=== PATIENT | male | born 1960 | race Asian ===

== ENCOUNTER 2020-08-08 19:54 | Emergency (ER) | payer OTHER, MEDICAID ==
[~2020-08-08] VITALS: Ht 162.6 cm; Wt 64.4 kg
[2020-08-08 20:03] VITALS: BP_SYST 99
[2020-08-08] MEDS ORDERED: TAMS-11 PO (20:19)
[2020-08-08] MEDS ORDERED: LIP40 PO (20:19)
[2020-08-08] MEDS ORDERED: DOCU-144 PO (20:19)
[2020-08-08] MEDS ORDERED: OXYB5TAB16 PO (20:19)
[2020-08-08] MEDS ORDERED: CLOZ50TA PO (20:19)
[2020-08-08] MEDS ORDERED: DIVA-74 PO (20:19)
[2020-08-08] MEDS ORDERED: GLIP5TAB26 PO (20:19)
[2020-08-08 21:27] LABS: RED BLOOD CELL COUNT(AUTO) 3.98 MIL/uL (4.2-6.2)
[2020-08-08 21:29] LABS: CALCIUM 9.2 mg/dL (8.4-11.0); CREATININE 2.6 mg/dL (0.55-1.30); POTASSIUM 4.2 mmol/L (3.5-5.1)
[2020-08-08 21:31] LABS: BASOPHILS # (AUTO) 0.1 K/uL (0.0-0.2); BASOPHILS % (AUTO) 0.8 % (0.0-2.0); EOSINOPHILS # (AUTO) 0.2 K/uL (0.0-0.4); HEMOGLOBIN 12.6 g/dL (14.0-18.0); LYMPHOCYTES % (AUTO) 26.9 % (20.5-51.5); MEAN CORPUSCULAR HEMOGLOBIN 32 pg (27-31); MEAN CORPUSCULAR HGB CONC 32 % (32-36); MEAN CORPUSCULAR VOLUME 98 fL (79.0-98.0); MONOCYTES # (AUTO) 0.4 K/uL (0.0-1.0); MONOCYTES % (AUTO) 5.7 % (1.7-9.3); NEUTROPHILS # (AUTO) 4.8 K/uL (1.8-7.7); NEUTROPHILS % (AUTO) 64.6 % (40.0-70.0); PLATELET COUNT (AUTO) 204 K/uL (130-430); RED CELL DISTRIBUTION WIDTH 16.8 % (9.0-15.0); WHITE BLOOD COUNT (AUTO) 7.5 K/uL (4.8-10.8)
[2020-08-08 21:34] LABS: ALBUMIN 2.9 g/dL (3.4-4.8); TOTAL BILIRUBIN 0.3 mg/dL (0.0-1.0)
[2020-08-08 21:59] LABS: INR 0.9 (0.80-1.20); PROTHROMBIN TIME 9.6 SECS (9.5-12.5)
[2020-08-08 22:12] LABS: C-REACTIVE PROTEIN QUANT 0.2 mg/dL (0-0.5)
[2020-08-08 22:34] VITALS: BP_SYST 110
== END 2020-08-08 22:34 ==
LOC: SED 19:54
DX: R10.9 Unspecified abdominal pain (principal); N28.9 Disorder of kidney and ureter, unspecified; J44.9 Chronic obstructive pulmonary disease, unspecified; E11.9 Type 2 diabetes mellitus without complications; Z79.899 Other long term (current) drug therapy
CPT/HCPCS: 36415; 71045; 76376; 80053; 82150-TC; 83605; 83615-TC; 83690-TC; 84484; 85025; 85610-TC; 85730-TC; 86140; 93005; 99285

== ENCOUNTER 2021-01-29 18:04 | Inpatient (IN) | payer OTHER, MEDICAID, SELFPAY ==
[~2021-01-29] VITALS: Ht 162.6 cm; Wt 68.0 kg
[~2021-01-29 18:04] MED LIST: CLOZ50TA PO; DIVA-74 PO; DOCU-144 PO; GLIP5TAB26 PO; LIP40 PO; OXYB5TAB16 PO; TAMS-11 PO
[2021-01-29 18:05] VITALS: BP_SYST 143
[2021-01-29 19:29] LABS: BASOPHILS % (AUTO) 0.3 % (0.0-2.0); HEMATOCRIT 35.4 % (36-54); HEMOGLOBIN 12.3 g/dL (14.0-18.0); LYMPHOCYTES # (AUTO) 1.2 K/uL (1.0-5.5); MEAN CORPUSCULAR HEMOGLOBIN 33 pg (27-31); MEAN CORPUSCULAR HGB CONC 35 % (32-36); MEAN CORPUSCULAR VOLUME 95 fL (79.0-98.0); MONOCYTES # (AUTO) 1.2 K/uL (0.0-1.0); MONOCYTES % (AUTO) 11.6 % (1.7-9.3); NEUTROPHILS # (AUTO) 7.9 K/uL (1.8-7.7); NEUTROPHILS % (AUTO) 76.1 % (40.0-70.0); PLATELET COUNT (AUTO) 486 K/uL (130-430); RED BLOOD CELL COUNT(AUTO) 3.73 MIL/uL (4.2-6.2); RED CELL DISTRIBUTION WIDTH 14.9 % (9.0-15.0); WHITE BLOOD COUNT (AUTO) 10.3 K/uL (4.8-10.8)
[2021-01-29 19:43] LABS: CALCIUM 11.3 mg/dL (8.4-11.0); CREATININE 2.34 mg/dL (0.55-1.30); POTASSIUM 4.1 mmol/L (3.5-5.1)
[2021-01-29 20:02] LABS: ALBUMIN 2.5 g/dL (3.4-4.8); TOTAL BILIRUBIN 0.2 mg/dL (0.0-1.0)
[2021-01-29 20:23] LABS: BILIRUBIN,URINE NEGATIVE (NEGATIVE); CLARITY/URINE CLEAR (CLEAR); COLOR,URINE YELLOW (YELLOW); GLUCOSE,URINE NEGATIVE (NEGATIVE); KETONES,URINE NEGATIVE (NEGATIVE); LEUKOCYTE ESTERASE ,URINE NEGATIVE (NEGATIVE); NITRITE, URINE NEGATIVE (NEGATIVE); PROTEIN URINE TRACE (NEGATIVE); UROBILINOGEN,URINE 0.2 (0.2-1.0)
[2021-01-29 20:24] LABS: C-REACTIVE PROTEIN QUANT 39.9 mg/dL (0-0.5); INR 0.9 (0.80-1.20); PROTHROMBIN TIME 9.7 SECS (9.5-12.5)
[2021-01-29 20:31] LABS: BLOOD, URINE TRACE (NEGATIVE)
[2021-01-29 20:40] LABS: FIBRINOGEN > 1000 mg/dL (200-400)
[2021-01-29 20:40] LABS: BACTERIA,URINE FEW /HPF (None Seen); RBC,URINE 0-3 /HPF (0-3); WBC,URINE NONE SEEN /HPF (0-3)
[2021-01-29] MEDS ORDERED: FOLI-43 PO (21:02)
[2021-01-29] MEDS ORDERED: ENOXAPARIN SODIUM 60 MG/0.6 ML SYRINGE SUBCUT ONE (21:30)
[2021-01-30] MEDS: D5NS 1,000 ML IV SCH ×3 (04:44→17:30)
[2021-01-30] MEDS ORDERED: ENOXAPARIN SODIUM 60 MG/0.6 ML SYRINGE ONE (04:51)
[2021-01-30 08:25] LABS: BASOPHILS % (AUTO) 0.4 % (0.0-2.0); HEMATOCRIT 34.6 % (36-54); HEMOGLOBIN 11.7 g/dL (14.0-18.0); LYMPHOCYTES # (AUTO) 1.2 K/uL (1.0-5.5); MEAN CORPUSCULAR HEMOGLOBIN 33 pg (27-31); MEAN CORPUSCULAR HGB CONC 34 % (32-36); MEAN CORPUSCULAR VOLUME 97 fL (79.0-98.0); MONOCYTES % (AUTO) 9.8 % (1.7-9.3); NEUTROPHILS # (AUTO) 7.6 K/uL (1.8-7.7); NEUTROPHILS % (AUTO) 77.8 % (40.0-70.0); PLATELET COUNT (AUTO) 426 K/uL (130-430); RED BLOOD CELL COUNT(AUTO) 3.56 MIL/uL (4.2-6.2); RED CELL DISTRIBUTION WIDTH 14.6 % (9.0-15.0); WHITE BLOOD COUNT (AUTO) 9.8 K/uL (4.8-10.8)
[2021-01-30 08:26] LABS: ALBUMIN 2.3 g/dL (3.4-4.8); CALCIUM 10.8 mg/dL (8.4-11.0); CREATININE 2.37 mg/dL (0.55-1.30); POTASSIUM 4.3 mmol/L (3.5-5.1); TOTAL BILIRUBIN 0.3 mg/dL (0.0-1.0)
[2021-01-30 12:00] VITALS: BP_SYST 143
[2021-01-30 16:09] VITALS: BP_SYST 141
[2021-01-30] MEDS ORDERED: COMMUNICATION ORDER XX ONE (17:45)
[2021-01-30] MEDS: glipiZIDE XL 5 MG TAB ( GLUCOTROL XL) PO SCH (18:00)
[2021-01-30 20:00] VITALS: BP_SYST 147
[2021-01-30] MEDS ORDERED: DEXTROSE 50% JECT 50 ML DISP.SYRIN IVP PRN (20:00)
[2021-01-30] MEDS: ATORVASTATIN 20 MG TABLET PO SCH (21:35)
[2021-01-30] MEDS: DIVALPROEX SODIUM 500 MG TABLET( DEPAKOTE) PO SCH (21:36)
[2021-01-30] MEDS: DOCUSATE SODIUM 100 MG CAPSULE PO SCH (21:37)
[2021-01-30] MEDS ORDERED: ALBUTEROL MDI INHALATION 8 GM INH INH PRN (22:45)
[2021-01-30] MEDS: FAMOTIDINE 20 MG TABLET PO SCH (22:45)
[2021-01-30] MEDS: INSULIN REGULAR, HUMAN 100 UNITS/ML, 10 ML VIAL (humuLIN R) SUBCUT PRN (23:32)
[2021-01-31] VITALS: BP_SYST 135
[2021-01-31] MEDS: D5NS 1,000 ML IV SCH (01:14)
[2021-01-31 08:00] VITALS: BP_SYST 153
[2021-01-31] MEDS: glipiZIDE XL 5 MG TAB ( GLUCOTROL XL) PO SCH ×2 (08:00→17:39)
[2021-01-31] MEDS: DOCUSATE SODIUM 100 MG CAPSULE PO SCH ×2 (10:54→21:23)
[2021-01-31] MEDS: FAMOTIDINE 20 MG TABLET PO SCH (10:54)
[2021-01-31] MEDS: OXYBUTYNIN CHLORIDE 5 MG TABLET PO SCH (10:54)
[2021-01-31] MEDS: TAMSULOSIN HCL 0.4 MG CAP PO SCH (10:54)
[2021-01-31] MEDS: DIVALPROEX SODIUM 500 MG TABLET( DEPAKOTE) PO SCH ×2 (10:54→21:22)
[2021-01-31] MEDS: FOLIC ACID 1 MG TABLET PO SCH (10:54)
[2021-01-31] MEDS: ENOXAPARIN SODIUM 30 MG/0.3 ML SYRINGE SUBCUT SCH (10:55)
[2021-01-31 11:34] VITALS: BP_SYST 140
[2021-01-31] MEDS: INSULIN REGULAR, HUMAN 100 UNITS/ML, 10 ML VIAL (humuLIN R) SUBCUT PRN ×2 (12:32→17:42)
[2021-01-31] MEDS ORDERED: INSULIN REGULAR, HUMAN 100 UNITS/ML, 10 ML VIAL SUBCUT ONE ×2 (12:45→15:15)
[2021-01-31] MEDS: NACL 0.9% 1,000 ML IV SCH (15:18)
[2021-01-31 15:35] VITALS: BP_SYST 130
[2021-01-31 20:00] VITALS: BP_SYST 140
[2021-01-31] MEDS: ATORVASTATIN 20 MG TABLET PO SCH (21:22)
[2021-01-31] MEDS ORDERED: ASCORBIC ACID 500 MG TABLET PO SCH (22:45)
[2021-01-31] MEDS: ASCORBIC ACID 500 MG TABLET PO SCH (23:47)
[2021-02-01 00:10] VITALS: BP_SYST 136
[2021-02-01] MEDS: NACL 0.9% 1,000 ML IV SCH ×3 (00:22→21:04)
[2021-02-01] MEDS: INSULIN REGULAR, HUMAN 100 UNITS/ML, 10 ML VIAL (humuLIN R) SUBCUT PRN ×6 (03:28→23:18)
[2021-02-01] MEDS: LORazepam 2 MG/ML VIAL IM PRN (06:36)
[2021-02-01 08:00] VITALS: BP_SYST 145
[2021-02-01] MEDS: TAMSULOSIN HCL 0.4 MG CAP PO SCH (09:00)
[2021-02-01] MEDS: glipiZIDE XL 5 MG TAB ( GLUCOTROL XL) PO SCH ×2 (09:00→18:27)
[2021-02-01] MEDS: CHOLECALCIFEROL (VITAMIN D3) 5,000 UNIT TABLET PO SCH (09:00)
[2021-02-01] MEDS: ASCORBIC ACID 500 MG TABLET PO SCH ×2 (09:00→21:03)
[2021-02-01] MEDS: DOCUSATE SODIUM 100 MG CAPSULE PO SCH ×2 (09:00→21:03)
[2021-02-01] MEDS: FAMOTIDINE 20 MG TABLET PO SCH (09:00)
[2021-02-01] MEDS: OXYBUTYNIN CHLORIDE 5 MG TABLET PO SCH (09:01)
[2021-02-01] MEDS: FOLIC ACID 1 MG TABLET PO SCH (09:01)
[2021-02-01] MEDS: DIVALPROEX SODIUM 500 MG TABLET( DEPAKOTE) PO SCH (09:02)
[2021-02-01] MEDS: ENOXAPARIN SODIUM 30 MG/0.3 ML SYRINGE SUBCUT SCH (09:03)
[2021-02-01 11:21] VITALS: BP_SYST 129
[2021-02-01 16:00] VITALS: BP_SYST 132
[2021-02-01 20:00] VITALS: BP_SYST 131
[2021-02-01] MEDS: ATORVASTATIN 20 MG TABLET PO SCH (21:03)
[2021-02-02] VITALS: BP_SYST 153
[2021-02-02 08:00] VITALS: BP_SYST 139
[2021-02-02] MEDS: glipiZIDE XL 5 MG TAB ( GLUCOTROL XL) PO SCH ×2 (08:00→18:00)
[2021-02-02] MEDS: TAMSULOSIN HCL 0.4 MG CAP PO SCH (08:37)
[2021-02-02] MEDS: DOCUSATE SODIUM 100 MG CAPSULE PO SCH ×2 (08:37→20:36)
[2021-02-02] MEDS: ASCORBIC ACID 500 MG TABLET PO SCH ×2 (08:37→20:36)
[2021-02-02] MEDS: OXYBUTYNIN CHLORIDE 5 MG TABLET PO SCH (08:37)
[2021-02-02] MEDS: FAMOTIDINE 20 MG TABLET PO SCH (08:37)
[2021-02-02] MEDS: FOLIC ACID 1 MG TABLET PO SCH (08:37)
[2021-02-02] MEDS: ENOXAPARIN SODIUM 30 MG/0.3 ML SYRINGE SUBCUT SCH (08:37)
[2021-02-02] MEDS: NACL 0.9% 1,000 ML IV SCH ×2 (08:39→18:30)
[2021-02-02] MEDS: CHOLECALCIFEROL (VITAMIN D3) 5,000 UNIT TABLET PO SCH (08:42)
[2021-02-02 11:40] VITALS: BP_SYST 149
[2021-02-02] MEDS: INSULIN REGULAR, HUMAN 100 UNITS/ML, 10 ML VIAL (humuLIN R) SUBCUT PRN ×3 (12:10→23:00)
[2021-02-02] MEDS: HALOPERIDOL 1 MG TABLET (HALDOL) PO PRN (13:03)
[2021-02-02] MEDS: HALOPERIDOL LACTATE 5 MG/ML VIAL IM PRN (14:12)
[2021-02-02] MEDS: LORazepam 2 MG/ML VIAL IM PRN (14:28)
[2021-02-02 15:40] VITALS: BP_SYST 155
[2021-02-02] MEDS: cefTRIAXone 1 GM in D5W 50 ML IV SCH (19:57)
[2021-02-02] MEDS: AZITHROMYCIN 250 MG in NS 250 ML IV SCH (20:35)
[2021-02-02] MEDS: ATORVASTATIN 20 MG TABLET PO SCH (20:36)
[2021-02-02 20:54] VITALS: BP_SYST 143
[2021-02-03 00:35] VITALS: BP_SYST 135
[2021-02-03 01:17] VITALS: BP_SYST 136
[2021-02-03] MEDS: LORazepam 2 MG/ML VIAL IM PRN (01:22)
[2021-02-03] MEDS: NACL 0.9% 1,000 ML IV SCH ×3 (03:32→22:34)
[2021-02-03 08:00] VITALS: BP_SYST 140
[2021-02-03] MEDS: FOLIC ACID 1 MG TABLET PO SCH (08:38)
[2021-02-03] MEDS: OXYBUTYNIN CHLORIDE 5 MG TABLET PO SCH (08:38)
[2021-02-03] MEDS: DOCUSATE SODIUM 100 MG CAPSULE PO SCH ×2 (08:38→22:22)
[2021-02-03] MEDS: TAMSULOSIN HCL 0.4 MG CAP PO SCH (08:38)
[2021-02-03] MEDS: FAMOTIDINE 20 MG TABLET PO SCH (08:38)
[2021-02-03] MEDS: glipiZIDE XL 5 MG TAB ( GLUCOTROL XL) PO SCH ×2 (08:38→18:03)
[2021-02-03] MEDS: CHOLECALCIFEROL (VITAMIN D3) 5,000 UNIT TABLET PO SCH (08:39)
[2021-02-03] MEDS: ASCORBIC ACID 500 MG TABLET PO SCH ×2 (08:39→22:22)
[2021-02-03] MEDS: ENOXAPARIN SODIUM 30 MG/0.3 ML SYRINGE SUBCUT SCH (08:39)
[2021-02-03] MEDS: INSULIN REGULAR, HUMAN 100 UNITS/ML, 10 ML VIAL (humuLIN R) SUBCUT PRN ×4 (10:56→22:33)
[2021-02-03 12:53] VITALS: BP_SYST 138
[2021-02-03 16:18] VITALS: BP_SYST 125
[2021-02-03] MEDS: cefTRIAXone 1 GM in D5W 50 ML IV SCH (22:19)
[2021-02-03] MEDS: AZITHROMYCIN 250 MG in NS 250 ML IV SCH (22:20)
[2021-02-03] MEDS: ATORVASTATIN 20 MG TABLET PO SCH (22:22)
[2021-02-04 00:38] VITALS: BP_SYST 130
[2021-02-04] MEDS: INSULIN REGULAR, HUMAN 100 UNITS/ML, 10 ML VIAL (humuLIN R) SUBCUT PRN ×5 (02:59→22:35)
[2021-02-04] MEDS: NACL 0.9% 1,000 ML IV SCH ×3 (05:00→17:08)
[2021-02-04 06:52] LABS: BASOPHILS % (AUTO) 0.2 % (0.0-2.0); EOSINOPHILS # (AUTO) 0.3 K/uL (0.0-0.4); EOSINOPHILS % (AUTO) 2.4 % (0.0-4.0); HEMATOCRIT 31.1 % (36-54); HEMOGLOBIN 10.1 g/dL (14.0-18.0); LYMPHOCYTES # (AUTO) 1.4 K/uL (1.0-5.5); LYMPHOCYTES % (AUTO) 12.2 % (20.5-51.5); MEAN CORPUSCULAR HEMOGLOBIN 33 pg (27-31); MEAN CORPUSCULAR HGB CONC 33 % (32-36); MEAN CORPUSCULAR VOLUME 100 fL (79.0-98.0); MONOCYTES # (AUTO) 0.5 K/uL (0.0-1.0); MONOCYTES % (AUTO) 4.4 % (1.7-9.3); NEUTROPHILS # (AUTO) 9.4 K/uL (1.8-7.7); NEUTROPHILS % (AUTO) 80.8 % (40.0-70.0); PLATELET COUNT (AUTO) 393 K/uL (130-430); RED CELL DISTRIBUTION WIDTH 15.7 % (9.0-15.0); WHITE BLOOD COUNT (AUTO) 11.7 K/uL (4.8-10.8)
[2021-02-04 07:27] LABS: CREATININE 2.26 mg/dL (0.55-1.30); POTASSIUM 4.6 mmol/L (3.5-5.1)
[2021-02-04 08:00] VITALS: BP_SYST 125
[2021-02-04] MEDS: CHOLECALCIFEROL (VITAMIN D3) 5,000 UNIT TABLET PO SCH (09:15)
[2021-02-04] MEDS: FOLIC ACID 1 MG TABLET PO SCH (09:16)
[2021-02-04] MEDS: ASCORBIC ACID 500 MG TABLET PO SCH ×2 (09:16→21:31)
[2021-02-04] MEDS: TAMSULOSIN HCL 0.4 MG CAP PO SCH (09:16)
[2021-02-04] MEDS: glipiZIDE XL 5 MG TAB ( GLUCOTROL XL) PO SCH ×2 (09:16→18:42)
[2021-02-04] MEDS: OXYBUTYNIN CHLORIDE 5 MG TABLET PO SCH (09:16)
[2021-02-04] MEDS: FAMOTIDINE 20 MG TABLET PO SCH (09:16)
[2021-02-04] MEDS: DOCUSATE SODIUM 100 MG CAPSULE PO SCH ×2 (09:17→21:31)
[2021-02-04] MEDS: ENOXAPARIN SODIUM 30 MG/0.3 ML SYRINGE SUBCUT SCH (09:22)
[2021-02-04 12:00] VITALS: BP_SYST 124
[2021-02-04] MEDS ORDERED: NS 500 ML IV ONE (14:45)
[2021-02-04 16:00] VITALS: BP_SYST 127
[2021-02-04 19:24] LABS: BILIRUBIN,URINE NEGATIVE (NEGATIVE); BLOOD, URINE 2+ (NEGATIVE); CLARITY/URINE CLEAR (CLEAR); COLOR,URINE YELLOW (YELLOW); GLUCOSE,URINE NEGATIVE (NEGATIVE); KETONES,URINE NEGATIVE (NEGATIVE); LEUKOCYTE ESTERASE ,URINE NEGATIVE (NEGATIVE); NITRITE, URINE NEGATIVE (NEGATIVE); PROTEIN URINE NEGATIVE (NEGATIVE); UROBILINOGEN,URINE 0.2 (0.2-1.0)
[2021-02-04 19:33] LABS: BACTERIA,URINE RARE /HPF (None Seen); WBC,URINE 0-3 /HPF (0-3)
[2021-02-04] MEDS: cefTRIAXone 1 GM in D5W 50 ML IV SCH (21:25)
[2021-02-04] MEDS: ATORVASTATIN 20 MG TABLET PO SCH (21:31)
[2021-02-04] MEDS: AZITHROMYCIN 250 MG in NS 250 ML IV SCH (21:31)
[2021-02-04] MEDS: LORazepam 2 MG/ML VIAL IM PRN (22:26)
[2021-02-04] MEDS ORDERED: OXYMETAZOLINE HCL 0.05% NASAL SPRAY NS PRN (23:00)
[2021-02-04] MEDS: 0.45% NACL 1,000 ML IV SCH (23:57)
[2021-02-05] VITALS: BP_SYST 129
[2021-02-05] MEDS: INSULIN REGULAR, HUMAN 100 UNITS/ML, 10 ML VIAL (humuLIN R) SUBCUT PRN ×4 (02:36→18:48)
[2021-02-05] MEDS: 0.45% NACL 1,000 ML IV SCH (04:13)
[2021-02-05] MEDS: LORazepam 2 MG/ML VIAL IVP PRN (04:28)
[2021-02-05 06:54] LABS: BASOPHILS % (AUTO) 0.3 % (0.0-2.0); EOSINOPHILS # (AUTO) 0.3 K/uL (0.0-0.4); EOSINOPHILS % (AUTO) 2.4 % (0.0-4.0); HEMATOCRIT 35.5 % (36-54); HEMOGLOBIN 11.1 g/dL (14.0-18.0); LYMPHOCYTES # (AUTO) 1.5 K/uL (1.0-5.5); LYMPHOCYTES % (AUTO) 13.4 % (20.5-51.5); MEAN CORPUSCULAR HEMOGLOBIN 32 pg (27-31); MEAN CORPUSCULAR HGB CONC 31 % (32-36); MEAN CORPUSCULAR VOLUME 103 fL (79.0-98.0); MONOCYTES # (AUTO) 0.6 K/uL (0.0-1.0); MONOCYTES % (AUTO) 5.4 % (1.7-9.3); NEUTROPHILS % (AUTO) 78.5 % (40.0-70.0); PLATELET COUNT (AUTO) 360 K/uL (130-430); RED BLOOD CELL COUNT(AUTO) 3.44 MIL/uL (4.2-6.2); WHITE BLOOD COUNT (AUTO) 11.4 K/uL (4.8-10.8)
[2021-02-05 07:37] LABS: ALBUMIN 2.1 g/dL (3.4-4.8); CREATININE 2.22 mg/dL (0.55-1.30); PHOSPHORUS 3.5 mg/dL (2.7-4.5); POTASSIUM 4.2 mmol/L (3.5-5.1); THYROID STIMULATING HORMONE 0.44 uIu/mL (0.36-3.74); TOTAL BILIRUBIN 0.1 mg/dL (0.0-1.0)
[2021-02-05 07:44] VITALS: BP_SYST 124
[2021-02-05] MEDS: D5W 1,000 ML IV SCH ×2 (09:22→17:39)
[2021-02-05] MEDS: ENOXAPARIN SODIUM 30 MG/0.3 ML SYRINGE SUBCUT SCH (09:27)
[2021-02-05] MEDS: CHOLECALCIFEROL (VITAMIN D3) 5,000 UNIT TABLET PO SCH (09:28)
[2021-02-05] MEDS: FAMOTIDINE 20 MG TABLET PO SCH (09:28)
[2021-02-05] MEDS: glipiZIDE XL 5 MG TAB ( GLUCOTROL XL) PO SCH ×2 (09:28→17:55)
[2021-02-05] MEDS: DOCUSATE SODIUM 100 MG CAPSULE PO SCH ×2 (09:28→21:23)
[2021-02-05] MEDS: FOLIC ACID 1 MG TABLET PO SCH (09:28)
[2021-02-05] MEDS: HALOPERIDOL 1 MG TABLET (HALDOL) PO PRN ×3 (09:28→21:32)
[2021-02-05] MEDS: TAMSULOSIN HCL 0.4 MG CAP PO SCH (09:28)
[2021-02-05] MEDS: ASCORBIC ACID 500 MG TABLET PO SCH ×2 (09:28→21:23)
[2021-02-05] MEDS: OXYBUTYNIN CHLORIDE 5 MG TABLET PO SCH (09:28)
[2021-02-05] MEDS: FLUTICASONE PROPIONATE 50 mCg/SPRAY 16 GM NS SCH ×2 (10:26→21:24)
[2021-02-05 12:00] VITALS: BP_SYST 126
[2021-02-05] MEDS ORDERED: AMOX-426 PO (14:56)
[2021-02-05] MEDS ORDERED: OXYM15MI9 NS (14:56)
[2021-02-05] MEDS ORDERED: FLUT16SP16 NS (14:58)
[2021-02-05] MEDS ORDERED: MUCINEX (14:59)
[2021-02-05] MEDS ORDERED: GUAI-723 PO (15:00)
[2021-02-05 16:09] VITALS: BP_SYST 126
[2021-02-05 19:30] VITALS: BP_SYST 132
[2021-02-05] MEDS: cefTRIAXone 1 GM in D5W 50 ML IV SCH (21:21)
[2021-02-05] MEDS: ATORVASTATIN 20 MG TABLET PO SCH (21:23)
[2021-02-06 01:10] VITALS: BP_SYST 118
[2021-02-06] MEDS: LORazepam 2 MG/ML VIAL IVP PRN ×4 (02:18→22:23)
[2021-02-06] MEDS: INSULIN REGULAR, HUMAN 100 UNITS/ML, 10 ML VIAL (humuLIN R) SUBCUT PRN ×5 (02:26→22:07)
[2021-02-06] MEDS: D5W 1,000 ML IV SCH ×2 (04:19→14:00)
[2021-02-06 07:26] LABS: BASOPHILS % (AUTO) 0.4 % (0.0-2.0); EOSINOPHILS # (AUTO) 0.2 K/uL (0.0-0.4); EOSINOPHILS % (AUTO) 2.3 % (0.0-4.0); HEMATOCRIT 33.5 % (36-54); HEMOGLOBIN 10.9 g/dL (14.0-18.0); LYMPHOCYTES # (AUTO) 1.7 K/uL (1.0-5.5); LYMPHOCYTES % (AUTO) 17.5 % (20.5-51.5); MEAN CORPUSCULAR HEMOGLOBIN 33 pg (27-31); MEAN CORPUSCULAR HGB CONC 33 % (32-36); MEAN CORPUSCULAR VOLUME 101 fL (79.0-98.0); MONOCYTES # (AUTO) 0.4 K/uL (0.0-1.0); MONOCYTES % (AUTO) 4.5 % (1.7-9.3); NEUTROPHILS # (AUTO) 7.4 K/uL (1.8-7.7); NEUTROPHILS % (AUTO) 75.3 % (40.0-70.0); PLATELET COUNT (AUTO) 333 K/uL (130-430); RED BLOOD CELL COUNT(AUTO) 3.33 MIL/uL (4.2-6.2); RED CELL DISTRIBUTION WIDTH 15.7 % (9.0-15.0); WHITE BLOOD COUNT (AUTO) 9.8 K/uL (4.8-10.8)
[2021-02-06 08:00] VITALS: BP_SYST 124
[2021-02-06 08:12] LABS: CALCIUM 9.8 mg/dL (8.4-11.0); CREATININE 2.31 mg/dL (0.55-1.30); POTASSIUM 4.1 mmol/L (3.5-5.1)
[2021-02-06] MEDS: OXYBUTYNIN CHLORIDE 5 MG TABLET PO SCH (08:39)
[2021-02-06] MEDS: CHOLECALCIFEROL (VITAMIN D3) 5,000 UNIT TABLET PO SCH (08:39)
[2021-02-06] MEDS: TAMSULOSIN HCL 0.4 MG CAP PO SCH (08:39)
[2021-02-06] MEDS: glipiZIDE XL 5 MG TAB ( GLUCOTROL XL) PO SCH ×2 (08:39→16:23)
[2021-02-06] MEDS: DOCUSATE SODIUM 100 MG CAPSULE PO SCH ×2 (08:39→21:47)
[2021-02-06] MEDS: FOLIC ACID 1 MG TABLET PO SCH (08:40)
[2021-02-06] MEDS: FAMOTIDINE 20 MG TABLET PO SCH (08:40)
[2021-02-06] MEDS: ASCORBIC ACID 500 MG TABLET PO SCH ×2 (08:40→21:47)
[2021-02-06] MEDS: ENOXAPARIN SODIUM 30 MG/0.3 ML SYRINGE SUBCUT SCH (08:42)
[2021-02-06] MEDS: FLUTICASONE PROPIONATE 50 mCg/SPRAY 16 GM NS SCH ×2 (09:00→21:49)
[2021-02-06] MEDS: HALOPERIDOL 1 MG TABLET (HALDOL) PO PRN ×2 (12:40→12:43)
[2021-02-06 12:46] VITALS: BP_SYST 101
[2021-02-06 16:40] VITALS: BP_SYST 104
[2021-02-06 20:15] VITALS: BP_SYST 123
[2021-02-06] MEDS: ATORVASTATIN 20 MG TABLET PO SCH (21:47)
[2021-02-06] MEDS: cefTRIAXone 1 GM in D5W 50 ML IV SCH (21:50)
[2021-02-07 00:19] VITALS: BP_SYST 127
[2021-02-07] MEDS: INSULIN REGULAR, HUMAN 100 UNITS/ML, 10 ML VIAL (humuLIN R) SUBCUT PRN ×6 (03:15→23:16)
[2021-02-07] MEDS: D5W 1,000 ML IV SCH ×3 (03:16→23:13)
[2021-02-07] MEDS: LORazepam 2 MG/ML VIAL IVP PRN ×2 (05:45→15:46)
[2021-02-07 06:50] LABS: BASOPHILS % (AUTO) 0.5 % (0.0-2.0); EOSINOPHILS # (AUTO) 0.2 K/uL (0.0-0.4); EOSINOPHILS % (AUTO) 2.8 % (0.0-4.0); HEMATOCRIT 33.5 % (36-54); HEMOGLOBIN 10.8 g/dL (14.0-18.0); LYMPHOCYTES # (AUTO) 1.6 K/uL (1.0-5.5); MEAN CORPUSCULAR HEMOGLOBIN 32 pg (27-31); MEAN CORPUSCULAR HGB CONC 32 % (32-36); MEAN CORPUSCULAR VOLUME 98 fL (79.0-98.0); MONOCYTES # (AUTO) 0.4 K/uL (0.0-1.0); MONOCYTES % (AUTO) 4.9 % (1.7-9.3); NEUTROPHILS # (AUTO) 5.8 K/uL (1.8-7.7); NEUTROPHILS % (AUTO) 71.8 % (40.0-70.0); PLATELET COUNT (AUTO) 325 K/uL (130-430); RED BLOOD CELL COUNT(AUTO) 3.41 MIL/uL (4.2-6.2); RED CELL DISTRIBUTION WIDTH 15.5 % (9.0-15.0); WHITE BLOOD COUNT (AUTO) 8.1 K/uL (4.8-10.8)
[2021-02-07 07:21] LABS: CALCIUM 9.6 mg/dL (8.4-11.0); CREATININE 2.35 mg/dL (0.55-1.30); POTASSIUM 4.2 mmol/L (3.5-5.1)
[2021-02-07] MEDS: DOCUSATE SODIUM 100 MG CAPSULE PO SCH ×2 (08:39→23:14)
[2021-02-07] MEDS: TAMSULOSIN HCL 0.4 MG CAP PO SCH (08:39)
[2021-02-07] MEDS: CHOLECALCIFEROL (VITAMIN D3) 5,000 UNIT TABLET PO SCH (08:40)
[2021-02-07] MEDS: FOLIC ACID 1 MG TABLET PO SCH (08:40)
[2021-02-07] MEDS: OXYBUTYNIN CHLORIDE 5 MG TABLET PO SCH (08:40)
[2021-02-07] MEDS: ASCORBIC ACID 500 MG TABLET PO SCH ×2 (08:40→23:14)
[2021-02-07] MEDS: FAMOTIDINE 20 MG TABLET PO SCH (08:40)
[2021-02-07] MEDS: ENOXAPARIN SODIUM 30 MG/0.3 ML SYRINGE SUBCUT SCH (08:41)
[2021-02-07] MEDS: glipiZIDE XL 5 MG TAB ( GLUCOTROL XL) PO SCH ×2 (08:43→18:41)
[2021-02-07] MEDS: FLUTICASONE PROPIONATE 50 mCg/SPRAY 16 GM NS SCH ×2 (08:43→23:13)
[2021-02-07] MEDS: HALOPERIDOL 1 MG TABLET (HALDOL) PO PRN (08:44)
[2021-02-07] MEDS: HALOPERIDOL LACTATE 5 MG/ML VIAL IM PRN (10:59)
[2021-02-07 12:00] VITALS: BP_SYST 125
[2021-02-07 16:19] VITALS: BP_SYST 126
[2021-02-07 21:00] VITALS: BP_SYST 135
[2021-02-07] MEDS: cefTRIAXone 1 GM in D5W 50 ML IV SCH (23:12)
[2021-02-07] MEDS: ATORVASTATIN 20 MG TABLET PO SCH (23:14)
[2021-02-08 01:39] VITALS: BP_SYST 107
[2021-02-08] MEDS: INSULIN REGULAR, HUMAN 100 UNITS/ML, 10 ML VIAL (humuLIN R) SUBCUT PRN ×3 (06:30→16:14)
[2021-02-08 08:00] VITALS: BP_SYST 104
[2021-02-08 08:28] LABS: BASOPHILS % (AUTO) 0.6 % (0.0-2.0); EOSINOPHILS # (AUTO) 0.2 K/uL (0.0-0.4); EOSINOPHILS % (AUTO) 2.2 % (0.0-4.0); HEMATOCRIT 35.3 % (36-54); HEMOGLOBIN 11.3 g/dL (14.0-18.0); LYMPHOCYTES # (AUTO) 1.8 K/uL (1.0-5.5); LYMPHOCYTES % (AUTO) 23.5 % (20.5-51.5); MEAN CORPUSCULAR HEMOGLOBIN 32 pg (27-31); MEAN CORPUSCULAR HGB CONC 32 % (32-36); MEAN CORPUSCULAR VOLUME 100 fL (79.0-98.0); MONOCYTES # (AUTO) 0.3 K/uL (0.0-1.0); MONOCYTES % (AUTO) 4.5 % (1.7-9.3); NEUTROPHILS # (AUTO) 5.2 K/uL (1.8-7.7); NEUTROPHILS % (AUTO) 69.2 % (40.0-70.0); PLATELET COUNT (AUTO) 339 K/uL (130-430); RED BLOOD CELL COUNT(AUTO) 3.53 MIL/uL (4.2-6.2); RED CELL DISTRIBUTION WIDTH 15.2 % (9.0-15.0); WHITE BLOOD COUNT (AUTO) 7.5 K/uL (4.8-10.8)
[2021-02-08 09:02] LABS: ALBUMIN 2.1 g/dL (3.4-4.8); CALCIUM 9.7 mg/dL (8.4-11.0); CREATININE 2.45 mg/dL (0.55-1.30); POTASSIUM 4.4 mmol/L (3.5-5.1); TOTAL BILIRUBIN 0.4 mg/dL (0.0-1.0)
[2021-02-08] MEDS: OXYBUTYNIN CHLORIDE 5 MG TABLET PO SCH (09:06)
[2021-02-08] MEDS: TAMSULOSIN HCL 0.4 MG CAP PO SCH (09:06)
[2021-02-08] MEDS: CHOLECALCIFEROL (VITAMIN D3) 5,000 UNIT TABLET PO SCH (09:06)
[2021-02-08] MEDS: ASCORBIC ACID 500 MG TABLET PO SCH ×2 (09:06→20:37)
[2021-02-08] MEDS: DOCUSATE SODIUM 100 MG CAPSULE PO SCH ×2 (09:07→20:37)
[2021-02-08] MEDS: FAMOTIDINE 20 MG TABLET PO SCH (09:07)
[2021-02-08] MEDS: FOLIC ACID 1 MG TABLET PO SCH (09:07)
[2021-02-08] MEDS: ENOXAPARIN SODIUM 30 MG/0.3 ML SYRINGE SUBCUT SCH (09:17)
[2021-02-08] MEDS: FLUTICASONE PROPIONATE 50 mCg/SPRAY 16 GM NS SCH ×2 (09:21→20:38)
[2021-02-08] MEDS: glipiZIDE XL 5 MG TAB ( GLUCOTROL XL) PO SCH ×2 (10:20→18:54)
[2021-02-08] MEDS: LORazepam 2 MG/ML VIAL IVP PRN (10:21)
[2021-02-08] MEDS: D5W 1,000 ML IV SCH ×2 (11:34→20:36)
[2021-02-08 12:00] VITALS: BP_SYST 105
[2021-02-08 16:00] VITALS: BP_SYST 93
[2021-02-08] MEDS: cefTRIAXone 1 GM in D5W 50 ML IV SCH (20:36)
[2021-02-08] MEDS: ATORVASTATIN 20 MG TABLET PO SCH (20:37)
[2021-02-08 22:00] VITALS: BP_SYST 119
[2021-02-09] MEDS: INSULIN REGULAR, HUMAN 100 UNITS/ML, 10 ML VIAL (humuLIN R) SUBCUT PRN ×5 (00:09→18:54)
[2021-02-09] MEDS: D5W 1,000 ML IV SCH ×3 (00:10→22:08)
[2021-02-09 00:21] VITALS: BP_SYST 100
[2021-02-09] MEDS: LORazepam 2 MG/ML VIAL IVP PRN (02:45)
[2021-02-09 06:33] LABS: BASOPHILS # (AUTO) 0.1 K/uL (0.0-0.2); BASOPHILS % (AUTO) 0.7 % (0.0-2.0); EOSINOPHILS # (AUTO) 0.2 K/uL (0.0-0.4); EOSINOPHILS % (AUTO) 2.3 % (0.0-4.0); HEMATOCRIT 32.8 % (36-54); HEMOGLOBIN 10.7 g/dL (14.0-18.0); LYMPHOCYTES # (AUTO) 2.4 K/uL (1.0-5.5); MEAN CORPUSCULAR HEMOGLOBIN 32 pg (27-31); MEAN CORPUSCULAR HGB CONC 33 % (32-36); MEAN CORPUSCULAR VOLUME 97 fL (79.0-98.0); MONOCYTES # (AUTO) 0.5 K/uL (0.0-1.0); MONOCYTES % (AUTO) 5.2 % (1.7-9.3); NEUTROPHILS # (AUTO) 6.2 K/uL (1.8-7.7); NEUTROPHILS % (AUTO) 65.8 % (40.0-70.0); PLATELET COUNT (AUTO) 322 K/uL (130-430); RED BLOOD CELL COUNT(AUTO) 3.37 MIL/uL (4.2-6.2); RED CELL DISTRIBUTION WIDTH 15.2 % (9.0-15.0); WHITE BLOOD COUNT (AUTO) 9.4 K/uL (4.8-10.8)
[2021-02-09 07:02] LABS: ALBUMIN 2.2 g/dL (3.4-4.8); CALCIUM 9.5 mg/dL (8.4-11.0); CREATININE 3.01 mg/dL (0.55-1.30); POTASSIUM 4.6 mmol/L (3.5-5.1); TOTAL BILIRUBIN 0.2 mg/dL (0.0-1.0)
[2021-02-09] MEDS: ENOXAPARIN SODIUM 30 MG/0.3 ML SYRINGE SUBCUT SCH (08:31)
[2021-02-09] MEDS: FOLIC ACID 1 MG TABLET PO SCH (08:32)
[2021-02-09] MEDS: OXYBUTYNIN CHLORIDE 5 MG TABLET PO SCH (08:32)
[2021-02-09] MEDS: ASCORBIC ACID 500 MG TABLET PO SCH ×2 (08:32→22:06)
[2021-02-09] MEDS: FAMOTIDINE 20 MG TABLET PO SCH (08:32)
[2021-02-09] MEDS: TAMSULOSIN HCL 0.4 MG CAP PO SCH (08:32)
[2021-02-09] MEDS: glipiZIDE XL 5 MG TAB ( GLUCOTROL XL) PO SCH ×2 (08:32→18:50)
[2021-02-09] MEDS: DOCUSATE SODIUM 100 MG CAPSULE PO SCH ×2 (08:32→22:07)
[2021-02-09] MEDS: FLUTICASONE PROPIONATE 50 mCg/SPRAY 16 GM NS SCH ×2 (08:33→22:07)
[2021-02-09] MEDS: CHOLECALCIFEROL (VITAMIN D3) 5,000 UNIT TABLET PO SCH (08:34)
[2021-02-09 12:00] VITALS: BP_SYST 109
[2021-02-09 16:11] VITALS: BP_SYST 111
[2021-02-09 20:00] VITALS: BP_SYST 96
[2021-02-09] MEDS ORDERED: ASPIRIN 81 MG TAB.CHEW PO ONE (20:00)
[2021-02-09] MEDS: ATORVASTATIN 20 MG TABLET PO SCH (22:07)
[2021-02-10] VITALS: BP_SYST 113
[2021-02-10] MEDS ORDERED: INSULIN GLARGINE 100 UNITS/ML 10 ML VIAL SUBCUT ONE (00:30)
[2021-02-10] MEDS: 0.45% NACL 1,000 ML IV SCH ×2 (01:23→15:32)
[2021-02-10] MEDS: INSULIN NPH/REGULAR 70-30, 100 UNITS/ML, 10 ML VIAL SUBCUT SCH ×3 (01:27→17:19)
[2021-02-10] MEDS: INSULIN REGULAR, HUMAN 100 UNITS/ML, 10 ML VIAL (humuLIN R) SUBCUT PRN ×4 (03:07→15:27)
[2021-02-10 07:11] LABS: BASOPHILS # (AUTO) 0.1 K/uL (0.0-0.2); BASOPHILS % (AUTO) 0.8 % (0.0-2.0); EOSINOPHILS # (AUTO) 0.2 K/uL (0.0-0.4); EOSINOPHILS % (AUTO) 1.6 % (0.0-4.0); HEMATOCRIT 36.5 % (36-54); HEMOGLOBIN 11.8 g/dL (14.0-18.0); LYMPHOCYTES # (AUTO) 2.1 K/uL (1.0-5.5); LYMPHOCYTES % (AUTO) 21.3 % (20.5-51.5); MEAN CORPUSCULAR HEMOGLOBIN 31 pg (27-31); MEAN CORPUSCULAR HGB CONC 32 % (32-36); MEAN CORPUSCULAR VOLUME 97 fL (79.0-98.0); MONOCYTES # (AUTO) 0.5 K/uL (0.0-1.0); MONOCYTES % (AUTO) 5.2 % (1.7-9.3); NEUTROPHILS # (AUTO) 6.9 K/uL (1.8-7.7); NEUTROPHILS % (AUTO) 71.1 % (40.0-70.0); PLATELET COUNT (AUTO) 286 K/uL (130-430); RED BLOOD CELL COUNT(AUTO) 3.78 MIL/uL (4.2-6.2); RED CELL DISTRIBUTION WIDTH 15.2 % (9.0-15.0); WHITE BLOOD COUNT (AUTO) 9.7 K/uL (4.8-10.8)
[2021-02-10 07:24] LABS: ALBUMIN 2.3 g/dL (3.4-4.8); CREATININE 2.73 mg/dL (0.55-1.30); POTASSIUM 4.9 mmol/L (3.5-5.1); TOTAL BILIRUBIN 0.2 mg/dL (0.0-1.0)
[2021-02-10 08:00] VITALS: BP_SYST 110
[2021-02-10] MEDS: CHOLECALCIFEROL (VITAMIN D3) 5,000 UNIT TABLET PO SCH (08:28)
[2021-02-10] MEDS: DOCUSATE SODIUM 100 MG CAPSULE PO SCH ×2 (08:28→22:21)
[2021-02-10] MEDS: ASCORBIC ACID 500 MG TABLET PO SCH ×2 (08:29→22:21)
[2021-02-10] MEDS: FOLIC ACID 1 MG TABLET PO SCH (08:29)
[2021-02-10] MEDS: OXYBUTYNIN CHLORIDE 5 MG TABLET PO SCH (08:29)
[2021-02-10] MEDS: TAMSULOSIN HCL 0.4 MG CAP PO SCH (08:30)
[2021-02-10] MEDS: glipiZIDE XL 5 MG TAB ( GLUCOTROL XL) PO SCH ×2 (08:30→17:27)
[2021-02-10] MEDS: FAMOTIDINE 20 MG TABLET PO SCH (08:30)
[2021-02-10] MEDS: FLUTICASONE PROPIONATE 50 mCg/SPRAY 16 GM NS SCH (08:31)
[2021-02-10] MEDS: ENOXAPARIN SODIUM 30 MG/0.3 ML SYRINGE SUBCUT SCH (08:34)
[2021-02-10 10:40] LABS: CREATININE, URINE 15.5 mg/dL; MICROALBUMIN URINE RANDOM 44.2 ug/ml (NOT ESTABLISHED)
[2021-02-10 12:00] VITALS: BP_SYST 103
[2021-02-10 16:28] VITALS: BP_SYST 105
[2021-02-10] MEDS: ATORVASTATIN 20 MG TABLET PO SCH (22:21)
[2021-02-11 00:43] VITALS: BP_SYST 127
[2021-02-11] MEDS: 0.45% NACL 1,000 ML IV SCH ×3 (01:47→21:15)
[2021-02-11] MEDS: HALOPERIDOL LACTATE 5 MG/ML VIAL IM PRN (02:30)
[2021-02-11 07:29] LABS: CALCIUM 9.9 mg/dL (8.4-11.0); CREATININE 2.51 mg/dL (0.55-1.30); POTASSIUM 5.4 mmol/L (3.5-5.1)
[2021-02-11] MEDS: INSULIN NPH/REGULAR 70-30, 100 UNITS/ML, 10 ML VIAL SUBCUT SCH ×2 (07:59→17:22)
[2021-02-11] MEDS: INSULIN REGULAR, HUMAN 100 UNITS/ML, 10 ML VIAL (humuLIN R) SUBCUT PRN ×3 (08:03→16:31)
[2021-02-11] MEDS: ASCORBIC ACID 500 MG TABLET PO SCH ×2 (09:21→21:11)
[2021-02-11] MEDS: DOCUSATE SODIUM 100 MG CAPSULE PO SCH ×2 (09:21→21:11)
[2021-02-11] MEDS: glipiZIDE XL 5 MG TAB ( GLUCOTROL XL) PO SCH ×2 (09:21→17:22)
[2021-02-11] MEDS: ENOXAPARIN SODIUM 30 MG/0.3 ML SYRINGE SUBCUT SCH (09:21)
[2021-02-11] MEDS: CHOLECALCIFEROL (VITAMIN D3) 5,000 UNIT TABLET PO SCH (09:22)
[2021-02-11] MEDS: TAMSULOSIN HCL 0.4 MG CAP PO SCH (09:22)
[2021-02-11] MEDS: FOLIC ACID 1 MG TABLET PO SCH (09:22)
[2021-02-11] MEDS: FAMOTIDINE 20 MG TABLET PO SCH (09:22)
[2021-02-11] MEDS: FLUTICASONE PROPIONATE 50 mCg/SPRAY 16 GM NS SCH ×2 (09:27→21:10)
[2021-02-11] MEDS: OXYBUTYNIN CHLORIDE 5 MG TABLET PO SCH (09:28)
[2021-02-11 12:39] VITALS: BP_SYST 119
[2021-02-11] MEDS: HALOPERIDOL 1 MG TABLET (HALDOL) PO PRN (14:03)
[2021-02-11 16:50] VITALS: BP_SYST 122
[2021-02-11] MEDS ORDERED: SODIUM BICARBONATE 650 MG TABLET PO ONE (19:00)
[2021-02-11] MEDS ORDERED: SODIUM ZIRCONIUM CYCLOSILICATE 10 GM POWD.PACK PO ONE (19:15)
[2021-02-11] MEDS: ATORVASTATIN 20 MG TABLET PO SCH (21:11)
[2021-02-12 00:44] VITALS: BP_SYST 104
[2021-02-12] MEDS: HALOPERIDOL LACTATE 5 MG/ML VIAL IM PRN (01:31)
[2021-02-12] MEDS ORDERED: INSULIN NPH/REGULAR 70-30, 100 UNITS/ML, 10 ML VIAL SUBCUT SCH (07:00)
[2021-02-12 07:17] LABS: CALCIUM 9.1 mg/dL (8.4-11.0); CREATININE 2.17 mg/dL (0.55-1.30); POTASSIUM 4.2 mmol/L (3.5-5.1)
[2021-02-12 08:00] VITALS: BP_SYST 136
[2021-02-12] MEDS ORDERED: SODIUM BICARBONATE 650 MG TABLET PO SCH (09:00)
[2021-02-12] MEDS: INSULIN REGULAR, HUMAN 100 UNITS/ML, 10 ML VIAL (humuLIN R) SUBCUT PRN ×2 (09:12→10:49)
[2021-02-12] MEDS: FOLIC ACID 1 MG TABLET PO SCH (09:13)
[2021-02-12] MEDS: glipiZIDE XL 5 MG TAB ( GLUCOTROL XL) PO SCH (09:13)
[2021-02-12] MEDS: DOCUSATE SODIUM 100 MG CAPSULE PO SCH (09:13)
[2021-02-12] MEDS: OXYBUTYNIN CHLORIDE 5 MG TABLET PO SCH (09:13)
[2021-02-12] MEDS: TAMSULOSIN HCL 0.4 MG CAP PO SCH (09:14)
[2021-02-12] MEDS: CHOLECALCIFEROL (VITAMIN D3) 5,000 UNIT TABLET PO SCH (09:14)
[2021-02-12] MEDS: ASCORBIC ACID 500 MG TABLET PO SCH (09:14)
[2021-02-12] MEDS: FAMOTIDINE 20 MG TABLET PO SCH (09:14)
[2021-02-12] MEDS: 0.45% NACL 1,000 ML IV SCH (09:15)
[2021-02-12] MEDS: ENOXAPARIN SODIUM 30 MG/0.3 ML SYRINGE SUBCUT SCH (09:18)
[2021-02-12] MEDS: FLUTICASONE PROPIONATE 50 mCg/SPRAY 16 GM NS SCH (10:44)
[2021-02-12 11:24] VITALS: BP_SYST 154
[2021-02-12 15:32] VITALS: BP_SYST 149
[2021-02-12 16:17] VITALS: BP_SYST 149
== END 2021-02-12 08:05 | DRG 70 ==
LOC: SED 18:04 → STU 21:20 → SMU 02-03 23:51
PROVIDERS: ADMIT Internal Medicine; ATTEND Internal Medicine
DX: G93.41 Metabolic encephalopathy (principal); E43 Unspecified severe protein-calorie malnutrition; R65.11 Systemic inflammatory response syndrome (SIRS) of non-infectious origin with acute organ dysfunction; J18.9 Pneumonia, unspecified organism; R40.2224 Coma scale, best verbal response, incomprehensible words, 24 hours or more after hospital admission; E87.0 Hyperosmolality and hypernatremia; J44.0 Chronic obstructive pulmonary disease with (acute) lower respiratory infection; N17.9 Acute kidney failure, unspecified; R09.02 Hypoxemia; F03.90 Unspecified dementia, unspecified severity, without behavioral disturbance, psychotic disturbance, mood disturbance, and anxiety; J32.4 Chronic pansinusitis; E78.5 Hyperlipidemia, unspecified; D63.8 Anemia in other chronic diseases classified elsewhere; E83.52 Hypercalcemia; F32.9 Major depressive disorder, single episode, unspecified; G40.909 Epilepsy, unspecified, not intractable, without status epilepticus; L40.9 Psoriasis, unspecified; Z20.822 Contact with and (suspected) exposure to COVID-19; I12.9 Hypertensive chronic kidney disease with stage 1 through stage 4 chronic kidney disease, or unspecified chronic kidney disease; N18.9 Chronic kidney disease, unspecified; E78.00 Pure hypercholesterolemia, unspecified; E86.0 Dehydration; M65.9 Synovitis and tenosynovitis, unspecified; R32 Unspecified urinary incontinence; Z68.25 Body mass index [BMI] 25.0-25.9, adult; Z79.01 Long term (current) use of anticoagulants
CPT/HCPCS: 36415; 36600; 70450-TC; 71045; 71250-TC; 76376; 76770; 80048; 80053; 81000; 82043; 82306; 82550; 82570; 82728; 82803-TC; 82962; 83036; 83605; 83615; 83735; 83880; 83935; 84100; 84302; 84443; 84484; 85025; 85379; 85384; 85610-TC; 85730-TC; 86140; 86886; 86900; 86901; 87040-TC; 87081; 87086; 93005; 96372; 99291; G0378; J0456; J0696; J1630; J1650; J1815; J2060; J7050; J7060; U0003

== ENCOUNTER 2021-07-26 02:40 | Inpatient (IN) | payer OTHER, MEDICAID, SELFPAY ==
[~2021-07-26] VITALS: Ht 157.5 cm; Wt 54.9 kg
[2021-07-26] VITALS (15 sets, daily range): BP systolic 87–112
[~2021-07-26 02:40] MED LIST changes: +AMOX-426 PO; +FLUT16SP16 NS; +FOLI-43 PO; +GUAI-723 PO; +OXYM15MI9 NS
[2021-07-26 03:38] LABS: HEMATOCRIT 33.1 % (36-54); HEMOGLOBIN 10.9 g/dL (14.0-18.0); MEAN CORPUSCULAR HEMOGLOBIN 32 pg (27-31); MEAN CORPUSCULAR HGB CONC 33 % (32-36); MEAN CORPUSCULAR VOLUME 98 fL (79.0-98.0); PLATELET COUNT (AUTO) 129 K/uL (130-430); RED BLOOD CELL COUNT(AUTO) 3.39 MIL/uL (4.2-6.2); RED CELL DISTRIBUTION WIDTH 16.3 % (9.0-15.0); WHITE BLOOD COUNT (AUTO) 7.7 K/uL (4.8-10.8)
[2021-07-26] MEDS ORDERED: LORazepam 2 MG/ML VIAL IM ONE (03:45)
[2021-07-26] MEDS ORDERED: LORazepam 2 MG/ML VIAL ONE (03:46)
[2021-07-26 03:47] LABS: CALCIUM 8.7 mg/dL (8.4-11.0); CREATININE 2.58 mg/dL (0.55-1.30); POTASSIUM 4.1 mmol/L (3.5-5.1)
[2021-07-26 03:53] LABS: TOTAL BILIRUBIN 0.3 mg/dL (0.0-1.0)
[2021-07-26] MEDS ORDERED: DEXTROSE 50% JECT 50 ML DISP.SYRIN IVP ONE ×2 (04:00→08:45)
[2021-07-26] MEDS ORDERED: OCTREOTIDE ACETATE 50 MCG/ML AMP IVP ONE (04:00)
[2021-07-26 04:02] LABS: BAND % (MANUAL) 3 % (0-6); BASOPHILS % (MANUAL) 0 % (0-2); EOSINOPHILS % (MANUAL) 1 % (0-7); LYMPHOCYTES % (MANUAL) 21 % (20-46); MONOCYTES % (MANUAL) 5 % (0-11)
[2021-07-26] MEDS ORDERED: OCTREOTIDE ACETATE 200 MCG/1 ML 5ML VIAL ONE (04:24)
[2021-07-26] MEDS ORDERED: DEXTROSE 50% JECT 50 ML DISP.SYRIN ONE (08:11)
[2021-07-26] MEDS: D10W 1,000 ML IV SCH ×2 (08:50→22:16)
[2021-07-26 17:25] LABS: CALCIUM 8.8 mg/dL (8.4-11.0); CREATININE 2.64 mg/dL (0.55-1.30); POTASSIUM 3.9 mmol/L (3.5-5.1)
[2021-07-26] MEDS: D5NS 1,000 ML IV SCH (19:38)
[2021-07-26] MEDS ORDERED: cefTRIAXone 1 GM VIAL ONE (22:03)
[2021-07-26] MEDS: cefTRIAXone 1 GM in D5W 50 ML IV SCH (22:15)
[2021-07-27] VITALS (24 sets, daily range): BP systolic 79–151
[2021-07-27 06:30] LABS: BASOPHILS % (AUTO) 0.2 % (0.0-2.0); EOSINOPHILS % (AUTO) 0.6 % (0.0-4.0); HEMOGLOBIN 10.8 g/dL (14.0-18.0); LYMPHOCYTES # (AUTO) 0.7 K/uL (1.0-5.5); LYMPHOCYTES % (AUTO) 11.8 % (20.5-51.5); MEAN CORPUSCULAR HEMOGLOBIN 32 pg (27-31); MEAN CORPUSCULAR HGB CONC 33 % (32-36); MEAN CORPUSCULAR VOLUME 98 fL (79.0-98.0); MONOCYTES # (AUTO) 0.5 K/uL (0.0-1.0); MONOCYTES % (AUTO) 8.5 % (1.7-9.3); NEUTROPHILS # (AUTO) 4.7 K/uL (1.8-7.7); NEUTROPHILS % (AUTO) 78.9 % (40.0-70.0); PLATELET COUNT (AUTO) 113 K/uL (130-430); RED BLOOD CELL COUNT(AUTO) 3.35 MIL/uL (4.2-6.2); RED CELL DISTRIBUTION WIDTH 16.3 % (9.0-15.0)
[2021-07-27 06:51] LABS: ALBUMIN 1.8 g/dL (3.4-4.8); CALCIUM 7.9 mg/dL (8.4-11.0); CREATININE 2.82 mg/dL (0.55-1.30); POTASSIUM 4.1 mmol/L (3.5-5.1); TOTAL BILIRUBIN 0.3 mg/dL (0.0-1.0)
[2021-07-27] MEDS ORDERED: DIVALPROEX SODIUM 500 MG TABLET( DEPAKOTE) PO ONE (08:30)
[2021-07-27] MEDS: D5NS 1,000 ML IV SCH ×2 (10:08→20:52)
[2021-07-27] MEDS ORDERED: BISACODYL 10 MG/SUPPOSITORY RC ONE (10:15)
[2021-07-27] MEDS ORDERED: SODIUM PHOSPHATE,MONO-DIBASIC 133 ML ENEMA RC ONE (11:30)
[2021-07-27 15:44] LABS: BILIRUBIN,URINE NEGATIVE (NEGATIVE); BLOOD, URINE NEGATIVE (NEGATIVE); CLARITY/URINE CLEAR (CLEAR); COLOR,URINE YELLOW (YELLOW); GLUCOSE,URINE NEGATIVE (NEGATIVE); KETONES,URINE NEGATIVE (NEGATIVE); LEUKOCYTE ESTERASE ,URINE NEGATIVE (NEGATIVE); NITRITE, URINE NEGATIVE (NEGATIVE); PROTEIN URINE NEGATIVE (NEGATIVE); UROBILINOGEN,URINE 0.2 (0.2-1.0)
[2021-07-27] MEDS: DIVALPROEX SODIUM 500 MG TABLET( DEPAKOTE) PO SCH (20:51)
[2021-07-27] MEDS: cefTRIAXone 1 GM in D5W 50 ML IV SCH (20:52)
[2021-07-28] VITALS (24 sets, daily range): BP systolic 93–144
[2021-07-28 07:09] LABS: BASOPHILS % (AUTO) 0.4 % (0.0-2.0); EOSINOPHILS # (AUTO) 0.1 K/uL (0.0-0.4); EOSINOPHILS % (AUTO) 0.7 % (0.0-4.0); HEMATOCRIT 30.1 % (36-54); LYMPHOCYTES # (AUTO) 1.5 K/uL (1.0-5.5); LYMPHOCYTES % (AUTO) 18.6 % (20.5-51.5); MEAN CORPUSCULAR HEMOGLOBIN 33 pg (27-31); MEAN CORPUSCULAR HGB CONC 33 % (32-36); MEAN CORPUSCULAR VOLUME 99 fL (79.0-98.0); MONOCYTES # (AUTO) 0.7 K/uL (0.0-1.0); MONOCYTES % (AUTO) 9.1 % (1.7-9.3); NEUTROPHILS # (AUTO) 5.7 K/uL (1.8-7.7); NEUTROPHILS % (AUTO) 71.2 % (40.0-70.0); PLATELET COUNT (AUTO) 113 K/uL (130-430); RED BLOOD CELL COUNT(AUTO) 3.04 MIL/uL (4.2-6.2); RED CELL DISTRIBUTION WIDTH 16.2 % (9.0-15.0)
[2021-07-28 08:01] LABS: CREATININE 2.76 mg/dL (0.55-1.30); POTASSIUM 3.8 mmol/L (3.5-5.1)
[2021-07-28] MEDS: DIVALPROEX SODIUM 500 MG TABLET( DEPAKOTE) PO SCH ×2 (08:45→21:00)
[2021-07-28] MEDS: MILK OF MAGNESIA 30 ML UDC PO PRN (15:47)
[2021-07-28] MEDS: cefTRIAXone 1 GM in D5W 50 ML IV SCH (21:30)
[2021-07-29] VITALS (21 sets, daily range): BP systolic 99–149
[2021-07-29] MEDS: DIVALPROEX SODIUM 500 MG TABLET( DEPAKOTE) PO SCH (08:05)
[2021-07-29] MEDS ORDERED: NICOTINE 7 MG/24 HR PATCH.TD24 TD ONE (13:00)
[2021-07-29] MEDS ORDERED: 0.45% NS 500 ML IV ONE (16:45)
[2021-07-30 00:45] VITALS: BP_SYST 128
[2021-07-30] MEDS: DIVALPROEX SODIUM 500 MG TABLET( DEPAKOTE) PO SCH ×3 (04:14→20:55)
[2021-07-30] MEDS: cefTRIAXone 1 GM in D5W 50 ML IV SCH ×2 (04:51→22:57)
[2021-07-30 05:41] VITALS: BP_SYST 102
[2021-07-30 06:40] LABS: ALBUMIN 1.8 g/dL (3.4-4.8); CALCIUM 8.2 mg/dL (8.4-11.0); CREATININE 2.65 mg/dL (0.55-1.30); PHOSPHORUS 3.1 mg/dL (2.7-4.5); POTASSIUM 4.6 mmol/L (3.5-5.1); TOTAL BILIRUBIN 0.4 mg/dL (0.0-1.0)
[2021-07-30 07:24] LABS: BASOPHILS # (AUTO) 0.1 K/uL (0.0-0.2); BASOPHILS % (AUTO) 0.6 % (0.0-2.0); EOSINOPHILS # (AUTO) 0.1 K/uL (0.0-0.4); EOSINOPHILS % (AUTO) 0.7 % (0.0-4.0); HEMATOCRIT 31.5 % (36-54); HEMOGLOBIN 10.2 g/dL (14.0-18.0); LYMPHOCYTES # (AUTO) 1.4 K/uL (1.0-5.5); LYMPHOCYTES % (AUTO) 13.4 % (20.5-51.5); MEAN CORPUSCULAR HEMOGLOBIN 33 pg (27-31); MEAN CORPUSCULAR HGB CONC 32 % (32-36); MEAN CORPUSCULAR VOLUME 101 fL (79.0-98.0); MONOCYTES # (AUTO) 0.9 K/uL (0.0-1.0); MONOCYTES % (AUTO) 8.9 % (1.7-9.3); NEUTROPHILS % (AUTO) 76.4 % (40.0-70.0); PLATELET COUNT (AUTO) 156 K/uL (130-430); RED BLOOD CELL COUNT(AUTO) 3.13 MIL/uL (4.2-6.2); RED CELL DISTRIBUTION WIDTH 17.3 % (9.0-15.0); WHITE BLOOD COUNT (AUTO) 10.4 K/uL (4.8-10.8)
[2021-07-30 07:49] VITALS: BP_SYST 122
[2021-07-30] MEDS: NICOTINE 7 MG/24 HR PATCH.TD24 TD SCH (08:28)
[2021-07-30] MEDS ORDERED: 0.45% NS 500 ML IV ONE (10:45)
[2021-07-30] MEDS ORDERED: D5/0.45 NS 1,000 ML IV SCH (10:45)
[2021-07-30 11:25] VITALS: BP_SYST 11; BP_SYST 114
[2021-07-30 16:28] VITALS: BP_SYST 118
[2021-07-30 20:00] VITALS: BP_SYST 111
[2021-07-30] MEDS: 0.45% NACL 1,000 ML IV SCH (20:19)
[2021-07-31 00:30] VITALS: BP_SYST 117
[2021-07-31 01:13] LABS: URINE SODIUM, RANDOM 37 mmol/L (40-220)
[2021-07-31 06:02] LABS: BASOPHILS % (AUTO) 0.5 % (0.0-2.0); EOSINOPHILS # (AUTO) 0.1 K/uL (0.0-0.4); EOSINOPHILS % (AUTO) 1.8 % (0.0-4.0); HEMATOCRIT 29.5 % (36-54); HEMOGLOBIN 9.6 g/dL (14.0-18.0); LYMPHOCYTES % (AUTO) 23.9 % (20.5-51.5); MEAN CORPUSCULAR HEMOGLOBIN 33 pg (27-31); MEAN CORPUSCULAR HGB CONC 33 % (32-36); MEAN CORPUSCULAR VOLUME 101 fL (79.0-98.0); MONOCYTES # (AUTO) 0.8 K/uL (0.0-1.0); NEUTROPHILS # (AUTO) 5.5 K/uL (1.8-7.7); NEUTROPHILS % (AUTO) 64.8 % (40.0-70.0); PLATELET COUNT (AUTO) 174 K/uL (130-430); RED BLOOD CELL COUNT(AUTO) 2.92 MIL/uL (4.2-6.2); RED CELL DISTRIBUTION WIDTH 16.9 % (9.0-15.0); WHITE BLOOD COUNT (AUTO) 8.4 K/uL (4.8-10.8)
[2021-07-31 07:16] LABS: CREATININE 2.52 mg/dL (0.55-1.30); POTASSIUM 4.6 mmol/L (3.5-5.1)
[2021-07-31 08:00] VITALS: BP_SYST 102
[2021-07-31] MEDS: DIVALPROEX SODIUM 500 MG TABLET( DEPAKOTE) PO SCH ×2 (09:30→21:13)
[2021-07-31] MEDS: NICOTINE 7 MG/24 HR PATCH.TD24 TD SCH (09:38)
[2021-07-31] MEDS ORDERED: SODIUM BICARBONATE 8.4% JECT 50 MEQ/50 ML SYRINGE IVP ONE (10:00)
[2021-07-31 12:00] VITALS: BP_SYST 110
[2021-07-31 16:00] VITALS: BP_SYST 113
[2021-07-31] MEDS: 0.45% NACL 1,000 ML IV SCH ×2 (16:55→19:16)
[2021-07-31 20:00] VITALS: BP_SYST 113
[2021-08-01 00:24] VITALS: BP_SYST 125
[2021-08-01] MEDS: 0.45% NACL 1,000 ML IV SCH ×3 (06:01→23:24)
[2021-08-01 07:59] LABS: POTASSIUM 4.1 mmol/L (3.5-5.1)
[2021-08-01 08:00] LABS: CALCIUM 7.4 mg/dL (8.4-11.0); CREATININE 2.05 mg/dL (0.55-1.30)
[2021-08-01 08:14] VITALS: BP_SYST 124
[2021-08-01] MEDS: DIVALPROEX SODIUM 500 MG TABLET( DEPAKOTE) PO SCH ×2 (08:56→20:22)
[2021-08-01] MEDS: NICOTINE 7 MG/24 HR PATCH.TD24 TD SCH (08:56)
[2021-08-01 09:38] LABS: BASOPHILS % (AUTO) 0.5 % (0.0-2.0); EOSINOPHILS # (AUTO) 0.1 K/uL (0.0-0.4); EOSINOPHILS % (AUTO) 1.8 % (0.0-4.0); HEMATOCRIT 29.3 % (36-54); HEMOGLOBIN 9.6 g/dL (14.0-18.0); LYMPHOCYTES # (AUTO) 1.8 K/uL (1.0-5.5); LYMPHOCYTES % (AUTO) 26.1 % (20.5-51.5); MEAN CORPUSCULAR HEMOGLOBIN 33 pg (27-31); MEAN CORPUSCULAR HGB CONC 33 % (32-36); MEAN CORPUSCULAR VOLUME 101 fL (79.0-98.0); MONOCYTES # (AUTO) 0.6 K/uL (0.0-1.0); NEUTROPHILS # (AUTO) 4.5 K/uL (1.8-7.7); NEUTROPHILS % (AUTO) 63.6 % (40.0-70.0); PLATELET COUNT (AUTO) 167 K/uL (130-430); RED CELL DISTRIBUTION WIDTH 17.1 % (9.0-15.0); WHITE BLOOD COUNT (AUTO) 7.1 K/uL (4.8-10.8)
[2021-08-01 12:22] VITALS: BP_SYST 98
[2021-08-01 16:08] VITALS: BP_SYST 100
[2021-08-01 19:45] VITALS: BP_SYST 96
[2021-08-02 02:07] VITALS: BP_SYST 105
[2021-08-02 07:25] LABS: CALCIUM 7.4 mg/dL (8.4-11.0); CREATININE 2.09 mg/dL (0.55-1.30); POTASSIUM 4.2 mmol/L (3.5-5.1)
[2021-08-02 08:00] VITALS: BP_SYST 92
[2021-08-02] MEDS: DIVALPROEX SODIUM 500 MG TABLET( DEPAKOTE) PO SCH ×2 (08:45→21:13)
[2021-08-02] MEDS: NICOTINE 7 MG/24 HR PATCH.TD24 TD SCH (08:46)
[2021-08-02] MEDS: 0.45% NACL 1,000 ML IV SCH ×2 (08:46→21:24)
[2021-08-02 12:00] VITALS: BP_SYST 99
[2021-08-02 16:00] VITALS: BP_SYST 94
[2021-08-02 20:00] VITALS: BP_SYST 101
[2021-08-03 00:27] VITALS: BP_SYST 99
[2021-08-03 00:29] VITALS: BP_SYST 101
[2021-08-03] MEDS: 0.45% NACL 1,000 ML IV SCH ×2 (06:43→17:16)
[2021-08-03 07:57] VITALS: BP_SYST 100
[2021-08-03] MEDS: DIVALPROEX SODIUM 500 MG TABLET( DEPAKOTE) PO SCH ×2 (08:05→21:40)
[2021-08-03] MEDS: NICOTINE 7 MG/24 HR PATCH.TD24 TD SCH (08:05)
[2021-08-03 11:16] VITALS: BP_SYST 100
[2021-08-03 16:06] VITALS: BP_SYST 95
[2021-08-03 20:00] VITALS: BP_SYST 90
[2021-08-04 00:29] VITALS: BP_SYST 89
[2021-08-04 07:00] LABS: BASOPHILS % (AUTO) 0.4 % (0.0-2.0); EOSINOPHILS # (AUTO) 0.1 K/uL (0.0-0.4); EOSINOPHILS % (AUTO) 0.5 % (0.0-4.0); HEMATOCRIT 32.3 % (36-54); HEMOGLOBIN 10.6 g/dL (14.0-18.0); LYMPHOCYTES # (AUTO) 2.2 K/uL (1.0-5.5); LYMPHOCYTES % (AUTO) 18.4 % (20.5-51.5); MEAN CORPUSCULAR HEMOGLOBIN 33 pg (27-31); MEAN CORPUSCULAR HGB CONC 33 % (32-36); MEAN CORPUSCULAR VOLUME 101 fL (79.0-98.0); MONOCYTES # (AUTO) 0.6 K/uL (0.0-1.0); NEUTROPHILS # (AUTO) 9.1 K/uL (1.8-7.7); NEUTROPHILS % (AUTO) 75.7 % (40.0-70.0); PLATELET COUNT (AUTO) 198 K/uL (130-430); RED CELL DISTRIBUTION WIDTH 16.9 % (9.0-15.0)
[2021-08-04 07:01] LABS: CALCIUM 8.9 mg/dL (8.4-11.0); CREATININE 2.07 mg/dL (0.55-1.30); POTASSIUM 4.8 mmol/L (3.5-5.1)
[2021-08-04 07:41] VITALS: BP_SYST 93
[2021-08-04] MEDS: NICOTINE 7 MG/24 HR PATCH.TD24 TD SCH (08:15)
[2021-08-04] MEDS: DIVALPROEX SODIUM 500 MG TABLET( DEPAKOTE) PO SCH ×2 (08:16→22:07)
[2021-08-04 11:41] VITALS: BP_SYST 90
[2021-08-04] MEDS: 0.45% NACL 1,000 ML IV SCH ×3 (13:16→23:09)
[2021-08-04 15:29] VITALS: BP_SYST 90
[2021-08-05 00:17] VITALS: BP_SYST 100
[2021-08-05 07:17] LABS: HEMATOCRIT 29.3 % (36-54); HEMOGLOBIN 9.5 g/dL (14.0-18.0); MEAN CORPUSCULAR HEMOGLOBIN 33 pg (27-31); MEAN CORPUSCULAR HGB CONC 32 % (32-36); MEAN CORPUSCULAR VOLUME 102 fL (79.0-98.0); PLATELET COUNT (AUTO) 203 K/uL (130-430); RED BLOOD CELL COUNT(AUTO) 2.89 MIL/uL (4.2-6.2); RED CELL DISTRIBUTION WIDTH 17.4 % (9.0-15.0); WHITE BLOOD COUNT (AUTO) 8.4 K/uL (4.8-10.8)
[2021-08-05 07:20] LABS: CALCIUM 9.8 mg/dL (8.4-11.0); CREATININE 2.11 mg/dL (0.55-1.30)
[2021-08-05 08:00] VITALS: BP_SYST 102
[2021-08-05 09:12] LABS: BAND % (MANUAL) 1 % (0-6); BASOPHILS % (MANUAL) 0 % (0-2); EOSINOPHILS % (MANUAL) 1 % (0-7); LYMPHOCYTES % (MANUAL) 29 % (20-46); METAMYELOCYTES % 3 % (0-0); MONOCYTES % (MANUAL) 2 % (0-11)
[2021-08-05] MEDS: NICOTINE 7 MG/24 HR PATCH.TD24 TD SCH (09:48)
[2021-08-05] MEDS: DIVALPROEX SODIUM 500 MG TABLET( DEPAKOTE) PO SCH ×2 (09:49→20:31)
[2021-08-05] MEDS: 0.45% NACL 1,000 ML IV SCH (09:49)
[2021-08-05 12:00] VITALS: BP_SYST 96
[2021-08-05 15:31] VITALS: BP_SYST 109
[2021-08-05] MEDS: D5W 1,000 ML IV SCH (18:16)
[2021-08-05 20:24] VITALS: BP_SYST 91
[2021-08-06 00:38] VITALS: BP_SYST 109
[2021-08-06 07:36] LABS: BASOPHILS % (AUTO) 0.4 % (0.0-2.0); EOSINOPHILS # (AUTO) 0.1 K/uL (0.0-0.4); EOSINOPHILS % (AUTO) 0.9 % (0.0-4.0); HEMOGLOBIN 10.2 g/dL (14.0-18.0); LYMPHOCYTES # (AUTO) 2.1 K/uL (1.0-5.5); MEAN CORPUSCULAR HEMOGLOBIN 33 pg (27-31); MEAN CORPUSCULAR HGB CONC 32 % (32-36); MEAN CORPUSCULAR VOLUME 102 fL (79.0-98.0); MONOCYTES # (AUTO) 0.6 K/uL (0.0-1.0); MONOCYTES % (AUTO) 6.7 % (1.7-9.3); NEUTROPHILS # (AUTO) 5.6 K/uL (1.8-7.7); PLATELET COUNT (AUTO) 219 K/uL (130-430); RED BLOOD CELL COUNT(AUTO) 3.13 MIL/uL (4.2-6.2); RED CELL DISTRIBUTION WIDTH 17.4 % (9.0-15.0); WHITE BLOOD COUNT (AUTO) 8.3 K/uL (4.8-10.8)
[2021-08-06 07:53] LABS: CALCIUM 9.2 mg/dL (8.4-11.0); CREATININE 2.03 mg/dL (0.55-1.30); POTASSIUM 4.9 mmol/L (3.5-5.1)
[2021-08-06 08:00] VITALS: BP_SYST 100
[2021-08-06] MEDS: DIVALPROEX SODIUM 500 MG TABLET( DEPAKOTE) PO SCH ×2 (08:17→22:07)
[2021-08-06] MEDS: D5W 1,000 ML IV SCH ×2 (08:18→22:17)
[2021-08-06] MEDS: NICOTINE 7 MG/24 HR PATCH.TD24 TD SCH (08:18)
[2021-08-06 17:46] VITALS: BP_SYST 98
[2021-08-07] MEDS: INSULIN REGULAR, HUMAN 100 UNITS/ML, 10 ML VIAL (humuLIN R) SUBCUT PRN ×2 (00:36→10:07)
[2021-08-07 01:14] VITALS: BP_SYST 97
[2021-08-07 07:08] LABS: BASOPHILS % (AUTO) 0.5 % (0.0-2.0); EOSINOPHILS # (AUTO) 0.1 K/uL (0.0-0.4); EOSINOPHILS % (AUTO) 0.8 % (0.0-4.0); HEMATOCRIT 28.9 % (36-54); HEMOGLOBIN 9.7 g/dL (14.0-18.0); LYMPHOCYTES # (AUTO) 2.5 K/uL (1.0-5.5); LYMPHOCYTES % (AUTO) 28.5 % (20.5-51.5); MEAN CORPUSCULAR HEMOGLOBIN 34 pg (27-31); MEAN CORPUSCULAR HGB CONC 33 % (32-36); MEAN CORPUSCULAR VOLUME 101 fL (79.0-98.0); MONOCYTES # (AUTO) 0.7 K/uL (0.0-1.0); MONOCYTES % (AUTO) 7.7 % (1.7-9.3); NEUTROPHILS # (AUTO) 5.6 K/uL (1.8-7.7); NEUTROPHILS % (AUTO) 62.5 % (40.0-70.0); PLATELET COUNT (AUTO) 210 K/uL (130-430); RED BLOOD CELL COUNT(AUTO) 2.86 MIL/uL (4.2-6.2); RED CELL DISTRIBUTION WIDTH 16.2 % (9.0-15.0); WHITE BLOOD COUNT (AUTO) 8.9 K/uL (4.8-10.8)
[2021-08-07 07:39] LABS: ALBUMIN 1.7 g/dL (3.4-4.8); CALCIUM 9.4 mg/dL (8.4-11.0); CREATININE 2.04 mg/dL (0.55-1.30); POTASSIUM 4.2 mmol/L (3.5-5.1); TOTAL BILIRUBIN 0.3 mg/dL (0.0-1.0)
[2021-08-07 08:00] VITALS: BP_SYST 118
[2021-08-07] MEDS: D5W 1,000 ML IV SCH (09:58)
[2021-08-07] MEDS: NICOTINE 7 MG/24 HR PATCH.TD24 TD SCH (09:59)
[2021-08-07] MEDS: DIVALPROEX SODIUM 500 MG TABLET( DEPAKOTE) PO SCH (09:59)
[2021-08-07 12:49] VITALS: BP_SYST 105
[2021-08-07] MEDS: MILK OF MAGNESIA 30 ML UDC PO PRN (13:14)
[2021-08-07 15:11] VITALS: BP_SYST 102
[2021-08-07 16:44] VITALS: BP_SYST 103
== END 2021-08-07 18:45 | DRG 637 ==
LOC: SED 02:40 → SIC 08:26 → STU 07-29 22:57 → SMU 08-04 16:55
PROVIDERS: ADMIT Internal Medicine; ATTEND Internal Medicine
DX: E11.649 Type 2 diabetes mellitus with hypoglycemia without coma (principal); G93.41 Metabolic encephalopathy; E43 Unspecified severe protein-calorie malnutrition; E87.0 Hyperosmolality and hypernatremia; F20.0 Paranoid schizophrenia; E27.40 Unspecified adrenocortical insufficiency; F99 Mental disorder, not otherwise specified; E78.5 Hyperlipidemia, unspecified; F03.90 Unspecified dementia, unspecified severity, without behavioral disturbance, psychotic disturbance, mood disturbance, and anxiety; J44.9 Chronic obstructive pulmonary disease, unspecified; Z20.822 Contact with and (suspected) exposure to COVID-19; S00.81XA Abrasion of other part of head, initial encounter; W06.XXXA Fall from bed, initial encounter; E11.22 Type 2 diabetes mellitus with diabetic chronic kidney disease; N18.9 Chronic kidney disease, unspecified; Z68.22 Body mass index [BMI] 22.0-22.9, adult; Y93.89 Activity, other specified; Y92.89 Other specified places as the place of occurrence of the external cause; Y99.8 Other external cause status
CPT/HCPCS: 36415; 70450-TC; 76376; 76770; 80048; 80053; 80164; 81003; 82043; 82140; 82533; 82570; 82962; 83605; 83735; 83935; 84100; 84302; 85007; 85025; 85027; 87040; 87081; 87086; 96372; 96374; 96375; 96376; 99285; G0378; J0696; J1815; J2060; J2354; J7060

== ENCOUNTER 2022-03-19 20:11 | Inpatient (IN) | payer OTHER, MEDICAID ==
[~2022-03-19] VITALS: Ht 167.6 cm; Wt 52.2 kg
[~2022-03-19 20:11] MED LIST changes: -AMOX-426 PO
[2022-03-19 20:23] VITALS: BP_SYST 116
[2022-03-19] MEDS ORDERED: cefTRIAXone 1 GM in LIDOCAINE 1%, 20 ML MDV 2.1 ML IM ONE (21:00)
[2022-03-19] MEDS ORDERED: NACL 0.9% 1,000 ML IV ONE ×2 (21:15→22:30)
[2022-03-19 21:40] LABS: HEMATOCRIT 24.2 % (36-54); HEMOGLOBIN 8.1 g/dL (14.0-18.0); MEAN CORPUSCULAR HEMOGLOBIN 33 pg (27-31); MEAN CORPUSCULAR HGB CONC 34 % (32-36); MEAN CORPUSCULAR VOLUME 98 fL (79.0-98.0); PLATELET COUNT (AUTO) 446 K/uL (130-430); RED BLOOD CELL COUNT(AUTO) 2.46 MIL/uL (4.2-6.2); RED CELL DISTRIBUTION WIDTH 15.5 % (9.0-15.0); WHITE BLOOD COUNT (AUTO) 7.9 K/uL (4.8-10.8)
[2022-03-19 21:48] LABS: ANION GAP 5 (5-15); CHLORIDE 116 mmol/L (98-107); CREATININE 5.65 mg/dL (0.55-1.30); GLUCOSE 247 mg/dL (70-99)
[2022-03-19 21:54] LABS: BAND % (MANUAL) 4 % (0-6); LYMPHOCYTES % (MANUAL) 23 % (20-46)
[2022-03-19 21:55] LABS: BASOPHILS % (MANUAL) 0 % (0-2); EOSINOPHILS % (MANUAL) 1 % (0-7); MONOCYTES % (MANUAL) 10 % (0-11); MYELOCYTES % 1 % (0-0)
[2022-03-19 21:59] LABS: ALANINE AMINOTRANSFERASE 13 U/L (12-78); ALBUMIN 2.3 g/dL (3.4-4.8); ASPARTATE AMINOTRANSFERASE 16 U/L (10-37); CALCIUM 10.9 mg/dL (8.4-11.0); TOTAL BILIRUBIN 0.2 mg/dL (0.0-1.0)
[2022-03-19 22:01] LABS: GFR AFRICAN AMERICAN 13 mL/min (>90)
[2022-03-19 22:03] LABS: UREA NITROGEN, BLOOD 119 mg/dL (8-21)
[2022-03-19] MEDS ORDERED: cefTRIAXone 1 GM VIAL ONE (23:45)
[2022-03-19 23:55] LABS: BILIRUBIN,URINE NEGATIVE (NEGATIVE); CLARITY/URINE CLEAR (CLEAR); COLOR,URINE YELLOW (YELLOW); GLUCOSE,URINE 1+ (NEGATIVE); KETONES,URINE NEGATIVE (NEGATIVE); LEUKOCYTE ESTERASE ,URINE NEGATIVE (NEGATIVE); NITRITE, URINE NEGATIVE (NEGATIVE); PH,URINE 7.5 (5.0-8.0); PROTEIN URINE 2+ (NEGATIVE); UROBILINOGEN,URINE 0.2 (0.2-1.0)
[2022-03-20 00:09] LABS: BLOOD, URINE TRACE (NEGATIVE)
[2022-03-20 00:26] LABS: BACTERIA,URINE FEW /HPF (None Seen)
[2022-03-20 00:27] LABS: MUCUS,URINE None Seen /LPF (None Seen); YEAST,URINE Few /HPF (None Seen)
[2022-03-20] MEDS: NACL 0.9% 1,000 ML IV SCH ×2 (00:44→08:00)
[2022-03-20 03:46] VITALS: BP_SYST 100; BP_SYST 102
[2022-03-20 07:10] LABS: BASOPHILS % (AUTO) 0.4 % (0.0-2.0); EOSINOPHILS # (AUTO) 0.2 K/uL (0.0-0.4); EOSINOPHILS % (AUTO) 3.2 % (0.0-4.0); HEMATOCRIT 22.5 % (36-54); HEMOGLOBIN 7.4 g/dL (14.0-18.0); LYMPHOCYTES # (AUTO) 1.8 K/uL (1.0-5.5); LYMPHOCYTES % (AUTO) 25.1 % (20.5-51.5); MEAN CORPUSCULAR HEMOGLOBIN 33 pg (27-31); MEAN CORPUSCULAR HGB CONC 33 % (32-36); MEAN CORPUSCULAR VOLUME 98 fL (79.0-98.0); MONOCYTES # (AUTO) 0.8 K/uL (0.0-1.0); NEUTROPHILS # (AUTO) 4.3 K/uL (1.8-7.7); PLATELET COUNT (AUTO) 406 K/uL (130-430); RED BLOOD CELL COUNT(AUTO) 2.29 MIL/uL (4.2-6.2); RED CELL DISTRIBUTION WIDTH 15.7 % (9.0-15.0); WHITE BLOOD COUNT (AUTO) 7.2 K/uL (4.8-10.8)
[2022-03-20 07:27] LABS: NEUTROPHILS % (AUTO) 60.3 % (40.0-70.0)
[2022-03-20 07:43] LABS: CALCIUM 9.6 mg/dL (8.4-11.0); CREATININE 5.11 mg/dL (0.55-1.30); TOTAL BILIRUBIN 0.4 mg/dL (0.0-1.0)
[2022-03-20] MEDS ORDERED: cefTRIAXone 1 GM in D5W 50 ML IV SCH (09:00)
[2022-03-20] MEDS: cefTRIAXone 1 GM IVPB PREMIX 50 ML IV SCH (09:10)
[2022-03-20 09:38] VITALS: BP_SYST 87
[2022-03-20] MEDS ORDERED: GLIP5TAB13 PO (10:03)
[2022-03-20 10:06] VITALS: BP_SYST 101
[2022-03-20 13:58] VITALS: BP_SYST 105
[2022-03-20] MEDS: 0.45% NACL 1,000 ML IV SCH ×2 (14:30→22:30)
[2022-03-20] MEDS: EPOETIN ALFA-EPBX 10,000 UNITS/ML VIAL SUBCUT SCH (17:04)
[2022-03-20 22:43] VITALS: BP_SYST 110
[2022-03-21 00:33] VITALS: BP_SYST 110
[2022-03-21] MEDS: 0.45% NACL 1,000 ML IV SCH (06:01)
[2022-03-21 07:44] LABS: CALCIUM 9.2 mg/dL (8.4-11.0); CREATININE 4.93 mg/dL (0.55-1.30); PHOSPHORUS 5.8 mg/dL (2.7-4.5)
[2022-03-21 08:22] VITALS: BP_SYST 91
[2022-03-21 08:23] VITALS: BP_SYST 128
[2022-03-21 10:13] LABS: BASOPHILS # (AUTO) 0.1 K/uL (0.0-0.2); EOSINOPHILS # (AUTO) 0.2 K/uL (0.0-0.4); EOSINOPHILS % (AUTO) 3.2 % (0.0-4.0); HEMATOCRIT 23.6 % (36-54); HEMOGLOBIN 7.6 g/dL (14.0-18.0); LYMPHOCYTES # (AUTO) 1.7 K/uL (1.0-5.5); LYMPHOCYTES % (AUTO) 22.6 % (20.5-51.5); MEAN CORPUSCULAR HEMOGLOBIN 32 pg (27-31); MEAN CORPUSCULAR HGB CONC 32 % (32-36); MEAN CORPUSCULAR VOLUME 100 fL (79.0-98.0); MONOCYTES # (AUTO) 0.7 K/uL (0.0-1.0); MONOCYTES % (AUTO) 9.2 % (1.7-9.3); NEUTROPHILS # (AUTO) 4.7 K/uL (1.8-7.7); PLATELET COUNT (AUTO) 466 K/uL (130-430); RED BLOOD CELL COUNT(AUTO) 2.36 MIL/uL (4.2-6.2); RED CELL DISTRIBUTION WIDTH 15.5 % (9.0-15.0); WHITE BLOOD COUNT (AUTO) 7.3 K/uL (4.8-10.8)
[2022-03-21] MEDS: cefTRIAXone 1 GM IVPB PREMIX 50 ML IV SCH (10:46)
[2022-03-21] MEDS: D5W 1,000 ML IV SCH (11:02)
[2022-03-21] MEDS ORDERED: DIVALPROEX SODIUM 500 MG TABLET( DEPAKOTE) PO ONE (11:15)
[2022-03-21] MEDS ORDERED: FOLIC ACID 1 MG TABLET PO ONE (11:15)
[2022-03-21] MEDS ORDERED: OXYBUTYNIN CHLORIDE 5 MG TABLET PO ONE (11:15)
[2022-03-21] MEDS ORDERED: TAMSULOSIN HCL 0.4 MG CAP PO ONE (11:15)
[2022-03-21 11:31] VITALS: BP_SYST 90
[2022-03-21] MEDS ORDERED: CLOZAPINE 100 MG PO ONE (11:45)
[2022-03-21 15:41] VITALS: BP_SYST 96
[2022-03-21 20:00] VITALS: BP_SYST 99
[2022-03-21] MEDS: CLOZAPINE 100 MG PO SCH (21:00)
[2022-03-21] MEDS: DIVALPROEX SODIUM 500 MG TABLET( DEPAKOTE) PO SCH (21:45)
[2022-03-21] MEDS: ATORVASTATIN 20 MG TABLET PO SCH (21:45)
[2022-03-22 00:05] VITALS: BP_SYST 103
[2022-03-22] MEDS ORDERED: SODIUM ZIRCONIUM CYCLOSILICATE 10 GM POWD.PACK PO ONE (01:04)
[2022-03-22] MEDS: SODIUM ZIRCONIUM CYCLOSILICATE 10 GM POWD.PACK PO SCH ×2 (01:12→09:47)
[2022-03-22] MEDS: D5W 1,000 ML IV SCH ×3 (01:16→18:45)
[2022-03-22 07:14] LABS: MEAN CORPUSCULAR HEMOGLOBIN 32 pg (27-31); MEAN CORPUSCULAR HGB CONC 32 % (32-36); MEAN CORPUSCULAR VOLUME 98 fL (79.0-98.0); PLATELET COUNT (AUTO) 460 K/uL (130-430); RED BLOOD CELL COUNT(AUTO) 2.14 MIL/uL (4.2-6.2); WHITE BLOOD COUNT (AUTO) 7.9 K/uL (4.8-10.8)
[2022-03-22 07:30] LABS: CALCIUM 8.5 mg/dL (8.4-11.0); CREATININE 4.89 mg/dL (0.55-1.30)
[2022-03-22 07:55] LABS: HEMOGLOBIN 6.8 g/dL (14.0-18.0)
[2022-03-22 08:00] VITALS: BP_SYST 102
[2022-03-22] MEDS: CLOZAPINE 100 MG PO SCH ×2 (09:00→21:00)
[2022-03-22 09:20] LABS: ATYPICAL LYMPHOCYTES % 4 % (0-0); BAND % (MANUAL) 5 % (0-6); BASOPHILS % (MANUAL) 0 % (0-2); EOSINOPHILS % (MANUAL) 2 % (0-7); LYMPHOCYTES % (MANUAL) 13 % (20-46); METAMYELOCYTES % 1 % (0-0); MONOCYTES % (MANUAL) 5 % (0-11); MYELOCYTES % 1 % (0-0)
[2022-03-22] MEDS: cefTRIAXone 1 GM IVPB PREMIX 50 ML IV SCH (09:45)
[2022-03-22] MEDS: FOLIC ACID 1 MG TABLET PO SCH (09:46)
[2022-03-22] MEDS: DIVALPROEX SODIUM 500 MG TABLET( DEPAKOTE) PO SCH ×2 (09:46→21:57)
[2022-03-22] MEDS: OXYBUTYNIN CHLORIDE 5 MG TABLET PO SCH (09:46)
[2022-03-22] MEDS: TAMSULOSIN HCL 0.4 MG CAP PO SCH (09:48)
[2022-03-22] MEDS: SEVELAMER CARBONATE 800 MG TABLET PO SCH ×3 (09:55→18:37)
[2022-03-22 12:00] VITALS: BP_SYST 93
[2022-03-22] MEDS ORDERED: PANTOPRAZOLE SODIUM 40 MG TAB PO ONE (14:30)
[2022-03-22 16:00] VITALS: BP_SYST 95
[2022-03-22] MEDS: BALSAM PERU/CASTOR OIL 56.7 GM OINT...G. TP SCH (18:39)
[2022-03-22 20:00] VITALS: BP_SYST 92
[2022-03-22 21:30] VITALS: BP_SYST 100
[2022-03-22] MEDS: ATORVASTATIN 20 MG TABLET PO SCH (21:57)
[2022-03-23] VITALS (8 sets, daily range): BP systolic 105–123
[2022-03-23] MEDS: D5W 1,000 ML IV SCH ×3 (02:17→19:37)
[2022-03-23] MEDS: FOLIC ACID 1 MG TABLET PO SCH (08:58)
[2022-03-23] MEDS: cefTRIAXone 1 GM IVPB PREMIX 50 ML IV SCH (08:58)
[2022-03-23] MEDS: SEVELAMER CARBONATE 800 MG TABLET PO SCH ×3 (08:58→17:49)
[2022-03-23] MEDS: OXYBUTYNIN CHLORIDE 5 MG TABLET PO SCH (08:58)
[2022-03-23] MEDS: DIVALPROEX SODIUM 500 MG TABLET( DEPAKOTE) PO SCH ×2 (08:59→20:21)
[2022-03-23] MEDS: TAMSULOSIN HCL 0.4 MG CAP PO SCH (08:59)
[2022-03-23] MEDS: PANTOPRAZOLE SODIUM 40 MG TAB PO SCH (09:00)
[2022-03-23] MEDS: CLOZAPINE 100 MG PO SCH ×2 (09:00→20:21)
[2022-03-23] MEDS: BALSAM PERU/CASTOR OIL 56.7 GM OINT...G. TP SCH (10:45)
[2022-03-23 11:08] LABS: CREATININE, URINE 19.7 mg/dL; MICROALBUMIN URINE RANDOM 48.6 ug/ml (NOT ESTABLISHED)
[2022-03-23] MEDS: SODIUM ZIRCONIUM CYCLOSILICATE 10 GM POWD.PACK PO SCH (11:46)
[2022-03-23] MEDS: INSULIN REGULAR, HUMAN 100 UNITS/ML, 3 ML VIAL (humuLIN R) SUBCUT PRN (11:54)
[2022-03-23 13:01] LABS: CALCIUM 8.8 mg/dL (8.4-11.0); CREATININE 4.61 mg/dL (0.55-1.30)
[2022-03-23 13:03] LABS: BASOPHILS % (AUTO) 0.4 % (0.0-2.0); EOSINOPHILS # (AUTO) 0.2 K/uL (0.0-0.4); EOSINOPHILS % (AUTO) 3.2 % (0.0-4.0); HEMATOCRIT 31.6 % (36-54); HEMOGLOBIN 10.7 g/dL (14.0-18.0); LYMPHOCYTES # (AUTO) 1.2 K/uL (1.0-5.5); LYMPHOCYTES % (AUTO) 17.4 % (20.5-51.5); MEAN CORPUSCULAR HEMOGLOBIN 31 pg (27-31); MEAN CORPUSCULAR HGB CONC 34 % (32-36); MEAN CORPUSCULAR VOLUME 90 fL (79.0-98.0); MONOCYTES # (AUTO) 0.6 K/uL (0.0-1.0); MONOCYTES % (AUTO) 8.4 % (1.7-9.3); NEUTROPHILS % (AUTO) 70.6 % (40.0-70.0); PLATELET COUNT (AUTO) 415 K/uL (130-430); RED BLOOD CELL COUNT(AUTO) 3.51 MIL/uL (4.2-6.2); RED CELL DISTRIBUTION WIDTH 17.5 % (9.0-15.0); WHITE BLOOD COUNT (AUTO) 7.1 K/uL (4.8-10.8)
[2022-03-23 13:06] LABS: ALBUMIN 2.1 g/dL (3.4-4.8); TOTAL BILIRUBIN 0.2 mg/dL (0.0-1.0)
[2022-03-23] MEDS: EPOETIN ALFA-EPBX 10,000 UNITS/ML VIAL SUBCUT SCH (17:56)
[2022-03-23] MEDS: ATORVASTATIN 20 MG TABLET PO SCH (20:21)
[2022-03-24 01:09] VITALS: BP_SYST 104
[2022-03-24] MEDS: INSULIN REGULAR, HUMAN 100 UNITS/ML, 3 ML VIAL (humuLIN R) SUBCUT PRN ×3 (01:26→11:52)
[2022-03-24] MEDS: D5W 1,000 ML IV SCH ×2 (03:47→16:43)
[2022-03-24 07:48] VITALS: BP_SYST 96
[2022-03-24 08:10] LABS: ALBUMIN 1.9 g/dL (3.4-4.8); CREATININE 4.15 mg/dL (0.55-1.30); PHOSPHORUS 5.2 mg/dL (2.7-4.5)
[2022-03-24] MEDS: FOLIC ACID 1 MG TABLET PO SCH (08:22)
[2022-03-24] MEDS: SEVELAMER CARBONATE 800 MG TABLET PO SCH ×2 (08:22→17:11)
[2022-03-24] MEDS: PANTOPRAZOLE SODIUM 40 MG TAB PO SCH (08:23)
[2022-03-24] MEDS: OXYBUTYNIN CHLORIDE 5 MG TABLET PO SCH (08:23)
[2022-03-24] MEDS: DIVALPROEX SODIUM 500 MG TABLET( DEPAKOTE) PO SCH ×2 (08:23→21:45)
[2022-03-24] MEDS: TAMSULOSIN HCL 0.4 MG CAP PO SCH (08:23)
[2022-03-24] MEDS: cefTRIAXone 1 GM IVPB PREMIX 50 ML IV SCH (08:24)
[2022-03-24] MEDS: CLOZAPINE 100 MG PO SCH ×2 (08:25→21:00)
[2022-03-24] MEDS: BALSAM PERU/CASTOR OIL 56.7 GM OINT...G. TP SCH (09:00)
[2022-03-24 09:25] LABS: CALCIUM 9.1 mg/dL (8.4-11.0); TOTAL BILIRUBIN 0.1 mg/dL (0.0-1.0)
[2022-03-24] MEDS ORDERED: POTASSIUM CHLORIDE 20 MEQ/PKT PACKET PO ONE (10:00)
[2022-03-24 12:02] VITALS: BP_SYST 113
[2022-03-24 16:04] VITALS: BP_SYST 103
[2022-03-24] MEDS: ATORVASTATIN 20 MG TABLET PO SCH (21:45)
[2022-03-25] MEDS: INSULIN REGULAR, HUMAN 100 UNITS/ML, 3 ML VIAL (humuLIN R) SUBCUT PRN ×3 (00:08→11:53)
[2022-03-25] MEDS: D5W 1,000 ML IV SCH ×4 (00:18→18:45)
[2022-03-25 01:03] VITALS: BP_SYST 105
[2022-03-25 02:03] LABS: BASOPHILS % (AUTO) 0.4 % (0.0-2.0); EOSINOPHILS # (AUTO) 0.2 K/uL (0.0-0.4); EOSINOPHILS % (AUTO) 2.3 % (0.0-4.0); HEMATOCRIT 29.8 % (36-54); LYMPHOCYTES # (AUTO) 1.3 K/uL (1.0-5.5); LYMPHOCYTES % (AUTO) 15.4 % (20.5-51.5); MEAN CORPUSCULAR HEMOGLOBIN 31 pg (27-31); MEAN CORPUSCULAR HGB CONC 34 % (32-36); MEAN CORPUSCULAR VOLUME 91 fL (79.0-98.0); MONOCYTES # (AUTO) 0.7 K/uL (0.0-1.0); MONOCYTES % (AUTO) 8.5 % (1.7-9.3); NEUTROPHILS % (AUTO) 73.4 % (40.0-70.0); PLATELET COUNT (AUTO) 382 K/uL (130-430); RED BLOOD CELL COUNT(AUTO) 3.27 MIL/uL (4.2-6.2); RED CELL DISTRIBUTION WIDTH 16.6 % (9.0-15.0); WHITE BLOOD COUNT (AUTO) 8.2 K/uL (4.8-10.8)
[2022-03-25 02:39] LABS: CALCIUM 9.7 mg/dL (8.4-11.0); CREATININE 3.76 mg/dL (0.55-1.30)
[2022-03-25 02:43] LABS: PHOSPHORUS 4.3 mg/dL (2.7-4.5)
[2022-03-25] MEDS ORDERED: POTASSIUM CHLORIDE 20 MEQ/PKT PACKET GT ONE (03:00)
[2022-03-25] MEDS ORDERED: POTASSIUM CHLORIDE 20 MEQ/PKT PACKET PO ONE ×2 (03:00→08:30)
[2022-03-25 07:56] VITALS: BP_SYST 124
[2022-03-25] MEDS ORDERED: POTASSIUM CHLORIDE 20 MEQ/PKT PACKET PO SCH (09:00)
[2022-03-25] MEDS: CLOZAPINE 100 MG PO SCH ×2 (09:00→21:00)
[2022-03-25] MEDS: OXYBUTYNIN CHLORIDE 5 MG TABLET PO SCH (09:21)
[2022-03-25] MEDS: FOLIC ACID 1 MG TABLET PO SCH (09:21)
[2022-03-25] MEDS: SEVELAMER CARBONATE 800 MG TABLET PO SCH ×3 (09:21→17:57)
[2022-03-25] MEDS: cefTRIAXone 1 GM IVPB PREMIX 50 ML IV SCH (09:21)
[2022-03-25] MEDS: PANTOPRAZOLE SODIUM 40 MG TAB PO SCH (09:21)
[2022-03-25] MEDS: TAMSULOSIN HCL 0.4 MG CAP PO SCH (09:21)
[2022-03-25] MEDS: DIVALPROEX SODIUM 500 MG TABLET( DEPAKOTE) PO SCH ×2 (09:22→22:25)
[2022-03-25] MEDS: POTASSIUM CHLORIDE 20 MEQ/PKT PACKET GT SCH (09:24)
[2022-03-25] MEDS: BALSAM PERU/CASTOR OIL 56.7 GM OINT...G. TP SCH (09:24)
[2022-03-25] MEDS ORDERED: NS IV ONE (09:30)
[2022-03-25] MEDS ORDERED: POTASSIUM CHLORIDE IV ONE (09:30)
[2022-03-25] MEDS ORDERED: LIDOCAINE JECT IV ONE (09:30)
[2022-03-25 11:23] VITALS: BP_SYST 110
[2022-03-25 14:57] VITALS: BP_SYST 110
[2022-03-25 15:22] VITALS: BP_SYST 108
[2022-03-25] MEDS: EPOETIN ALFA-EPBX 10,000 UNITS/ML VIAL SUBCUT SCH (18:48)
[2022-03-25 21:43] VITALS: BP_SYST 97
[2022-03-25] MEDS: ATORVASTATIN 20 MG TABLET PO SCH (22:25)
[2022-03-26 00:52] VITALS: BP_SYST 110
[2022-03-26] MEDS: INSULIN REGULAR, HUMAN 100 UNITS/ML, 3 ML VIAL (humuLIN R) SUBCUT PRN ×4 (01:28→23:22)
[2022-03-26] MEDS: D5W 1,000 ML IV SCH ×3 (04:52→16:20)
[2022-03-26 07:04] LABS: PHOSPHORUS 3.4 mg/dL (2.7-4.5)
[2022-03-26] MEDS ORDERED: glipiZIDE XL 5 MG TAB ( GLUCOTROL XL) PO ONE (07:06)
[2022-03-26 08:00] VITALS: BP_SYST 113
[2022-03-26] MEDS: SEVELAMER CARBONATE 800 MG TABLET PO SCH ×3 (08:00→17:47)
[2022-03-26 08:06] LABS: CALCIUM 10.5 mg/dL (8.4-11.0); CREATININE 3.67 mg/dL (0.55-1.30)
[2022-03-26 08:14] LABS: ALBUMIN 1.9 g/dL (3.4-4.8); TOTAL BILIRUBIN 0.1 mg/dL (0.0-1.0)
[2022-03-26] MEDS: cefTRIAXone 1 GM IVPB PREMIX 50 ML IV SCH (10:50)
[2022-03-26] MEDS: BALSAM PERU/CASTOR OIL 56.7 GM OINT...G. TP SCH (10:50)
[2022-03-26] MEDS: PANTOPRAZOLE SODIUM 40 MG TAB PO SCH (11:03)
[2022-03-26] MEDS: FOLIC ACID 1 MG TABLET PO SCH (11:03)
[2022-03-26] MEDS: OXYBUTYNIN CHLORIDE 5 MG TABLET PO SCH (11:03)
[2022-03-26] MEDS: POTASSIUM CHLORIDE 20 MEQ/PKT PACKET GT SCH (11:03)
[2022-03-26] MEDS: TAMSULOSIN HCL 0.4 MG CAP PO SCH (11:04)
[2022-03-26] MEDS: CLOZAPINE 100 MG PO SCH ×2 (11:04→21:00)
[2022-03-26 11:10] VITALS: BP_SYST 111
[2022-03-26] MEDS: DIVALPROEX SODIUM 500 MG TABLET( DEPAKOTE) PO SCH ×2 (11:22→21:45)
[2022-03-26 16:10] VITALS: BP_SYST 95
[2022-03-26] MEDS: DOXYCYCLINE HYCLATE 100 MG CAPSULE PO SCH (21:45)
[2022-03-26] MEDS: ATORVASTATIN 20 MG TABLET PO SCH (21:46)
[2022-03-27] VITALS (9 sets, daily range): BP systolic 94–103
[2022-03-27] MEDS: D5W 1,000 ML IV SCH ×2 (02:45→10:33)
[2022-03-27 05:39] LABS: BASOPHILS # (AUTO) 0.1 K/uL (0.0-0.2); BASOPHILS % (AUTO) 1.2 % (0.0-2.0); EOSINOPHILS # (AUTO) 0.1 K/uL (0.0-0.4); EOSINOPHILS % (AUTO) 1.3 % (0.0-4.0); HEMATOCRIT 33.4 % (36-54); HEMOGLOBIN 11.1 g/dL (14.0-18.0); LYMPHOCYTES # (AUTO) 1.2 K/uL (1.0-5.5); LYMPHOCYTES % (AUTO) 11.2 % (20.5-51.5); MEAN CORPUSCULAR HEMOGLOBIN 31 pg (27-31); MEAN CORPUSCULAR HGB CONC 33 % (32-36); MEAN CORPUSCULAR VOLUME 92 fL (79.0-98.0); MONOCYTES # (AUTO) 1.7 K/uL (0.0-1.0); NEUTROPHILS # (AUTO) 7.9 K/uL (1.8-7.7); NEUTROPHILS % (AUTO) 71.3 % (40.0-70.0); PLATELET COUNT (AUTO) 365 K/uL (130-430); RED BLOOD CELL COUNT(AUTO) 3.63 MIL/uL (4.2-6.2); RED CELL DISTRIBUTION WIDTH 16.9 % (9.0-15.0); WHITE BLOOD COUNT (AUTO) 11.1 K/uL (4.8-10.8)
[2022-03-27 07:15] LABS: ALBUMIN 1.8 g/dL (3.4-4.8); CALCIUM 10.6 mg/dL (8.4-11.0); CREATININE 3.85 mg/dL (0.55-1.30); PHOSPHORUS 3.6 mg/dL (2.7-4.5); TOTAL BILIRUBIN 0.1 mg/dL (0.0-1.0)
[2022-03-27] MEDS: INSULIN REGULAR, HUMAN 100 UNITS/ML, 3 ML VIAL (humuLIN R) SUBCUT PRN (07:50)
[2022-03-27] MEDS: CLOZAPINE 100 MG PO SCH ×2 (09:00→21:00)
[2022-03-27] MEDS ORDERED: NS 500 ML IV ONE (10:00)
[2022-03-27] MEDS ORDERED: SODIUM POLYSTYRENE SULFONATE 15 GM/60 ML UDBTL PO ONE (10:00)
[2022-03-27] MEDS: SEVELAMER CARBONATE 800 MG TABLET PO SCH ×3 (10:09→17:58)
[2022-03-27] MEDS: TAMSULOSIN HCL 0.4 MG CAP PO SCH (10:23)
[2022-03-27] MEDS: FOLIC ACID 1 MG TABLET PO SCH (10:23)
[2022-03-27] MEDS: OXYBUTYNIN CHLORIDE 5 MG TABLET PO SCH (10:23)
[2022-03-27] MEDS: PANTOPRAZOLE SODIUM 40 MG TAB PO SCH (10:23)
[2022-03-27] MEDS: DOXYCYCLINE HYCLATE 100 MG CAPSULE PO SCH ×2 (10:23→21:44)
[2022-03-27] MEDS: DIVALPROEX SODIUM 500 MG TABLET( DEPAKOTE) PO SCH ×2 (10:23→21:44)
[2022-03-27] MEDS: BALSAM PERU/CASTOR OIL 56.7 GM OINT...G. TP SCH (10:24)
[2022-03-27] MEDS ORDERED: DOXY100T2 PO (11:17)
[2022-03-27] MEDS ORDERED: ALBUMIN HUMAN 25% 200 ML IV ONE (16:45)
[2022-03-27] MEDS: NACL 0.9% 1,000 ML IV SCH (17:56)
[2022-03-27] MEDS: EPOETIN ALFA-EPBX 10,000 UNITS/ML VIAL SUBCUT SCH (17:59)
[2022-03-27] MEDS: ATORVASTATIN 20 MG TABLET PO SCH (21:44)
[2022-03-27] MEDS ORDERED: ACETAMINOPHEN 650 MG/20.3 ML UDC GT PRN (21:45)
[2022-03-27] MEDS ORDERED: ACETAMINOPHEN 650 MG/20.3 ML UDC ONE (21:47)
[2022-03-28 05:03] VITALS: BP_SYST 98
[2022-03-28] MEDS: NACL 0.9% 1,000 ML IV SCH ×2 (05:43→16:57)
[2022-03-28 07:48] LABS: ALBUMIN 2.3 g/dL (3.4-4.8); CALCIUM 10.4 mg/dL (8.4-11.0); CREATININE 3.94 mg/dL (0.55-1.30); PHOSPHORUS 4.9 mg/dL (2.7-4.5); TOTAL BILIRUBIN 0.2 mg/dL (0.0-1.0)
[2022-03-28 08:52] LABS: HEMATOCRIT 33.2 % (36-54); HEMOGLOBIN 10.9 g/dL (14.0-18.0); MEAN CORPUSCULAR HEMOGLOBIN 31 pg (27-31); MEAN CORPUSCULAR HGB CONC 33 % (32-36); MEAN CORPUSCULAR VOLUME 93 fL (79.0-98.0); PLATELET COUNT (AUTO) 295 K/uL (130-430); RED BLOOD CELL COUNT(AUTO) 3.56 MIL/uL (4.2-6.2); RED CELL DISTRIBUTION WIDTH 16.4 % (9.0-15.0)
[2022-03-28] MEDS: CLOZAPINE 100 MG PO SCH ×2 (09:00→21:00)
[2022-03-28] MEDS: SEVELAMER CARBONATE 800 MG TABLET PO SCH ×3 (09:25→17:19)
[2022-03-28] MEDS: OXYBUTYNIN CHLORIDE 5 MG TABLET PO SCH (09:25)
[2022-03-28] MEDS: PANTOPRAZOLE SODIUM 40 MG TAB PO SCH (09:25)
[2022-03-28] MEDS: TAMSULOSIN HCL 0.4 MG CAP PO SCH (09:25)
[2022-03-28] MEDS: DOXYCYCLINE HYCLATE 100 MG CAPSULE PO SCH ×2 (09:25→21:32)
[2022-03-28] MEDS: DIVALPROEX SODIUM 500 MG TABLET( DEPAKOTE) PO SCH ×2 (09:25→21:33)
[2022-03-28] MEDS: FOLIC ACID 1 MG TABLET PO SCH (09:25)
[2022-03-28 09:35] VITALS: BP_SYST 115
[2022-03-28 09:44] LABS: WHITE BLOOD COUNT (AUTO) 11.8 K/uL (4.8-10.8)
[2022-03-28] MEDS: INSULIN REGULAR, HUMAN 100 UNITS/ML, 3 ML VIAL (humuLIN R) SUBCUT PRN ×2 (11:42→17:52)
[2022-03-28 11:44] VITALS: BP_SYST 102
[2022-03-28] MEDS: BALSAM PERU/CASTOR OIL 56.7 GM OINT...G. TP SCH (11:49)
[2022-03-28 13:34] LABS: ATYPICAL LYMPHOCYTES % 0 % (0-0); BAND % (MANUAL) 7 % (0-6); BASOPHILS % (MANUAL) 0 % (0-2); EOSINOPHILS % (MANUAL) 2 % (0-7); LYMPHOCYTES % (MANUAL) 10 % (20-46); MONOCYTES % (MANUAL) 18 % (0-11); MYELOCYTES % 3 % (0-0); WBC MORPHOLOGY TOXIC VACUOLATION
[2022-03-28 16:39] VITALS: BP_SYST 106
[2022-03-28] MEDS: ATORVASTATIN 20 MG TABLET PO SCH (21:32)
[2022-03-29 00:15] VITALS: BP_SYST 91
[2022-03-29] MEDS ORDERED: DEXTROSE 50% JECT 50 ML DISP.SYRIN ONE (00:58)
[2022-03-29] MEDS ORDERED: DEXTROSE 50%-WATER 50 ML DISP.SYRIN IVP PRN (06:45)
[2022-03-29] MEDS ORDERED: GLUCOSE (DEXTROSE) ORAL GEL -Adults PO PRN (06:45)
[2022-03-29] MEDS ORDERED: D5W 1,000 ML IV PRN (06:45)
[2022-03-29 07:27] LABS: BASOPHILS # (AUTO) 0.1 K/uL (0.0-0.2); BASOPHILS % (AUTO) 0.6 % (0.0-2.0); EOSINOPHILS % (AUTO) 0.3 % (0.0-4.0); HEMOGLOBIN 9.4 g/dL (14.0-18.0); LYMPHOCYTES # (AUTO) 0.9 K/uL (1.0-5.5); LYMPHOCYTES % (AUTO) 7.6 % (20.5-51.5); MEAN CORPUSCULAR HEMOGLOBIN 31 pg (27-31); MEAN CORPUSCULAR HGB CONC 33 % (32-36); MEAN CORPUSCULAR VOLUME 94 fL (79.0-98.0); MONOCYTES # (AUTO) 1.9 K/uL (0.0-1.0); MONOCYTES % (AUTO) 16.6 % (1.7-9.3); NEUTROPHILS # (AUTO) 8.6 K/uL (1.8-7.7); NEUTROPHILS % (AUTO) 74.9 % (40.0-70.0); PLATELET COUNT (AUTO) 315 K/uL (130-430); RED BLOOD CELL COUNT(AUTO) 3.09 MIL/uL (4.2-6.2); RED CELL DISTRIBUTION WIDTH 17.3 % (9.0-15.0); WHITE BLOOD COUNT (AUTO) 11.4 K/uL (4.8-10.8)
[2022-03-29 08:00] VITALS: BP_SYST 100
[2022-03-29] MEDS ORDERED: ALBUMIN HUMAN 25% 50 ML IV ONE (08:15)
[2022-03-29 08:24] LABS: ALBUMIN 2.4 g/dL (3.4-4.8); CALCIUM 10.2 mg/dL (8.4-11.0); CREATININE 4.17 mg/dL (0.55-1.30); PHOSPHORUS 4.1 mg/dL (2.7-4.5); TOTAL BILIRUBIN 0.2 mg/dL (0.0-1.0)
[2022-03-29] MEDS: DOXYCYCLINE HYCLATE 100 MG CAPSULE PO SCH (10:40)
[2022-03-29] MEDS: SEVELAMER CARBONATE 800 MG TABLET PO SCH (10:40)
[2022-03-29] MEDS: OXYBUTYNIN CHLORIDE 5 MG TABLET PO SCH (10:40)
[2022-03-29] MEDS: PANTOPRAZOLE SODIUM 40 MG TAB PO SCH (10:40)
[2022-03-29] MEDS: DIVALPROEX SODIUM 500 MG TABLET( DEPAKOTE) PO SCH (10:41)
[2022-03-29] MEDS: TAMSULOSIN HCL 0.4 MG CAP PO SCH (10:42)
[2022-03-29] MEDS: FOLIC ACID 1 MG TABLET PO SCH (10:42)
[2022-03-29 11:24] VITALS: BP_SYST 105
[2022-03-29] MEDS: INSULIN REGULAR, HUMAN 100 UNITS/ML, 3 ML VIAL (humuLIN R) SUBCUT PRN (14:04)
[2022-03-29] MEDS: NACL 0.9% 1,000 ML IV SCH ×2 (14:33→14:36)
[2022-03-29 15:24] VITALS: BP_SYST 103
[2022-03-30 08:00] VITALS: BP_SYST 105
== END 2022-03-29 15:51 | DRG 871 ==
LOC: SED 20:11 → STU 23:50 → UNDODISIN 03-25 18:00 → SMU 03-28 10:48
PROVIDERS: ADMIT Internal Medicine; ATTEND Internal Medicine
PROC: 30233N1 Transfusion of Nonautologous Red Blood Cells into Peripheral Vein, Percutaneous Approach (ICD-10-PCS; principal; 2022-03-22)
DX: A41.9 Sepsis, unspecified organism (principal); E43 Unspecified severe protein-calorie malnutrition; I21.A1 Myocardial infarction type 2; N17.0 Acute kidney failure with tubular necrosis; E87.0 Hyperosmolality and hypernatremia; F03.93 Unspecified dementia, unspecified severity, with mood disturbance; N18.4 Chronic kidney disease, stage 4 (severe); N39.0 Urinary tract infection, site not specified; L03.115 Cellulitis of right lower limb; Z68.1 Body mass index [BMI] 19.9 or less, adult; I12.9 Hypertensive chronic kidney disease with stage 1 through stage 4 chronic kidney disease, or unspecified chronic kidney disease; E87.5 Hyperkalemia; R65.20 Severe sepsis without septic shock; E86.0 Dehydration; N18.9 Chronic kidney disease, unspecified; Z20.822 Contact with and (suspected) exposure to COVID-19; D53.9 Nutritional anemia, unspecified; D63.1 Anemia in chronic kidney disease; E78.5 Hyperlipidemia, unspecified; F20.9 Schizophrenia, unspecified; G40.909 Epilepsy, unspecified, not intractable, without status epilepticus; N40.0 Benign prostatic hyperplasia without lower urinary tract symptoms; E11.65 Type 2 diabetes mellitus with hyperglycemia; E87.6 Hypokalemia; L89.109 Pressure ulcer of unspecified part of back, unspecified stage; L89.899 Pressure ulcer of other site, unspecified stage; F31.9 Bipolar disorder, unspecified; E11.22 Type 2 diabetes mellitus with diabetic chronic kidney disease; Z87.891 Personal history of nicotine dependence; Z74.01 Bed confinement status; Z93.1 Gastrostomy status; Z79.4 Long term (current) use of insulin
CPT/HCPCS: 36415; 71045; 76770; 80048; 80053; 80061; 80164; 81000; 82043; 82272; 82570; 82962; 83605; 83735; 83880; 83935; 84100; 84302; 84484; 85007; 85025; 85027; 86886; 86900; 86901; 86920; 87040; 87081; 93005; 93306; 96360; 96361; 96372; 99285; G0378; J0696; J0885; J1815; J3480; J7030; J7050; J7060; P9021; P9046; Q5106

== ENCOUNTER 2022-03-27 16:26 | Inpatient (IN) | payer OTHER, MEDICAID ==
[~2022-03-27] VITALS: Ht 167.6 cm; Wt 55.3 kg
[~2022-03-27 16:26] MED LIST changes: -DOCU-144 PO; +DOXY100T2 PO; -FLUT16SP16 NS; +GLIP5TAB13 PO; -GLIP5TAB26 PO; -GUAI-723 PO; -OXYM15MI9 NS
[2022-03-29 20:00] VITALS: BP_SYST 97
[2022-03-29] MEDS ORDERED: NACL 0.9% 1,000 ML IV SCH (20:00)
--- NOTE | 2022-03-29 20:00 | NUR ---
OPENING NOTES Patient re-admitted today around 1600 on day shift. Administration unable to add pt information; no medications, orders, labs, interventions, etc. Saw pt with music critic TAI. He instructed to continue IV fluids 0.9% NS at 100 mL/hr, continue feeding Nephro 1.8 at 40 mL/hr with 250mL FWF Q6, AccuChecks Q6, and ordered 100 mg Doxycycline BID crushed, administered through GT for 10 days. Vital Signs: BP 97/62, HR 123, RR 24, Temp 99.5, O2 99% RA Accu Check: 185 - no coverage IV: Right thumb infiltrated, hand swollen, site discontinued. Pt has edema on both feet, right foot is covered with round purple spots
[2022-03-29 23:59] VITALS: BP_SYST 102
--- NOTE | 2022-03-30 00:04 | NUR ---
CONSULTATION CALLED FOR DR. LUJAN FOR CONSULT OF NATHAN ORDER BY DR. REDDY SPOKE WITH MINNIE
--- NOTE | 2022-03-30 02:00 | NUR ---
MIDSHIFT NOTES PT resting with eyes closed, shows no sign of distress and temperature maintains elevated 99.0 Still no IV access, fluids not running. New bottle of tube feeding, NEPHRO 1.8 STARTED @ 0100 Provided skin care, assess wounds. Collected urine to send to labo7
[2022-03-30 04:00] VITALS: BP_SYST 100
[2022-03-30] MEDS: DOXYCYCLINE HYCLATE 100 MG CAPSULE PO SCH ×3 (04:20→23:51)
[2022-03-30 06:46] LABS: BASOPHILS # (AUTO) 0.2 K/uL (0.0-0.2); EOSINOPHILS % (AUTO) 0.1 % (0.0-4.0); HEMATOCRIT 32.4 % (36-54); HEMOGLOBIN 10.3 g/dL (14.0-18.0); LYMPHOCYTES # (AUTO) 0.8 K/uL (1.0-5.5); LYMPHOCYTES % (AUTO) 4.9 % (20.5-51.5); MEAN CORPUSCULAR HEMOGLOBIN 30 pg (27-31); MEAN CORPUSCULAR HGB CONC 32 % (32-36); MEAN CORPUSCULAR VOLUME 94 fL (79.0-98.0); MONOCYTES # (AUTO) 3.6 K/uL (0.0-1.0); MONOCYTES % (AUTO) 22.6 % (1.7-9.3); NEUTROPHILS # (AUTO) 11.5 K/uL (1.8-7.7); NEUTROPHILS % (AUTO) 71.4 % (40.0-70.0); PLATELET COUNT (AUTO) 276 K/uL (130-430); RED BLOOD CELL COUNT(AUTO) 3.46 MIL/uL (4.2-6.2); WHITE BLOOD COUNT (AUTO) 16.1 K/uL (4.8-10.8)
--- NOTE | 2022-03-30 07:00 | NUR ---
CLOSING NOTES Patient is more alert; tracking and making eye contact. Vital signs 0400: BP 100/66, HR 123, RR 20, Temp 99.5, O2 98% AccuCheck: 206 no coverage IV Fluids still not running d/t no IV access. Several attempts have been made, with the assistance of another nurse, to obtain IV access unsuccessfully. Will endorse to day nurse request placement of midline. Patient has been changed, repositioned, provided oral care, and is resting comfortably. Pt appears more stable and comfortable e/b ease of breathing, not retreating when touched, and tracking me when in the room. Will update and endorse care to day nurse.
[2022-03-30 07:12] LABS: ALBUMIN 2.4 g/dL (3.4-4.8); CALCIUM 10.1 mg/dL (8.4-11.0); CREATININE 4.47 mg/dL (0.55-1.30); PHOSPHORUS 4.4 mg/dL (2.7-4.5); TOTAL BILIRUBIN 0.2 mg/dL (0.0-1.0)
[2022-03-30] MEDS ORDERED: D5W 1,000 ML IV PRN (08:45)
[2022-03-30] MEDS ORDERED: GLUCOSE (DEXTROSE) ORAL GEL -Adults PO PRN (08:45)
[2022-03-30] MEDS: DIVALPROEX SODIUM 500 MG TABLET( DEPAKOTE) PO SCH ×2 (09:00→23:51)
[2022-03-30] MEDS ORDERED: SODIUM ZIRCONIUM CYCLOSILICATE 10 GM POWD.PACK PO SCH (09:00)
[2022-03-30] MEDS: CLOZAPINE 100MG TAB PO SCH ×2 (09:00→21:00)
[2022-03-30] MEDS ORDERED: SEVELAMER CARBONATE 800 MG TABLET GT ONE (09:45)
[2022-03-30 11:28] VITALS: BP_SYST 100
[2022-03-30] MEDS: SEVELAMER CARBONATE 800 MG TABLET GT SCH (12:00)
[2022-03-30 15:24] VITALS: BP_SYST 112
--- NOTE | 2022-03-30 18:09 | NUR ---
CONSULT CALLED IN TO MD SALDANA. FAXED OVER FACESHEET REQUESTED.
[2022-03-30 20:00] VITALS: BP_SYST 97
[2022-03-30] MEDS: D5W 1,000 ML IV SCH (20:30)
[2022-03-31 00:24] VITALS: BP_SYST 92
[2022-03-31 07:03] LABS: CALCIUM 10.4 mg/dL (8.4-11.0); CREATININE 4.99 mg/dL (0.55-1.30)
[2022-03-31 07:40] LABS: BASOPHILS # (AUTO) 0.2 K/uL (0.0-0.2); HEMATOCRIT 30.8 % (36-54); HEMOGLOBIN 9.9 g/dL (14.0-18.0); LYMPHOCYTES % (AUTO) 6.1 % (20.5-51.5); MEAN CORPUSCULAR HEMOGLOBIN 30 pg (27-31); MEAN CORPUSCULAR HGB CONC 32 % (32-36); MEAN CORPUSCULAR VOLUME 95 fL (79.0-98.0); MONOCYTES # (AUTO) 4.3 K/uL (0.0-1.0); MONOCYTES % (AUTO) 25.3 % (1.7-9.3); NEUTROPHILS # (AUTO) 11.4 K/uL (1.8-7.7); NEUTROPHILS % (AUTO) 67.6 % (40.0-70.0); PLATELET COUNT (AUTO) 273 K/uL (130-430); RED BLOOD CELL COUNT(AUTO) 3.26 MIL/uL (4.2-6.2); RED CELL DISTRIBUTION WIDTH 18.5 % (9.0-15.0); WHITE BLOOD COUNT (AUTO) 16.8 K/uL (4.8-10.8)
[2022-03-31] MEDS: SEVELAMER CARBONATE 800 MG TABLET GT SCH ×3 (08:00→19:05)
--- NOTE | 2022-03-31 08:40 | NUR ---
SUPERVISOR ALUMINUM BOAT ASSEMBLY [facility]el contacted [facility] to obtain update on packet that was faxed on Tuesday03/30/2022. According to Abbi, staff was not in at this time. [facility] provided contact information and requested call back Addendum: 03/31/22 at 1130 by Amanda PATTERSON CHIRAG Patel contacted [facility] to obtain update. At this time Abbi with [facility] shared the documents have been uploaded and packet is being reviewed and staff will make contact with family. ACSW will continue to be available as needed
[2022-03-31] MEDS: BALSAM PERU/CASTOR OIL 56.7 GM OINT...G. TP SCH (09:00)
[2022-03-31] MEDS: DOXYCYCLINE HYCLATE 100 MG CAPSULE PO SCH ×2 (10:02→20:39)
[2022-03-31] MEDS: DIVALPROEX SODIUM 500 MG TABLET( DEPAKOTE) PO SCH ×2 (10:03→20:39)
[2022-03-31] MEDS: FOLIC ACID 1 MG TABLET GT SCH (10:05)
[2022-03-31] MEDS: ATORVASTATIN 20 MG TABLET GT SCH (10:05)
[2022-03-31] MEDS: TAMSULOSIN HCL 0.4 MG CAP GT SCH (10:07)
[2022-03-31] MEDS: POTASSIUM CHLORIDE 20 MEQ/PKT PACKET GT SCH (10:07)
[2022-03-31] MEDS: OXYBUTYNIN CHLORIDE 5 MG TABLET GT SCH (10:07)
[2022-03-31] MEDS: PANTOPRAZOLE SODIUM 40 MG TAB PO SCH (10:08)
[2022-03-31 12:00] VITALS: BP_SYST 94
[2022-03-31] MEDS: D5W 1,000 ML IV SCH ×2 (12:30→20:42)
--- NOTE | 2022-03-31 14:58 | NUR ---
CERTIFIED ENERGY MANAGER ACSW Amanda responded to voicemail left by Paty @[facility] stating she has been unable to locate family to discuss services. Unable to leave message due to voicemail being full ACSW Amanda contacted assigned RN Ya to inquire into additional contact information for family members. He stated he has been unable to contact the persons depicted on facesheet and was in need of consents for treatment. ACSW Amanda contacted [facility] to inquire into additional contact information. According to Lottie, they have responsible alliance party as Rachel which is depicted on facesheet. ACSW made attempts to contact above number received busy signal several times. Left (on facesheet). ACSW will continue to be available as needed
[2022-03-31 16:00] VITALS: BP_SYST 90
[2022-03-31 16:22] LABS: BILIRUBIN,URINE NEGATIVE (NEGATIVE); BLOOD, URINE 2+ (NEGATIVE); CLARITY/URINE CLOUDY (CLEAR); COLOR,URINE YELLOW (YELLOW); GLUCOSE,URINE NEGATIVE (NEGATIVE); KETONES,URINE NEGATIVE (NEGATIVE); LEUKOCYTE ESTERASE ,URINE 3+ (NEGATIVE); NITRITE, URINE NEGATIVE (NEGATIVE); PROTEIN URINE 2+ (NEGATIVE); UROBILINOGEN,URINE 0.2 (0.2-1.0)
[2022-03-31 16:45] LABS: BACTERIA,URINE MODERATE /HPF (None Seen); YEAST,URINE Many /HPF (None Seen)
--- NOTE | 2022-03-31 19:00 | NUR ---
Received pt in bed.AOX1.On RA.Not in respiratory distress noted.L upper arm midline, patent and intact, no signs of infection and infiltration noted.G tube in place with ongoing Nepro at 40 ml/hr, no residual volume noted.F/C in place, draining well to gravity.Bed in lowest position.
[2022-03-31 20:00] VITALS: BP_SYST 92
[2022-03-31] MEDS ORDERED: FLUCONAZOLE 100 MG TABLET (DIFLUCAN) PO ONE (20:45)
[2022-03-31] MEDS: CLOZAPINE 100MG TAB PO SCH (21:00)
--- NOTE | 2022-03-31 21:00 | NUR ---
Scheduled medications given as ordered.
[2022-03-31] MEDS: INSULIN REGULAR, HUMAN 100 UNITS/ML, 3 ML VIAL (humuLIN R) SUBCUT PRN (23:50)
[2022-04-01] VITALS: BP_SYST 91
--- NOTE | 2022-04-01 | NUR ---
Changed and repositioned pt.
--- NOTE | 2022-04-01 03:00 | NUR ---
Kept pt clean and dry.Pt has even and unlabored breathing noted.
[2022-04-01] MEDS: D5W 1,000 ML IV SCH ×3 (04:37→20:30)
[2022-04-01] MEDS: INSULIN REGULAR, HUMAN 100 UNITS/ML, 3 ML VIAL (humuLIN R) SUBCUT PRN ×3 (05:18→18:48)
[2022-04-01 08:21] LABS: CALCIUM 8.8 mg/dL (8.4-11.0); CREATININE 5.07 mg/dL (0.55-1.30)
[2022-04-01] MEDS: CLOZAPINE 100MG TAB PO SCH ×2 (09:00→21:00)
[2022-04-01] MEDS: TAMSULOSIN HCL 0.4 MG CAP GT SCH (09:43)
[2022-04-01] MEDS: POTASSIUM CHLORIDE 20 MEQ/PKT PACKET GT SCH (09:43)
[2022-04-01] MEDS: FOLIC ACID 1 MG TABLET GT SCH (09:44)
[2022-04-01] MEDS: ATORVASTATIN 20 MG TABLET GT SCH (09:44)
[2022-04-01] MEDS: FLUCONAZOLE 100 MG TABLET (DIFLUCAN) PO SCH (09:44)
[2022-04-01] MEDS: DOXYCYCLINE HYCLATE 100 MG CAPSULE PO SCH ×2 (09:45→21:00)
[2022-04-01] MEDS: OXYBUTYNIN CHLORIDE 5 MG TABLET GT SCH (09:45)
[2022-04-01] MEDS: PANTOPRAZOLE SODIUM 40 MG TAB PO SCH (09:45)
[2022-04-01] MEDS: SEVELAMER CARBONATE 800 MG TABLET GT SCH ×3 (09:46→18:46)
[2022-04-01] MEDS: DIVALPROEX SODIUM 500 MG TABLET( DEPAKOTE) PO SCH ×2 (09:47→21:00)
[2022-04-01] MEDS: BALSAM PERU/CASTOR OIL 56.7 GM OINT...G. TP SCH (09:48)
[2022-04-01 12:40] VITALS: BP_SYST 93
--- NOTE | 2022-04-01 15:20 | NUR ---
WOUND EVALUATION: Wound Consult received from Dr. Narvaez. Thank you, Dr. Narvaez, for the consult. Patient received in a Laexandra Bed with an IsoFlex [place] mattress, awake, nonverbal, nonresponsive to verbal commands. Patient is unable to turn in bed independently, and does not assist with turning. Clayton Score is a 12. Past Medical History: Hypertension, Hyperlipidemia, Epilepsy, Diabetes Mellitus, BPH, Chronic Kidney Disease, Dementia, Schizophrenia, Anemia of Chronic Kidney Disease. Recent Labs: WBC 16.8, RBC 3.26, hemoglobin 9.9, hematocrit 30.8, sodium 155, chloride 120, BUN 121, creatinine 5.07, GFR 12, glucose 222, POC glucose 224, albumin 2.4. Microbiology: Wound Culture results in progress. Blood culture results x2 in progress. Urine culture results in progress. Intrinsic factors that delay wound healing: Diabetes Mellitus, Chronic Kidney Disease, Anemia of Chronic Kidney Disease. Extrinsic factors that delay wound healing: Immobility. Wound Assessment: 1. Sacral-Coccygeal area: Unstageable pressure ulcer, present on admission. Wound bed has 45% brown tissue, 30% yellow tissue, 15% pink tissue, 10% red tissue. No odor, no drainage. Periwound intact. Multiple areas of scabs and dark discolored areas under the skin present right lateral and superior to site. Wound measures 4.0 cm x 3.5 cm. Recommend: Cleanse wound with normal saline. Apply moisture barrier cream to periwound. Apply Venelex ointment to wound bed. Cover site with foam dressing. Perform wound care daily, and as needed for dressing soiling or dislodgment. 2. Left Lower Buttock/Ischium: Stage II pressure ulcer. Site has closed blister with clear fluid. No odor, no drainage. Multiple black scabs and dark discolored areas on surrounding tissue. Site measures 2.5 cm x 2.0 cm. Recommend: Rinse site with mild soap and water if soiled. Cover site with foam dressing. Perform site care daily, and as needed for dressing soiling or dislodgment. 3. Right outer buttock: Scar tissue, present on admission. No odor, no drainage. Recommend: Cleanse wound area with mild soap and water. Pat dry. Apply moisture barrier cream to involved area. Perform site care 4 times daily and as needed for soiling. 4. Right Distal Lateral Lower Extremity, Superior to Malleolus: Unstageable pressure ulcer, present on admission. Wound bed has 85% yellow slough, 10% black tissue, 5% red tissue. No odor, no drainage. Periwound intact. Extremity and foot have multiple, multiple areas of dark discoloration and black scabs. Site measures 1.9 cm x 1.7 cm. Recommend: [place] wound site with Betadine. Allow Betadine to air dry. Cover site with foam dressing. Perform site care daily, and as needed for dressing soiling or dislodgment. 5. Right Distal Lateral Lower Extremity, Superior to Site 4: Unstageable pressure ulcer, present on admission. Wound bed has 100% black eschar. No odor, no drainage. Periwound intact. Wound measures 4.0 cm x 1.3 cm. Extremity and foot have multiple, multiple areas of dark discoloration and black scabs. Recommend: [place] site with Betadine. Allow Betadine to air dry, site with foam dressing in diagonal fashion. Perform site care daily, and as needed for dressing soiling or dislodgment.. 6. Right Medial Heel: Unstageable pressure ulcer, present on admission. Wound bed has 95% black eschar, 5% brown eschar. No odor, no drainage. Periwound intact. Wound measures 2.4 cm x 2.6 cm. Foot has multiple, multiple areas of dark discoloration and black scabs. 7. Left Lateral Heel: Scar tissue from prior ustageable pressure ulcer, present on admission. No odor, no drainage. Recommend: [place] site 6 with Betadine. Allow Betadine to air dry. Cover both sites with foam dressings. Perform site care daily, and as needed for dressing soiling or dislodgment. Elevate, offload and float bilateral heels with 1 pillow lengthwise under each extremity at all times. Do not allow heels to touch bed or other surfaces at any time. 8. Right Dorsal Foot: Multiple areas of dry scaly skin and chronic black scabs, present on admission. Recommend: Cleanse involved areas with mild soap and water. Gently pat dry. Apply Eucerin cream to involved areas. Perform site care twice daily. Also recommend: Reposition patient side to side every 2 hours with one pillow underneath lower back and 1 pillow underneath posterior thighs (ensure that pillows do not touch wounds, and that wounds are floating). Initiate turning by placing 1 pillow underneath left pelvis for 2 hours, then rotate pillow to underneath right pelvis for 2 hours, repeat every 2 hours. Off-load pressure areas with pillows for pressure re-distribution. Offload, elevate and float bilateral heels with 1 pillow lengthwise under each extremity at all times. Perform skin care and monitor skin integrity Q shift. Use moisture barrier cream on buttocks and other moisture susceptible areas QID and as needed for soiling. Place patient on a P500 low air-loss mattress.
--- NOTE | 2022-04-01 16:00 | NUR ---
Dietitian Recommendations * Nepro at 40 ml/hr (goal rate), Kwasi BID, Free Water Flush: 250 ml Q4h (per physician d/t CKD) via GT Provides: 1888 kcal/day, 83 gm protein/day, and 2198 ml free water/day Meets: 98% of lower end of estimated caloric needs and 102% of upper end of estimated protein needs LP, MS, RD Please refer to Nutrition Assessment for details. Addendum: 04/01/22 at [address] Amended: Links added.
[2022-04-01 16:02] LABS: HEMATOCRIT 25.6 % (36-54); HEMOGLOBIN 8.3 g/dL (14.0-18.0); MEAN CORPUSCULAR HEMOGLOBIN 31 pg (27-31); MEAN CORPUSCULAR HGB CONC 32 % (32-36); MEAN CORPUSCULAR VOLUME 94 fL (79.0-98.0); PLATELET COUNT (AUTO) 225 K/uL (130-430); RED BLOOD CELL COUNT(AUTO) 2.72 MIL/uL (4.2-6.2); RED CELL DISTRIBUTION WIDTH 18.2 % (9.0-15.0); WHITE BLOOD COUNT (AUTO) 10.2 K/uL (4.8-10.8)
[2022-04-01 16:19] LABS: BAND % (MANUAL) 10 % (0-6); BASOPHILS % (MANUAL) 0 % (0-2); EOSINOPHILS % (MANUAL) 0 % (0-7); LYMPHOCYTES % (MANUAL) 7 % (20-46); MONOCYTES % (MANUAL) 24 % (0-11); MYELOCYTES % 3 % (0-0)
[2022-04-01 16:23] VITALS: BP_SYST 92
[2022-04-01] MEDS: EPOETIN ALFA-EPBX 10,000 UNITS/ML VIAL SUBCUT SCH ×2 (18:48→18:50)
--- NOTE | 2022-04-01 19:23 | NUR ---
0800: NO S/S OF ANY ACUTE DISTRESS NOTED. OPEN EYES DOES NOT ATTEMPT TO COMMUNICATE 1200: CONTINUE TO TOLERATED FEEDING WELL RESIDUAL < 10 CC 1600: WOUND CARE CONSULT FOR MULTIPLE WOUND. WOUND CARE ORDER PER MELI SINGH. ALSO ORDERED AIR LOSS BED 1900: REMAIN STABLE W/O ANY CHANGE IN LOC. MD AWARE OF ABNORMAL LAB NO NEW ORDER AT THIS TIME. ENDORSED PATIENT TO PM SHIFT NURSE
[2022-04-01] MEDS: EMOLLIENT COMBINATION NO.73 78 GM CREAM..G. TP SCH (21:00)
[2022-04-02] MEDS: INSULIN REGULAR, HUMAN 100 UNITS/ML, 3 ML VIAL (humuLIN R) SUBCUT PRN ×4 (00:05→23:46)
[2022-04-02 00:47] VITALS: BP_SYST 129
[2022-04-02] MEDS: D5W 1,000 ML IV SCH ×3 (05:32→20:51)
[2022-04-02 07:55] LABS: CALCIUM 8.6 mg/dL (8.4-11.0); CREATININE 4.77 mg/dL (0.55-1.30)
[2022-04-02 08:24] LABS: BASOPHILS # (AUTO) 0.1 K/uL (0.0-0.2); BASOPHILS % (AUTO) 0.6 % (0.0-2.0); EOSINOPHILS % (AUTO) 0.3 % (0.0-4.0); HEMATOCRIT 26.7 % (36-54); HEMOGLOBIN 8.6 g/dL (14.0-18.0); LYMPHOCYTES # (AUTO) 0.9 K/uL (1.0-5.5); LYMPHOCYTES % (AUTO) 7.5 % (20.5-51.5); MEAN CORPUSCULAR HEMOGLOBIN 30 pg (27-31); MEAN CORPUSCULAR HGB CONC 32 % (32-36); MEAN CORPUSCULAR VOLUME 93 fL (79.0-98.0); MONOCYTES # (AUTO) 2.8 K/uL (0.0-1.0); MONOCYTES % (AUTO) 24.1 % (1.7-9.3); NEUTROPHILS # (AUTO) 7.7 K/uL (1.8-7.7); PLATELET COUNT (AUTO) 233 K/uL (130-430); RED BLOOD CELL COUNT(AUTO) 2.86 MIL/uL (4.2-6.2); RED CELL DISTRIBUTION WIDTH 17.5 % (9.0-15.0); WHITE BLOOD COUNT (AUTO) 11.4 K/uL (4.8-10.8)
[2022-04-02] MEDS: EMOLLIENT COMBINATION NO.73 78 GM CREAM..G. TP SCH ×2 (08:52→20:52)
[2022-04-02] MEDS: BALSAM PERU/CASTOR OIL 56.7 GM OINT...G. TP SCH (08:52)
[2022-04-02] MEDS: CLOZAPINE 100MG TAB PO SCH ×2 (09:00→20:52)
[2022-04-02] MEDS ORDERED: BALSAM PERU/CASTOR OIL 56.7 GM OINT...G. TP SCH (09:00)
--- NOTE | 2022-04-02 09:02 | NUR ---
Discharge Planning: DCP faxed pt referral to [facility] [phone], DCP to follow up Addendum: 04/02/22 at 1439 by Kitty Miller DP DCP spoke to Lupe at [facility] [phone] she would like pt earlier in day.
[2022-04-02] MEDS: FLUCONAZOLE 100 MG TABLET (DIFLUCAN) PO SCH (09:51)
[2022-04-02] MEDS: SEVELAMER CARBONATE 800 MG TABLET GT SCH ×3 (09:51→18:51)
[2022-04-02] MEDS: TAMSULOSIN HCL 0.4 MG CAP GT SCH (09:51)
[2022-04-02] MEDS: DOXYCYCLINE HYCLATE 100 MG CAPSULE PO SCH ×2 (09:51→20:51)
[2022-04-02] MEDS: PANTOPRAZOLE SODIUM 40 MG TAB PO SCH (09:51)
[2022-04-02] MEDS: DIVALPROEX SODIUM 500 MG TABLET( DEPAKOTE) PO SCH ×2 (09:51→20:51)
[2022-04-02] MEDS: POTASSIUM CHLORIDE 20 MEQ/PKT PACKET GT SCH (09:51)
[2022-04-02] MEDS: FOLIC ACID 1 MG TABLET GT SCH (09:52)
[2022-04-02] MEDS: OXYBUTYNIN CHLORIDE 5 MG TABLET GT SCH (09:52)
[2022-04-02] MEDS: ATORVASTATIN 20 MG TABLET GT SCH (09:52)
--- NOTE | 2022-04-02 10:00 | NUR ---
GIS SCIENTIST ACSW Amanda contacted [facility] to obtain update. According to [facility], efforts to contact family continue to be unsuccessful. ACSW will continue to be available as needed
[2022-04-02 11:05] LABS: NEUTROPHILS % (AUTO) 67.5 % (40.0-70.0)
[2022-04-02] MEDS: SODIUM BICARBONATE 650 MG TABLET PO SCH ×2 (15:00→20:51)
[2022-04-02] MEDS: CLOTRIMAZOLE 1% TOPICAL CREAM 15 GM TP SCH ×2 (15:30→20:52)
--- NOTE | 2022-04-02 15:54 | NUR ---
CONSULTATION PAGED REASON FOR CONSULTATION:SWELLING AND DISCHARGE FROM [facility] WAS CONSULT CALLED?Y PERSON WHO WAS NOTIFIED:ANNIE CONSULTING PHYSICIAN:LYLA DÍAZ HOUSE FURNISHINGS SUPERVISOR SPECIALTY:UROLOGY HOUSE FURNISHINGS SUPERVISOR PHONE NUMBER:[phone] REQUESTING PHYSICIAN:ALTHEA ROSENTHAL
[2022-04-02 15:55] VITALS: BP_SYST 88
--- NOTE | 2022-04-02 19:15 | NUR ---
OPENING NOTE REPORT RECEIVED FROM DAYSHIFT NURSE. PATIENT RECEIVED LYING IN BED, RESTING, HOB RAISED. NO S/S OF ACUTE DISTRESS. BREATHING EVEN AND UNLABORED. IVF AND TUBE FEEDING INFUSING. IV SITE IS PATENT, NO SIGNS OF INFILTRATION OR INFECTION. CARRERA ATTACHED, SECURED, AND DRAINING BY GRAVITY. BED ALARM ON. BED IS LOCKED AND AT LOWEST POSITION.
[2022-04-02 20:00] VITALS: BP_SYST 129
[2022-04-02] MEDS: MIDODRINE HCL 5 MG TABLET (PROAMATINE) PO SCH (20:51)
--- NOTE | 2022-04-02 23:00 | NUR ---
TUBE FEEDING MALFUNCTION/MANUAL PUSH FEEDING ATTEMPTED TO TROUBLE SHOOT TUBE FEEDING MACHINE, IT KEEPS BEEPING AND "FREE RONN" MESSAGE POPS UP. RN FOUND ANOTHER MACHINE, IT DOES THE SAME THING. CHANGED TUBE FEEDING AGAIN, STILL DOES THE SAME THING. SO MUCH TIME TRYING TO TROUBLE SHOOT EQUIPMENT. MADE CHARGE NURSE AWARE. ALSO MADE CHARGE NURSE AWARE OF PLAN TO PUSH 240ML OF NEPRO FEEDING SPREAD OUT THROUGHOUT SHIFT TO COVER THE 40ML/HR ORDER. CHARGE NURSE AGREED.
[2022-04-02 23:05] LABS: BILIRUBIN,URINE NEGATIVE (NEGATIVE); BLOOD, URINE 3+ (NEGATIVE); CLARITY/URINE CLEAR (CLEAR); COLOR,URINE YELLOW (YELLOW); GLUCOSE,URINE 3+ (NEGATIVE); KETONES,URINE NEGATIVE (NEGATIVE); LEUKOCYTE ESTERASE ,URINE 2+ (NEGATIVE); NITRITE, URINE NEGATIVE (NEGATIVE); PH,URINE 5.5 (5.0-8.0); PROTEIN URINE 1+ (NEGATIVE); UROBILINOGEN,URINE 0.2 (0.2-1.0)
[2022-04-03 00:31] LABS: RBC,URINE 20-50 /HPF (0-3); WBC,URINE 80-100 /HPF (0-3)
[2022-04-03 00:32] LABS: BACTERIA,URINE FEW /HPF (None Seen); MUCUS,URINE 1+ /LPF (None Seen); YEAST,URINE Rare /HPF (None Seen)
[2022-04-03 01:10] VITALS: BP_SYST 75
[2022-04-03 02:00] VITALS: BP_SYST 94
--- NOTE | 2022-04-03 03:00 | NUR ---
ROUND PATIENT IN BED, RESTING. HOB RAISED. NO SIGNS OF DISCOMFORT. ALL NEEDS MET. WILL CONTINUE TO MONITOR.
[2022-04-03] MEDS: D5W 1,000 ML IV SCH (04:02)
[2022-04-03] MEDS: INSULIN REGULAR, HUMAN 100 UNITS/ML, 3 ML VIAL (humuLIN R) SUBCUT PRN ×3 (05:39→18:12)
[2022-04-03 06:19] VITALS: BP_SYST 126
--- NOTE | 2022-04-03 06:51 | NUR ---
CLOSING NOTE PATIENT IN BED, EYES CLOSED, RESTING. NO S/S OF ACUTE DISTRESS. BREATHING EVEN AND UNLABORED. IVF INFUSING WELL. TOTAL OF 480ML NEPRO PUSHED THROUGH GTUBE THROUGHOUT SHIFT. CARRERA ATTACHED, SECURED, AND DRAINING BY GRAVITY. ALL NEEDS MET THROUGHOUT SHIFT. FALL, SAFETY PRECAUTIONS MAINTAINED THROUGHOUT SHIFT. WILL CONTINUE TO MONITOR UNTIL PATIENT CARE IS ENDORSED TO ONCOMING DAYSHIFT NURSE.
--- NOTE | 2022-04-03 07:02 | NUR ---
receive the patient form the veterinary hospital shift lead mariam Altamirano in a stable condition with admitting diagnosis of dehydration aox1 contracted , hyponatremia . no sign and symptoms of respiratory distress . no complain of pain at this time. will continue to monitor .
[2022-04-03 08:09] LABS: BASOPHILS % (AUTO) 0.4 % (0.0-2.0); EOSINOPHILS # (AUTO) 0.1 K/uL (0.0-0.4); EOSINOPHILS % (AUTO) 0.7 % (0.0-4.0); HEMATOCRIT 25.2 % (36-54); HEMOGLOBIN 8.2 g/dL (14.0-18.0); LYMPHOCYTES # (AUTO) 0.7 K/uL (1.0-5.5); MEAN CORPUSCULAR HEMOGLOBIN 30 pg (27-31); MEAN CORPUSCULAR HGB CONC 33 % (32-36); MEAN CORPUSCULAR VOLUME 94 fL (79.0-98.0); MONOCYTES # (AUTO) 2.8 K/uL (0.0-1.0); PLATELET COUNT (AUTO) 206 K/uL (130-430); RED CELL DISTRIBUTION WIDTH 17.5 % (9.0-15.0); WHITE BLOOD COUNT (AUTO) 11.6 K/uL (4.8-10.8)
[2022-04-03] MEDS: CLOZAPINE 100MG TAB PO SCH ×2 (09:00→21:00)
[2022-04-03 09:04] LABS: CALCIUM 8.5 mg/dL (8.4-11.0)
[2022-04-03 09:05] LABS: ALBUMIN 1.4 g/dL (3.4-4.8); CREATININE 4.54 mg/dL (0.55-1.30); PHOSPHORUS 4.8 mg/dL (2.7-4.5); TOTAL BILIRUBIN 0.1 mg/dL (0.0-1.0)
[2022-04-03 09:15] LABS: NEUTROPHILS % (AUTO) 68.9 % (40.0-70.0)
[2022-04-03] MEDS: OXYBUTYNIN CHLORIDE 5 MG TABLET GT SCH (10:12)
[2022-04-03] MEDS: FOLIC ACID 1 MG TABLET GT SCH (10:12)
[2022-04-03] MEDS: POTASSIUM CHLORIDE 20 MEQ/PKT PACKET GT SCH (10:12)
[2022-04-03] MEDS: TAMSULOSIN HCL 0.4 MG CAP GT SCH (10:12)
[2022-04-03] MEDS: ATORVASTATIN 20 MG TABLET GT SCH (10:12)
[2022-04-03] MEDS: BALSAM PERU/CASTOR OIL 56.7 GM OINT...G. TP SCH (10:13)
[2022-04-03] MEDS: SODIUM BICARBONATE 650 MG TABLET PO SCH (10:13)
[2022-04-03] MEDS: DOXYCYCLINE HYCLATE 100 MG CAPSULE PO SCH ×2 (10:13→23:48)
[2022-04-03] MEDS: MIDODRINE HCL 5 MG TABLET (PROAMATINE) PO SCH ×2 (10:13→23:48)
[2022-04-03] MEDS: FLUCONAZOLE 100 MG TABLET (DIFLUCAN) PO SCH (10:13)
[2022-04-03] MEDS: DIVALPROEX SODIUM 500 MG TABLET( DEPAKOTE) PO SCH ×2 (10:13→23:48)
[2022-04-03] MEDS: PANTOPRAZOLE SODIUM 40 MG TAB PO SCH (10:13)
[2022-04-03] MEDS: CLOTRIMAZOLE 1% TOPICAL CREAM 15 GM TP SCH ×2 (10:14→23:50)
[2022-04-03] MEDS: EMOLLIENT COMBINATION NO.73 78 GM CREAM..G. TP SCH ×2 (10:14→23:50)
[2022-04-03] MEDS: SEVELAMER CARBONATE 800 MG TABLET GT SCH ×3 (10:17→18:09)
[2022-04-03 12:42] VITALS: BP_SYST 118
[2022-04-03] MEDS ORDERED: POTASSIUM CHLORIDE 20 MEQ/PKT PACKET GT ONE (14:00)
[2022-04-03] MEDS: D5/0.45 NS 1,000 ML IV SCH ×2 (14:14→23:54)
[2022-04-03] MEDS: SODIUM BICARBONATE 650 MG TABLET GT SCH ×2 (14:25→23:49)
[2022-04-03 16:00] VITALS: BP_SYST 121
--- NOTE | 2022-04-03 16:52 | NUR ---
laboratory called for positive E coli MDRO ESBL of the wound . called infectious disease md hector krishna . order meropenem . noted and carried out , the room mate was transferred to another room for isolation
[2022-04-03] MEDS: EPOETIN ALFA-EPBX 10,000 UNITS/ML VIAL SUBCUT SCH (18:11)
[2022-04-03] MEDS: MEROPENEM 500 MG in NS 50 ML IV SCH (18:26)
--- NOTE | 2022-04-03 18:50 | NUR ---
will endorse to head up operator rn for continuity of care
[2022-04-04 00:01] VITALS: BP_SYST 91
--- NOTE | 2022-04-04 01:09 | NUR ---
GT RUNNING AT 40ML/HR W NO RESIDUAL.
[2022-04-04] MEDS: INSULIN REGULAR, HUMAN 100 UNITS/ML, 3 ML VIAL (humuLIN R) SUBCUT PRN ×4 (01:35→17:08)
[2022-04-04] MEDS: MEROPENEM 500 MG in NS 50 ML IV SCH ×2 (06:25→17:06)
[2022-04-04] MEDS: D5/0.45 NS 1,000 ML IV SCH ×3 (06:26→22:01)
--- NOTE | 2022-04-04 07:04 | NUR ---
receive the patient from the overnight caregiver rn in a stable condition with admittimng diagnosis of dehydration aox1 . no complain of pain at this time . no sign and symptoms of respiratory distress . will continue to monitor
[2022-04-04 08:23] LABS: ALBUMIN 1.3 g/dL (3.4-4.8); BASOPHILS # (AUTO) 0.1 K/uL (0.0-0.2); BASOPHILS % (AUTO) 0.4 % (0.0-2.0); CALCIUM 8.6 mg/dL (8.4-11.0); CREATININE 4.47 mg/dL (0.55-1.30); EOSINOPHILS # (AUTO) 0.1 K/uL (0.0-0.4); EOSINOPHILS % (AUTO) 0.7 % (0.0-4.0); HEMATOCRIT 26.1 % (36-54); HEMOGLOBIN 8.2 g/dL (14.0-18.0); LYMPHOCYTES # (AUTO) 0.7 K/uL (1.0-5.5); LYMPHOCYTES % (AUTO) 4.5 % (20.5-51.5); MEAN CORPUSCULAR HEMOGLOBIN 30 pg (27-31); MEAN CORPUSCULAR HGB CONC 32 % (32-36); MEAN CORPUSCULAR VOLUME 95 fL (79.0-98.0); MONOCYTES # (AUTO) 3.4 K/uL (0.0-1.0); MONOCYTES % (AUTO) 20.7 % (1.7-9.3); NEUTROPHILS # (AUTO) 12.1 K/uL (1.8-7.7); NEUTROPHILS % (AUTO) 73.7 % (40.0-70.0); PHOSPHORUS 4.6 mg/dL (2.7-4.5); PLATELET COUNT (AUTO) 213 K/uL (130-430); RED BLOOD CELL COUNT(AUTO) 2.74 MIL/uL (4.2-6.2); RED CELL DISTRIBUTION WIDTH 18.4 % (9.0-15.0); TOTAL BILIRUBIN 0.1 mg/dL (0.0-1.0); WHITE BLOOD COUNT (AUTO) 16.4 K/uL (4.8-10.8)
[2022-04-04] MEDS: CLOZAPINE 100MG TAB PO SCH ×2 (09:00→21:00)
[2022-04-04] MEDS: SODIUM BICARBONATE 650 MG TABLET GT SCH ×3 (10:45→21:59)
[2022-04-04] MEDS: DOXYCYCLINE HYCLATE 100 MG CAPSULE PO SCH ×2 (10:46→22:02)
[2022-04-04] MEDS: POTASSIUM CHLORIDE 20 MEQ/PKT PACKET GT SCH (10:46)
[2022-04-04] MEDS: OXYBUTYNIN CHLORIDE 5 MG TABLET GT SCH (10:46)
[2022-04-04] MEDS: TAMSULOSIN HCL 0.4 MG CAP GT SCH (10:46)
[2022-04-04] MEDS: FOLIC ACID 1 MG TABLET GT SCH (10:46)
[2022-04-04] MEDS: FLUCONAZOLE 100 MG TABLET (DIFLUCAN) PO SCH (10:47)
[2022-04-04] MEDS: BALSAM PERU/CASTOR OIL 56.7 GM OINT...G. TP SCH (10:47)
[2022-04-04] MEDS: MIDODRINE HCL 5 MG TABLET (PROAMATINE) PO SCH ×2 (10:47→22:00)
[2022-04-04] MEDS: PANTOPRAZOLE SODIUM 40 MG TAB PO SCH (10:47)
[2022-04-04] MEDS: EMOLLIENT COMBINATION NO.73 78 GM CREAM..G. TP SCH ×2 (10:48→21:56)
[2022-04-04] MEDS: CLOTRIMAZOLE 1% TOPICAL CREAM 15 GM TP SCH ×2 (10:48→22:01)
[2022-04-04] MEDS: SEVELAMER CARBONATE 800 MG TABLET GT SCH ×3 (10:50→17:06)
[2022-04-04] MEDS: ATORVASTATIN 20 MG TABLET GT SCH (10:55)
[2022-04-04] MEDS: DIVALPROEX SODIUM 500 MG TABLET( DEPAKOTE) PO SCH ×2 (10:56→22:00)
[2022-04-04 12:40] VITALS: BP_SYST 104
[2022-04-04 13:24] LABS: CREATININE, URINE 18.3 mg/dL; MICROALBUMIN URINE RANDOM 42.2 ug/ml (NOT ESTABLISHED)
[2022-04-04 16:00] VITALS: BP_SYST 96
--- NOTE | 2022-04-04 18:02 | NUR ---
will endorse to date night sitter rn for continuity of care . still with hospice care , continue with antibiotics , with nephrology consult
[2022-04-04 20:00] VITALS: BP_SYST 93
[2022-04-05 01:08] VITALS: BP_SYST 90
[2022-04-05] MEDS: INSULIN REGULAR, HUMAN 100 UNITS/ML, 3 ML VIAL (humuLIN R) SUBCUT PRN ×4 (01:35→23:50)
--- NOTE | 2022-04-05 01:43 | NUR ---
HIGH ALERT NOTE: Called back at [phone] identified within the medical roster to verify physician authenticity. NOTIFIED THAT PTS BS IS 415 , PRIMARY RN PROVIDED 12 UNITS OF REGULAR INSULIN PER ORDER , ORDERED TO GIVE 4 MORE UNITS OF REGULAR INSULIN NOW . I CALL HIM BACK AND VERIFIED THE ORDER .
[2022-04-05] MEDS ORDERED: INSULIN REGULAR, HUMAN 100 UNITS/ML, 3 ML VIAL (humuLIN R) SUBCUT ONE (01:45)
[2022-04-05] MEDS: 0.45% NACL 1,000 ML IV SCH ×3 (03:03→17:28)
[2022-04-05] MEDS: MEROPENEM 500 MG in NS 50 ML IV SCH ×2 (05:53→17:25)
[2022-04-05 06:22] LABS: BASOPHILS % (AUTO) 0.3 % (0.0-2.0); EOSINOPHILS % (AUTO) 0.1 % (0.0-4.0); HEMATOCRIT 29.1 % (36-54); HEMOGLOBIN 9.2 g/dL (14.0-18.0); LYMPHOCYTES # (AUTO) 0.7 K/uL (1.0-5.5); LYMPHOCYTES % (AUTO) 4.1 % (20.5-51.5); MEAN CORPUSCULAR HEMOGLOBIN 30 pg (27-31); MEAN CORPUSCULAR HGB CONC 32 % (32-36); MEAN CORPUSCULAR VOLUME 94 fL (79.0-98.0); MONOCYTES # (AUTO) 3.6 K/uL (0.0-1.0); MONOCYTES % (AUTO) 20.6 % (1.7-9.3); NEUTROPHILS # (AUTO) 13.2 K/uL (1.8-7.7); PLATELET COUNT (AUTO) 210 K/uL (130-430); RED BLOOD CELL COUNT(AUTO) 3.08 MIL/uL (4.2-6.2); RED CELL DISTRIBUTION WIDTH 18.7 % (9.0-15.0); WHITE BLOOD COUNT (AUTO) 17.6 K/uL (4.8-10.8)
[2022-04-05 06:52] LABS: ALBUMIN 1.3 g/dL (3.4-4.8); CALCIUM 8.8 mg/dL (8.4-11.0); CREATININE 4.51 mg/dL (0.55-1.30); PHOSPHORUS 4.8 mg/dL (2.7-4.5); TOTAL BILIRUBIN 0.1 mg/dL (0.0-1.0)
[2022-04-05 06:54] LABS: NEUTROPHILS % (AUTO) 74.9 % (40.0-70.0)
--- NOTE | 2022-04-05 07:04 | NUR ---
receive the patient form the slot shift supervisor rn in a stable condition with admitting diagnosis dehydration . aox1 still on contact isolation .no complain of pain at this time . no sign and symptoms of respiratory distress , will continue to monitor
[2022-04-05 08:00] VITALS: BP_SYST 142
[2022-04-05] MEDS: SEVELAMER CARBONATE 800 MG TABLET GT SCH ×3 (08:40→17:25)
[2022-04-05] MEDS: OXYBUTYNIN CHLORIDE 5 MG TABLET GT SCH (08:40)
[2022-04-05] MEDS: POTASSIUM CHLORIDE 20 MEQ/PKT PACKET GT SCH (08:40)
[2022-04-05] MEDS: MIDODRINE HCL 5 MG TABLET (PROAMATINE) PO SCH ×2 (08:40→21:26)
[2022-04-05] MEDS: ATORVASTATIN 20 MG TABLET GT SCH (08:40)
[2022-04-05] MEDS: SODIUM BICARBONATE 650 MG TABLET GT SCH ×3 (08:41→21:25)
[2022-04-05] MEDS: BALSAM PERU/CASTOR OIL 56.7 GM OINT...G. TP SCH (08:41)
[2022-04-05] MEDS: PANTOPRAZOLE SODIUM 40 MG TAB PO SCH (08:41)
[2022-04-05] MEDS: DOXYCYCLINE HYCLATE 100 MG CAPSULE PO SCH (08:41)
[2022-04-05] MEDS: TAMSULOSIN HCL 0.4 MG CAP GT SCH (08:41)
[2022-04-05] MEDS: FLUCONAZOLE 100 MG TABLET (DIFLUCAN) PO SCH (08:41)
[2022-04-05] MEDS: CLOTRIMAZOLE 1% TOPICAL CREAM 15 GM TP SCH ×2 (08:41→21:26)
[2022-04-05] MEDS: CLOZAPINE 100MG TAB PO SCH ×2 (08:43→21:00)
[2022-04-05] MEDS: FOLIC ACID 1 MG TABLET GT SCH (08:46)
[2022-04-05] MEDS: DIVALPROEX SODIUM 500 MG TABLET( DEPAKOTE) PO SCH ×2 (09:24→21:26)
[2022-04-05 11:34] VITALS: BP_SYST 111
[2022-04-05 15:26] VITALS: BP_SYST 120
--- NOTE | 2022-04-05 16:40 | NUR ---
positive on urine culture for MDRO ESBL. will call md hector krishna
--- NOTE | 2022-04-05 16:45 | NUR ---
md young was inform about urine culture results positive ESBL MDRO . no further order
[2022-04-05] MEDS: EMOLLIENT COMBINATION NO.73 78 GM CREAM..G. TP SCH ×2 (17:26→21:26)
--- NOTE | 2022-04-05 17:49 | NUR ---
nephrology made his rounds .
--- NOTE | 2022-04-05 17:50 | NUR ---
according tutoring manager md brasher . if the patinet continue to be full code . the patient need to be on hemodialysis
--- NOTE | 2022-04-05 18:50 | NUR ---
will endorse to developmental training counselor rn for continuity of care
--- NOTE | 2022-04-05 19:15 | NUR ---
Patient received from AM shift. Patient is not alert and unable to make needs known, no s/s of distress is noted at this time. Chest rise is even and unlabored on RA. Normal heart sounds auscultated. GT is noted to be in place and infusing at 40cc/hr and patient is scheduled for 250ml flushes q4h. Residual was checked and noted to be <10ml. Feeding will continued as ordered. Patient is currently stable at this time and safety measures are in place as per protocol. Will resume care and continue to monitor throughout the shift.
[2022-04-05 20:00] VITALS: BP_SYST 91
[2022-04-06] VITALS: BP_SYST 105
[2022-04-06] MEDS: 0.45% NACL 1,000 ML IV SCH ×3 (03:56→21:16)
[2022-04-06] MEDS: MEROPENEM 500 MG in NS 50 ML IV SCH ×2 (05:27→17:44)
[2022-04-06] MEDS: INSULIN REGULAR, HUMAN 100 UNITS/ML, 3 ML VIAL (humuLIN R) SUBCUT PRN (05:49)
--- NOTE | 2022-04-06 06:59 | NUR ---
CLOSING NOTES: Patient is in bed resting no s/s of distress noted at this time. Patient GT feeding was changed during last run and is currently infusing at 40ml/hr as ordered. Residual was checked and noted to be <10. All current shift needs have been met at this time and patient is stable at this time. Safety measures remain in place as per protocol. Will differ current care to AM shift nurse for continuity of care.
[2022-04-06 07:17] LABS: HEMATOCRIT 25.6 % (36-54); HEMOGLOBIN 8.3 g/dL (14.0-18.0); MEAN CORPUSCULAR HEMOGLOBIN 30 pg (27-31); MEAN CORPUSCULAR HGB CONC 32 % (32-36); MEAN CORPUSCULAR VOLUME 94 fL (79.0-98.0); PLATELET COUNT (AUTO) 183 K/uL (130-430); RED BLOOD CELL COUNT(AUTO) 2.73 MIL/uL (4.2-6.2); RED CELL DISTRIBUTION WIDTH 18.7 % (9.0-15.0); WHITE BLOOD COUNT (AUTO) 13.5 K/uL (4.8-10.8)
[2022-04-06 07:44] LABS: CALCIUM 8.4 mg/dL (8.4-11.0); CREATININE 4.44 mg/dL (0.55-1.30)
[2022-04-06] MEDS: CLOZAPINE 100MG TAB PO SCH (09:00)
[2022-04-06] MEDS: FOLIC ACID 1 MG TABLET GT SCH (09:53)
[2022-04-06] MEDS: DIVALPROEX SODIUM 500 MG TABLET( DEPAKOTE) PO SCH ×2 (09:53→21:16)
[2022-04-06] MEDS: PANTOPRAZOLE SODIUM 40 MG TAB PO SCH (09:53)
[2022-04-06] MEDS: SODIUM BICARBONATE 650 MG TABLET GT SCH ×3 (09:53→21:15)
[2022-04-06] MEDS: TAMSULOSIN HCL 0.4 MG CAP GT SCH (09:54)
[2022-04-06] MEDS: POTASSIUM CHLORIDE 20 MEQ/PKT PACKET GT SCH (09:54)
[2022-04-06] MEDS: MIDODRINE HCL 5 MG TABLET (PROAMATINE) PO SCH ×2 (09:54→21:16)
[2022-04-06] MEDS: ATORVASTATIN 20 MG TABLET GT SCH (09:54)
[2022-04-06] MEDS: FLUCONAZOLE 100 MG TABLET (DIFLUCAN) PO SCH (09:54)
[2022-04-06] MEDS: OXYBUTYNIN CHLORIDE 5 MG TABLET GT SCH (09:54)
[2022-04-06] MEDS: BALSAM PERU/CASTOR OIL 56.7 GM OINT...G. TP SCH (09:56)
[2022-04-06] MEDS: EMOLLIENT COMBINATION NO.73 78 GM CREAM..G. TP SCH ×2 (09:56→21:17)
[2022-04-06] MEDS: CLOTRIMAZOLE 1% TOPICAL CREAM 15 GM TP SCH ×2 (09:56→21:17)
[2022-04-06] MEDS: SEVELAMER CARBONATE 800 MG TABLET GT SCH (10:03)
[2022-04-06 11:22] VITALS: BP_SYST 118
[2022-04-06 14:20] LABS: BAND % (MANUAL) 24 % (0-6); BASOPHILS % (MANUAL) 0 % (0-2); EOSINOPHILS % (MANUAL) 0 % (0-7); LYMPHOCYTES % (MANUAL) 6 % (20-46); METAMYELOCYTES % 12 % (0-0); MONOCYTES % (MANUAL) 12 % (0-11); MYELOCYTES % 3 % (0-0)
[2022-04-06 15:26] VITALS: BP_SYST 120
[2022-04-06] MEDS: EPOETIN ALFA-EPBX 10,000 UNITS/ML VIAL SUBCUT SCH (17:44)
[2022-04-06 21:00] VITALS: BP_SYST 136
--- NOTE | 2022-04-06 22:12 | NUR ---
CONSULTATION PAGED/CALLED Reason for Consultation: edilia catheter placement Person Who was Notified: Dre Consulting Physician: Dr. Martinez Electronics Technology Instructor Specialty: surgeon Ordering Physician: Dr. Soria
[2022-04-07] VITALS: BP_SYST 118
--- NOTE | 2022-04-07 | NUR ---
BSG GLUCOSE @ 205 mg dl no DIABETIC Reactions Tube feeding tolerating .
[2022-04-07] MEDS: INSULIN REGULAR, HUMAN 100 UNITS/ML, 3 ML VIAL (humuLIN R) SUBCUT PRN ×2 (01:20→06:35)
--- NOTE | 2022-04-07 01:49 | NUR ---
Hourly Rounding patient is awake assist for position change kept clean also dry as needed chest movement symmetrical unlabored .
[2022-04-07] MEDS: MEROPENEM 500 MG in NS 50 ML IV SCH ×2 (06:32→18:12)
[2022-04-07] MEDS: 0.45% NACL 1,000 ML IV SCH ×3 (06:33→22:55)
[2022-04-07 06:42] LABS: BASOPHILS # (AUTO) 0.1 K/uL (0.0-0.2); BASOPHILS % (AUTO) 0.5 % (0.0-2.0); EOSINOPHILS % (AUTO) 0.1 % (0.0-4.0); HEMATOCRIT 25.8 % (36-54); HEMOGLOBIN 8.2 g/dL (14.0-18.0); LYMPHOCYTES # (AUTO) 0.3 K/uL (1.0-5.5); LYMPHOCYTES % (AUTO) 2.6 % (20.5-51.5); MEAN CORPUSCULAR HEMOGLOBIN 30 pg (27-31); MEAN CORPUSCULAR HGB CONC 32 % (32-36); MEAN CORPUSCULAR VOLUME 94 fL (79.0-98.0); MONOCYTES # (AUTO) 1.1 K/uL (0.0-1.0); MONOCYTES % (AUTO) 9.1 % (1.7-9.3); NEUTROPHILS # (AUTO) 10.3 K/uL (1.8-7.7); NEUTROPHILS % (AUTO) 87.7 % (40.0-70.0); PLATELET COUNT (AUTO) 167 K/uL (130-430); RED BLOOD CELL COUNT(AUTO) 2.75 MIL/uL (4.2-6.2); RED CELL DISTRIBUTION WIDTH 18.5 % (9.0-15.0); WHITE BLOOD COUNT (AUTO) 11.7 K/uL (4.8-10.8)
[2022-04-07 06:55] LABS: CALCIUM 8.6 mg/dL (8.4-11.0); CREATININE 4.15 mg/dL (0.55-1.30)
--- NOTE | 2022-04-07 08:00 | NUR ---
Initial notes Awake, No distress, IVF infusing well. tolerating feeding. will monitor.
[2022-04-07 08:06] VITALS: BP_SYST 127
[2022-04-07] MEDS: CLOZAPINE 100MG TAB PO SCH ×2 (09:00→21:00)
[2022-04-07] MEDS: POTASSIUM CHLORIDE 20 MEQ/PKT PACKET GT SCH (09:19)
[2022-04-07] MEDS: SODIUM BICARBONATE 650 MG TABLET GT SCH ×3 (09:19→22:55)
[2022-04-07] MEDS: MIDODRINE HCL 5 MG TABLET (PROAMATINE) PO SCH ×2 (09:20→22:56)
[2022-04-07] MEDS: FOLIC ACID 1 MG TABLET GT SCH (09:20)
[2022-04-07] MEDS: ATORVASTATIN 20 MG TABLET GT SCH (09:20)
[2022-04-07] MEDS: OXYBUTYNIN CHLORIDE 5 MG TABLET GT SCH (09:20)
[2022-04-07] MEDS: FLUCONAZOLE 100 MG TABLET (DIFLUCAN) PO SCH (09:20)
[2022-04-07] MEDS: PANTOPRAZOLE SODIUM 40 MG TAB PO SCH (09:21)
[2022-04-07] MEDS: TAMSULOSIN HCL 0.4 MG CAP GT SCH (09:21)
[2022-04-07] MEDS: SEVELAMER CARBONATE 800 MG TABLET GT SCH ×3 (09:21→17:52)
[2022-04-07] MEDS: EMOLLIENT COMBINATION NO.73 78 GM CREAM..G. TP SCH ×2 (09:22→22:56)
[2022-04-07] MEDS: DIVALPROEX SODIUM 500 MG TABLET( DEPAKOTE) PO SCH ×2 (09:22→22:55)
[2022-04-07] MEDS: CLOTRIMAZOLE 1% TOPICAL CREAM 15 GM TP SCH ×2 (09:23→22:56)
[2022-04-07] MEDS: BALSAM PERU/CASTOR OIL 56.7 GM OINT...G. TP SCH (09:24)
--- NOTE | 2022-04-07 11:00 | NUR ---
ROUNDS Dr. Martinez here and informed that consent was not sign and unable to reach family at this time.
[2022-04-07 11:29] VITALS: BP_SYST 91
--- NOTE | 2022-04-07 14:59 | NUR ---
Notes Resting, no distress
[2022-04-07 15:24] VITALS: BP_SYST 100
--- NOTE | 2022-04-07 16:03 | NUR ---
RETAIL SALES SPECIALIST ACSW Amanda responded to a Social Work consult for discharge to [facility]. ACSW contacted [facility] to inquire into their ability to contact family. According to Paty, they never received call back nor were any calls every picked up from family. ACSW will continue to be available as needed
--- NOTE | 2022-04-07 16:05 | NUR ---
CM: Hospice order: informed dr. Narvaez, YESENIA and [facility] staff are unable to locate or contact family to sign hospice consent. The md then ordered to arrange ethics committee. Becky Akers and YESENIA Pike made aware.
--- NOTE | 2022-04-07 17:30 | NUR ---
Consent- Called Dr. Narvaez and informed him about Edilia cath placement and no family will sign consent and if still ok to put edilia since there is an order for hospice. Per Dr. Narvaez its ok to put Edilia Catheter and he will sign the consent.
--- NOTE | 2022-04-07 18:44 | NUR ---
consent- consent for Ole cath placement and dialysis signed by DR. Soria, since patient has no family. Ole cath consent faxed to DR. Narvaez for signing.
--- NOTE | 2022-04-07 18:58 | NUR ---
Paged- Paged Dr. Martinez Re: Ole cath placement
[2022-04-07 19:00] VITALS: BP_SYST 102
[2022-04-07 20:00] VITALS: BP_SYST 102
--- NOTE | 2022-04-07 20:00 | NUR ---
pt.assessed.pt.presents isolation status;contact;esbl;urine/wounds.pt.presents g-tube;g-tube formula;nepro;rate;40ml/hr. pt.presents titus cath,iv access location:lt.forearm.intact;patent.language barrier extant.pt.to submit to edilia cath placement order the placement.PT.tO SUBMIT to HEMO-DiALYSIS POst Edilia cath placement. to place Edilia CAtH.PER Flacc PAIN MGX PT.ABSent fACIaL GriMaCES/BODY PosTuRING.PT.REposiTIONED.CALl light/TELEphone placed w/in access of the pt.
--- NOTE | 2022-04-07 21:00 | NUR ---
2100p medications administered via the g-tube.g-tube flushed w/out resistance.per flacc pain mgx pt.absent facial grimaces/ body posturing.call light/telephone placed w/in access of the pt.
--- NOTE | 2022-04-07 21:30 | NUR ---
DR PARHAM TALKED WITH DR LUJAN: DR PARHAM CAME TO ME AND STATED DR LUJAN AND DR REDDY SIGNED ON THE WRONG AREA FOR RADHIKA CATH PLACEMENT , I CALLED DR BLOUNT AND NOTIFIED ABOUT IT AND ASKED HIM , IS HE MAKING ROUNDS AGAIN TONIGHT ? AND DR PARHAM IS WAITING , DR ALBERT STATED HE IS NOT MAKING ROUNDS AGAIN,HE WILL SIGN IT TOMORROW ; I REQUESTED IS IT OK TO FAX THE CONSENT TO HIS HOUSE , MD STATED HE DONT HAVE A FAX NO. DR PARHAM NOTIFIED , DR PARHAM TALKED WITH DR LUJAN ON THE PHONE . AFTER TALKING ,DR PARHAM STATED HE "WILL DO THE PROCEDURE TOMORROW AND DIALYSIS WILL BE TOMORROW AFTER THE RADHIKA CATH PLACEMENT DR LUJAN AGREED WITH IT ". PRIMARY RN MADE AWARE OF THE NEW ORDER .
--- NOTE | 2022-04-07 22:00 | NUR ---
presented. had intended to place edilia cath h/d access. noted the dr's sameera/robert had signed consent form in the incorrect line. to place edilia cath:04/08/22.
--- NOTE | 2022-04-08 | NUR ---
pt.assessed.v/s assessed values wnl.note b/p status.g-tube,titus cath intact;patent.per flacc pain mgx pt.absent facial grimaces/body posturing.blood glucose assessed value:74mg/dl.i have administered juice via g-tube.pt.assessed for cleanliness.pt.repositio\call light/telephone placed w/in access of the pt.
[2022-04-08 01:02] VITALS: BP_SYST 136
[2022-04-08] MEDS: 0.45% NACL 1,000 ML IV SCH ×3 (02:45→18:55)
[2022-04-08] MEDS: MEROPENEM 500 MG in NS 50 ML IV SCH ×2 (05:14→18:32)
[2022-04-08] MEDS: INSULIN REGULAR, HUMAN 100 UNITS/ML, 3 ML VIAL (humuLIN R) SUBCUT PRN (05:39)
--- NOTE | 2022-04-08 06:00 | NUR ---
pt.assessed.blood glucose assessed value;159mg/dl.insulin;regular;2-u administered.g-tube,iv access intact.pt.assessed for cleanliness.pt.cleaned.wound care attended to/dsg changed.g-tube dsg changed.per flacc pain mgx pt.absent facial g\ grimaces/body posturing.call light/telephone placed w/in access of the pt.
--- NOTE | 2022-04-08 07:15 | NUR ---
Initial note Received patient awake, a/o x1,nosignsof pain or distress.IVF infusing to left upper arm midline, G-tube site patenttolerating feeding. Ansari catheter intact draining clear yellow urine, will continue to monitor
[2022-04-08 08:00] VITALS: BP_SYST 140
[2022-04-08 08:01] LABS: BASOPHILS # (AUTO) 0.1 K/uL (0.0-0.2); BASOPHILS % (AUTO) 0.8 % (0.0-2.0); EOSINOPHILS # (AUTO) 0.2 K/uL (0.0-0.4); EOSINOPHILS % (AUTO) 1.2 % (0.0-4.0); HEMATOCRIT 24.9 % (36-54); LYMPHOCYTES # (AUTO) 0.6 K/uL (1.0-5.5); LYMPHOCYTES % (AUTO) 4.2 % (20.5-51.5); MEAN CORPUSCULAR HEMOGLOBIN 31 pg (27-31); MEAN CORPUSCULAR HGB CONC 32 % (32-36); MEAN CORPUSCULAR VOLUME 95 fL (79.0-98.0); MONOCYTES # (AUTO) 1.3 K/uL (0.0-1.0); MONOCYTES % (AUTO) 9.1 % (1.7-9.3); NEUTROPHILS # (AUTO) 11.9 K/uL (1.8-7.7); PLATELET COUNT (AUTO) 171 K/uL (130-430); RED BLOOD CELL COUNT(AUTO) 2.63 MIL/uL (4.2-6.2); RED CELL DISTRIBUTION WIDTH 19.6 % (9.0-15.0); WHITE BLOOD COUNT (AUTO) 14.1 K/uL (4.8-10.8)
[2022-04-08 08:12] LABS: NEUTROPHILS % (AUTO) 84.7 % (40.0-70.0)
[2022-04-08 08:36] LABS: CALCIUM 8.3 mg/dL (8.4-11.0); CREATININE 4.01 mg/dL (0.55-1.30)
[2022-04-08] MEDS: CLOZAPINE 100MG TAB PO SCH ×2 (09:00→21:00)
[2022-04-08] MEDS: FOLIC ACID 1 MG TABLET GT SCH (09:21)
[2022-04-08] MEDS: POTASSIUM CHLORIDE 20 MEQ/PKT PACKET GT SCH (09:21)
[2022-04-08] MEDS: SODIUM BICARBONATE 650 MG TABLET GT SCH ×3 (09:21→21:00)
[2022-04-08] MEDS: ATORVASTATIN 20 MG TABLET GT SCH (09:21)
[2022-04-08] MEDS: DIVALPROEX SODIUM 500 MG TABLET( DEPAKOTE) PO SCH ×2 (09:21→21:00)
[2022-04-08] MEDS: PANTOPRAZOLE SODIUM 40 MG TAB PO SCH (09:21)
[2022-04-08] MEDS: TAMSULOSIN HCL 0.4 MG CAP GT SCH (09:21)
[2022-04-08] MEDS: MIDODRINE HCL 5 MG TABLET (PROAMATINE) PO SCH ×2 (09:22→21:00)
[2022-04-08] MEDS: BALSAM PERU/CASTOR OIL 56.7 GM OINT...G. TP SCH (09:22)
[2022-04-08] MEDS: OXYBUTYNIN CHLORIDE 5 MG TABLET GT SCH (09:22)
[2022-04-08] MEDS: EMOLLIENT COMBINATION NO.73 78 GM CREAM..G. TP SCH ×2 (09:24→21:00)
[2022-04-08] MEDS: CLOTRIMAZOLE 1% TOPICAL CREAM 15 GM TP SCH ×2 (09:24→21:00)
[2022-04-08] MEDS: SEVELAMER CARBONATE 800 MG TABLET GT SCH ×3 (09:26→17:20)
--- NOTE | 2022-04-08 11:00 | NUR ---
ROUNDS DR. LUJAN HERE AND SIGNED THE PLACEMENT FOR DIALYSIS ACCESS CONSENT.
[2022-04-08 11:22] VITALS: BP_SYST 99
[2022-04-08 15:28] VITALS: BP_SYST 95
[2022-04-08] MEDS: EPOETIN ALFA-EPBX 10,000 UNITS/ML VIAL SUBCUT SCH (17:27)
--- NOTE | 2022-04-08 17:40 | NUR ---
RESTRAINTS- RADHIKA CATH WAS PLACED, PT TRIED TO PICK ON IT, UNABLE TO FOLLOW COMMANDS. CALLED AND SPOKE TO DR. REDDY FOR SOFT WRIST RESTRAINTS. ORDERS RECEIVED. PATIENT FAMILY UNABLE TO REACH.
--- NOTE | 2022-04-08 19:04 | NUR ---
closing notes Dialysis at bedside to do dialysis.
[2022-04-08] MEDS ORDERED: ALBUMIN HUMAN 25% 200 ML IV ONE (19:30)
[2022-04-08] MEDS ORDERED: COMMUNICATION ORDER XX ONE (19:30)
[2022-04-08 20:00] VITALS: BP_SYST 102
[2022-04-08] MEDS ORDERED: HEPARIN SODIUM,PORCINE 5,000 UNITS/ML VIAL IVP ONE ×2 (21:45→22:00)
[2022-04-08] MEDS: DEXTROSE 50% JECT 50 ML DISP.SYRIN IVP PRN (22:42)
--- NOTE | 2022-04-08 23:45 | NUR ---
9PM MEDS NOT GIVEN Evening medications were not administered. Patient was receive ONE-TIME, FIRST TIME DIALYSIS and patient was not stable afterwards. Patient had low BP and low blood glucose of 53. Too late to administer medication once pt was stable. MD has been notified and updated of patients condition.
--- NOTE | 2022-04-09 02:59 | NUR ---
Low Blood Glucose Patient's blood glucose after dialysis at 2220 was 53. 50 mL of Dextrose 50% was administered by IV. Glucose recheck was 89. MD (MAUREEN) was notified at 0300. ADDITIONALLY: Informed MD regarding patient's agitation with restraints and concern of escalating heart rate. MD ordered 1 mg Ativan IVP BID PRN for anxiety.
[2022-04-09] MEDS ORDERED: LORazepam 2 MG/ML VIAL IVP PRN (03:15)
[2022-04-09] MEDS: 0.45% NACL 1,000 ML IV SCH ×2 (03:33→10:45)
[2022-04-09] MEDS: DEXTROSE 50% JECT 50 ML DISP.SYRIN IVP PRN (05:28)
--- NOTE | 2022-04-09 06:15 | NUR ---
*LOW BLOOD GLUCOSE II ACCU CHECK at 0540 using venous blood RESULT: 46 and 50 mL DEXTROSE 50% was administered by IVP. Final recheck an hour later RESULTED IN BG 116. Will endorse to on-coming day nurse.
[2022-04-09 07:12] LABS: CALCIUM 7.8 mg/dL (8.4-11.0); CREATININE 2.19 mg/dL (0.55-1.30)
[2022-04-09 07:15] LABS: BASOPHILS # (AUTO) 0.1 K/uL (0.0-0.2); BASOPHILS % (AUTO) 0.8 % (0.0-2.0); EOSINOPHILS % (AUTO) 0.3 % (0.0-4.0); HEMATOCRIT 22.7 % (36-54); HEMOGLOBIN 7.6 g/dL (14.0-18.0); LYMPHOCYTES # (AUTO) 0.7 K/uL (1.0-5.5); LYMPHOCYTES % (AUTO) 4.6 % (20.5-51.5); MEAN CORPUSCULAR HEMOGLOBIN 30 pg (27-31); MEAN CORPUSCULAR HGB CONC 34 % (32-36); MONOCYTES # (AUTO) 1.4 K/uL (0.0-1.0); MONOCYTES % (AUTO) 9.3 % (1.7-9.3); NEUTROPHILS # (AUTO) 12.9 K/uL (1.8-7.7); PLATELET COUNT (AUTO) 139 K/uL (130-430); RED BLOOD CELL COUNT(AUTO) 2.52 MIL/uL (4.2-6.2); RED CELL DISTRIBUTION WIDTH 17.9 % (9.0-15.0); WHITE BLOOD COUNT (AUTO) 15.2 K/uL (4.8-10.8)
[2022-04-09 07:43] LABS: MEAN CORPUSCULAR VOLUME 90 fL (79.0-98.0)
[2022-04-09] MEDS: EMOLLIENT COMBINATION NO.73 78 GM CREAM..G. TP SCH ×2 (09:00→21:19)
[2022-04-09] MEDS: CLOZAPINE 100MG TAB PO SCH ×3 (09:00→21:21)
[2022-04-09] MEDS: CLOTRIMAZOLE 1% TOPICAL CREAM 15 GM TP SCH ×2 (09:00→21:20)
[2022-04-09] MEDS: MEROPENEM 500 MG in NS 50 ML IV SCH ×2 (09:06→16:11)
[2022-04-09] MEDS: POTASSIUM CHLORIDE 20 MEQ/PKT PACKET GT SCH (09:07)
[2022-04-09] MEDS: SODIUM BICARBONATE 650 MG TABLET GT SCH (09:08)
[2022-04-09] MEDS: DIVALPROEX SODIUM 500 MG TABLET( DEPAKOTE) PO SCH ×2 (09:08→21:17)
[2022-04-09] MEDS: ATORVASTATIN 20 MG TABLET GT SCH (09:08)
[2022-04-09] MEDS: FOLIC ACID 1 MG TABLET GT SCH (09:08)
[2022-04-09] MEDS: BALSAM PERU/CASTOR OIL 56.7 GM OINT...G. TP SCH (09:09)
[2022-04-09] MEDS: TAMSULOSIN HCL 0.4 MG CAP GT SCH (09:09)
[2022-04-09] MEDS: MIDODRINE HCL 5 MG TABLET (PROAMATINE) PO SCH ×2 (09:09→21:16)
[2022-04-09] MEDS: PANTOPRAZOLE SODIUM 40 MG TAB PO SCH (09:09)
[2022-04-09] MEDS: OXYBUTYNIN CHLORIDE 5 MG TABLET GT SCH (09:09)
[2022-04-09] MEDS: SEVELAMER CARBONATE 800 MG TABLET GT SCH ×3 (09:11→16:03)
--- NOTE | 2022-04-09 09:52 | NUR ---
MRCP questionnaire done with Rachel Romero Mai (sister) for patient. Verified with MELI Thomas and MELI Esqueda Addendum: 04/09/22 at 1339 by [place] MELI Walton RN Please amend. No procedure scheduled. Patient and patient's family member made aware.
--- NOTE | 2022-04-09 11:03 | NUR ---
Patient's blood sugar 58 and rechecked it was 58. D5 IVP protocol initiated. Notified Dr. Narvaez regarding patient's blood sugar. New orders noted and carried out.
[2022-04-09 11:21] VITALS: BP_SYST 116
[2022-04-09] MEDS: D5/0.45 NS 1,000 ML IV SCH ×2 (11:45→22:47)
[2022-04-09 12:23] LABS: BILIRUBIN,DIRECT 0.2 mg/dL (0.0-0.3); TOTAL BILIRUBIN 0.4 mg/dL (0.0-1.0)
[2022-04-09 15:29] VITALS: BP_SYST 110
--- NOTE | 2022-04-09 16:08 | NUR ---
*CONSULTATION PAGED REASON FOR CONSULTATION:[facility] SHAFT SWELLING WAS CONSULT CALLED?Y PERSON WHO WAS NOTIFIED:EXCHANGE CONSULTING PHYSICIAN:LYLA DÍAZ TAPPET ADJUSTER SPECIALTY:UROLOGY TAPPET ADJUSTER PHONE NUMBER:[phone] REQUESTING PHYSICIAN:ALTHEA ROSENTHAL
--- NOTE | 2022-04-09 16:10 | NUR ---
Dr. Narvaez to hold insulin for now. BS: 169
--- NOTE | 2022-04-09 18:19 | NUR ---
PT WA S SEEN FOR DYSPHAGIA. PT WAS ABLE TO SAFELY SWALLOW PUREE DIET WITH THIN LIQUID WITHOUT S/S OF ASPIRATION. RECOMMENDATION PUREE DIET WITH THIN LIQUID FOR ORAL GRAT ONLY
--- NOTE | 2022-04-09 19:41 | NUR ---
RECEIVED PT LYING IN BED, NO DISTRESS NOTED, NO S/S OF PAIN. INCOMPREHENSIBLE SPEECH. WITH GT NO RESIDUAL. IJ TO RT NECK DRSG. TRIPLE LUMEN IV TO LT ARM CDI. DRSGS TO LT LEG RT HIP AND V/L HEELS ARE CDI. F/C DRAINING YELLOW URINE. SHAFT SWOLLEN. BLE WITH EDEMA ELEVATED ONTO PILLOWS. REPOSITIONED TO LT SIDE. LESIONS TO BLE. Addendum: 04/10/22 at 723 by Almas Walton RN RN 0400: DRSGS DONE. ELEVATED SWOLLEN SCROTUM ONTO SMALL TOWEL. CHG BATH GIVEN. MIDLINE DRSG DONE. Addendum: 04/10/22 at 07 by Almas Walton RN RN 0630: PT WAS MOUNING GAVE TYLENOL 650MG VIA GT.
[2022-04-09 20:18] VITALS: BP_SYST 94
[2022-04-09 21:23] VITALS: BP_SYST 114
[2022-04-10] VITALS (12 sets, daily range): BP systolic 65–110
[2022-04-10] MEDS: INSULIN REGULAR, HUMAN 100 UNITS/ML, 3 ML VIAL (humuLIN R) SUBCUT PRN (00:32)
[2022-04-10] MEDS: ACETAMINOPHEN 650 MG/20.3 ML UDC GT PRN (06:05)
[2022-04-10 07:52] LABS: CALCIUM 7.6 mg/dL (8.4-11.0); CREATININE 2.88 mg/dL (0.55-1.30)
[2022-04-10 08:28] LABS: BASOPHILS # (AUTO) 0.1 K/uL (0.0-0.2); BASOPHILS % (AUTO) 0.9 % (0.0-2.0); EOSINOPHILS % (AUTO) 0.3 % (0.0-4.0); HEMATOCRIT 22.4 % (36-54); HEMOGLOBIN 7.2 g/dL (14.0-18.0); LYMPHOCYTES # (AUTO) 1.1 K/uL (1.0-5.5); MEAN CORPUSCULAR HEMOGLOBIN 30 pg (27-31); MEAN CORPUSCULAR HGB CONC 32 % (32-36); MEAN CORPUSCULAR VOLUME 92 fL (79.0-98.0); MONOCYTES # (AUTO) 1.8 K/uL (0.0-1.0); MONOCYTES % (AUTO) 11.7 % (1.7-9.3); NEUTROPHILS # (AUTO) 12.6 K/uL (1.8-7.7); NEUTROPHILS % (AUTO) 80.1 % (40.0-70.0); PLATELET COUNT (AUTO) 125 K/uL (130-430); RED BLOOD CELL COUNT(AUTO) 2.44 MIL/uL (4.2-6.2); RED CELL DISTRIBUTION WIDTH 18.8 % (9.0-15.0)
[2022-04-10] MEDS: CLOZAPINE 100MG TAB PO SCH ×2 (09:00→21:00)
[2022-04-10] MEDS: OXYBUTYNIN CHLORIDE 5 MG TABLET GT SCH (09:08)
[2022-04-10] MEDS: ATORVASTATIN 20 MG TABLET GT SCH (09:09)
[2022-04-10] MEDS: TAMSULOSIN HCL 0.4 MG CAP GT SCH (09:09)
[2022-04-10] MEDS: MIDODRINE HCL 5 MG TABLET (PROAMATINE) PO SCH ×2 (09:09→20:30)
[2022-04-10] MEDS: SEVELAMER CARBONATE 800 MG TABLET GT SCH ×3 (09:09→17:32)
[2022-04-10] MEDS: PANTOPRAZOLE SODIUM 40 MG TAB PO SCH (09:09)
[2022-04-10] MEDS: POTASSIUM CHLORIDE 20 MEQ/PKT PACKET GT SCH (09:09)
[2022-04-10] MEDS: FOLIC ACID 1 MG TABLET GT SCH (09:09)
[2022-04-10] MEDS: EMOLLIENT COMBINATION NO.73 78 GM CREAM..G. TP SCH ×2 (09:10→23:01)
[2022-04-10] MEDS: CLOTRIMAZOLE 1% TOPICAL CREAM 15 GM TP SCH ×2 (09:11→23:02)
[2022-04-10] MEDS: BALSAM PERU/CASTOR OIL 56.7 GM OINT...G. TP SCH (09:11)
[2022-04-10] MEDS: DIVALPROEX SODIUM 500 MG TABLET( DEPAKOTE) PO SCH ×2 (09:20→22:57)
--- NOTE | 2022-04-10 09:45 | NUR ---
RD F/U Admitting Diagnosis Dehydration, hyponatremia Reviewed Pertinent Medical/Surgical Hx Medical Record RN Medical History Comment: Per EMR: Pt brought from SNF d/t hypotensive event. Pt found to have urinary retention and penile swelling. 04/08 pt was needing dialysis but needed access port. 04/09 dialysis was completed. PMH: DMT2, CKD, dyslipidemia, BPH, and anemia per physician notes Pt also found w/ malnutrition per physician notes Subjective Information RD rounded to pt's bedside this morning and pt was resting. RD noted TF was off but upon clarification from RN, they had just given meds and will resume TF in a few minutes to Nepro @ 40 mL/hr. RD also noted that Kwasi has been ordered since 04/01 but not been documented per chart and per RN. RD relayed order for Kwasi BID and RN said it would begin tonight. Per EMR review, pt has an active hospice eval order; abd is soft and non-distended; Edema: BLE 2+ pitting, L arm 2+ non-pitting, R hand 1+; LBM: per EMR: 04/10 x 3. Pt is not yet meeting optimal nutritional needs. Current Diet Order/Nutrition Support Nepro @ 40mL/hr, FWF 250mL q 4, Kwasi BID Patient/Significant Other Unable To Verbalize Education Provided Not Indicated Pertinent Medications glipizide, renvela, protonix, lipitor, SSI, D5 & sodium chloride @ 70mL/hr, folic acid Pertinent Labs Na WNL, BG 222/106 H, POC BG 224/194 H, BUN 121/62 H, CRE 5.07/2.88 H, WBC 16.8/15.2 H Height (Feet) 5 feet Height (Inches) 6.00 inches Weight (Pounds) 115 pounds Weight (Calculated Kilograms) 52.965435 kilograms Patient Weight 52.163 kg Body Mass Index 18.56 kg/m2 %IBW 81 [place]/Adjusted Body Weight 142#/64.5 kg Recent Weight Change No - Unable to verify Weight Status Underweight Food Allergies Unable to verify Usual Diet At Home Unable to verify Skin Integrity Comment: Clayton scale: 13 w/ lateral medial posterior sacrum open wounds, sacral-coccygeal erythema per EMR review Estimated Energy Expenditure (kcals/day) 9454-2897 (30-35 kcal/kg IBW d/t wound healing) Estimated Protein Required (g/day) 65-81 (1-1.25 gm/kg IBW d/t CKD, wound healing) Estimated Fluid Required (l/day) Per physician d/t CKD Problem/Etiology/Signs/Symptoms Increased nutritional needs R/T metabolic demands AEB estimated nutritional requirements for wound healing. Expected Outcomes/Goals - Monitor tolerance to EN support w/ goal of pt meeting >80% of estimated nutritional needs, labs trending WNL, normal GI function, and skin integrity/wt maintenance Dietitian Recommendations * Continue Nepro at 40 ml/hr (goal rate), Free Water Flush: 250 ml Q4h (per physician d/t CKD) via GT. Provides: 1888 kcal/day, 83 gm protein/day, and 2198 ml free water/day Meets: 98% of lower end of estimated caloric needs and 102% of upper end of estimated protein needs *Initiate Kwasi BID Follow Up High Risk: F/U in 2-3days
[2022-04-10 09:58] LABS: WHITE BLOOD COUNT (AUTO) 15.7 K/uL (4.8-10.8)
--- NOTE | 2022-04-10 12:03 | NUR ---
Dietitian Recommendations * Continue Nepro at 40 ml/hr (goal rate), Free Water Flush: 250 ml Q4h (per physician d/t CKD) via GT. Provides: 1888 kcal/day, 83 gm protein/day, and 2198 ml free water/day Meets: 98% of lower end of estimated caloric needs and 102% of upper end of estimated protein needs *Initiate Kwasi BID GS, RD
--- NOTE | 2022-04-10 13:07 | NUR ---
Dr. Martinez saw patient regarding penile swelling. No new orders at the moment. Swelling from chf (edema).
[2022-04-10] MEDS: D5/0.45 NS 1,000 ML IV SCH (16:57)
--- NOTE | 2022-04-10 17:00 | NUR ---
Patient observed to be yelling. Ativan given as ordered.
[2022-04-10] MEDS: EPOETIN ALFA-EPBX 10,000 UNITS/ML VIAL SUBCUT SCH (17:32)
--- NOTE | 2022-04-10 19:00 | NUR ---
Patient transferred to ICU from [facility] floor per Yessenia, INFORMATION TECHNOLOGY SPECIALIST assessment and patient's BP consistently low. Report given to Kofi HARP ACTION ASSEMBLER for continuity of care.
--- NOTE | 2022-04-10 19:08 | NUR ---
Reported to Dr. Narvaez regarding patient low blood pressure 71/39. Bolus of NS 500 mL and albumin ordered.
[2022-04-10] MEDS ORDERED: ALBUMIN HUMAN 25% 50 ML IV ONE ×2 (19:11→19:15)
--- NOTE | 2022-04-10 20:00 | NUR ---
Received patient as transferred from [facility] due to hypotension. Connected to monitor and vitals checked. BP 115/48. Will continue to monitor patient for need to start vasopressor.
--- NOTE | 2022-04-10 20:45 | NUR ---
DR MAUREEN Narvaez notified regarding Pt's BP of 75/44. Orders received. Levophed drip to maintain SBP greater than 90.
[2022-04-10] MEDS ORDERED: NOREPINEPHRINE 4 MG/4 ML VIAL IV ONE (20:46)
--- NOTE | 2022-04-10 21:00 | NUR ---
Levophed started due to SBP 72. Will continue to monitor.
[2022-04-10] MEDS ORDERED: VANCOMYCIN HCL 1 GM/NS PREMIX 250 ML IV ONE (23:30)
[2022-04-11] VITALS (22 sets, daily range): BP systolic 67–158
[2022-04-11] MEDS ORDERED: NOREPINEPHRINE 4 MG/4 ML VIAL IV ONE ×9 (00:29→22:55)
[2022-04-11] MEDS ORDERED: VANCOMYCIN HCL 1000 MG/VIAL IV ONE (00:51)
[2022-04-11] MEDS: NOREPINEPHRINE BITARTRATE 4 MG in D5W 246 ML IV PRN ×2 (04:05→10:17)
[2022-04-11] MEDS: D5/0.45 NS 1,000 ML IV SCH ×3 (06:15→23:03)
[2022-04-11 07:30] LABS: CALCIUM 8.3 mg/dL (8.4-11.0); CREATININE 2.89 mg/dL (0.55-1.30)
--- NOTE | 2022-04-11 07:40 | NUR ---
Reported patient's potassium level 2.[address] Narvaez. New orders noted and carried out.
[2022-04-11] MEDS ORDERED: KCL 40 mEq in 100 mL (PREMIX) 100 ML IV ONE (08:00)
[2022-04-11 08:14] LABS: BASOPHILS # (AUTO) 0.2 K/uL (0.0-0.2); EOSINOPHILS # (AUTO) 0.1 K/uL (0.0-0.4); EOSINOPHILS % (AUTO) 0.5 % (0.0-4.0); HEMATOCRIT 24.3 % (36-54); HEMOGLOBIN 7.8 g/dL (14.0-18.0); LYMPHOCYTES # (AUTO) 1.3 K/uL (1.0-5.5); LYMPHOCYTES % (AUTO) 6.5 % (20.5-51.5); MEAN CORPUSCULAR HEMOGLOBIN 30 pg (27-31); MEAN CORPUSCULAR HGB CONC 32 % (32-36); MEAN CORPUSCULAR VOLUME 93 fL (79.0-98.0); MONOCYTES % (AUTO) 10.6 % (1.7-9.3); NEUTROPHILS # (AUTO) 15.7 K/uL (1.8-7.7); NEUTROPHILS % (AUTO) 81.4 % (40.0-70.0); PLATELET COUNT (AUTO) 132 K/uL (130-430); RED BLOOD CELL COUNT(AUTO) 2.61 MIL/uL (4.2-6.2); RED CELL DISTRIBUTION WIDTH 19.5 % (9.0-15.0)
--- NOTE | 2022-04-11 08:42 | NUR ---
Updated patient's sister Darrell Romero Mai regarding patient transferred to ICU from [facility]. Patient's sister to come see patient today or tomorrow.
[2022-04-11 08:52] LABS: WHITE BLOOD COUNT (AUTO) 19.3 K/uL (4.8-10.8)
[2022-04-11] MEDS: CLOZAPINE 100MG TAB PO SCH ×2 (09:00→21:00)
[2022-04-11] MEDS: BALSAM PERU/CASTOR OIL 56.7 GM OINT...G. TP SCH (09:00)
[2022-04-11] MEDS: CLOTRIMAZOLE 1% TOPICAL CREAM 15 GM TP SCH ×2 (09:00→21:00)
[2022-04-11] MEDS: EMOLLIENT COMBINATION NO.73 78 GM CREAM..G. TP SCH ×2 (09:00→21:00)
[2022-04-11 09:57] LABS: BILIRUBIN,URINE NEGATIVE (NEGATIVE); CLARITY/URINE SLIGHTLY HAZY (CLEAR); COLOR,URINE YELLOW (YELLOW); GLUCOSE,URINE 2+ (NEGATIVE); KETONES,URINE NEGATIVE (NEGATIVE); PROTEIN URINE TRACE (NEGATIVE)
[2022-04-11 09:58] LABS: BLOOD, URINE 2+ (NEGATIVE); LEUKOCYTE ESTERASE ,URINE 1+ (NEGATIVE); NITRITE, URINE NEGATIVE (NEGATIVE); UROBILINOGEN,URINE 0.2 (0.2-1.0)
[2022-04-11 09:59] LABS: BACTERIA,URINE FEW /HPF (None Seen); RBC,URINE 0-3 /HPF (0-3)
[2022-04-11] MEDS: OXYBUTYNIN CHLORIDE 5 MG TABLET GT SCH (10:08)
[2022-04-11] MEDS: PANTOPRAZOLE SODIUM 40 MG TAB PO SCH (10:08)
[2022-04-11] MEDS: ATORVASTATIN 20 MG TABLET GT SCH (10:08)
[2022-04-11] MEDS: POTASSIUM CHLORIDE 20 MEQ/PKT PACKET GT SCH (10:08)
[2022-04-11] MEDS: TAMSULOSIN HCL 0.4 MG CAP GT SCH (10:09)
[2022-04-11] MEDS: FOLIC ACID 1 MG TABLET GT SCH (10:09)
[2022-04-11] MEDS: SEVELAMER CARBONATE 800 MG TABLET GT SCH ×3 (10:09→16:12)
[2022-04-11] MEDS: DIVALPROEX SODIUM 500 MG TABLET( DEPAKOTE) PO SCH ×2 (10:09→21:00)
[2022-04-11] MEDS: MIDODRINE HCL 5 MG TABLET (PROAMATINE) PO SCH ×3 (10:15→21:04)
[2022-04-11] MEDS: INSULIN REGULAR, HUMAN 100 UNITS/ML, 3 ML VIAL (humuLIN R) SUBCUT PRN ×3 (13:15→23:58)
--- NOTE | 2022-04-11 14:05 | NUR ---
Reported to Dr. Narvaez procalcitonin, calcium, and potassium lab values. Was told to let Dr. Soria know. New orders noted and carried out.
[2022-04-11] MEDS ORDERED: MEROPENEM 500 MG in NS 50 ML IV ONE (14:30)
--- NOTE | 2022-04-11 14:35 | NUR ---
TO CT SCAN TRANSPORTED PT VIA PORTABLE BORE MILL OPERATOR FOR PLASTIC.
--- NOTE | 2022-04-11 15:05 | NUR ---
TO ICU BROUGHT PT BACK TO ROOM 8.
--- NOTE | 2022-04-11 15:10 | NUR ---
Patient went to CT scan and came back. Vital signs stable.
[2022-04-11] MEDS ORDERED: NOREPINEPHRINE BITARTRATE 8 MG in NS 242 ML IV PRN (16:00)
[2022-04-11] MEDS: MEROPENEM 500 MG in NS 50 ML IV SCH ×2 (16:00→18:41)
[2022-04-11] MEDS ORDERED: NOREPINEPHRINE BITARTRATE 8 MG in D5W 242 ML IV PRN (16:00)
--- NOTE | 2022-04-11 18:40 | NUR ---
Patient undergoing dialysis. HR went up to 135 bpm and then [address] Narvaez made aware. Patient moving around and groaning.
[2022-04-11] MEDS ORDERED: ALBUMIN HUMAN 25% 100 ML IV ONE (19:00)
--- NOTE | 2022-04-11 19:27 | NUR ---
Report given to night filler RN for continuity of care. Patient stable.
--- NOTE | 2022-04-11 19:30 | NUR ---
RECEIVED PATIENT CONFUSED, MOANS AND GROANS , NOT FOLLOWING COMMANDS. BILATERAL WRIST RESTRAINTS ARE ON. PATIENT IS ON 4L PER NC, SATURATING WELL. NO SOB NOTED. IVF OFD51/2 NS IS INFUSING AT 70 ML/HR VIARUE PICC. LEVOPHED IS INFUSING AT 1 MCG/KG/MIN. PATIENT IS HEMODIALYSIS AT THIS TIME, ACCREE RIGHT IJ PERMACATH, TOLERATING WELL. CARRERA INTACT AND PATENT.
[2022-04-11] MEDS ORDERED: MEROPENEM 500 MG in NS 50 ML IV SCH ×2 (21:00→22:00)
[2022-04-12] VITALS (24 sets, daily range): BP systolic 79–140
[2022-04-12] MEDS ORDERED: NOREPINEPHRINE 4 MG/4 ML VIAL IV ONE ×3 (00:50→09:10)
[2022-04-12] MEDS: INSULIN REGULAR, HUMAN 100 UNITS/ML, 3 ML VIAL (humuLIN R) SUBCUT PRN ×2 (06:18→12:07)
[2022-04-12 06:42] LABS: BASOPHILS # (AUTO) 0.1 K/uL (0.0-0.2); BASOPHILS % (AUTO) 0.8 % (0.0-2.0); EOSINOPHILS % (AUTO) 0.2 % (0.0-4.0); HEMOGLOBIN 7.2 g/dL (14.0-18.0); LYMPHOCYTES # (AUTO) 1.3 K/uL (1.0-5.5); LYMPHOCYTES % (AUTO) 8.7 % (20.5-51.5); MEAN CORPUSCULAR HEMOGLOBIN 30 pg (27-31); MEAN CORPUSCULAR HGB CONC 33 % (32-36); MEAN CORPUSCULAR VOLUME 92 fL (79.0-98.0); MONOCYTES # (AUTO) 2.1 K/uL (0.0-1.0); MONOCYTES % (AUTO) 13.8 % (1.7-9.3); NEUTROPHILS # (AUTO) 11.8 K/uL (1.8-7.7); NEUTROPHILS % (AUTO) 76.5 % (40.0-70.0); PLATELET COUNT (AUTO) 138 K/uL (130-430); RED BLOOD CELL COUNT(AUTO) 2.36 MIL/uL (4.2-6.2); RED CELL DISTRIBUTION WIDTH 18.4 % (9.0-15.0); WHITE BLOOD COUNT (AUTO) 15.4 K/uL (4.8-10.8)
[2022-04-12 07:03] LABS: HEMATOCRIT 21.7 % (36-54)
--- NOTE | 2022-04-12 07:30 | NUR ---
Opening Received report on pt. Pt awake, confused, nonverbal, unable to follow commands. Pt in no signs of pain or distress on 5L nasal cannula. Pt on levophed drip and IVF. Gtube with feeding. Ansari in place with yellow urine draining to gravity. Noted on low air loss bed. Bilateral soft wrist restraints in place for safety.
[2022-04-12 07:58] LABS: CALCIUM 8.4 mg/dL (8.4-11.0); CREATININE 2.24 mg/dL (0.55-1.30); PHOSPHORUS 4.6 mg/dL (2.7-4.5)
[2022-04-12] MEDS: BALSAM PERU/CASTOR OIL 56.7 GM OINT...G. TP SCH (09:00)
[2022-04-12] MEDS: CLOTRIMAZOLE 1% TOPICAL CREAM 15 GM TP SCH ×2 (09:00→20:52)
[2022-04-12] MEDS: EMOLLIENT COMBINATION NO.73 78 GM CREAM..G. TP SCH ×2 (09:00→20:52)
[2022-04-12] MEDS: CLOZAPINE 100MG TAB PO SCH ×2 (09:00→21:00)
[2022-04-12 09:02] LABS: VANCOMYCIN,RANDOM 11.4 ug/mL
[2022-04-12] MEDS: TAMSULOSIN HCL 0.4 MG CAP GT SCH (09:46)
[2022-04-12] MEDS: POTASSIUM CHLORIDE 20 MEQ/PKT PACKET GT SCH (09:46)
[2022-04-12] MEDS: PANTOPRAZOLE SODIUM 40 MG TAB PO SCH (09:46)
[2022-04-12] MEDS: OXYBUTYNIN CHLORIDE 5 MG TABLET GT SCH (09:46)
[2022-04-12] MEDS: FOLIC ACID 1 MG TABLET GT SCH (09:47)
[2022-04-12] MEDS: DIVALPROEX SODIUM 500 MG TABLET( DEPAKOTE) PO SCH ×2 (09:47→20:51)
[2022-04-12] MEDS: MIDODRINE HCL 5 MG TABLET (PROAMATINE) PO SCH ×3 (09:47→20:51)
[2022-04-12] MEDS: ATORVASTATIN 20 MG TABLET GT SCH (09:47)
[2022-04-12] MEDS: SEVELAMER CARBONATE 800 MG TABLET GT SCH ×3 (09:52→17:19)
--- NOTE | 2022-04-12 10:45 | NUR ---
Dr. Soria informed regarding pt swelling bilateral hands and scrotum, IVF, and hematocrit level. New orders made for IVF rate change, but no new orders regarding hematocrit level.
--- NOTE | 2022-04-12 12:09 | NUR ---
Procalcitonin 4.22. Patient is on Meropenem and vancomycin. Dr rGover infectious disease following. We will update MD of result.
[2022-04-12] MEDS: NOREPINEPHRINE BITARTRATE 16 MG in NS 234 ML IV PRN ×2 (13:45→19:05)
[2022-04-12] MEDS: VANCOMYCIN HCL 1,000 MG in NS 250 ML IV SCH (14:39)
[2022-04-12] MEDS: MEROPENEM 500 MG in NS 50 ML IV SCH (17:19)
--- NOTE | 2022-04-12 19:17 | NUR ---
Closing No acute changes throughout shift. Remains on levophed drip. Endorsed plan of care to RN.
--- NOTE | 2022-04-12 19:30 | NUR ---
RECEIVED LYING IN BED, PATIENT STILL HAS BILATERAL WRIST RESTRAINTS ON. PATIENT IS ON 2LPM/NC. SAT 99%. EMPLOYMENT DIRECTOR IS SHOWING NSR. PATIENT HAS EDEMA ON ALL EXTREMITIES AND SWELLING OF SCROTUM. LEVOPHED IS INFUSING AT 0.6 MCG/KG/MIN ON THE [facility] PICC. ABDOMEN IS SLIGHTLY DISTENDED, ON G-TUBE FEEDING OF NEPHRO AT 40 ML/HR. 0 RESIDUAL. ON ASPIRATION PRECAUTION. AFEBRILE.
[2022-04-13] VITALS (24 sets, daily range): BP systolic 90–145
[2022-04-13] MEDS: INSULIN REGULAR, HUMAN 100 UNITS/ML, 3 ML VIAL (humuLIN R) SUBCUT PRN ×3 (00:08→17:49)
[2022-04-13] MEDS: NOREPINEPHRINE BITARTRATE 16 MG in NS 234 ML IV PRN ×2 (02:56→16:04)
[2022-04-13] MEDS: MEROPENEM 500 MG in NS 50 ML IV SCH ×2 (03:51→16:01)
[2022-04-13 06:50] LABS: CALCIUM 7.8 mg/dL (8.4-11.0); CREATININE 2.65 mg/dL (0.55-1.30)
[2022-04-13 07:51] LABS: BASOPHILS # (AUTO) 0.2 K/uL (0.0-0.2); BASOPHILS % (AUTO) 1.4 % (0.0-2.0); EOSINOPHILS % (AUTO) 0.2 % (0.0-4.0); LYMPHOCYTES # (AUTO) 1.5 K/uL (1.0-5.5); LYMPHOCYTES % (AUTO) 9.1 % (20.5-51.5); MEAN CORPUSCULAR HEMOGLOBIN 30 pg (27-31); MEAN CORPUSCULAR HGB CONC 32 % (32-36); MEAN CORPUSCULAR VOLUME 93 fL (79.0-98.0); MONOCYTES # (AUTO) 2.3 K/uL (0.0-1.0); MONOCYTES % (AUTO) 14.2 % (1.7-9.3); NEUTROPHILS # (AUTO) 12.2 K/uL (1.8-7.7); NEUTROPHILS % (AUTO) 75.1 % (40.0-70.0); PLATELET COUNT (AUTO) 133 K/uL (130-430); RED BLOOD CELL COUNT(AUTO) 2.21 MIL/uL (4.2-6.2); RED CELL DISTRIBUTION WIDTH 18.8 % (9.0-15.0); WHITE BLOOD COUNT (AUTO) 16.3 K/uL (4.8-10.8)
[2022-04-13 08:01] LABS: HEMATOCRIT 20.5 % (36-54); HEMOGLOBIN 6.5 g/dL (14.0-18.0)
--- NOTE | 2022-04-13 08:17 | NUR ---
LOW HEMOGLOBIN. MESSAGE LEFT TO DR REDDY'S PHONE NUMBER FOR NOTIFICATION OF PROCALCITONIN LEVEL, HEMOGLOBIN 6.5, HEMATOCRIT 20.5.
[2022-04-13] MEDS: CLOZAPINE 100MG TAB PO SCH ×2 (09:00→21:01)
[2022-04-13] MEDS: OXYBUTYNIN CHLORIDE 5 MG TABLET GT SCH (09:37)
[2022-04-13] MEDS: POTASSIUM CHLORIDE 20 MEQ/PKT PACKET GT SCH (09:37)
[2022-04-13] MEDS: ATORVASTATIN 20 MG TABLET GT SCH (09:37)
[2022-04-13] MEDS: SEVELAMER CARBONATE 800 MG TABLET GT SCH ×3 (09:37→17:32)
[2022-04-13] MEDS: FOLIC ACID 1 MG TABLET GT SCH (09:37)
[2022-04-13] MEDS: TAMSULOSIN HCL 0.4 MG CAP GT SCH (09:37)
[2022-04-13] MEDS: PANTOPRAZOLE SODIUM 40 MG TAB PO SCH (09:37)
[2022-04-13] MEDS: DIVALPROEX SODIUM 500 MG TABLET( DEPAKOTE) PO SCH ×2 (09:37→20:47)
[2022-04-13] MEDS: MIDODRINE HCL 5 MG TABLET (PROAMATINE) PO SCH ×3 (09:38→20:48)
[2022-04-13] MEDS: CLOTRIMAZOLE 1% TOPICAL CREAM 15 GM TP SCH ×2 (09:39→20:51)
[2022-04-13] MEDS: BALSAM PERU/CASTOR OIL 56.7 GM OINT...G. TP SCH (09:39)
[2022-04-13] MEDS: EMOLLIENT COMBINATION NO.73 78 GM CREAM..G. TP SCH ×2 (09:40→20:48)
--- NOTE | 2022-04-13 10:30 | NUR ---
CONSENT CALLED UP PT'S SISTER, UNABLE TO REACH HER. DIALED SHYLA'S NUMBER, SHE STATED THAT SHE IS THE CONSERVATOR FOR THE PATIENT. CONSENT FOR BLOOD TRANSFUSION OBTAINED, AND VERIFIED BY ANOTHER RN.
[2022-04-13] MEDS ORDERED: ALTEPLASE 2 MG VIAL MC ONE ×2 (12:30→13:00)
--- NOTE | 2022-04-13 12:30 | NUR ---
BLOOD BANK 1 UNIT PRBC NOW AVAILABLE FOR TRANSFUSION, DIALYSIS NURSE DECLINED TO RECEIVE, PT'S ACCESS PSBL CLOTTED, DR LUJAN AWARE. PT WILL NEED ALTEPLASE. UNIT OF BLOOD RETURNED TO BLOOD BANK.
--- NOTE | 2022-04-13 16:15 | NUR ---
Nutrition F/U: Admitting Diagnosis: Dehydration, hyponatremia Reviewed Pertinent Medical/Surgical Hx: Medical Record, BAKERY DECORATOR Medical History Comment: PMH: DMT2, CKD, dyslipidemia, BPH, and anemia per physician notes Pt also found w/ malnutrition per physician notes Subjective Information: RD rounded to ICU and witnessed patient starting HD with Nepro infusing at goal rate, 40mL/hr. Per EMR, patient noted with 0mL GRV, tolerating EN. RD s/w BAKERY DECORATOR who endorses patient received Kwasi BID. Per RN, patient having issues with HD catheter. Per RD chart review, pt LBM x 2 04/13. Patient was transferred to ICU on 04/11 due to hypotension. pt receiving D5 1/2 NS @ 40mL. Current Diet Order/Nutrition Support: Nepro @ 40mL/hr (goal) + Kwasi BID; FWF 250mL Q4h (or per MD) via GT x 12 days Patient/Significant Other Unable To Verbalize Education Provided Not Indicated Pertinent Medications: 04/13 - glipizide, renvela, protonix, lipitor, SSI, KCl 20mEq, IV vanco, levo, D5 1/2NS, retacrit, Folic Acid Pertinent Labs: Drawn 04/13 - (improved) Na 146 H, BG 193 H, POC BG 226 H; 180 H; 165 H, BUN 44 H, CRE 2.65 H, Hgb 6.5 L Height (Feet) 5 feet Height (Inches) 6.00 inches Weight (Pounds) 115 pounds Weight (Calculated Kilograms) 52.855152 kilograms Patient Weight 52.163 kg Body Mass Index 18.56 kg/m2 %IBW 81 [place]/Adjusted Body Weight 142#/64.5 kg Recent Weight Change No - Unable to verify Weight Status Underweight Food Allergies Unable to verify Usual Diet At Home Unable to verify Skin Integrity Comment: 1 06/13 - Clayton scale 11: w/ lateral medial posterior sacrum open wounds; RLE pressure ulcers, R heel ulcer. Per wound RN consult 04/01, present upon admission Edema: L/R hands +4 pitting edema 04/13 Estimated Energy Expenditure (kcals/day) 5415-7272 (30-35 kcal/kg IBW d/t wound healing) Estimated Protein Required (g/day) 65-81 (1-1.25 gm/kg IBW d/t CKD, wound healing) Estimated Fluid Required (l/day) Per physician d/t CKD Problem/Etiology/Signs/Symptoms * Increased nutritional needs R/T metabolic demands AEB estimated nutritional requirements for wound healing (on-going) * Altered nutrition-related lab values r/t renal dysfunction a/e/b elevated lorie: BUN, Cre (New) Expected Outcomes/Goals - Monitor tolerance to EN support w/ goal of pt meeting >80% of estimated nutritional needs, labs trending WNL, normal GI function, and skin integrity/wt maintenance Dietitian Recommendations * Continue Nepro at 40 ml/hr (goal rate), Kwasi BID, Free Water Flush: 250 ml Q4h (per physician d/t CKD) via GT Provides: 1888 kcal/day, 83 gm protein/day, and 2198 ml free water/day Meets: 98% of lower end of estimated caloric needs and 102% of upper end of estimated protein needs * Continue Renvela * Consider d/c D5 d/t elevated serum glucose and TF running at goal Moderate Risk: F/U in 3-5 days
--- NOTE | 2022-04-13 16:20 | NUR ---
Dietitian Recommendations * Continue Nepro at 40 ml/hr (goal rate), Kwasi BID, Free Water Flush: 250 ml Q4h (per physician d/t CKD) via GT Provides: 1888 kcal/day, 83 gm protein/day, and 2198 ml free water/day Meets: 98% of lower end of estimated caloric needs and 102% of upper end of estimated protein needs * Continue Renvela * Consider d/c D5 d/t elevated serum glucose and EN running at goal rate Please refer to nutrition F/U for details, thanks! CC, MPH, RDN
--- NOTE | 2022-04-13 16:45 | NUR ---
CONSENT LEFT MESSAGE TO LILIA MANSFIELD, FOR MIDLINE CONSENT.
--- NOTE | 2022-04-13 17:30 | NUR ---
LENS MOLDING EQUIPMENT OPERATOR RETURNED TO THE PT, TREATMENT CONTINUES.
[2022-04-13] MEDS: EPOETIN ALFA-EPBX 10,000 UNITS/ML VIAL SUBCUT SCH (17:32)
[2022-04-13] MEDS ORDERED: HEPARIN SODIUM,PORCINE 5,000 UNITS/ML VIAL ONE (19:00)
--- NOTE | 2022-04-13 19:00 | NUR ---
I Received pt in bed ,awake, disoriented .continuous infusion Levophed@0.3 mcg/kg/min in progress,D5NS@ 40cc/hr via Left upper midline.nepro feed @40cc/h via Gastro tube, has a Ansari catheter in place.dialysis in progress
[2022-04-13] MEDS: D5/0.45 NS 1,000 ML IV SCH ×2 (19:59→20:52)
--- NOTE | 2022-04-13 20:00 | NUR ---
Dialyzed for 2 hrs with UF 2.6 L.Pts vitals updated and positioned to left side
[2022-04-14] VITALS (23 sets, daily range): BP systolic 97–135
--- NOTE | 2022-04-14 | NUR ---
re positioned to supine side .IVF in progress
[2022-04-14] MEDS: INSULIN REGULAR, HUMAN 100 UNITS/ML, 3 ML VIAL (humuLIN R) SUBCUT PRN ×2 (00:05→11:24)
[2022-04-14] MEDS ORDERED: NOREPINEPHRINE 4 MG/4 ML VIAL IV ONE (03:43)
[2022-04-14] MEDS: NOREPINEPHRINE BITARTRATE 16 MG in NS 234 ML IV PRN (04:00)
[2022-04-14] MEDS: MEROPENEM 500 MG in NS 50 ML IV SCH ×2 (04:20→15:56)
[2022-04-14] MEDS: D5/0.45 NS 1,000 ML IV SCH ×2 (05:59→21:44)
--- NOTE | 2022-04-14 06:00 | NUR ---
PT ASLEEP , VITALS BPS 170/71 HR 93 RR 22 SPO2-100%.NO CHANGE ON VENT SETTINGS .FALL PRECAUTION MAINTAINED. Addendum: 04/14/22 at 0720 by [employer] MELI Walton RN WRONG NOTE
[2022-04-14 06:33] LABS: BASOPHILS # (AUTO) 0.3 K/uL (0.0-0.2); BASOPHILS % (AUTO) 1.4 % (0.0-2.0); EOSINOPHILS % (AUTO) 0.1 % (0.0-4.0); HEMATOCRIT 29.4 % (36-54); HEMOGLOBIN 9.8 g/dL (14.0-18.0); LYMPHOCYTES # (AUTO) 1.5 K/uL (1.0-5.5); LYMPHOCYTES % (AUTO) 7.5 % (20.5-51.5); MEAN CORPUSCULAR HEMOGLOBIN 30 pg (27-31); MEAN CORPUSCULAR HGB CONC 33 % (32-36); MEAN CORPUSCULAR VOLUME 90 fL (79.0-98.0); MONOCYTES # (AUTO) 2.5 K/uL (0.0-1.0); MONOCYTES % (AUTO) 12.6 % (1.7-9.3); NEUTROPHILS # (AUTO) 15.6 K/uL (1.8-7.7); NEUTROPHILS % (AUTO) 78.4 % (40.0-70.0); PLATELET COUNT (AUTO) 151 K/uL (130-430); RED BLOOD CELL COUNT(AUTO) 3.26 MIL/uL (4.2-6.2); RED CELL DISTRIBUTION WIDTH 16.8 % (9.0-15.0); WHITE BLOOD COUNT (AUTO) 19.9 K/uL (4.8-10.8)
--- NOTE | 2022-04-14 07:26 | NUR ---
REPORT GIVEN TO DAY SHIFT NURSE
--- NOTE | 2022-04-14 07:30 | NUR ---
Received report from MELI Donis. Pt in bed ,awake, disoriented .continuous infusion Levophed@0.3 mcg/kg/min, D5NS@ 40cc/hr via Left upper midline, which needs to be changed, rule out infection .nepro feed @40cc/h via PEG tube, has a Ansari catheter in place.
[2022-04-14 08:06] LABS: CALCIUM 8.4 mg/dL (8.4-11.0); CREATININE 2.21 mg/dL (0.55-1.30)
[2022-04-14] MEDS: CLOTRIMAZOLE 1% TOPICAL CREAM 15 GM TP SCH (08:29)
[2022-04-14] MEDS: BALSAM PERU/CASTOR OIL 56.7 GM OINT...G. TP SCH (08:29)
[2022-04-14] MEDS: EMOLLIENT COMBINATION NO.73 78 GM CREAM..G. TP SCH (08:29)
[2022-04-14] MEDS: CLOZAPINE 100MG TAB PO SCH ×2 (08:49→21:00)
[2022-04-14] MEDS: TAMSULOSIN HCL 0.4 MG CAP GT SCH (08:49)
[2022-04-14] MEDS: ATORVASTATIN 20 MG TABLET GT SCH (08:49)
[2022-04-14] MEDS: OXYBUTYNIN CHLORIDE 5 MG TABLET GT SCH (08:49)
[2022-04-14] MEDS: SEVELAMER CARBONATE 800 MG TABLET GT SCH ×3 (08:49→17:53)
[2022-04-14] MEDS: MIDODRINE HCL 5 MG TABLET (PROAMATINE) PO SCH ×3 (08:49→21:42)
[2022-04-14] MEDS: FOLIC ACID 1 MG TABLET GT SCH (08:49)
[2022-04-14] MEDS: PANTOPRAZOLE SODIUM 40 MG TAB PO SCH (08:49)
[2022-04-14] MEDS: POTASSIUM CHLORIDE 20 MEQ/PKT PACKET GT SCH (08:49)
[2022-04-14] MEDS: DIVALPROEX SODIUM 500 MG TABLET( DEPAKOTE) PO SCH ×2 (08:49→21:42)
--- NOTE | 2022-04-14 13:00 | NUR ---
Received phone call from Sister Rachel Romero for update and consent for additional mid line. Verbalized understanding. Phone numbers to be reached are cell-[phone], daez-[phone]
--- NOTE | 2022-04-14 13:19 | NUR ---
Green Belt WEB ART DIRECTOR attended bed huddle where it was discussed that pts. family is not replying to messages re. pt. plan of care. WEB ART DIRECTOR called emergency contact, Rachel Romero Mai, who immediately picked up the phone, stating she was at work. WEB ART DIRECTOR asked if she could hold as she transfered her to the human resource analystRn. Valles. WEB ART DIRECTOR transered the call and later followed up, received confirmation from RN that she spoke pts. family member.
[2022-04-14] MEDS: VANCOMYCIN HCL 1,000 MG in NS 250 ML IV SCH (13:56)
[2022-04-15] VITALS (24 sets, daily range): BP systolic 86–123
[2022-04-15] MEDS: ACETAMINOPHEN 650 MG/20.3 ML UDC GT PRN ×2 (00:51→18:07)
[2022-04-15] MEDS: INSULIN REGULAR, HUMAN 100 UNITS/ML, 3 ML VIAL (humuLIN R) SUBCUT PRN ×4 (01:08→18:26)
--- NOTE | 2022-04-15 05:15 | NUR ---
MIDLINE Midline in left upper arm discontinued and the tip was sent to lab for culture. No bleeding noted @ site. Dressing applied.
[2022-04-15] MEDS: MEROPENEM 500 MG in NS 50 ML IV SCH ×2 (05:24→18:04)
[2022-04-15 06:48] LABS: HEMATOCRIT 27.5 % (36-54); HEMOGLOBIN 8.9 g/dL (14.0-18.0); MEAN CORPUSCULAR HEMOGLOBIN 30 pg (27-31); MEAN CORPUSCULAR HGB CONC 32 % (32-36); MEAN CORPUSCULAR VOLUME 93 fL (79.0-98.0); PLATELET COUNT (AUTO) 163 K/uL (130-430); RED BLOOD CELL COUNT(AUTO) 2.97 MIL/uL (4.2-6.2); RED CELL DISTRIBUTION WIDTH 17.5 % (9.0-15.0); WHITE BLOOD COUNT (AUTO) 19.5 K/uL (4.8-10.8)
[2022-04-15 07:05] LABS: CALCIUM 8.3 mg/dL (8.4-11.0); CREATININE 2.66 mg/dL (0.55-1.30)
--- NOTE | 2022-04-15 08:00 | NUR ---
RN NOTES PATIENT AWAKE, NOT IN ACUTE DISTRESS. O2 @ 2L/MIN VIA NC. SPO2 GOOD STILL ON LEVOPHED DRIP @ .2 MCG/KG/MIN FOR BP SUPPORT. SINUS RHYTHM ON THE MONITOR.
[2022-04-15] MEDS: EMOLLIENT COMBINATION NO.73 78 GM CREAM..G. TP SCH ×3 (08:16→20:49)
[2022-04-15] MEDS: CLOTRIMAZOLE 1% TOPICAL CREAM 15 GM TP SCH ×3 (08:17→20:48)
[2022-04-15] MEDS: CLOZAPINE 100MG TAB PO SCH ×2 (09:00→21:00)
[2022-04-15] MEDS: POTASSIUM CHLORIDE 20 MEQ/PKT PACKET GT SCH (09:04)
[2022-04-15] MEDS: SEVELAMER CARBONATE 800 MG TABLET GT SCH ×3 (09:04→18:07)
[2022-04-15] MEDS: OXYBUTYNIN CHLORIDE 5 MG TABLET GT SCH (09:04)
[2022-04-15] MEDS: ATORVASTATIN 20 MG TABLET GT SCH (09:05)
[2022-04-15] MEDS: PANTOPRAZOLE SODIUM 40 MG TAB PO SCH (09:05)
[2022-04-15] MEDS: FOLIC ACID 1 MG TABLET GT SCH (09:05)
[2022-04-15] MEDS: TAMSULOSIN HCL 0.4 MG CAP GT SCH (09:05)
[2022-04-15] MEDS: MIDODRINE HCL 5 MG TABLET (PROAMATINE) PO SCH ×3 (09:17→20:47)
[2022-04-15] MEDS: BALSAM PERU/CASTOR OIL 56.7 GM OINT...G. TP SCH (09:19)
[2022-04-15] MEDS: DIVALPROEX SODIUM 500 MG TABLET( DEPAKOTE) PO SCH ×2 (09:44→20:47)
[2022-04-15] MEDS: D5/0.45 NS 1,000 ML IV SCH ×2 (10:35→22:01)
[2022-04-15 12:08] LABS: BAND % (MANUAL) 19 % (0-6); BASOPHILS % (MANUAL) 0 % (0-2); EOSINOPHILS % (MANUAL) 2 % (0-7); LYMPHOCYTES % (MANUAL) 7 % (20-46); METAMYELOCYTES % 2 % (0-0); MONOCYTES % (MANUAL) 12 % (0-11); MYELOCYTES % 3 % (0-0)
--- NOTE | 2022-04-15 13:00 | NUR ---
RN NOTES HEMODIALYSIS IN PROGRESS.
--- NOTE | 2022-04-15 14:30 | NUR ---
HIGH ALERT NOTE: Called Dr. Soria back at identified within the medical roster to verify physician authenticity. For Heparin IVP/Dialysis port by elementary spanish teacher.
[2022-04-15] MEDS ORDERED: HEPARIN SODIUM,PORCINE 5,000 UNITS/ML VIAL ONE (14:43)
[2022-04-15] MEDS ORDERED: ALBUMIN HUMAN 25% 100 ML IV ONE (14:45)
[2022-04-15] MEDS ORDERED: HEPARIN SODIUM,PORCINE 5,000 UNITS/ML VIAL MC ONE (14:45)
--- NOTE | 2022-04-15 18:00 | NUR ---
RN NOTES WOUND CARE DONE. PATIENT REPOSITIONED FOR COMFORT.
[2022-04-15] MEDS: EPOETIN ALFA-EPBX 10,000 UNITS/ML VIAL SUBCUT SCH (18:52)
--- NOTE | 2022-04-15 19:30 | NUR ---
RECEIVED AWAKE, NOT FOLLOWING COMMANDS. ON 2LPM/NC, SAT WDL. ALLIGATOR HUNTER IS SHOWING NSR, ON LEVOPHED DRIP AT 0.5 MCG/KG/MIN VIA RIGHT UPPER ARM MIDLINE. D51/2NS IS INFUSING AT 40 ML/HR. G-TUBE FEEDING OF NEPHRO AT 40 ML/HR. NO RESIDUAL. CARRERA INTACT AND PATENT, DRAINING WELL. AFEBRILE.
[2022-04-16] VITALS (23 sets, daily range): BP systolic 82–129
[2022-04-16] MEDS: MEROPENEM 500 MG in NS 50 ML IV SCH ×2 (03:34→16:07)
[2022-04-16 06:42] LABS: BASOPHILS # (AUTO) 0.1 K/uL (0.0-0.2); BASOPHILS % (AUTO) 0.6 % (0.0-2.0); EOSINOPHILS % (AUTO) 0.1 % (0.0-4.0); HEMATOCRIT 25.5 % (36-54); HEMOGLOBIN 8.4 g/dL (14.0-18.0); LYMPHOCYTES # (AUTO) 1.2 K/uL (1.0-5.5); LYMPHOCYTES % (AUTO) 6.8 % (20.5-51.5); MEAN CORPUSCULAR HEMOGLOBIN 30 pg (27-31); MEAN CORPUSCULAR HGB CONC 33 % (32-36); MEAN CORPUSCULAR VOLUME 91 fL (79.0-98.0); MONOCYTES # (AUTO) 1.8 K/uL (0.0-1.0); MONOCYTES % (AUTO) 10.7 % (1.7-9.3); NEUTROPHILS % (AUTO) 81.8 % (40.0-70.0); PLATELET COUNT (AUTO) 173 K/uL (130-430); RED BLOOD CELL COUNT(AUTO) 2.79 MIL/uL (4.2-6.2); RED CELL DISTRIBUTION WIDTH 17.3 % (9.0-15.0); WHITE BLOOD COUNT (AUTO) 17.1 K/uL (4.8-10.8)
[2022-04-16 07:41] LABS: CALCIUM 8.3 mg/dL (8.4-11.0); CREATININE 1.97 mg/dL (0.55-1.30)
--- NOTE | 2022-04-16 08:00 | NUR ---
RN NOTES AWAKE, NON VERBAL, NOT IN ACUTE DISTRESS, O2 AT 2L/MIN VIA NC. SPO2 GOOD. NEPRO FEEDING VIA GT GOING ON AT 40 ML/HR.
[2022-04-16] MEDS: SEVELAMER CARBONATE 800 MG TABLET GT SCH ×3 (08:28→18:38)
[2022-04-16] MEDS: POTASSIUM CHLORIDE 20 MEQ/PKT PACKET GT SCH (08:55)
[2022-04-16] MEDS: DIVALPROEX SODIUM 500 MG TABLET( DEPAKOTE) PO SCH ×2 (08:56→20:59)
[2022-04-16] MEDS: FOLIC ACID 1 MG TABLET GT SCH (08:56)
[2022-04-16] MEDS: ATORVASTATIN 20 MG TABLET GT SCH (08:57)
[2022-04-16] MEDS: TAMSULOSIN HCL 0.4 MG CAP GT SCH (08:57)
[2022-04-16] MEDS: OXYBUTYNIN CHLORIDE 5 MG TABLET GT SCH (08:57)
[2022-04-16] MEDS: MIDODRINE HCL 5 MG TABLET (PROAMATINE) PO SCH ×3 (08:57→20:59)
[2022-04-16] MEDS: PANTOPRAZOLE SODIUM 40 MG TAB PO SCH (08:58)
[2022-04-16] MEDS: BALSAM PERU/CASTOR OIL 56.7 GM OINT...G. TP SCH (08:59)
[2022-04-16] MEDS: EMOLLIENT COMBINATION NO.73 78 GM CREAM..G. TP SCH ×2 (08:59→21:00)
[2022-04-16] MEDS: CLOTRIMAZOLE 1% TOPICAL CREAM 15 GM TP SCH ×2 (08:59→21:00)
[2022-04-16] MEDS: CLOZAPINE 100MG TAB PO SCH ×2 (09:00→20:59)
--- NOTE | 2022-04-16 10:00 | NUR ---
PALEOLOGY TEACHER ACSW Amanda contacted patient's sister in law Rachel to followup on previous hospice eval. Rachel shared she is patient's conservator. She stated she is to patient's older brother. She also shared patient has 2 older brothers who are in [place] and are expected to be back in April. ACSW inquired into wishes for continued care and hospice and Rachel stated "he's is that way already? We thought he was gonna get better and we could have him there till April when his brother's come back". ACSW encouraged her to speak to brothers about patient's care and stressed the importance of maintaining communication with ICU staff. ACSW also provided fax number and requested for Conservatorship papers to be faxed. ACSW reiterated importance of maintaining communication as patient's conditions has been changing and consents may be needed. ACSW will continue to be available as needed
[2022-04-16] MEDS: INSULIN REGULAR, HUMAN 100 UNITS/ML, 3 ML VIAL (humuLIN R) SUBCUT PRN ×2 (11:53→18:42)
--- NOTE | 2022-04-16 13:30 | NUR ---
RN NOTES DOPPLER ULTRASOUND RESULT RELAYED TO DR. LUJAN, WITH ORDERS.
[2022-04-16] MEDS ORDERED: ENOXAPARIN SODIUM 30 MG/0.3 ML SYRINGE SUBCUT ONE (13:45)
[2022-04-16] MEDS: VANCOMYCIN HCL 1,000 MG in NS 250 ML IV SCH (14:17)
--- NOTE | 2022-04-16 16:00 | NUR ---
RN NOTES PM CARE DONE. WOUND DRESSINGS DONE. PATIENT KEPT COMFORTABLE.
[2022-04-16] MEDS: D5/0.45 NS 1,000 ML IV SCH (16:06)
--- NOTE | 2022-04-16 18:00 | NUR ---
RN NOTES DR. REDDY HERE TO SEE PATIENT. SINUS RHYTHM ON THE MONITOR. APPEARS COMFORTABLE.
--- NOTE | 2022-04-16 19:30 | NUR ---
RECEIVED PATIENT AWAKE, NOT FOLLOWING COMMANDS, MUMBLING WORDS.PATIENT ON 2 LITERS OF O2, SAT WDL. RECORDS ASSOCIATE IS SHOWING ST, RATE 102. LEVOPHED AT 0.12 MCG/KG/MIN, INFUSING ON THE RIGHT UPPER ARM PICC. IVF OF D51/2NS IS INFUSING AT 40 ML/HR. PATIENT STILL HAS GENERALIZED EDEMA. ABDOMEN IS SOFT AND NON-DISTENDED. G-TUBE FEDDING OF NEPHRO RUNNING AT 40 ML/HR, HOB ELEVATED. ON ASPIRATION PRECAUTION. CARRERA INTACT AND PATENT. DRAINING WELL TO LEOLA COLOR URINE. RIGHT IJ WITH RADHIKA CATH, HD ACCESS. TEMP 99.2.
[2022-04-17] VITALS (24 sets, daily range): BP systolic 85–127
[2022-04-17] MEDS: MEROPENEM 500 MG in NS 50 ML IV SCH ×2 (03:35→16:05)
[2022-04-17] MEDS: D5/0.45 NS 1,000 ML IV SCH ×2 (05:50→20:16)
[2022-04-17] MEDS: INSULIN REGULAR, HUMAN 100 UNITS/ML, 3 ML VIAL (humuLIN R) SUBCUT PRN ×4 (06:20→23:05)
[2022-04-17] MEDS: NOREPINEPHRINE BITARTRATE 16 MG in NS 234 ML IV PRN ×2 (06:47→15:27)
[2022-04-17 06:57] LABS: BASOPHILS # (AUTO) 0.1 K/uL (0.0-0.2); BASOPHILS % (AUTO) 0.7 % (0.0-2.0); EOSINOPHILS % (AUTO) 0.1 % (0.0-4.0); HEMATOCRIT 27.5 % (36-54); HEMOGLOBIN 8.8 g/dL (14.0-18.0); LYMPHOCYTES # (AUTO) 1.5 K/uL (1.0-5.5); LYMPHOCYTES % (AUTO) 7.7 % (20.5-51.5); MEAN CORPUSCULAR HEMOGLOBIN 30 pg (27-31); MEAN CORPUSCULAR HGB CONC 32 % (32-36); MEAN CORPUSCULAR VOLUME 92 fL (79.0-98.0); MONOCYTES # (AUTO) 1.6 K/uL (0.0-1.0); MONOCYTES % (AUTO) 8.7 % (1.7-9.3); NEUTROPHILS # (AUTO) 15.7 K/uL (1.8-7.7); NEUTROPHILS % (AUTO) 82.8 % (40.0-70.0); PLATELET COUNT (AUTO) 272 K/uL (130-430); RED BLOOD CELL COUNT(AUTO) 2.99 MIL/uL (4.2-6.2); RED CELL DISTRIBUTION WIDTH 17.3 % (9.0-15.0)
[2022-04-17 07:28] LABS: CALCIUM 8.5 mg/dL (8.4-11.0); CREATININE 2.47 mg/dL (0.55-1.30)
[2022-04-17] MEDS: SEVELAMER CARBONATE 800 MG TABLET GT SCH ×3 (07:51→18:11)
[2022-04-17] MEDS: CLOZAPINE 100MG TAB PO SCH ×2 (09:00→20:14)
[2022-04-17] MEDS: DIVALPROEX SODIUM 500 MG TABLET( DEPAKOTE) PO SCH ×2 (09:04→20:13)
[2022-04-17] MEDS: POTASSIUM CHLORIDE 20 MEQ/PKT PACKET GT SCH (09:04)
[2022-04-17] MEDS: FOLIC ACID 1 MG TABLET GT SCH (09:05)
[2022-04-17] MEDS: PANTOPRAZOLE SODIUM 40 MG TAB PO SCH (09:05)
[2022-04-17] MEDS: MIDODRINE HCL 5 MG TABLET (PROAMATINE) PO SCH ×3 (09:06→20:12)
[2022-04-17] MEDS: EMOLLIENT COMBINATION NO.73 78 GM CREAM..G. TP SCH ×2 (09:06→20:12)
[2022-04-17] MEDS: BALSAM PERU/CASTOR OIL 56.7 GM OINT...G. TP SCH (09:06)
[2022-04-17] MEDS: CLOTRIMAZOLE 1% TOPICAL CREAM 15 GM TP SCH ×2 (09:07→20:12)
[2022-04-17] MEDS: ENOXAPARIN SODIUM 30 MG/0.3 ML SYRINGE SUBCUT SCH (09:07)
[2022-04-17] MEDS: OXYBUTYNIN CHLORIDE 5 MG TABLET GT SCH (09:17)
[2022-04-17] MEDS: ATORVASTATIN 20 MG TABLET GT SCH (09:18)
[2022-04-17] MEDS: TAMSULOSIN HCL 0.4 MG CAP GT SCH (09:18)
--- NOTE | 2022-04-17 11:24 | NUR ---
Conservatorship SODA FOUNTAIN CLERK received Letter of Conservatorship (LPS)/ Mental Health, for Pt. stamped and signed document through [place] [address] identifies Rachel Romero ([id number]) as the conservator of the person. Conservatorship expires 06/2022. Please consult with identified conservator regarding patients care and consent as needed during his hospital stay. Legal document was provided to Pt.s assigned RN for filling in Pt. chart.
[2022-04-17] MEDS ORDERED: HEPARIN SODIUM,PORCINE 5,000 UNITS/ML VIAL ONE ×2 (12:27→12:29)
--- NOTE | 2022-04-17 12:33 | NUR ---
HIGH ALERT NOTE: Called Dr. Soria back at , identified within the medical roster to verify physician authenticity. RE: Heparin 5000 units flush per dialysis port (x2) Total 07837 units of Heparin.
[2022-04-17] MEDS ORDERED: HEPARIN SODIUM,PORCINE 5,000 UNITS/ML VIAL MC ONE (12:45)
--- NOTE | 2022-04-17 14:00 | NUR ---
RN NOTES HEMODIALYSIS IN PROGRESS.
--- NOTE | 2022-04-17 16:00 | NUR ---
RN NOTES PM CARE DONE, WOUND CARE DONE
[2022-04-17] MEDS: EPOETIN ALFA-EPBX 10,000 UNITS/ML VIAL SUBCUT SCH (18:10)
--- NOTE | 2022-04-17 18:30 | NUR ---
RN NOTES FAMILY AT BEDSIDE, UPDATED ON PT PRESENT CONDITION.
--- NOTE | 2022-04-17 19:30 | NUR ---
PM ASSESSMENT REPORT RECEIVED FROM SMITHA GARRISON. PT RECEIVED IN BED WITH EYES OPEN, RESPONDING TO TACTILE STIMULATION. VSS, NO S/S OF ACUTE DISTRESS NOTED. PT ON 2L NC. ST ON MONITOR. RIJ QC NOTED FOR HD ACCESS. ROSELIA ML IN PLACE INFUSING IVF AND LEVOPHED DRIP PER ORDERS. GT IN PLACE RUNNING TF PER ORDERS. FC IN PLACE DRAINING URINE TO GRAVITY. HOB ELEVATED, BED IN LOWEST POSITION, SAFETY PRECAUTIONS IN PLACE. WILL CONTINUE TO MONITOR PT.
[2022-04-17] MEDS: ACETAMINOPHEN 650 MG/20.3 ML UDC GT PRN (23:13)
--- NOTE | 2022-04-17 23:13 | NUR ---
TYLENOL PT IS WARM TO TOUCH, AXILLARY TEMPERATURE 101.8 AT THIS TIME. TYLENOL GIVEN PER ORDERS AND COOLING MEASURES APPLIED. WILL CONTINUE TO MONITOR PT.
--- NOTE | 2022-04-17 23:45 | NUR ---
BM PT INCONTINENT OF STOOL AT THIS TIME. MEDIUM AMOUNT SOFT BROWN STOOL NOTED. ANIKET CARE AND CHG BATH PROVIDED. LINENS CHANGED. PT TOLERATED WELL.
[2022-04-18] VITALS (24 sets, daily range): BP systolic 99–154
[2022-04-18] MEDS ORDERED: NOREPINEPHRINE 4 MG/4 ML VIAL IV ONE (01:16)
[2022-04-18] MEDS: NOREPINEPHRINE BITARTRATE 16 MG in NS 234 ML IV PRN ×2 (02:15→13:52)
[2022-04-18] MEDS: INSULIN REGULAR, HUMAN 100 UNITS/ML, 3 ML VIAL (humuLIN R) SUBCUT PRN ×3 (06:07→18:11)
[2022-04-18 07:14] LABS: ALBUMIN 1.3 g/dL (3.4-4.8); CALCIUM 8.1 mg/dL (8.4-11.0); CREATININE 1.99 mg/dL (0.55-1.30); TOTAL BILIRUBIN 0.5 mg/dL (0.0-1.0); VANCOMYCIN,RANDOM 16.4 ug/mL
[2022-04-18 07:18] LABS: BASOPHILS # (AUTO) 0.1 K/uL (0.0-0.2); BASOPHILS % (AUTO) 0.7 % (0.0-2.0); EOSINOPHILS % (AUTO) 0.1 % (0.0-4.0); HEMATOCRIT 27.7 % (36-54); LYMPHOCYTES # (AUTO) 1.7 K/uL (1.0-5.5); LYMPHOCYTES % (AUTO) 8.2 % (20.5-51.5); MEAN CORPUSCULAR HEMOGLOBIN 30 pg (27-31); MEAN CORPUSCULAR HGB CONC 33 % (32-36); MEAN CORPUSCULAR VOLUME 93 fL (79.0-98.0); MONOCYTES # (AUTO) 2.3 K/uL (0.0-1.0); MONOCYTES % (AUTO) 11.2 % (1.7-9.3); NEUTROPHILS # (AUTO) 16.4 K/uL (1.8-7.7); NEUTROPHILS % (AUTO) 79.8 % (40.0-70.0); PLATELET COUNT (AUTO) 319 K/uL (130-430); RED BLOOD CELL COUNT(AUTO) 2.98 MIL/uL (4.2-6.2); RED CELL DISTRIBUTION WIDTH 16.8 % (9.0-15.0); WHITE BLOOD COUNT (AUTO) 20.5 K/uL (4.8-10.8)
[2022-04-18] MEDS: SEVELAMER CARBONATE 800 MG TABLET GT SCH ×3 (07:45→17:17)
[2022-04-18] MEDS: CLOZAPINE 100MG TAB PO SCH ×2 (09:00→21:00)
[2022-04-18] MEDS: POTASSIUM CHLORIDE 20 MEQ/PKT PACKET GT SCH (09:11)
[2022-04-18] MEDS: TAMSULOSIN HCL 0.4 MG CAP GT SCH (09:11)
[2022-04-18] MEDS: PANTOPRAZOLE SODIUM 40 MG TAB PO SCH (09:11)
[2022-04-18] MEDS: FOLIC ACID 1 MG TABLET GT SCH (09:11)
[2022-04-18] MEDS: ATORVASTATIN 20 MG TABLET GT SCH (09:11)
[2022-04-18] MEDS: OXYBUTYNIN CHLORIDE 5 MG TABLET GT SCH (09:12)
[2022-04-18] MEDS: DIVALPROEX SODIUM 500 MG TABLET( DEPAKOTE) PO SCH ×2 (09:12→22:00)
[2022-04-18] MEDS: MIDODRINE HCL 5 MG TABLET (PROAMATINE) PO SCH ×3 (09:13→22:01)
[2022-04-18] MEDS: EMOLLIENT COMBINATION NO.73 78 GM CREAM..G. TP SCH ×2 (09:14→22:01)
[2022-04-18] MEDS: BALSAM PERU/CASTOR OIL 56.7 GM OINT...G. TP SCH (09:14)
[2022-04-18] MEDS: ENOXAPARIN SODIUM 30 MG/0.3 ML SYRINGE SUBCUT SCH (09:14)
[2022-04-18] MEDS: CLOTRIMAZOLE 1% TOPICAL CREAM 15 GM TP SCH ×2 (09:15→22:01)
[2022-04-18] MEDS: D5/0.45 NS 1,000 ML IV SCH (12:06)
[2022-04-18] MEDS: VANCOMYCIN HCL 1,000 MG in NS 250 ML IV SCH (14:41)
[2022-04-18] MEDS: MEROPENEM 500 MG in NS 50 ML IV SCH (15:40)
[2022-04-19] VITALS (24 sets, daily range): BP systolic 95–128
[2022-04-19] MEDS: D5/0.45 NS 1,000 ML IV SCH ×2 (00:23→15:35)
[2022-04-19] MEDS: MEROPENEM 500 MG in NS 50 ML IV SCH ×2 (06:14→15:37)
[2022-04-19 07:00] LABS: BASOPHILS # (AUTO) 0.1 K/uL (0.0-0.2); BASOPHILS % (AUTO) 0.6 % (0.0-2.0); EOSINOPHILS % (AUTO) 0.1 % (0.0-4.0); HEMATOCRIT 24.2 % (36-54); HEMOGLOBIN 7.9 g/dL (14.0-18.0); LYMPHOCYTES # (AUTO) 1.5 K/uL (1.0-5.5); LYMPHOCYTES % (AUTO) 7.9 % (20.5-51.5); MEAN CORPUSCULAR HEMOGLOBIN 30 pg (27-31); MEAN CORPUSCULAR HGB CONC 32 % (32-36); MEAN CORPUSCULAR VOLUME 93 fL (79.0-98.0); MONOCYTES # (AUTO) 1.5 K/uL (0.0-1.0); MONOCYTES % (AUTO) 7.8 % (1.7-9.3); NEUTROPHILS # (AUTO) 16.3 K/uL (1.8-7.7); NEUTROPHILS % (AUTO) 83.6 % (40.0-70.0); PLATELET COUNT (AUTO) 460 K/uL (130-430); RED BLOOD CELL COUNT(AUTO) 2.61 MIL/uL (4.2-6.2); RED CELL DISTRIBUTION WIDTH 17.2 % (9.0-15.0); WHITE BLOOD COUNT (AUTO) 19.5 K/uL (4.8-10.8)
--- NOTE | 2022-04-19 08:00 | NUR ---
PATIENT IS A 62 YEAR OLD MALE THAT WAS ADMITTED TO [facility] ON 03/30/22, HE WAS RECENTLY DC FROM [facility], WHO WAS RECENTLY DC FROM [facility] 03/27 AND THEN IN [place] BECAME HYPOTENSIVE AND WAS BROUGHT BACK TO [facility]. PATIENT IS IN ICU FOR LEVOPHED REQUIREMENT. HIS PMHX: DM X2, CKD, DYSLIPIDEMIA, BPH, ANEMIA, CHRONIC G-TUBE. PATIENT IS NON VERBAL DOES MAKE SOUNDS, WITHDRAWS TO PAIN. ALERT X1, DOES NOT FOLLOW COMMANDS. HE IS SINUS TACHY ON THE MONITOR. HE IS TACHYPNEIC RR 33-40. GENERALIZED EDEMA +3, ON NC 2L SATURATING 98%. PEG- RUNNING NEPHRO AT 40, GOAL, FWF 250 Q4H. CARRERA INTACT AND DRAINING PER NOC RN 1500CC OUT. SKIN: MULTIPLE WOUNDS, SACRUM US- DRESSINGS IN PLACE, INTACT AND SECURED. HD LINE: RIGHT INTERNAL JUGULAR-LAST HD WAS 04/17 [facility]. NO SCHEDULE FOR HD TODAY. ROSELIA MIDLINE RUNNING LEVOPHED AT 0.4, D5 1/2 AT 40CC/HR. WILL UPDATE FAMILY PRN THROUGHOUT SHIFT.
[2022-04-19 08:10] LABS: CREATININE 2.38 mg/dL (0.55-1.30)
[2022-04-19] MEDS: CLOTRIMAZOLE 1% TOPICAL CREAM 15 GM TP SCH ×2 (09:00→22:05)
[2022-04-19] MEDS: CLOZAPINE 100MG TAB PO SCH ×2 (09:00→21:00)
[2022-04-19] MEDS: MIDODRINE HCL 5 MG TABLET (PROAMATINE) PO SCH ×3 (09:05→22:05)
[2022-04-19] MEDS: ENOXAPARIN SODIUM 30 MG/0.3 ML SYRINGE SUBCUT SCH (09:05)
[2022-04-19] MEDS: POTASSIUM CHLORIDE 20 MEQ/PKT PACKET GT SCH (09:06)
[2022-04-19] MEDS: ATORVASTATIN 20 MG TABLET GT SCH (09:06)
[2022-04-19] MEDS: FOLIC ACID 1 MG TABLET GT SCH (09:06)
[2022-04-19] MEDS: DIVALPROEX SODIUM 500 MG TABLET( DEPAKOTE) PO SCH ×2 (09:06→22:04)
[2022-04-19] MEDS: TAMSULOSIN HCL 0.4 MG CAP GT SCH (09:07)
[2022-04-19] MEDS: OXYBUTYNIN CHLORIDE 5 MG TABLET GT SCH (09:07)
[2022-04-19] MEDS: PANTOPRAZOLE SODIUM 40 MG TAB PO SCH (09:07)
[2022-04-19] MEDS: SEVELAMER CARBONATE 800 MG TABLET GT SCH ×3 (09:07→17:50)
[2022-04-19] MEDS: BALSAM PERU/CASTOR OIL 56.7 GM OINT...G. TP SCH (09:08)
[2022-04-19] MEDS: EMOLLIENT COMBINATION NO.73 78 GM CREAM..G. TP SCH ×2 (09:09→22:05)
[2022-04-19] MEDS: NOREPINEPHRINE BITARTRATE 16 MG in NS 234 ML IV PRN (11:28)
[2022-04-19] MEDS: INSULIN REGULAR, HUMAN 100 UNITS/ML, 3 ML VIAL (humuLIN R) SUBCUT PRN ×2 (12:28→17:59)
--- NOTE | 2022-04-19 16:16 | NUR ---
Nutrition F/U Admitting Diagnosis: Dehydration, hyponatremia Reviewed Pertinent Medical/Surgical Hx: Medical Record, SANDWICH PEDDLER Medical History Comment: PMH: DMT2, CKD, dyslipidemia, BPH, and anemia per physician notes Pt also found w/ malnutrition per physician notes Per EMR review 04/19: pt also found w/ leukocytosis and septic shock Subjective Information: RD rounded to ICU and spoke w/ pt's primary RN. She reported that pt has been tolerating TF well, no GRV, and also received Kwasi earlier and no BM yet today. RD visited pt at bedside. TF seen infusing Nepro at 40 ml/hr w/ 425 ml infused (765 kcal). Bedscale wt taken: 72 kg (158#) -- suspect skewed wt d/t [id number] mattress machine attached to bedside. Per EMR review, Kwasi documented as given 04/15-; pt remains on 2 L O2 via NC; TF Nepro infusing at 40 ml/hr w/ 0 ml GRV 04/19; LBM x1 04/18; abd is soft w/ active bowel sounds. Current TF prescription remains adequate/appropriate. Current Diet Order/Nutrition Support: Nepro at 40 ml/hr (goal), Kwasi BID, Free Water Flush: 250 ml Q4h (per physician d/t CKD) via GT x18 days Patient/Significant Other Unable To Verbalize Education Provided Not Indicated Pertinent Medications: lovenox, levophed, renvela, lipitor, folic acid, KCl packet, SSI Pertinent Labs: Na 143 WNL, BG 144 H, POC BG 132 H, BUN 56 H, CRE 2.38 H, Hg 7.9 L, WBC 19.5 J Height (Feet) 5 feet Height (Inches) 6.00 inches Weight (Pounds) 115 pounds -- stable since 04/01 Patient Weight 52.163 kg Body Mass Index 18.56 kg/m2 %IBW 81 [place]/Adjusted Body Weight 142#/64.5 kg Recent Weight Change No - Unable to verify Weight Status Underweight Food Allergies Unable to verify Usual Diet At Home Unable to verify Skin Integrity Comment: 1 Clayton scale 12: w/ lateral medial posterior sacrum open wounds; RLE pressure ulcers, R heel ulcer; reviewed Risk Assessor note from 04/01 Estimated Energy Expenditure (kcals/day) 8684-5957 (30-35 kcal/kg IBW d/t wound healing, septic shock) Estimated Protein Required (g/day) 65-81 (1-1.25 gm/kg IBW d/t CKD, wound healing, septic shock) Estimated Fluid Required (l/day) Per physician d/t CKD Problem/Etiology/Signs/Symptoms * Increased nutritional needs R/T metabolic demands AEB estimated nutritional requirements for wound healing. *Ongoing * Altered nutrition-related lab values r/t renal dysfunction a/e/b elevated lorie: BUN, Cre. *Ongoing Expected Outcomes/Goals - Monitor tolerance to EN support w/ goal of pt meeting >80% of estimated nutritional needs, labs trending WNL, normal GI function, and skin integrity/wt maintenance Dietitian Recommendations * Continue Nepro at 40 ml/hr (goal rate), Kwasi BID, Free Water Flush: 250 ml Q4h (per physician d/t CKD) via GT Provides: 1888 kcal/day, 83 gm protein/day, and 2198 ml free water/day Meets: 98% of lower end of estimated caloric needs and 102% of upper end of estimated protein needs * Continue Renvela * Consider D/C D5 d/t elevated serum glucose and TF running at goal Moderate Risk: F/U in 3-5 days
--- NOTE | 2022-04-19 16:29 | NUR ---
Dietitian Recommendations * Continue Nepro at 40 ml/hr (goal rate), Kwasi BID, Free Water Flush: 250 ml Q4h (per physician d/t CKD) via GT Provides: 1888 kcal/day, 83 gm protein/day, and 2198 ml free water/day Meets: 98% of lower end of estimated caloric needs and 102% of upper end of estimated protein needs * Continue Renvela * Consider D/C D5 d/t elevated serum glucose and TF running at goal LP, MS, RD Please refer to Nutrition F/U for details.
[2022-04-20] VITALS (24 sets, daily range): BP systolic 90–141
[2022-04-20] MEDS: ACETAMINOPHEN 650 MG/20.3 ML UDC GT PRN ×2 (00:30→12:47)
[2022-04-20] MEDS: MEROPENEM 500 MG in NS 50 ML IV SCH ×2 (03:29→16:42)
[2022-04-20] MEDS: NOREPINEPHRINE BITARTRATE 16 MG in NS 234 ML IV PRN ×2 (04:30→14:03)
[2022-04-20] MEDS: D5/0.45 NS 1,000 ML IV SCH ×2 (05:34→17:50)
[2022-04-20 07:05] LABS: BASOPHILS # (AUTO) 0.2 K/uL (0.0-0.2); EOSINOPHILS % (AUTO) 0.2 % (0.0-4.0); HEMATOCRIT 23.3 % (36-54); HEMOGLOBIN 7.4 g/dL (14.0-18.0); LYMPHOCYTES % (AUTO) 11.3 % (20.5-51.5); MEAN CORPUSCULAR HEMOGLOBIN 30 pg (27-31); MEAN CORPUSCULAR HGB CONC 32 % (32-36); MEAN CORPUSCULAR VOLUME 93 fL (79.0-98.0); MONOCYTES # (AUTO) 1.3 K/uL (0.0-1.0); MONOCYTES % (AUTO) 7.5 % (1.7-9.3); NEUTROPHILS # (AUTO) 13.9 K/uL (1.8-7.7); PLATELET COUNT (AUTO) 520 K/uL (130-430); RED CELL DISTRIBUTION WIDTH 17.2 % (9.0-15.0); WHITE BLOOD COUNT (AUTO) 17.4 K/uL (4.8-10.8)
[2022-04-20 07:24] LABS: CALCIUM 7.7 mg/dL (8.4-11.0); CREATININE 2.87 mg/dL (0.55-1.30)
--- NOTE | 2022-04-20 08:00 | NUR ---
PATIENT IS A 62 YEAR OLD MALE THAT WAS ADMITTED TO [facility] ON 03/30/22, HE WAS RECENTLY DC FROM [facility], WHO WAS RECENTLY DC FROM [facility] 03/27 AND THEN IN [place] BECAME HYPOTENSIVE AND WAS BROUGHT BACK TO [facility]. PATIENT IS IN ICU FOR LEVOPHED REQUIREMENT. HIS PMHX: DM X2, CKD, DYSLIPIDEMIA, BPH, ANEMIA, CHRONIC G-TUBE. PATIENT IS NON VERBAL DOES MAKE SOUNDS, WITHDRAWS TO PAIN. ALERT X1, DOES NOT FOLLOW COMMANDS. HE IS SINUS TACHY ON THE MONITOR HR (106BMP). HE IS TACHYPNEIC RR 33-40. GENERALIZED EDEMA +3, ON NC 2L SATURATING 98%. PEG- RUNNING NEPHRO AT 40, GOAL, FWF 250 Q4H. CARRERA INTACT AND DRAINING. SKIN: MULTIPLE WOUNDS, SACRUM US- DRESSINGS IN PLACE, INTACT AND SECURED. HD LINE: RIGHT INTERNAL JUGULAR-LAST HD WAS 04/17 [facility] T--S. HD TICO FOR TODAY. ROSELIA MIDLINE- INTACT, SECURED, DRESSING CDI- RUNNING LEVOPHED AT 0.4MCG, D5 1/2 AT 40CC/HR. WILL UPDATE FAMILY PRN THROUGHOUT SHIFT.
[2022-04-20] MEDS: CLOZAPINE 100MG TAB PO SCH ×2 (09:00→21:00)
[2022-04-20] MEDS: POTASSIUM CHLORIDE 20 MEQ/PKT PACKET GT SCH (09:04)
[2022-04-20] MEDS: ATORVASTATIN 20 MG TABLET GT SCH (09:04)
[2022-04-20] MEDS: FOLIC ACID 1 MG TABLET GT SCH (09:04)
[2022-04-20] MEDS: TAMSULOSIN HCL 0.4 MG CAP GT SCH (09:04)
[2022-04-20] MEDS: OXYBUTYNIN CHLORIDE 5 MG TABLET GT SCH (09:05)
[2022-04-20] MEDS: SEVELAMER CARBONATE 800 MG TABLET GT SCH ×3 (09:05→17:44)
[2022-04-20] MEDS: PANTOPRAZOLE SODIUM 40 MG TAB PO SCH (09:05)
[2022-04-20] MEDS: MIDODRINE HCL 5 MG TABLET (PROAMATINE) PO SCH (09:05)
[2022-04-20] MEDS: ENOXAPARIN SODIUM 30 MG/0.3 ML SYRINGE SUBCUT SCH (09:05)
[2022-04-20] MEDS: BALSAM PERU/CASTOR OIL 56.7 GM OINT...G. TP SCH (09:06)
[2022-04-20] MEDS: CLOTRIMAZOLE 1% TOPICAL CREAM 15 GM TP SCH ×2 (09:06→20:30)
[2022-04-20] MEDS: EMOLLIENT COMBINATION NO.73 78 GM CREAM..G. TP SCH ×2 (09:06→20:30)
[2022-04-20] MEDS: DIVALPROEX SODIUM 500 MG TABLET( DEPAKOTE) PO SCH ×2 (09:25→20:30)
[2022-04-20] MEDS: levalbuterol HCL 0.63 MG/3 ML VIAL.NEB INH PRN (10:18)
[2022-04-20] MEDS: INSULIN REGULAR, HUMAN 100 UNITS/ML, 3 ML VIAL (humuLIN R) SUBCUT PRN ×2 (12:21→17:49)
[2022-04-20] MEDS ORDERED: HEPARIN SODIUM,PORCINE 5,000 UNITS/ML VIAL MC ONE (15:30)
[2022-04-20] MEDS ORDERED: HEPARIN SODIUM,PORCINE 5,000 UNITS/ML VIAL ONE (16:38)
[2022-04-20] MEDS: MIDODRINE HCL 5 MG TABLET (PROAMATINE) GT SCH ×2 (16:42→20:29)
[2022-04-20] MEDS: EPOETIN ALFA-EPBX 10,000 UNITS/ML VIAL SUBCUT SCH (17:45)
[2022-04-21] VITALS (24 sets, daily range): BP systolic 90–147
[2022-04-21] MEDS: INSULIN REGULAR, HUMAN 100 UNITS/ML, 3 ML VIAL (humuLIN R) SUBCUT PRN ×5 (00:49→23:49)
[2022-04-21] MEDS: MEROPENEM 500 MG in NS 50 ML IV SCH ×2 (04:25→16:34)
[2022-04-21 07:03] LABS: BASOPHILS # (AUTO) 0.2 K/uL (0.0-0.2); BASOPHILS % (AUTO) 1.1 % (0.0-2.0); EOSINOPHILS # (AUTO) 0.1 K/uL (0.0-0.4); EOSINOPHILS % (AUTO) 0.9 % (0.0-4.0); LYMPHOCYTES # (AUTO) 1.5 K/uL (1.0-5.5); LYMPHOCYTES % (AUTO) 11.1 % (20.5-51.5); MEAN CORPUSCULAR HEMOGLOBIN 30 pg (27-31); MEAN CORPUSCULAR HGB CONC 32 % (32-36); MEAN CORPUSCULAR VOLUME 93 fL (79.0-98.0); MONOCYTES # (AUTO) 1.3 K/uL (0.0-1.0); MONOCYTES % (AUTO) 9.8 % (1.7-9.3); NEUTROPHILS # (AUTO) 10.5 K/uL (1.8-7.7); NEUTROPHILS % (AUTO) 77.1 % (40.0-70.0); PLATELET COUNT (AUTO) 470 K/uL (130-430); RED BLOOD CELL COUNT(AUTO) 2.19 MIL/uL (4.2-6.2); RED CELL DISTRIBUTION WIDTH 17.5 % (9.0-15.0); WHITE BLOOD COUNT (AUTO) 13.6 K/uL (4.8-10.8)
[2022-04-21 07:04] LABS: CALCIUM 7.7 mg/dL (8.4-11.0); CREATININE 1.85 mg/dL (0.55-1.30)
[2022-04-21 07:17] LABS: HEMOGLOBIN 6.6 g/dL (14.0-18.0)
[2022-04-21 07:18] LABS: HEMATOCRIT 20.4 % (36-54)
[2022-04-21] MEDS: levalbuterol HCL 0.63 MG/3 ML VIAL.NEB INH PRN (07:56)
[2022-04-21] MEDS: NOREPINEPHRINE BITARTRATE 16 MG in NS 234 ML IV PRN (08:05)
--- NOTE | 2022-04-21 08:15 | NUR ---
Spoke with Dr. Farris regarding consult for ALOC
--- NOTE | 2022-04-21 08:30 | NUR ---
IS AT THE BEDSIDE ASSESSING THE PATIENT, INFORMED HIM THAT THE PATIENT BEEN TACHYPNEIC SINCE YESTERDAY, NO NEW ORDERS RECEIVE.
[2022-04-21] MEDS: CLOZAPINE 100MG TAB PO SCH ×2 (09:00→21:00)
[2022-04-21] MEDS: FOLIC ACID 1 MG TABLET GT SCH (09:28)
[2022-04-21] MEDS: ATORVASTATIN 20 MG TABLET GT SCH (09:28)
[2022-04-21] MEDS: SEVELAMER CARBONATE 800 MG TABLET GT SCH ×3 (09:28→17:45)
[2022-04-21] MEDS: TAMSULOSIN HCL 0.4 MG CAP GT SCH (09:28)
[2022-04-21] MEDS: OXYBUTYNIN CHLORIDE 5 MG TABLET GT SCH (09:28)
[2022-04-21] MEDS: DIVALPROEX SODIUM 500 MG TABLET( DEPAKOTE) PO SCH ×2 (09:29→21:56)
[2022-04-21] MEDS: MIDODRINE HCL 5 MG TABLET (PROAMATINE) GT SCH ×3 (09:29→21:55)
[2022-04-21] MEDS: POTASSIUM CHLORIDE 20 MEQ/PKT PACKET GT SCH (09:29)
[2022-04-21] MEDS: CLOTRIMAZOLE 1% TOPICAL CREAM 15 GM TP SCH ×2 (09:30→21:57)
[2022-04-21] MEDS: ENOXAPARIN SODIUM 30 MG/0.3 ML SYRINGE SUBCUT SCH (09:33)
[2022-04-21] MEDS: PANTOPRAZOLE SODIUM 40 MG TAB PO SCH (09:35)
[2022-04-21] MEDS: D5/0.45 NS 1,000 ML IV SCH (09:35)
[2022-04-21] MEDS: EMOLLIENT COMBINATION NO.73 78 GM CREAM..G. TP SCH ×2 (09:35→21:56)
[2022-04-21] MEDS: BALSAM PERU/CASTOR OIL 56.7 GM OINT...G. TP SCH (09:35)
--- NOTE | 2022-04-21 09:50 | NUR ---
TITRATE LEVOPHED 0.14MCG/KG/MIN. WILL CONTINUE TO MONITOR.
--- NOTE | 2022-04-21 10:52 | NUR ---
BLOOD TRANSFUSION STARTED @ 1052, PATIENT TEMPERATURE 98.8, PULSE RATE 96, RESPIRATION 38, AND BLOOD PRESSURE 115/60. WILL CONTINUE TO MONITOR.
--- NOTE | 2022-04-21 13:43 | NUR ---
Blood Transfusion: 2nd unit of PRBC started at 1343, patient vital signs pulse rate 102, temperature 99.0, respiratory rate 38 and blood pressure 122/63.no signs of acute distress noted at this time. will continue to monitor.
--- NOTE | 2022-04-21 17:00 | NUR ---
G bath provided, changed linen and wound care.
--- NOTE | 2022-04-21 19:35 | NUR ---
PM SHIFT ASSESSMENT Patient is awake, non verbal and unable to make needs known. ST on monitor. Tubefeeding infusing. IVF infusing to ROSELIA PICCLINE, no S/S of infiltration noted. Skin warm and dry. Safety precautions in place, call light within reach. Will continue to monitor.
[2022-04-22] VITALS (24 sets, daily range): BP systolic 85–141
[2022-04-22] MEDS: ACETAMINOPHEN 650 MG/20.3 ML UDC GT PRN ×2 (00:05→11:45)
[2022-04-22] MEDS: MEROPENEM 500 MG in NS 50 ML IV SCH ×2 (04:27→15:56)
[2022-04-22 06:54] LABS: CREATININE 2.26 mg/dL (0.55-1.30)
--- NOTE | 2022-04-22 07:05 | NUR ---
ENDORSEMENT PATIENT CARE ENDORSED TO CATA GARRISON.
[2022-04-22 07:49] LABS: HEMOGLOBIN 7.1 g/dL (14.0-18.0); MEAN CORPUSCULAR HEMOGLOBIN 30 pg (27-31); MEAN CORPUSCULAR HGB CONC 32 % (32-36); MEAN CORPUSCULAR VOLUME 93 fL (79.0-98.0); PLATELET COUNT (AUTO) 418 K/uL (130-430); RED BLOOD CELL COUNT(AUTO) 2.36 MIL/uL (4.2-6.2); RED CELL DISTRIBUTION WIDTH 17.3 % (9.0-15.0); WHITE BLOOD COUNT (AUTO) 11.2 K/uL (4.8-10.8)
[2022-04-22] MEDS: SEVELAMER CARBONATE 800 MG TABLET GT SCH ×3 (08:25→17:19)
[2022-04-22] MEDS: CLOZAPINE 100MG TAB PO SCH ×2 (09:00→21:00)
[2022-04-22] MEDS: PANTOPRAZOLE SODIUM 40 MG TAB PO SCH (09:23)
[2022-04-22] MEDS: FOLIC ACID 1 MG TABLET GT SCH (09:23)
[2022-04-22] MEDS: OXYBUTYNIN CHLORIDE 5 MG TABLET GT SCH (09:24)
[2022-04-22] MEDS: DIVALPROEX SODIUM 500 MG TABLET( DEPAKOTE) PO SCH ×2 (09:24→21:15)
[2022-04-22] MEDS: MIDODRINE HCL 5 MG TABLET (PROAMATINE) GT SCH ×3 (09:25→21:15)
[2022-04-22] MEDS: POTASSIUM CHLORIDE 20 MEQ/PKT PACKET GT SCH (09:29)
[2022-04-22] MEDS: ATORVASTATIN 20 MG TABLET GT SCH (09:29)
[2022-04-22] MEDS: ENOXAPARIN SODIUM 30 MG/0.3 ML SYRINGE SUBCUT SCH (09:29)
[2022-04-22] MEDS: TAMSULOSIN HCL 0.4 MG CAP GT SCH (09:29)
[2022-04-22] MEDS: BALSAM PERU/CASTOR OIL 56.7 GM OINT...G. TP SCH (09:30)
[2022-04-22] MEDS: EMOLLIENT COMBINATION NO.73 78 GM CREAM..G. TP SCH ×2 (09:30→21:15)
[2022-04-22] MEDS: CLOTRIMAZOLE 1% TOPICAL CREAM 15 GM TP SCH ×2 (09:31→21:15)
[2022-04-22 13:52] LABS: BAND % (MANUAL) 3 % (0-6); BASOPHILS % (MANUAL) 0 % (0-2); EOSINOPHILS % (MANUAL) 1 % (0-7); LYMPHOCYTES % (MANUAL) 17 % (20-46); METAMYELOCYTES % 1 % (0-0); MONOCYTES % (MANUAL) 11 % (0-11)
[2022-04-22 13:53] LABS: WBC MORPHOLOGY TOXIC VACUOLATION
[2022-04-22] MEDS ORDERED: 0.45% NS 1,000 ML IV ONE (14:15)
[2022-04-22] MEDS: 0.45% NS 1,000 ML IV SCH (14:30)
[2022-04-22] MEDS: NOREPINEPHRINE BITARTRATE 16 MG in NS 234 ML IV PRN (17:16)
[2022-04-22] MEDS: EPOETIN ALFA-EPBX 10,000 UNITS/ML VIAL SUBCUT SCH (17:24)
[2022-04-22] MEDS: INSULIN REGULAR, HUMAN 100 UNITS/ML, 3 ML VIAL (humuLIN R) SUBCUT PRN (17:36)
[2022-04-22] MEDS: DEXTROSE 50% JECT 50 ML DISP.SYRIN IVP PRN (23:38)
[2022-04-23] VITALS (24 sets, daily range): BP systolic 82–133
[2022-04-23] MEDS: MEROPENEM 500 MG in NS 50 ML IV SCH (05:15)
[2022-04-23 06:52] LABS: BASOPHILS # (AUTO) 0.1 K/uL (0.0-0.2); BASOPHILS % (AUTO) 1.2 % (0.0-2.0); EOSINOPHILS # (AUTO) 0.1 K/uL (0.0-0.4); EOSINOPHILS % (AUTO) 0.9 % (0.0-4.0); LYMPHOCYTES # (AUTO) 1.4 K/uL (1.0-5.5); LYMPHOCYTES % (AUTO) 12.8 % (20.5-51.5); MEAN CORPUSCULAR HEMOGLOBIN 30 pg (27-31); MEAN CORPUSCULAR HGB CONC 32 % (32-36); MEAN CORPUSCULAR VOLUME 93 fL (79.0-98.0); MONOCYTES # (AUTO) 1.2 K/uL (0.0-1.0); MONOCYTES % (AUTO) 10.6 % (1.7-9.3); NEUTROPHILS # (AUTO) 8.2 K/uL (1.8-7.7); NEUTROPHILS % (AUTO) 74.5 % (40.0-70.0); PLATELET COUNT (AUTO) 455 K/uL (130-430); RED BLOOD CELL COUNT(AUTO) 2.23 MIL/uL (4.2-6.2); RED CELL DISTRIBUTION WIDTH 16.9 % (9.0-15.0)
[2022-04-23 07:09] LABS: ALBUMIN 1.1 g/dL (3.4-4.8); CALCIUM 7.8 mg/dL (8.4-11.0); CREATININE 2.59 mg/dL (0.55-1.30); PHOSPHORUS 5.3 mg/dL (2.7-4.5); TOTAL BILIRUBIN 0.4 mg/dL (0.0-1.0)
[2022-04-23] MEDS: 0.45% NS 1,000 ML IV SCH ×2 (07:10→21:24)
[2022-04-23] MEDS: SEVELAMER CARBONATE 800 MG TABLET GT SCH ×3 (08:16→17:15)
[2022-04-23 08:26] LABS: HEMATOCRIT 20.6 % (36-54); HEMOGLOBIN 6.6 g/dL (14.0-18.0)
[2022-04-23] MEDS: CLOZAPINE 100MG TAB PO SCH ×2 (09:00→21:00)
[2022-04-23 09:03] LABS: BILIRUBIN,URINE NEGATIVE (NEGATIVE); BLOOD, URINE 1+ (NEGATIVE); COLOR,URINE YELLOW (YELLOW); GLUCOSE,URINE NEGATIVE (NEGATIVE); KETONES,URINE NEGATIVE (NEGATIVE); LEUKOCYTE ESTERASE ,URINE 3+ (NEGATIVE); NITRITE, URINE NEGATIVE (NEGATIVE); PROTEIN URINE 1+ (NEGATIVE); UROBILINOGEN,URINE 0.2 (0.2-1.0)
[2022-04-23 09:38] LABS: BACTERIA,URINE FEW /HPF (None Seen); CLARITY/URINE HAZY (CLEAR)
[2022-04-23 09:39] LABS: MUCUS,URINE 1+ /LPF (None Seen); YEAST,URINE Moderate /HPF (None Seen)
[2022-04-23] MEDS: POTASSIUM CHLORIDE 20 MEQ/PKT PACKET GT SCH (09:44)
[2022-04-23] MEDS: PANTOPRAZOLE SODIUM 40 MG TAB PO SCH (09:44)
[2022-04-23] MEDS: FOLIC ACID 1 MG TABLET GT SCH (09:44)
[2022-04-23] MEDS: DIVALPROEX SODIUM 500 MG TABLET( DEPAKOTE) PO SCH ×2 (09:44→21:26)
[2022-04-23] MEDS: TAMSULOSIN HCL 0.4 MG CAP GT SCH (09:44)
[2022-04-23] MEDS: ATORVASTATIN 20 MG TABLET GT SCH (09:44)
[2022-04-23] MEDS: OXYBUTYNIN CHLORIDE 5 MG TABLET GT SCH (09:44)
[2022-04-23] MEDS: ENOXAPARIN SODIUM 30 MG/0.3 ML SYRINGE SUBCUT SCH (09:45)
[2022-04-23] MEDS: CLOTRIMAZOLE 1% TOPICAL CREAM 15 GM TP SCH ×2 (09:46→21:29)
[2022-04-23] MEDS: EMOLLIENT COMBINATION NO.73 78 GM CREAM..G. TP SCH ×2 (09:46→21:28)
[2022-04-23] MEDS: BALSAM PERU/CASTOR OIL 56.7 GM OINT...G. TP SCH (09:46)
[2022-04-23] MEDS: MIDODRINE HCL 5 MG TABLET (PROAMATINE) GT SCH ×3 (09:49→21:24)
[2022-04-23] MEDS: ACETAMINOPHEN 650 MG/20.3 ML UDC GT PRN ×2 (10:12→22:50)
[2022-04-23] MEDS: INSULIN REGULAR, HUMAN 100 UNITS/ML, 3 ML VIAL (humuLIN R) SUBCUT PRN ×2 (13:02→23:34)
[2022-04-24] VITALS (24 sets, daily range): BP systolic 95–122
--- NOTE | 2022-04-24 06:51 | NUR ---
2100 FEBRILE TYLENOL 650 MG GIVEN VIA PEG TUBE, BP MAINTAINING ON LEVOPHED AT 0.01 MCG. GOOD OUTPUT. 0530 COMPLETE BED BATH DONE, HAD A LARGE BM LEANED AND KEPT DRY, TURN AND REPOSITION TO COMFORT.
[2022-04-24 07:17] LABS: ALBUMIN 1.1 g/dL (3.4-4.8); CALCIUM 8.4 mg/dL (8.4-11.0); CREATININE 2.93 mg/dL (0.55-1.30); TOTAL BILIRUBIN 0.4 mg/dL (0.0-1.0)
[2022-04-24 07:37] LABS: MEAN CORPUSCULAR HEMOGLOBIN 30 pg (27-31); MEAN CORPUSCULAR HGB CONC 32 % (32-36); MEAN CORPUSCULAR VOLUME 95 fL (79.0-98.0); PLATELET COUNT (AUTO) 461 K/uL (130-430); RED BLOOD CELL COUNT(AUTO) 2.31 MIL/uL (4.2-6.2); RED CELL DISTRIBUTION WIDTH 16.9 % (9.0-15.0); WHITE BLOOD COUNT (AUTO) 10.8 K/uL (4.8-10.8)
[2022-04-24 07:52] LABS: HEMATOCRIT 21.9 % (36-54)
[2022-04-24] MEDS: SEVELAMER CARBONATE 800 MG TABLET GT SCH ×3 (08:45→16:58)
[2022-04-24] MEDS: CLOZAPINE 100MG TAB PO SCH ×2 (09:00→21:00)
[2022-04-24] MEDS: NOREPINEPHRINE BITARTRATE 16 MG in NS 234 ML IV PRN (09:00)
[2022-04-24 09:22] LABS: BAND % (MANUAL) 5 % (0-6); BASOPHILS % (MANUAL) 0 % (0-2); EOSINOPHILS % (MANUAL) 3 % (0-7); LYMPHOCYTES % (MANUAL) 20 % (20-46); MONOCYTES % (MANUAL) 9 % (0-11)
[2022-04-24] MEDS: ATORVASTATIN 20 MG TABLET GT SCH (09:43)
[2022-04-24] MEDS: PANTOPRAZOLE SODIUM 40 MG TAB PO SCH (09:43)
[2022-04-24] MEDS: TAMSULOSIN HCL 0.4 MG CAP GT SCH (09:43)
[2022-04-24] MEDS: OXYBUTYNIN CHLORIDE 5 MG TABLET GT SCH (09:43)
[2022-04-24] MEDS: FOLIC ACID 1 MG TABLET GT SCH (09:43)
[2022-04-24] MEDS: DIVALPROEX SODIUM 500 MG TABLET( DEPAKOTE) PO SCH ×2 (09:43→21:08)
[2022-04-24] MEDS: POTASSIUM CHLORIDE 20 MEQ/PKT PACKET GT SCH (09:43)
[2022-04-24] MEDS: EMOLLIENT COMBINATION NO.73 78 GM CREAM..G. TP SCH ×2 (09:44→21:08)
[2022-04-24] MEDS: CLOTRIMAZOLE 1% TOPICAL CREAM 15 GM TP SCH ×2 (09:44→21:08)
[2022-04-24] MEDS: BALSAM PERU/CASTOR OIL 56.7 GM OINT...G. TP SCH (09:44)
[2022-04-24] MEDS: ENOXAPARIN SODIUM 30 MG/0.3 ML SYRINGE SUBCUT SCH (09:44)
[2022-04-24] MEDS: MIDODRINE HCL 5 MG TABLET (PROAMATINE) GT SCH ×3 (09:59→21:07)
[2022-04-24] MEDS: 0.45% NS 1,000 ML IV SCH ×2 (10:36→19:00)
--- NOTE | 2022-04-24 14:07 | NUR ---
0800-REPORTED CRITICAL HB 7.[address] HERNANDEZ UPON CALL FROM LAB. ORDER FOR PRBC RECEIVED. DISCUSSED CHEMISTRY RESULTS AND ORDER RECEIVED FOR FREE WATER FLUSHES 250CC EVERY 4HRS. PLAN TO CHECK STOOL FOR OB X2. LEVO GTT AT 0.05 AND ON MIDODRINE. LEVO GTT INFUSING WELL VIA PICC. 0930- TYPE AND SCREEN COMPLETED. DR JEAN UPDATED ON PATIENT CONDITION. 1300- BLOOD SUGAR 143 NO INSULIN COVERAGE REQUIRED. 1407- PRBC INFUSION STARTED. TEMP 99.4. PATIENT AFEBRILE. WILL MONITOR.
[2022-04-24] MEDS: EPOETIN ALFA-EPBX 10,000 UNITS/ML VIAL SUBCUT SCH (16:36)
[2022-04-24] MEDS: ACETAMINOPHEN 650 MG/20.3 ML UDC GT PRN (21:40)
[2022-04-25] VITALS (26 sets, daily range): BP systolic 89–132
[2022-04-25] MEDS: INSULIN REGULAR, HUMAN 100 UNITS/ML, 3 ML VIAL (humuLIN R) SUBCUT PRN (00:12)
--- NOTE | 2022-04-25 05:00 | NUR ---
COMPLETE BED BATH DONE CHG BATH GIVEN, DRESSING ON,LT ANKLE AND FOOT CHANGED, CLEANED AND KEPT DRY HAD BMX1, STOOL OB NEGATIVE. VSS, 0545 LEVO WEAN TO 0.03 MCG. CONT CARE.
[2022-04-25] MEDS: CLOZAPINE 100MG TAB PO SCH ×2 (07:44→21:00)
[2022-04-25] MEDS: SEVELAMER CARBONATE 800 MG TABLET GT SCH ×3 (08:00→18:04)
[2022-04-25] MEDS: OXYBUTYNIN CHLORIDE 5 MG TABLET GT SCH (09:56)
[2022-04-25] MEDS: MIDODRINE HCL 5 MG TABLET (PROAMATINE) GT SCH ×3 (09:56→21:14)
[2022-04-25] MEDS: POTASSIUM CHLORIDE 20 MEQ/PKT PACKET GT SCH (09:56)
[2022-04-25] MEDS: FOLIC ACID 1 MG TABLET GT SCH (09:56)
[2022-04-25] MEDS: DIVALPROEX SODIUM 500 MG TABLET( DEPAKOTE) PO SCH ×2 (09:56→21:14)
[2022-04-25] MEDS: PANTOPRAZOLE SODIUM 40 MG TAB PO SCH (09:56)
[2022-04-25] MEDS: TAMSULOSIN HCL 0.4 MG CAP GT SCH (09:56)
[2022-04-25] MEDS: ATORVASTATIN 20 MG TABLET GT SCH (09:56)
[2022-04-25] MEDS: ENOXAPARIN SODIUM 30 MG/0.3 ML SYRINGE SUBCUT SCH (09:57)
[2022-04-25] MEDS: BALSAM PERU/CASTOR OIL 56.7 GM OINT...G. TP SCH (09:57)
[2022-04-25] MEDS: 0.45% NS 1,000 ML IV SCH ×2 (09:57→23:31)
[2022-04-25] MEDS: CLOTRIMAZOLE 1% TOPICAL CREAM 15 GM TP SCH ×2 (09:57→21:14)
[2022-04-25] MEDS: EMOLLIENT COMBINATION NO.73 78 GM CREAM..G. TP SCH ×2 (09:57→21:14)
--- NOTE | 2022-04-25 12:00 | NUR ---
0800- LEVO GTT OFF PER NIGHT RN. WILL MONITOR BP CLOSELY. UOP 200CC AT THIS TIME. 0900 -HAD TO START LEVO GTT DUE TO LOW BP AND TRENDING DOWN UOP. DR JEAN WANTS TO START LEVO GTT. CHECKED W BILINGUAL SPEECH THERAPIST TRACY AND WILL START AT 0.03MCG/KG/MIN 9AM 1200- TITRATING TO 0.05 MCG/KG/MIN. GETTING READY TO GO FOR CT. WILL MONITOR.
--- NOTE | 2022-04-25 13:00 | NUR ---
DR HERNANDEZ IN TO SEE PATIENT. ORDER FOR LABS AND CALL HIM AFTER RESULTS. GOING TO CT OF ABD AND PELVIS NOW. WILL MONITOR.
[2022-04-25 13:58] LABS: CREATININE 3.04 mg/dL (0.55-1.30); PHOSPHORUS 5.4 mg/dL (2.7-4.5)
[2022-04-25 14:03] LABS: BASOPHILS # (AUTO) 0.1 K/uL (0.0-0.2); BASOPHILS % (AUTO) 0.9 % (0.0-2.0); EOSINOPHILS # (AUTO) 0.5 K/uL (0.0-0.4); EOSINOPHILS % (AUTO) 4.3 % (0.0-4.0); HEMOGLOBIN 7.2 g/dL (14.0-18.0); LYMPHOCYTES # (AUTO) 2.2 K/uL (1.0-5.5); LYMPHOCYTES % (AUTO) 20.4 % (20.5-51.5); MEAN CORPUSCULAR HEMOGLOBIN 33 pg (27-31); MEAN CORPUSCULAR HGB CONC 35 % (32-36); MONOCYTES # (AUTO) 1.2 K/uL (0.0-1.0); MONOCYTES % (AUTO) 10.6 % (1.7-9.3); NEUTROPHILS # (AUTO) 6.9 K/uL (1.8-7.7); NEUTROPHILS % (AUTO) 63.8 % (40.0-70.0); PLATELET COUNT (AUTO) 424 K/uL (130-430); RED BLOOD CELL COUNT(AUTO) 2.21 MIL/uL (4.2-6.2); WHITE BLOOD COUNT (AUTO) 10.9 K/uL (4.8-10.8)
[2022-04-25 14:16] LABS: HEMATOCRIT 20.5 % (36-54); MEAN CORPUSCULAR VOLUME 93 fL (79.0-98.0)
--- NOTE | 2022-04-25 17:00 | NUR ---
REPORTED LABS TO DR HERNANDEZ. NO NEW ORDERS. ORDER FOR LABS IN AM CMP, CBC, MAG AND PHOS
[2022-04-26] VITALS (24 sets, daily range): BP systolic 78–144
[2022-04-26] MEDS: ACETAMINOPHEN 650 MG/20.3 ML UDC GT PRN ×4 (02:06→21:00)
--- NOTE | 2022-04-26 04:00 | NUR ---
LEVOPHED TITRATED TO 0.2 MCG BP ON THE 78/43 MAP 56 ROSELIA ECHYMOSIS ON MIDLINE AREA AND SWOLLEN EXTENDING PRPLE COLOR TO RT UPPER SIDE OF THE CHEST.
--- NOTE | 2022-04-26 05:00 | NUR ---
COMPLETE CHG BATH DONE, ALL DRESSING OF WOUND CHANGED AND DATED,ON ROOM AIR TOLERATING WELL NO RESP DISTRESS SATS-95-97%. TURN AND REPOSITION TO COMFORT. GOOD OUTPUT HAD BMX2 LARGE AMOUNT.
[2022-04-26 08:22] LABS: BASOPHILS # (AUTO) 0.1 K/uL (0.0-0.2); BASOPHILS % (AUTO) 0.8 % (0.0-2.0); EOSINOPHILS # (AUTO) 0.5 K/uL (0.0-0.4); EOSINOPHILS % (AUTO) 5.7 % (0.0-4.0); LYMPHOCYTES # (AUTO) 1.5 K/uL (1.0-5.5); LYMPHOCYTES % (AUTO) 16.1 % (20.5-51.5); MEAN CORPUSCULAR HEMOGLOBIN 30 pg (27-31); MEAN CORPUSCULAR HGB CONC 32 % (32-36); MEAN CORPUSCULAR VOLUME 95 fL (79.0-98.0); MONOCYTES # (AUTO) 1.2 K/uL (0.0-1.0); MONOCYTES % (AUTO) 12.7 % (1.7-9.3); NEUTROPHILS # (AUTO) 5.9 K/uL (1.8-7.7); PLATELET COUNT (AUTO) 467 K/uL (130-430); RED BLOOD CELL COUNT(AUTO) 2.16 MIL/uL (4.2-6.2); RED CELL DISTRIBUTION WIDTH 17.5 % (9.0-15.0); WHITE BLOOD COUNT (AUTO) 9.1 K/uL (4.8-10.8)
[2022-04-26 08:37] LABS: CREATININE 3.08 mg/dL (0.55-1.30); PHOSPHORUS 5.1 mg/dL (2.7-4.5); TOTAL BILIRUBIN 0.5 mg/dL (0.0-1.0)
[2022-04-26 08:51] LABS: HEMATOCRIT 20.5 % (36-54); HEMOGLOBIN 6.5 g/dL (14.0-18.0)
--- NOTE | 2022-04-26 08:51 | NUR ---
critical value hgb 6.5 from Kristie Mckinley md paged
[2022-04-26] MEDS: OXYBUTYNIN CHLORIDE 5 MG TABLET GT SCH (09:00)
[2022-04-26] MEDS: CLOZAPINE 100MG TAB PO SCH ×2 (09:00→20:59)
[2022-04-26] MEDS: ATORVASTATIN 20 MG TABLET GT SCH (09:30)
[2022-04-26] MEDS: FOLIC ACID 1 MG TABLET GT SCH (09:32)
[2022-04-26] MEDS: SEVELAMER CARBONATE 800 MG TABLET GT SCH ×3 (09:32→17:09)
[2022-04-26] MEDS: DIVALPROEX SODIUM 500 MG TABLET( DEPAKOTE) PO SCH ×2 (09:32→20:58)
[2022-04-26] MEDS: ENOXAPARIN SODIUM 30 MG/0.3 ML SYRINGE SUBCUT SCH (09:33)
[2022-04-26] MEDS: POTASSIUM CHLORIDE 20 MEQ/PKT PACKET GT SCH (09:34)
[2022-04-26] MEDS: TAMSULOSIN HCL 0.4 MG CAP GT SCH (09:34)
[2022-04-26] MEDS: PANTOPRAZOLE SODIUM 40 MG TAB PO SCH (09:36)
[2022-04-26] MEDS: MIDODRINE HCL 5 MG TABLET (PROAMATINE) GT SCH ×3 (09:36→21:01)
[2022-04-26] MEDS: EMOLLIENT COMBINATION NO.73 78 GM CREAM..G. TP SCH ×2 (09:37→20:59)
[2022-04-26] MEDS: CLOTRIMAZOLE 1% TOPICAL CREAM 15 GM TP SCH ×2 (09:38→20:59)
[2022-04-26] MEDS: BALSAM PERU/CASTOR OIL 56.7 GM OINT...G. TP SCH (09:40)
[2022-04-26] MEDS: 0.45% NS 1,000 ML IV SCH (10:57)
--- NOTE | 2022-04-26 11:58 | NUR ---
HD suggested i call Dr. Soria and ask about HD, BUN 57 creatinine 3.08, phone [phone] rings and rings without answer, pager [phone] is not in service, unable to reach
[2022-04-26 13:32] LABS: NEUTROPHILS % (AUTO) 64.7 % (40.0-70.0)
[2022-04-26] MEDS ORDERED: HEPARIN SODIUM,PORCINE 5,000 UNITS/ML VIAL MC ONE (16:00)
--- NOTE | 2022-04-26 18:42 | NUR ---
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 RN reports patient tolerating TF, with 0mL GRV documented per EMR 04/26. RN reports LBM x 1 overnight. Per EMR review, pt noted with 3x BM 04/26. RD inquired about Kwasi, RN reports patient receiving Kwasi BID per order, endorsed per EMR. RD witnessed pt in bed receiving HD at time of visit. RD noted Nepro hanging with TF infusion at 40mL, goal rate. Current TF remains appropriate at this time. Current Diet Order/Nutrition Support: Nepro at 40 ml/hr (goal), Kwasi BID, FWF: 250ml Q4h via GT x 1 Patient/Significant Other Unable To Verbalize Education Provided Not Indicated Pertinent Medications: lovenox, levophed, renvela, lipitor, folic acid, KCl packet, SSI, NS, retacrit, glipizide, protonix, proamatine Pertinent Labs: Drawn 04/26 - Na 154H, BG 175H, POC BG 148, 171H, BUN 57H, CRE 3.08H, Hgb 6.5*L, Ca 8.0L, Phos 5.1H, K 3.4L Height (Feet) 5 feet Height (Inches) 6.00 inches Weight (Pounds) 115 pounds -- stable since 04/01 Patient Weight 52.163 kg Body Mass Index 18.56 kg/m2 %IBW 81 [place]/Adjusted Body Weight 142#/64.5 kg Recent Weight Change No - Unable to verify Weight Status Underweight Food Allergies Unable to verify Usual Diet At Home Unable to verify Skin Integrity Comment: 04/26 Clayton scale 13: w/ lateral medial posterior sacrum open wounds; RLE pressure ulcers, R heel ulcer; reviewed Guest Service Supervisor note from 04/01 Edema: Generalized +3 Pitting documented 04/26 Estimated Energy Expenditure (kcals/day) 7224-2123 (30-35 kcal/kg IBW d/t wound healing, septic shock) Estimated Protein Required (g/day) 65-81 (1-1.25 gm/kg IBW d/t CKD, wound healing, septic shock) Estimated Fluid Required (l/day) Per physician d/t CKD Problem/Etiology/Signs/Symptoms * Increased nutritional needs R/T metabolic demands AEB estimated nutritional requirements for wound healing. (On-going) * Altered nutrition-related lab values r/t renal dysfunction a/e/b elevated values: BUN, Cre. (On-going) Expected Outcomes/Goals - Monitor tolerance to EN support w/ goal of pt meeting >80% of estimated nutritional needs, labs trending WNL, normal GI function, and skin integrity/wt maintenance Dietitian Recommendations * Continue Nepro at 40 ml/hr (goal rate), Kwasi BID, FWF: 250 ml Q4h (per MD d/t CKD) via GT Provides: 1888 kcal/day, 83 gm protein/day, and 2198 ml free water/day Meets: 98% of lower estimated caloric needs and 102% of upper estimated protein needs * Continue Renvela * Recommend adjust insulin regimen for elevated BG, dosing per MD Moderate Risk: F/U in 3-5 days
--- NOTE | 2022-04-26 18:45 | NUR ---
Dietitian Recommendations * Continue Nepro at 40 ml/hr (goal rate), Kwasi BID, FWF: 250 ml Q4h (per MD d/t CKD) via GT Provides: 1888 kcal/day, 83 gm protein/day, and 2198 ml free water/day Meets: 98% of lower estimated caloric needs and 102% of upper estimated protein needs * Continue Renvela * Recommend adjust insulin regimen for elevated BG, dosing per MD Please refer to nutrition F/U for details, thanks! CC, MPH, RDN
--- NOTE | 2022-04-26 19:15 | NUR ---
INITIAL ASSESSMENT DONE, ON ROOM AIR TAACHYPNEIC O2 SUPPORT PUT BACK IN LEVO AT 0.1 MCG. TUBE FEEDING ON GOING AND IVF HYDRATION RUNNING NOTED RT ARM MORE SWOLLEN WITH ECCHYMOSIS ON MIDLINE SITE ARM IS WARM AND PAIN TO TOUCH 10/10 IVF REMOVED AND CONNECTED TO PIGTAIL ON RADHIKA CATH. VSS.
[2022-04-27] VITALS (45 sets, daily range): BP systolic 90–140
--- NOTE | 2022-04-27 | NUR ---
2200 TACHYCARDIC HR-109 TEMP 99.6 TYLENOL GIVEN CHARTED, 0000 HAD A LARGE BM CLEANED AND KEPT DRY CHG BATH GIVEN. BP LOW LEVOPHED INCREASED TO 0.2MCG.
[2022-04-27] MEDS: 0.45% NS 1,000 ML IV SCH ×2 (00:36→12:29)
[2022-04-27] MEDS: INSULIN REGULAR, HUMAN 100 UNITS/ML, 3 ML VIAL (humuLIN R) SUBCUT PRN (00:40)
--- NOTE | 2022-04-27 05:40 | NUR ---
HAD ANOTHER LARGE BM CLEANED AND KEPT DRY VSS, REMAINS ROOM AIR SATS-98%. RR-32.
[2022-04-27 07:43] LABS: CREATININE 2.02 mg/dL (0.55-1.30)
[2022-04-27 07:54] LABS: BASOPHILS # (AUTO) 0.1 K/uL (0.0-0.2); BASOPHILS % (AUTO) 0.8 % (0.0-2.0); EOSINOPHILS # (AUTO) 0.6 K/uL (0.0-0.4); EOSINOPHILS % (AUTO) 5.9 % (0.0-4.0); HEMATOCRIT 30.8 % (36-54); HEMOGLOBIN 10.3 g/dL (14.0-18.0); LYMPHOCYTES # (AUTO) 1.7 K/uL (1.0-5.5); LYMPHOCYTES % (AUTO) 17.4 % (20.5-51.5); MEAN CORPUSCULAR HEMOGLOBIN 30 pg (27-31); MEAN CORPUSCULAR HGB CONC 33 % (32-36); MONOCYTES # (AUTO) 1.8 K/uL (0.0-1.0); MONOCYTES % (AUTO) 18.3 % (1.7-9.3); NEUTROPHILS # (AUTO) 5.6 K/uL (1.8-7.7); NEUTROPHILS % (AUTO) 57.6 % (40.0-70.0); PLATELET COUNT (AUTO) 396 K/uL (130-430); RED BLOOD CELL COUNT(AUTO) 3.41 MIL/uL (4.2-6.2); RED CELL DISTRIBUTION WIDTH 15.5 % (9.0-15.0); WHITE BLOOD COUNT (AUTO) 9.8 K/uL (4.8-10.8)
[2022-04-27 07:57] LABS: MEAN CORPUSCULAR VOLUME 91 fL (79.0-98.0)
[2022-04-27] MEDS: CLOZAPINE 100MG TAB PO SCH ×3 (09:00→20:46)
[2022-04-27] MEDS: SEVELAMER CARBONATE 800 MG TABLET GT SCH ×3 (10:29→17:49)
[2022-04-27] MEDS: FOLIC ACID 1 MG TABLET GT SCH (10:30)
[2022-04-27] MEDS: OXYBUTYNIN CHLORIDE 5 MG TABLET GT SCH (10:30)
[2022-04-27] MEDS: TAMSULOSIN HCL 0.4 MG CAP GT SCH (10:30)
[2022-04-27] MEDS: ATORVASTATIN 20 MG TABLET GT SCH (10:31)
[2022-04-27] MEDS: POTASSIUM CHLORIDE 20 MEQ/PKT PACKET GT SCH (10:31)
[2022-04-27] MEDS: MIDODRINE HCL 5 MG TABLET (PROAMATINE) GT SCH ×3 (10:32→20:43)
[2022-04-27] MEDS: DIVALPROEX SODIUM 500 MG TABLET( DEPAKOTE) PO SCH ×2 (10:32→20:42)
[2022-04-27] MEDS: PANTOPRAZOLE SODIUM 40 MG TAB PO SCH (10:33)
[2022-04-27] MEDS: BALSAM PERU/CASTOR OIL 56.7 GM OINT...G. TP SCH (10:34)
[2022-04-27] MEDS: CLOTRIMAZOLE 1% TOPICAL CREAM 15 GM TP SCH ×2 (10:35→20:44)
[2022-04-27] MEDS: EMOLLIENT COMBINATION NO.73 78 GM CREAM..G. TP SCH ×2 (10:36→20:44)
[2022-04-27] MEDS: ENOXAPARIN SODIUM 30 MG/0.3 ML SYRINGE SUBCUT SCH (10:37)
--- NOTE | 2022-04-27 11:30 | NUR ---
1000 placed pt on hiflow per dr guy order of 20l .28% fio2. will cont to monitor. Addendum: 04/27/22 at 1138 by Barbara Slater RT Amended: Links added.
[2022-04-27] MEDS: EPOETIN ALFA-EPBX 10,000 UNITS/ML VIAL SUBCUT SCH (17:49)
--- NOTE | 2022-04-27 19:25 | NUR ---
Report received from MELI Huntley. Patient IVF: Levophed drip TRA 0.05 mcg/kg/min (2.44 ml/hr); 0.45 NS at 80 ml/hr. Nepro J/P Tube at 40 ml/hr. Patient on Hi-Hemant Oxygen at 20 L /min, 28% FiO2. Will continue to monitor VS & clinical status.
[2022-04-27] MEDS: ACETAMINOPHEN 650 MG/20.3 ML UDC GT PRN (20:42)
[2022-04-28] VITALS (65 sets, daily range): BP systolic 83–123
[2022-04-28] MEDS: 0.45% NS 1,000 ML IV SCH (03:15)
--- NOTE | 2022-04-28 05:25 | NUR ---
Digital Archivist at bedside. AM Labs obtained and specimens sent to lab.
[2022-04-28 06:53] LABS: BASOPHILS # (AUTO) 0.1 K/uL (0.0-0.2); BASOPHILS % (AUTO) 1.1 % (0.0-2.0); EOSINOPHILS # (AUTO) 0.8 K/uL (0.0-0.4); EOSINOPHILS % (AUTO) 7.9 % (0.0-4.0); HEMOGLOBIN 9.4 g/dL (14.0-18.0); LYMPHOCYTES # (AUTO) 1.8 K/uL (1.0-5.5); LYMPHOCYTES % (AUTO) 16.9 % (20.5-51.5); MEAN CORPUSCULAR HEMOGLOBIN 30 pg (27-31); MEAN CORPUSCULAR HGB CONC 33 % (32-36); MEAN CORPUSCULAR VOLUME 93 fL (79.0-98.0); MONOCYTES # (AUTO) 1.6 K/uL (0.0-1.0); MONOCYTES % (AUTO) 14.8 % (1.7-9.3); NEUTROPHILS # (AUTO) 6.3 K/uL (1.8-7.7); NEUTROPHILS % (AUTO) 59.3 % (40.0-70.0); PLATELET COUNT (AUTO) 432 K/uL (130-430); RED BLOOD CELL COUNT(AUTO) 3.11 MIL/uL (4.2-6.2); RED CELL DISTRIBUTION WIDTH 15.9 % (9.0-15.0); WHITE BLOOD COUNT (AUTO) 10.6 K/uL (4.8-10.8)
[2022-04-28 06:57] LABS: CALCIUM 8.3 mg/dL (8.4-11.0); CREATININE 2.31 mg/dL (0.55-1.30)
--- NOTE | 2022-04-28 07:27 | NUR ---
Report given to MELI Rivera.
[2022-04-28] MEDS: BALSAM PERU/CASTOR OIL 56.7 GM OINT...G. TP SCH (09:49)
[2022-04-28] MEDS: CLOTRIMAZOLE 1% TOPICAL CREAM 15 GM TP SCH ×2 (09:49→21:05)
[2022-04-28] MEDS: EMOLLIENT COMBINATION NO.73 78 GM CREAM..G. TP SCH ×2 (09:49→21:05)
[2022-04-28] MEDS: SEVELAMER CARBONATE 800 MG TABLET GT SCH ×3 (10:10→19:11)
[2022-04-28] MEDS: PANTOPRAZOLE SODIUM 40 MG TAB PO SCH (10:10)
[2022-04-28] MEDS: POTASSIUM CHLORIDE 20 MEQ/PKT PACKET GT SCH (10:10)
[2022-04-28] MEDS: ATORVASTATIN 20 MG TABLET GT SCH (10:10)
[2022-04-28] MEDS: MIDODRINE HCL 5 MG TABLET (PROAMATINE) GT SCH ×3 (10:10→21:01)
[2022-04-28] MEDS: FOLIC ACID 1 MG TABLET GT SCH (10:10)
[2022-04-28] MEDS: OXYBUTYNIN CHLORIDE 5 MG TABLET GT SCH (10:11)
[2022-04-28] MEDS: TAMSULOSIN HCL 0.4 MG CAP GT SCH (10:11)
[2022-04-28] MEDS: DIVALPROEX SODIUM 500 MG TABLET( DEPAKOTE) PO SCH ×2 (10:11→21:01)
[2022-04-28] MEDS: ENOXAPARIN SODIUM 30 MG/0.3 ML SYRINGE SUBCUT SCH (10:11)
[2022-04-28] MEDS: 0.45% NACL 1,000 ML IV SCH (12:00)
[2022-04-28] MEDS: NOREPINEPHRINE BITARTRATE 16 MG in NS 234 ML IV PRN (13:10)
--- NOTE | 2022-04-28 19:15 | NUR ---
Report received from MELI Rivera. Will continue with POC. Patient IVF: Levophed drip at 0.11 mcg/kg/min & 0.45 NS at 40 ml/hr.
--- NOTE | 2022-04-28 20:00 | NUR ---
G-Tube clog. G-Tube flushed with hot water & Coke. Successful G-Tube patency.
[2022-04-28] MEDS: CLOZAPINE 100MG TAB PO SCH (21:02)
[2022-04-28] MEDS: INSULIN REGULAR, HUMAN 100 UNITS/ML, 3 ML VIAL (humuLIN R) SUBCUT PRN (23:50)
--- NOTE | 2022-04-28 23:52 | NUR ---
Accu check 159 mg/dl. Patient covered with Regular Insulin 2 units SQ,
[2022-04-29] VITALS (44 sets, daily range): BP systolic 87–128
--- NOTE | 2022-04-29 03:03 | NUR ---
RT at bedside and changed O2 to NC 2 L/M.
[2022-04-29] MEDS: 0.45% NACL 1,000 ML IV SCH (04:54)
--- NOTE | 2022-04-29 05:00 | NUR ---
Conveyor Console Operator at bedside. AM labs obtained and specimens sent to lab.
--- NOTE | 2022-04-29 05:35 | NUR ---
Patient given complete bedbath & with linen change.
[2022-04-29] MEDS: INSULIN REGULAR, HUMAN 100 UNITS/ML, 3 ML VIAL (humuLIN R) SUBCUT PRN ×3 (06:11→18:18)
--- NOTE | 2022-04-29 06:15 | NUR ---
Accu Check 184 mg/dl. Patient covered with Regular Insulin 2 units SQ.
[2022-04-29 07:00] LABS: BASOPHILS # (AUTO) 0.1 K/uL (0.0-0.2); BASOPHILS % (AUTO) 0.9 % (0.0-2.0); EOSINOPHILS # (AUTO) 0.7 K/uL (0.0-0.4); HEMATOCRIT 29.3 % (36-54); HEMOGLOBIN 9.7 g/dL (14.0-18.0); LYMPHOCYTES # (AUTO) 1.6 K/uL (1.0-5.5); LYMPHOCYTES % (AUTO) 16.2 % (20.5-51.5); MEAN CORPUSCULAR HEMOGLOBIN 31 pg (27-31); MEAN CORPUSCULAR HGB CONC 33 % (32-36); MEAN CORPUSCULAR VOLUME 92 fL (79.0-98.0); MONOCYTES # (AUTO) 1.4 K/uL (0.0-1.0); MONOCYTES % (AUTO) 13.9 % (1.7-9.3); NEUTROPHILS # (AUTO) 6.2 K/uL (1.8-7.7); PLATELET COUNT (AUTO) 470 K/uL (130-430); RED BLOOD CELL COUNT(AUTO) 3.18 MIL/uL (4.2-6.2); RED CELL DISTRIBUTION WIDTH 15.7 % (9.0-15.0)
--- NOTE | 2022-04-29 07:22 | NUR ---
Care endorsed to MELI Abdul.
[2022-04-29 07:30] LABS: CALCIUM 8.6 mg/dL (8.4-11.0); CREATININE 2.49 mg/dL (0.55-1.30)
[2022-04-29] MEDS: OXYBUTYNIN CHLORIDE 5 MG TABLET GT SCH (09:00)
[2022-04-29] MEDS: DIVALPROEX SODIUM 500 MG TABLET( DEPAKOTE) PO SCH ×2 (09:30→20:40)
[2022-04-29] MEDS: MIDODRINE HCL 5 MG TABLET (PROAMATINE) GT SCH ×3 (09:30→20:40)
[2022-04-29] MEDS: SEVELAMER CARBONATE 800 MG TABLET GT SCH ×3 (09:30→17:50)
[2022-04-29] MEDS: FOLIC ACID 1 MG TABLET GT SCH (09:30)
[2022-04-29] MEDS: POTASSIUM CHLORIDE 20 MEQ/PKT PACKET GT SCH (09:30)
[2022-04-29] MEDS: PANTOPRAZOLE SODIUM 40 MG TAB PO SCH (09:30)
[2022-04-29] MEDS: ATORVASTATIN 20 MG TABLET GT SCH (09:30)
[2022-04-29] MEDS: CLOZAPINE 100MG TAB PO SCH ×2 (09:30→21:00)
[2022-04-29] MEDS: TAMSULOSIN HCL 0.4 MG CAP GT SCH (09:30)
[2022-04-29] MEDS: BALSAM PERU/CASTOR OIL 56.7 GM OINT...G. TP SCH (10:10)
[2022-04-29] MEDS: CLOTRIMAZOLE 1% TOPICAL CREAM 15 GM TP SCH ×2 (10:10→21:14)
[2022-04-29] MEDS: EMOLLIENT COMBINATION NO.73 78 GM CREAM..G. TP SCH ×2 (10:10→21:14)
[2022-04-29] MEDS: ENOXAPARIN SODIUM 30 MG/0.3 ML SYRINGE SUBCUT SCH (10:14)
[2022-04-29] MEDS: ACETAMINOPHEN 650 MG/20.3 ML UDC GT PRN (10:15)
--- NOTE | 2022-04-29 13:58 | NUR ---
PT.S SOMEWHAT RESTLESS AND FIDGITY.lEVOPHED DRIP IS WEAN DOWN TO 0,5 MCG/KG/MIN
[2022-04-29] MEDS: EPOETIN ALFA-EPBX 10,000 UNITS/ML VIAL SUBCUT SCH (17:53)
[2022-04-30] VITALS (23 sets, daily range): BP systolic 96–128
[2022-04-30 05:43] LABS: BASOPHILS # (AUTO) 0.1 K/uL (0.0-0.2); BASOPHILS % (AUTO) 0.5 % (0.0-2.0); EOSINOPHILS # (AUTO) 0.4 K/uL (0.0-0.4); EOSINOPHILS % (AUTO) 2.9 % (0.0-4.0); HEMATOCRIT 29.1 % (36-54); HEMOGLOBIN 9.4 g/dL (14.0-18.0); LYMPHOCYTES # (AUTO) 1.3 K/uL (1.0-5.5); LYMPHOCYTES % (AUTO) 10.5 % (20.5-51.5); MEAN CORPUSCULAR HEMOGLOBIN 30 pg (27-31); MEAN CORPUSCULAR HGB CONC 32 % (32-36); MEAN CORPUSCULAR VOLUME 93 fL (79.0-98.0); MONOCYTES # (AUTO) 1.9 K/uL (0.0-1.0); MONOCYTES % (AUTO) 15.1 % (1.7-9.3); NEUTROPHILS # (AUTO) 9.1 K/uL (1.8-7.7); PLATELET COUNT (AUTO) 511 K/uL (130-430); RED BLOOD CELL COUNT(AUTO) 3.15 MIL/uL (4.2-6.2); RED CELL DISTRIBUTION WIDTH 16.2 % (9.0-15.0)
[2022-04-30 05:52] LABS: CREATININE 2.84 mg/dL (0.55-1.30)
[2022-04-30] MEDS: 0.45% NACL 1,000 ML IV SCH (06:50)
[2022-04-30] MEDS: INSULIN REGULAR, HUMAN 100 UNITS/ML, 3 ML VIAL (humuLIN R) SUBCUT PRN ×3 (06:51→18:24)
--- NOTE | 2022-04-30 07:29 | NUR ---
received report from endorsing audio visual project manager RN for continuity of care, patient is on levophed @ 0.02 mcg/kg/min, 0.45 NS @ 40 ml/hr. on 2 L NC saturating at 96-98.Tube feeding in place Nepro @ 40 ml/, no residuals noted. Ansari Catheter in place, yellow urine in color draining to gravity, no signs of acute distress noted at this time. will continue to monitor.
[2022-04-30 08:45] LABS: WHITE BLOOD COUNT (AUTO) 12.8 K/uL (4.8-10.8)
[2022-04-30] MEDS ORDERED: HEPARIN SODIUM, PORCINE 10,000 UNITS/ 10 ML VIAL MC ONE (08:45)
[2022-04-30] MEDS: CLOZAPINE 100MG TAB PO SCH ×2 (09:00→21:00)
[2022-04-30] MEDS: DIVALPROEX SODIUM 500 MG TABLET( DEPAKOTE) PO SCH ×2 (09:00→21:21)
[2022-04-30] MEDS: FOLIC ACID 1 MG TABLET GT SCH (09:35)
[2022-04-30] MEDS: PANTOPRAZOLE SODIUM 40 MG TAB PO SCH (09:37)
[2022-04-30] MEDS: TAMSULOSIN HCL 0.4 MG CAP GT SCH (09:37)
[2022-04-30] MEDS: POTASSIUM CHLORIDE 20 MEQ/PKT PACKET GT SCH (09:37)
[2022-04-30] MEDS: MIDODRINE HCL 5 MG TABLET (PROAMATINE) GT SCH ×3 (09:39→21:21)
[2022-04-30] MEDS: ENOXAPARIN SODIUM 30 MG/0.3 ML SYRINGE SUBCUT SCH (09:40)
[2022-04-30] MEDS: ATORVASTATIN 20 MG TABLET GT SCH (09:44)
[2022-04-30] MEDS: OXYBUTYNIN CHLORIDE 5 MG TABLET GT SCH (09:45)
[2022-04-30] MEDS: ACETAMINOPHEN 650 MG/20.3 ML UDC GT PRN (09:47)
[2022-04-30] MEDS: SEVELAMER CARBONATE 800 MG TABLET GT SCH ×3 (09:51→17:36)
[2022-04-30] MEDS: CLOTRIMAZOLE 1% TOPICAL CREAM 15 GM TP SCH ×2 (09:57→21:15)
[2022-04-30] MEDS: EMOLLIENT COMBINATION NO.73 78 GM CREAM..G. TP SCH ×2 (09:58→21:14)
[2022-04-30] MEDS: BALSAM PERU/CASTOR OIL 56.7 GM OINT...G. TP SCH (09:59)
--- NOTE | 2022-04-30 19:06 | NUR ---
PROVIDED chG BATH, WOUND DRESSING CHANGE, AND BEDSIDE CARE RENDERED.
[2022-05-01] VITALS (23 sets, daily range): BP systolic 95–123
[2022-05-01 07:39] LABS: CALCIUM 8.3 mg/dL (8.4-11.0); CREATININE 2.26 mg/dL (0.55-1.30)
[2022-05-01 08:12] LABS: BASOPHILS # (AUTO) 0.1 K/uL (0.0-0.2); BASOPHILS % (AUTO) 0.5 % (0.0-2.0); EOSINOPHILS # (AUTO) 0.4 K/uL (0.0-0.4); EOSINOPHILS % (AUTO) 2.7 % (0.0-4.0); HEMATOCRIT 27.3 % (36-54); HEMOGLOBIN 8.8 g/dL (14.0-18.0); LYMPHOCYTES % (AUTO) 12.9 % (20.5-51.5); MEAN CORPUSCULAR HEMOGLOBIN 30 pg (27-31); MEAN CORPUSCULAR HGB CONC 32 % (32-36); MEAN CORPUSCULAR VOLUME 92 fL (79.0-98.0); MONOCYTES # (AUTO) 2.3 K/uL (0.0-1.0); MONOCYTES % (AUTO) 14.7 % (1.7-9.3); NEUTROPHILS # (AUTO) 10.8 K/uL (1.8-7.7); NEUTROPHILS % (AUTO) 69.2 % (40.0-70.0); PLATELET COUNT (AUTO) 471 K/uL (130-430); RED BLOOD CELL COUNT(AUTO) 2.96 MIL/uL (4.2-6.2); RED CELL DISTRIBUTION WIDTH 15.8 % (9.0-15.0); WHITE BLOOD COUNT (AUTO) 15.6 K/uL (4.8-10.8)
[2022-05-01] MEDS: SEVELAMER CARBONATE 800 MG TABLET GT SCH ×3 (08:15→17:24)
[2022-05-01] MEDS: CLOZAPINE 100MG TAB PO SCH ×2 (09:00→21:00)
[2022-05-01] MEDS: OXYBUTYNIN CHLORIDE 5 MG TABLET GT SCH (09:01)
[2022-05-01] MEDS: POTASSIUM CHLORIDE 20 MEQ/PKT PACKET GT SCH (09:02)
[2022-05-01] MEDS: FOLIC ACID 1 MG TABLET GT SCH (09:02)
[2022-05-01] MEDS: DIVALPROEX SODIUM 500 MG TABLET( DEPAKOTE) PO SCH ×2 (09:02→22:42)
[2022-05-01] MEDS: TAMSULOSIN HCL 0.4 MG CAP GT SCH (09:02)
[2022-05-01] MEDS: ATORVASTATIN 20 MG TABLET GT SCH (09:02)
[2022-05-01] MEDS: MIDODRINE HCL 5 MG TABLET (PROAMATINE) GT SCH ×3 (09:02→22:41)
[2022-05-01] MEDS: ENOXAPARIN SODIUM 30 MG/0.3 ML SYRINGE SUBCUT SCH (09:04)
[2022-05-01] MEDS: PANTOPRAZOLE SODIUM 40 MG TAB PO SCH (09:04)
[2022-05-01] MEDS: BALSAM PERU/CASTOR OIL 56.7 GM OINT...G. TP SCH (09:05)
[2022-05-01] MEDS: EMOLLIENT COMBINATION NO.73 78 GM CREAM..G. TP SCH ×2 (09:06→22:38)
[2022-05-01] MEDS: CLOTRIMAZOLE 1% TOPICAL CREAM 15 GM TP SCH ×2 (09:06→22:39)
[2022-05-01] MEDS: 0.45% NACL 1,000 ML IV SCH (12:11)
--- NOTE | 2022-05-01 13:21 | NUR ---
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 CBW 143# via bedscale -- unsure of accuracy d/t not consistent w/ pt's physical appearance, unlikely 28# wt gain since last visit 04/26. Membership Solicitor witnessed IV NaCl infusing at rate of 40ml/hr, Levophed infusing @ 0.02mcg. Membership Solicitor noted TF not infusing at time of visit. Membership Solicitor spoke w/ primary RN, who stated that TF is not infusing d/t GT clogged. TF stopped around 1000. Current TF prescription remains appropriate at this time. Current Diet Order/Nutrition Support: Nepro at 40 ml/hr (goal), Kwasi BID, FWF: 250ml Q4h via GT x 5 days Patient/Significant Other Unable To Verbalize Education Provided Not Indicated Pertinent Medications: lovenox, levophed, renvela, lipitor, folic acid, KCl packet, SSI, NS, retacrit, glipizide, protonix, proamatine Pertinent Labs: Drawn 05/01 - Na 141 WNL, K 4.1 WNL, BG 156 H-improving, POC BG 145 H-improving, BUN 50 H-improving, CRE 2.26 H-improving, Hgb 8.8 L-improving, (04/26): Ca 8.0L, Phos 5.1H Anthropometrics: Height: 5'6" Weight: 115#/52.2kg -- stable since 04/01 Body Mass Index: 18.56 kg/m2 %IBW: 81 [place]/Adjusted Body Weight: 142#/64.5 kg Recent Weight Change: No - Unable to verify Weight Status: Underweight Food Allergies: Unable to verify Usual Diet At Home: Unable to verify Skin Integrity Comment: 05/01 Clayton scale 13: w/ lateral medial posterior sacrum open wounds; RLE pressure ulcers, R heel ulcer; reviewed Tunnel Kiln Firer note from 04/01 Edema: Generalized +2 Pitting documented 12/3 Estimated Energy Expenditure (kcals/day) 4981-8581 (30-35 kcal/kg IBW d/t wound healing, septic shock) Estimated Protein Required (g/day) 65-81 (1-1.25 gm/kg IBW d/t CKD, wound healing, septic shock) Estimated Fluid Required (l/day) Per physician d/t CKD Problem/Etiology/Signs/Symptoms * Increased nutritional needs R/T metabolic demands AEB estimated nutritional requirements for wound healing. (On-going) * Altered nutrition-related lab values r/t renal dysfunction a/e/b elevated values: BUN, Cre. (On-going) Expected Outcomes/Goals - Monitor tolerance to EN support w/ goal of pt meeting >80% of estimated nutritional needs, labs trending WNL, normal GI function, and skin integrity/wt maintenance Dietitian Recommendations * Continue Nepro at 40 ml/hr (goal rate), Kwasi BID, FWF: 250 ml Q4h (per MD d/t CKD) via GT Provides: 1888 kcal/day, 83 gm protein/day, and 2198 ml free water/day Meets: 98% of lower estimated caloric needs and 102% of upper estimated protein needs * Continue Renvela * Recommend adjust insulin regimen for elevated BG, dosing per MD High Risk: F/U in 2-3 days Follow Up By: May 04, 2022 Nutrition F/U Completed By: Josefa Graham, Membership Solicitor
--- NOTE | 2022-05-01 13:22 | NUR ---
Dietitian Recommendations * Continue Nepro at 40 ml/hr (goal rate), Kwasi BID, FWF: 250 ml Q4h (per MD d/t CKD) via GT Provides: 1888 kcal/day, 83 gm protein/day, and 2198 ml free water/day Meets: 98% of lower estimated caloric needs and 102% of upper estimated protein needs * Continue Renvela * Recommend adjust insulin regimen for elevated BG, dosing per MD Completed by Josefa Graham, Instructor Extension Work Please refer to RD F/U for further details!
[2022-05-01] MEDS: EPOETIN ALFA-EPBX 10,000 UNITS/ML VIAL SUBCUT SCH (17:23)
[2022-05-02] VITALS (20 sets, daily range): BP systolic 89–113
[2022-05-02 07:04] LABS: BASOPHILS # (AUTO) 0.2 K/uL (0.0-0.2); BASOPHILS % (AUTO) 1.1 % (0.0-2.0); EOSINOPHILS # (AUTO) 0.2 K/uL (0.0-0.4); EOSINOPHILS % (AUTO) 1.2 % (0.0-4.0); HEMATOCRIT 29.2 % (36-54); HEMOGLOBIN 9.3 g/dL (14.0-18.0); LYMPHOCYTES % (AUTO) 9.9 % (20.5-51.5); MEAN CORPUSCULAR HEMOGLOBIN 30 pg (27-31); MEAN CORPUSCULAR HGB CONC 32 % (32-36); MEAN CORPUSCULAR VOLUME 93 fL (79.0-98.0); MONOCYTES # (AUTO) 2.5 K/uL (0.0-1.0); MONOCYTES % (AUTO) 12.1 % (1.7-9.3); NEUTROPHILS # (AUTO) 15.6 K/uL (1.8-7.7); NEUTROPHILS % (AUTO) 75.7 % (40.0-70.0); PLATELET COUNT (AUTO) 530 K/uL (130-430); RED BLOOD CELL COUNT(AUTO) 3.16 MIL/uL (4.2-6.2); RED CELL DISTRIBUTION WIDTH 16.3 % (9.0-15.0); WHITE BLOOD COUNT (AUTO) 20.6 K/uL (4.8-10.8)
[2022-05-02 07:32] LABS: CALCIUM 8.3 mg/dL (8.4-11.0); CREATININE 2.79 mg/dL (0.55-1.30)
--- NOTE | 2022-05-02 07:47 | NUR ---
Report received from MELI Kirby for continuity of care. Patient in stable condition. No distress noted.
[2022-05-02] MEDS: CLOZAPINE 100MG TAB PO SCH ×2 (09:00→21:00)
[2022-05-02] MEDS: DIVALPROEX SODIUM 500 MG TABLET( DEPAKOTE) PO SCH ×2 (09:06→22:27)
[2022-05-02] MEDS: TAMSULOSIN HCL 0.4 MG CAP GT SCH (09:06)
[2022-05-02] MEDS: PANTOPRAZOLE SODIUM 40 MG TAB PO SCH (09:06)
[2022-05-02] MEDS: SEVELAMER CARBONATE 800 MG TABLET GT SCH ×3 (09:06→18:00)
[2022-05-02] MEDS: ATORVASTATIN 20 MG TABLET GT SCH (09:06)
[2022-05-02] MEDS: POTASSIUM CHLORIDE 20 MEQ/PKT PACKET GT SCH (09:06)
[2022-05-02] MEDS: ENOXAPARIN SODIUM 30 MG/0.3 ML SYRINGE SUBCUT SCH (09:06)
[2022-05-02] MEDS: OXYBUTYNIN CHLORIDE 5 MG TABLET GT SCH (09:06)
[2022-05-02] MEDS: FOLIC ACID 1 MG TABLET GT SCH (09:06)
[2022-05-02] MEDS: EMOLLIENT COMBINATION NO.73 78 GM CREAM..G. TP SCH ×2 (09:17→22:28)
[2022-05-02] MEDS: BALSAM PERU/CASTOR OIL 56.7 GM OINT...G. TP SCH (09:17)
[2022-05-02] MEDS: CLOTRIMAZOLE 1% TOPICAL CREAM 15 GM TP SCH ×2 (09:17→22:28)
[2022-05-02] MEDS ORDERED: NOREPINEPHRINE 4 MG/4 ML VIAL IV ONE ×3 (09:31→09:45)
[2022-05-02] MEDS: MIDODRINE HCL 5 MG TABLET (PROAMATINE) GT SCH ×3 (09:40→22:26)
[2022-05-02] MEDS: NOREPINEPHRINE BITARTRATE 16 MG in NS 234 ML IV PRN (09:43)
--- NOTE | 2022-05-02 10:39 | NUR ---
Patient has minimal bm
[2022-05-02] MEDS: 0.45% NACL 1,000 ML IV SCH (11:20)
--- NOTE | 2022-05-02 16:20 | NUR ---
Spoke with Patient's family member, Rachel, regarding patient status. Patient repositioned as appropriate.
[2022-05-03] VITALS (24 sets, daily range): BP systolic 76–126
[2022-05-03 06:50] LABS: HEMATOCRIT 27.6 % (36-54); HEMOGLOBIN 8.7 g/dL (14.0-18.0); MEAN CORPUSCULAR HEMOGLOBIN 30 pg (27-31); MEAN CORPUSCULAR HGB CONC 32 % (32-36); MEAN CORPUSCULAR VOLUME 94 fL (79.0-98.0); PLATELET COUNT (AUTO) 591 K/uL (130-430); RED BLOOD CELL COUNT(AUTO) 2.94 MIL/uL (4.2-6.2); RED CELL DISTRIBUTION WIDTH 16.5 % (9.0-15.0); WHITE BLOOD COUNT (AUTO) 21.9 K/uL (4.8-10.8)
[2022-05-03 07:53] LABS: CREATININE 3.14 mg/dL (0.55-1.30)
[2022-05-03] MEDS: SEVELAMER CARBONATE 800 MG TABLET GT SCH ×3 (08:00→19:50)
[2022-05-03 09:38] LABS: BAND % (MANUAL) 12 % (0-6); LYMPHOCYTES % (MANUAL) 17 % (20-46)
[2022-05-03 09:39] LABS: BASOPHILS % (MANUAL) 0 % (0-2); EOSINOPHILS % (MANUAL) 1 % (0-7); METAMYELOCYTES % 4 % (0-0); MONOCYTES % (MANUAL) 9 % (0-11); MYELOCYTES % 2 % (0-0)
[2022-05-03] MEDS: ACETAMINOPHEN 650 MG/20.3 ML UDC GT PRN (09:57)
[2022-05-03] MEDS: PANTOPRAZOLE SODIUM 40 MG TAB PO SCH (10:01)
[2022-05-03] MEDS: OXYBUTYNIN CHLORIDE 5 MG TABLET GT SCH (10:01)
[2022-05-03] MEDS: MIDODRINE HCL 5 MG TABLET (PROAMATINE) GT SCH ×3 (10:02→21:11)
[2022-05-03] MEDS: POTASSIUM CHLORIDE 20 MEQ/PKT PACKET GT SCH (10:02)
[2022-05-03] MEDS: ATORVASTATIN 20 MG TABLET GT SCH (10:02)
[2022-05-03] MEDS: FOLIC ACID 1 MG TABLET GT SCH (10:02)
[2022-05-03] MEDS: TAMSULOSIN HCL 0.4 MG CAP GT SCH (10:02)
[2022-05-03] MEDS: ENOXAPARIN SODIUM 30 MG/0.3 ML SYRINGE SUBCUT SCH (10:03)
[2022-05-03] MEDS: CLOZAPINE 100MG TAB PO SCH ×2 (10:03→21:00)
[2022-05-03] MEDS: DIVALPROEX SODIUM 500 MG TABLET( DEPAKOTE) PO SCH ×2 (10:03→21:09)
[2022-05-03] MEDS: BALSAM PERU/CASTOR OIL 56.7 GM OINT...G. TP SCH (10:04)
[2022-05-03] MEDS: CLOTRIMAZOLE 1% TOPICAL CREAM 15 GM TP SCH ×2 (10:04→21:24)
[2022-05-03] MEDS: EMOLLIENT COMBINATION NO.73 78 GM CREAM..G. TP SCH ×2 (10:04→21:24)
[2022-05-03] MEDS: INSULIN REGULAR, HUMAN 100 UNITS/ML, 3 ML VIAL (humuLIN R) SUBCUT PRN ×2 (11:23→20:02)
[2022-05-03] MEDS: 0.45% NACL 1,000 ML IV SCH (11:45)
[2022-05-03] MEDS ORDERED: ALBUMIN HUMAN 25% 200 ML IV ONE (13:30)
[2022-05-03] MEDS ORDERED: NACL 0.9% 1,000 ML IV ONE (13:30)
--- NOTE | 2022-05-03 13:35 | NUR ---
At 1145pt temp was 100.1, tylenol given 650 mg via gt earlier and icepack was given on groins and under axillas. Levophed increase d accdg to BP and was up to 1mcg /kg/min . Placed pt on supine , flat in bed and monitor ed frequently almost every 5 mins and pls. see computer for frequent BP monitoring. Dr Wood was called at [address] Soria. Blood culture done and antibiotic was ordered.. Bolus with 1 L of N. saline and hold dialysis today
[2022-05-03] MEDS ORDERED: MEROPENEM 500 MG in NS 50 ML IV ONE (14:00)
[2022-05-03] MEDS ORDERED: ALBUMIN HUMAN 25% 200 ML IV PRN (14:12)
[2022-05-03] MEDS: VANCOMYCIN HCL 1,000 MG in NS 250 ML IV SCH (16:05)
--- NOTE | 2022-05-03 19:00 | NUR ---
received report from Chantell GARRISON for continuity of care, patient lying on bed , on Levophed @ 0.6 mcg/kg/min patient vital signs heart rate 111, respiratory rate 30, oxygen saturation 96 and blood pressure 112/29, on 2 liters nasal cannula, tube feeding of nepro @ 40 no residual noted, Ansari catheter in place, yellow urine in color, draining to gravity, no signs of acute distress noted at this time , will continue to monitor,
[2022-05-03] MEDS: NOREPINEPHRINE BITARTRATE 16 MG in NS 234 ML IV PRN (19:50)
[2022-05-03] MEDS: MEROPENEM 500 MG in NS 50 ML IV SCH (21:12)
[2022-05-04] VITALS (24 sets, daily range): BP systolic 91–132
[2022-05-04] MEDS: NOREPINEPHRINE BITARTRATE 16 MG in NS 234 ML IV PRN ×2 (04:30→17:53)
--- NOTE | 2022-05-04 06:03 | NUR ---
patient blood glucose 102 mg/dl, no insulin coverage per sliding scale.
--- NOTE | 2022-05-04 06:24 | NUR ---
provided CHG bath, bed linen change, wound dressings changed and bedside care rendered.
[2022-05-04 06:38] LABS: BASOPHILS # (AUTO) 0.1 K/uL (0.0-0.2); BASOPHILS % (AUTO) 0.6 % (0.0-2.0); EOSINOPHILS # (AUTO) 0.2 K/uL (0.0-0.4); EOSINOPHILS % (AUTO) 0.9 % (0.0-4.0); HEMATOCRIT 27.9 % (36-54); HEMOGLOBIN 8.9 g/dL (14.0-18.0); LYMPHOCYTES # (AUTO) 1.9 K/uL (1.0-5.5); LYMPHOCYTES % (AUTO) 7.7 % (20.5-51.5); MEAN CORPUSCULAR HEMOGLOBIN 30 pg (27-31); MEAN CORPUSCULAR HGB CONC 32 % (32-36); MEAN CORPUSCULAR VOLUME 93 fL (79.0-98.0); MONOCYTES # (AUTO) 3.1 K/uL (0.0-1.0); MONOCYTES % (AUTO) 12.7 % (1.7-9.3); NEUTROPHILS # (AUTO) 19.2 K/uL (1.8-7.7); PLATELET COUNT (AUTO) 652 K/uL (130-430); RED BLOOD CELL COUNT(AUTO) 3.01 MIL/uL (4.2-6.2); RED CELL DISTRIBUTION WIDTH 16.5 % (9.0-15.0); WHITE BLOOD COUNT (AUTO) 24.6 K/uL (4.8-10.8)
[2022-05-04 07:09] LABS: CALCIUM 8.6 mg/dL (8.4-11.0); CREATININE 3.34 mg/dL (0.55-1.30)
[2022-05-04 07:24] LABS: NEUTROPHILS % (AUTO) 78.1 % (40.0-70.0)
[2022-05-04] MEDS: ACETAMINOPHEN 650 MG/20.3 ML UDC GT PRN ×2 (07:58→20:55)
[2022-05-04] MEDS: MEROPENEM 500 MG in NS 50 ML IV SCH ×2 (08:06→20:18)
[2022-05-04] MEDS: SEVELAMER CARBONATE 800 MG TABLET GT SCH ×3 (08:08→17:32)
[2022-05-04] MEDS: OXYBUTYNIN CHLORIDE 5 MG TABLET GT SCH (08:08)
[2022-05-04] MEDS: TAMSULOSIN HCL 0.4 MG CAP GT SCH (08:08)
[2022-05-04] MEDS: DIVALPROEX SODIUM 500 MG TABLET( DEPAKOTE) PO SCH ×2 (08:08→20:17)
[2022-05-04] MEDS: ATORVASTATIN 20 MG TABLET GT SCH (08:09)
[2022-05-04] MEDS: FOLIC ACID 1 MG TABLET GT SCH (08:10)
[2022-05-04] MEDS: PANTOPRAZOLE SODIUM 40 MG TAB PO SCH (08:10)
[2022-05-04] MEDS: POTASSIUM CHLORIDE 20 MEQ/PKT PACKET GT SCH (08:11)
[2022-05-04] MEDS: EMOLLIENT COMBINATION NO.73 78 GM CREAM..G. TP SCH ×2 (09:00→20:18)
[2022-05-04] MEDS: MIDODRINE HCL 5 MG TABLET (PROAMATINE) GT SCH ×3 (09:00→20:17)
[2022-05-04] MEDS: BALSAM PERU/CASTOR OIL 56.7 GM OINT...G. TP SCH (09:00)
[2022-05-04] MEDS: CLOZAPINE 100MG TAB PO SCH ×2 (09:00→20:18)
[2022-05-04] MEDS: ENOXAPARIN SODIUM 30 MG/0.3 ML SYRINGE SUBCUT SCH (09:00)
[2022-05-04] MEDS: CLOTRIMAZOLE 1% TOPICAL CREAM 15 GM TP SCH ×2 (09:00→20:18)
--- NOTE | 2022-05-04 09:39 | NUR ---
At 0830 am the technology intern called the answering service of Dr Soria to inform abnormal lab result cl -120. Na -153, at 0939 I called him again
--- NOTE | 2022-05-04 12:03 | NUR ---
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 Levophed increased accdg to BP and was up to 1mcg /kg/min . Placed pt on supine , flat in bed and monitored frequently almost every 5 mins. Bolus with 1 L of N. saline and hold dialysis today Subjective Information: RD attended ICU rounds and s/w primary nurse. RN said that pt has been having a fever off and on since 05/03. She attested that they turned his TF rate down to 10mL/hr for the time being. His dialysis is not happening today since he has been having some urine output. RD witnessed Levophed infusing @ 0.06mcg. RN reports that pt wound status have not changed. RD rounded to pt room again at 1150 and s/w RN. She said pt is receiving 250mL of Nepro q4h. The feeding machine is broken, so they are doing bolus. RN also said they lowered TF rate d/t high residuals (however none were documented in EMR). Pt has been seen as high risk for over a month. He is tolerating feeds, having normal BMs and is getting Kwasi. From now on, pt will be screened as low-risk unless any new changes arise. Current Diet Order/Nutrition Support: Nepro at 40 ml/hr (goal), Kwasi BID, FWF: 250ml Q4h via GT x 8 days NEW pertinent medications: Vanco IV, Lovenox, Levophed, Glipizide, Renvela, Protonix, Lipitor, Folic acid, K+Cl NEW pertinent labs: Hgb 8.9 L, Na 153 H, BUN 76 H, Cre 3.34 H, eGFR 20 L, BG 101 H Patient/Significant Other Unable To Verbalize Education Provided Not Indicated Height: 5'6" Weight: 115#/52.2kg -- stable since 04/01 Body Mass Index: 18.56 kg/m2 %IBW: 81 [place]/Adjusted Body Weight: 142#/64.5 kg Recent Weight Change: No - Unable to verify Weight Status: Underweight Food Allergies: Unable to verify Usual Diet At Home: Unable to verify Skin Integrity Comment: 05/04 Clayton scale 11: w/ lateral medial posterior sacrum open wounds; RLE pressure ulcers, R heel ulcer; reviewed All Source Collection Manager note from 04/01 Edema: Generalized +2 Pitting documented 05/04 LBM: 05/02 x 2 Estimated Energy Expenditure (kcals/day) 1918-6462 (30-35 kcal/kg IBW d/t wound healing, septic shock) NEW Estimated Protein Required (g/day) 65-90 (1-1.4 gm/kg IBW d/t CKD, wound healing, septic shock) Estimated Fluid Required (l/day) Per physician d/t CKD Problem/Etiology/Signs/Symptoms * Increased nutritional needs R/T metabolic demands AEB estimated nutritional requirements for wound healing. (On-going) * Altered nutrition-related lab values r/t renal dysfunction a/e/b elevated values: BUN, Cre. (On-going) Expected Outcomes/Goals - Monitor tolerance to EN support w/ goal of pt meeting >95% of estimated nutritional needs, labs trending WNL, normal GI function, and skin integrity/wt maintenance Dietitian Recommendations *Please update diet order to reflect "bolus feeding": 1 can of Nepro q4H Provides: 2559 kcal/day, 114 gm protein/day, and 1032 ml free water/day Meets: 113% of lower estimated caloric needs and 127% of upper estimated protein needs * Consider wound supplements: Renal MVI, 250 mg VIT C * Consider 220mg ZnSO4 x 14 days for wound healing * Recommend adjust insulin regimen for elevated BG, dosing per MD Low Risk: F/U in 7 days GS, MPH, RD
--- NOTE | 2022-05-04 12:21 | NUR ---
Dietitian Recommendations *Please update diet order to reflect "bolus feeding": 1 can of Nepro q4H Provides: 2559 kcal/day, 114 gm protein/day, and 1032 ml free water/day Meets: 113% of lower estimated caloric needs and 127% of upper estimated protein needs * Consider wound supplements: Renal MVI, 250 mg VIT C * Consider 220mg ZnSO4 x 14 days for wound healing * Recommend adjust insulin regimen for elevated BG, dosing per GS, MPH, RD Please refer to RD F/U for further details
[2022-05-04] MEDS: D5W 1,000 ML IV SCH (14:38)
[2022-05-04] MEDS: EPOETIN ALFA-EPBX 10,000 UNITS/ML VIAL SUBCUT SCH (16:07)
[2022-05-04] MEDS: INSULIN REGULAR, HUMAN 100 UNITS/ML, 3 ML VIAL (humuLIN R) SUBCUT PRN ×2 (17:28→23:16)
--- NOTE | 2022-05-04 18:39 | NUR ---
PT.AT 0730 AM HAD A FEVER OF 102.7, TYLENOL 650 MG VIA GT WAS GIVEN AND ICEPACKS APPLIED OVER GROINS AND UNDER AXILLAS.BP WAS UNSTABLE SO INCREASE LEVOPHED TO.8 MCG/KG/MIN.oRAL CARE DONE AND BE EVERY TWO HOURS
--- NOTE | 2022-05-04 19:30 | NUR ---
PM ASSESSMENT REPORT RECEIVED FROM KELLEE GARRISON. PT RECEIVED IN BED WITH EYES OPEN, RESPONDING TO VERBAL STIMULATION. VSS, NO S/S OF ACUTE DISTRESS NOTED. PT ON 2L NC. ST ON MONITOR. RIJ QC NOTED FOR HD ACCESS. ROSELIA ML IN PLACE INFUSING IVF AND LEVOPHED DRIP PER ORDERS. GT IN PLACE, EDA VALVE REPLACED AND TF RECONNECTED PER ORDERS. FC DRAINING URINE TO GRAVITY. HOB ELEVATED, BED IN LOWEST POSITION, CALL LIGHT IN REACH. WILL CONTINUE TO MONITOR PT.
--- NOTE | 2022-05-04 20:55 | NUR ---
TEMP PT AXILLARY TEMP NOTED TO BE 100.4. TYLENOL GIVEN PER ORDERS AND COOLING MEASURES APPLIED. WILL CONTINUE TO MONITOR PT.
[2022-05-05] VITALS (24 sets, daily range): BP systolic 73–165
--- NOTE | 2022-05-05 01:15 | NUR ---
HYGIENE PT HAD MODERATE AMOUNT OF SOFT BROWN STOOL. ANIKET CARE PROVIDED AND FULL CHG BATH GIVEN. WOUND CARE PROVIDED AND DRESSINGS CHANGED PER ORDERS. PT TOLERATED WELL.
[2022-05-05] MEDS: NOREPINEPHRINE BITARTRATE 16 MG in NS 234 ML IV PRN ×2 (01:39→15:55)
[2022-05-05] MEDS: INSULIN REGULAR, HUMAN 100 UNITS/ML, 3 ML VIAL (humuLIN R) SUBCUT PRN ×3 (05:17→18:25)
[2022-05-05 06:51] LABS: BASOPHILS # (AUTO) 0.1 K/uL (0.0-0.2); BASOPHILS % (AUTO) 0.6 % (0.0-2.0); EOSINOPHILS # (AUTO) 0.2 K/uL (0.0-0.4); EOSINOPHILS % (AUTO) 1.2 % (0.0-4.0); HEMATOCRIT 28.1 % (36-54); HEMOGLOBIN 8.7 g/dL (14.0-18.0); LYMPHOCYTES % (AUTO) 4.9 % (20.5-51.5); MEAN CORPUSCULAR HEMOGLOBIN 30 pg (27-31); MEAN CORPUSCULAR HGB CONC 31 % (32-36); MEAN CORPUSCULAR VOLUME 95 fL (79.0-98.0); MONOCYTES # (AUTO) 2.3 K/uL (0.0-1.0); MONOCYTES % (AUTO) 11.4 % (1.7-9.3); NEUTROPHILS # (AUTO) 16.2 K/uL (1.8-7.7); NEUTROPHILS % (AUTO) 81.9 % (40.0-70.0); PLATELET COUNT (AUTO) 687 K/uL (130-430); RED BLOOD CELL COUNT(AUTO) 2.95 MIL/uL (4.2-6.2); RED CELL DISTRIBUTION WIDTH 17.3 % (9.0-15.0); WHITE BLOOD COUNT (AUTO) 19.7 K/uL (4.8-10.8)
[2022-05-05 06:53] LABS: CALCIUM 8.5 mg/dL (8.4-11.0); CREATININE 3.4 mg/dL (0.55-1.30)
--- NOTE | 2022-05-05 07:00 | NUR ---
RECEIVED PT REPORT FROM PM RN. PT IN BED WITH EYES OPEN, RESPONDING TO VERBAL STIMULATION. NO S/S OF ACUTE DISTRESS NOTED. PT ON 2L NC. ST ON MONITOR. GT IN PLACE, FC DRAINING URINE TO GRAVITY. RIJ QC NOTED FOR HD ACCESS. ROSELIA ML IN PLACE INFUSING IVF AND LEVOPHED DRIP PER ORDERS. HOB ELEVATED, BED IN LOWEST POSITION, CALL LIGHT IN REACH. WILL CONTINUE TO MONITOR PT.
--- NOTE | 2022-05-05 07:11 | NUR ---
ENDORSEMENT BEDSIDE REPORT GIVEN TO JULI GARRISON USING SBAR APPROACH.
[2022-05-05] MEDS: CLOZAPINE 100MG TAB PO SCH ×2 (09:00→20:58)
[2022-05-05] MEDS: SEVELAMER CARBONATE 800 MG TABLET GT SCH ×3 (09:53→18:26)
[2022-05-05] MEDS: DIVALPROEX SODIUM 500 MG TABLET( DEPAKOTE) PO SCH ×2 (09:53→20:57)
[2022-05-05] MEDS: ATORVASTATIN 20 MG TABLET GT SCH (09:54)
[2022-05-05] MEDS: OXYBUTYNIN CHLORIDE 5 MG TABLET GT SCH (09:54)
[2022-05-05] MEDS: PANTOPRAZOLE SODIUM 40 MG TAB PO SCH (09:54)
[2022-05-05] MEDS: TAMSULOSIN HCL 0.4 MG CAP GT SCH (09:54)
[2022-05-05] MEDS: FOLIC ACID 1 MG TABLET GT SCH (09:54)
[2022-05-05] MEDS: POTASSIUM CHLORIDE 20 MEQ/PKT PACKET GT SCH (09:54)
[2022-05-05] MEDS: ENOXAPARIN SODIUM 30 MG/0.3 ML SYRINGE SUBCUT SCH (09:55)
[2022-05-05] MEDS: MIDODRINE HCL 5 MG TABLET (PROAMATINE) GT SCH ×3 (09:55→20:57)
[2022-05-05] MEDS: MEROPENEM 500 MG in NS 50 ML IV SCH ×2 (09:55→20:57)
[2022-05-05] MEDS: CLOTRIMAZOLE 1% TOPICAL CREAM 15 GM TP SCH ×2 (09:56→20:58)
[2022-05-05] MEDS: EMOLLIENT COMBINATION NO.73 78 GM CREAM..G. TP SCH ×2 (09:56→20:58)
[2022-05-05] MEDS: BALSAM PERU/CASTOR OIL 56.7 GM OINT...G. TP SCH (09:56)
[2022-05-05] MEDS: D5W 1,000 ML IV SCH (13:09)
--- NOTE | 2022-05-05 14:30 | NUR ---
WOUND EVALUATION: Late note for 05/05/2022 at 1430 secondary to patient care. Wound Consult received from Dr. Narvaez. Thank you, Dr. Narvaez, for the consult. Patient received in a Millis Bed with a P500 low air loss mattress, awake, nonverbal but responds when spoken to. Patient is unable to turn in bed independently, and does not assist with turning. Clayton Score is a 12. Past Medical History: Hypertension, Hyperlipidemia, Epilepsy, Diabetes Mellitus, BPH, Chronic Kidney Disease, Dementia, Schizophrenia, Anemia of Chronic Kidney Disease. Recent Labs: WBC 19.7, RBC 2.95, hemoglobin 8.7, hematocrit 28.1, PLT 687, sodium 153, chloride 122, BUN 74, creatinine 3.4, GFR 20, glucose 251, POC glucose 209, albumin 1.0 (04/26/22). Microbiology: Blood culture results x2 in progress. Urine culture results i negative. Stool OB results negative. Intrinsic factors that delay wound healing: Diabetes Mellitus, Chronic Kidney Disease, Anemia of Chronic Kidney Disease. Extrinsic factors that delay wound healing: Immobility. Patient is still on Levophed (0.49 Mcg/Kg/Min). Per assessment by Dr. Wood: Septic Shock, worsening Sepsis, ALOC, ESBL UTI, Acute Anemia, End-Stage Renal Disease, Debility, Immunocompromised status. Wound Assessment: 1. Sacral-Coccygeal area: Unstageable pressure ulcer, present on admission. Wound bed has 45% black tissue, 45% yellow tissue, 10% red tissue. No odor, scant yellow drainage. Periwound intact. Small open area measuring 0.5 cm depth present inferior aspect of wound near 7 o'clock. Multiple areas of scabs and dark discolored areas under the skin present right lateral and superior to site. Wound measures 7.5 cm x 8.1 cm x 1.0 cm. Recommend: Cleanse wound with normal saline. Apply moisture barrier cream to periwound. Apply Venelex ointment to wound bed. Pack wound with 1/4 inch iodoform packing strip. Cover site with Sacral foam dressing. Perform wound care daily, and as needed for dressing soiling or dislodgment. 2. Left Lower Buttock/Ischium: Stage II pressure ulcer. Site has closed, dark discolored wrinkly skin and yellow wrinkly skin. No odor, no drainage, skin is still intact. Multiple black scabs and dark discolored areas on surrounding tissue. Site measures 4.0 cm x 5.3 cm. Recommend: Rinse site with mild soap and water if soiled. Hollis site with Betadine. Allow Betadine to air dry. Cover site with foam dressing. Perform site care daily, and as needed for dressing soiling or dislodgment. 3. Right Outer Buttock: Scar tissue, present on admission. No odor, no drainage. Site has 100% pink scar tissue. Dark discolored skin present on surrounding tissue. Site measures 1.7 cm x 2.0 cm. Recommend: Cleanse wound area with mild soap and water. Pat dry. Hollis site with Betadine. Allow Betadine to air dry. Cover site with foam dressing. Perform site care daily and as needed for dressing soiling or dislodgment. 4. Right Distal Lateral Lower Extremity, Superior to Malleolus: Unstageable pressure ulcer, present on admission. Wound bed has 85% yellow slough, 10% black tissue, 5% red tissue. No odor, no drainage. Periwound intact. Extremity and foot have multiple, multiple areas of dark discoloration and black scabs. Recommend: Cleanse wound with normal saline. Apply moisture barrier cream to periwound. Apply Venelex ointment to wound bed. Cover site with foam dressing. Perform wound care daily, and as needed for dressing soiling or dislodgment. 5. Right Distal Lateral Lower Extremity, Superior to Site 4: Unstageable pressure ulcer, present on admission. Wound bed has 100% black eschar. No odor, no drainage. Periwound intact. Wound measures 6.4 cm x 2.5 cm. Extremity and foot have multiple, multiple areas of dark discoloration and black scabs. Recommend: Hollis site with Betadine. Allow Betadine to air dry, site with foam dressing in diagonal fashion. Perform site care daily, and as needed for dressing soiling or dislodgment.. 6. Right Medial Heel: Unstageable pressure ulcer, present on admission. Wound bed has 15% black tissue, 15% pink tissue, 70% yellow slough. No odor, no drainage. Periwound intact. Wound measures 3.0 cm x 4.7 cm. Foot has multiple, multiple areas of dark discoloration and black scabs. Recommend: Cleanse wound with normal saline. Apply moisture barrier cream to periwound. Apply Venelex ointment to wound bed. Cover site with foam dressing. Perform wound care daily, and as needed for dressing soiling or dislodgment. 7. Right Plantar Foot/Arch: Ischemic wound from vasopressor use. Wound bed has yellow wound, 1%, no drainage. Periwound intact wound measures 0.0 cm x 5.0 cm. Recommend: Hollis site with Betadine. Allow Betadine to air dry. Cover site with foam dressing. Perform site care daily, and as needed for dressing soiling or dislodgment. Elevate, offload and float bilateral heels with 1 pillow lengthwise under each extremity at all times. Do not allow heels to touch bed or other surfaces at any time. 8. Left Lateral Heel: Scar tissue from prior ustageable pressure ulcer, present on admission. No odor, no drainage. Recommend: Hollis site with Betadine. Allow Betadine to air dry. Cover site with foam dressing. Perform site care daily, and as needed for dressing soiling or dislodgment. Elevate, offload and float bilateral heels with 1 pillow lengthwise under each extremity at all times. Do not allow heels to touch bed or other surfaces at any time. 9. Right Dorsal Foot: Multiple areas of dry scaly skin and chronic black scabs, present on admission. Site measures 4.5 cm x 2.8 cm. Recommend continue: Cleanse site with mild soap and water. Pat dry. Apply Eucerin cream to involved areas. Perform site care twice daily. 10. Right Lateral Hip, inferior to Greater Trochanter: Unstageable pressure ulcer. Wound bed has 70% brown slough, 20% pink tissue, 10% yellow slough. No odor, no drainage. Periwound intact. Wound measures 6.5 cm x 2.9 cm. Recommend: Cleanse wound with normal saline. Apply moisture barrier cream to periwound. Apply Venelex ointment to wound bed. Cover site with foam dressing. Perform wound care daily, and as needed for dressing soiling or dislodgment. Offload site at all times. 11. Right Medial Malleolus: Unstageable pressure ulcer. Wound bed has 85% yellow tissue, 15% yellow-colored skin. No odor, no drainage. Site measures 3.2 cm x 3.0 cm. Recommend: Cleanse wound with normal saline. Apply moisture barrier cream to periwound and yellow skin. Apply Venelex ointment to wound bed. Apply Betadine to yellow-colored skin. Cover site with foam dressing. Perform wound care daily, and as needed for dressing soiling or dislodgment. Offload site at all times. 12. Left Medial Heel: Unstageable pressure ulcer. Site has 50% yellow tissue, 25% black tissue, 10% pink tissue, 15% yellow skin. No odor, no drainage. Periwound intact. Wound measures 2.7 cm x 4.3 cm. Recommend: Cleanse wound with normal saline. Apply moisture barrier cream to periwound and intact yellow and black skin. Apply Venelex ointment to wound bed. Cover with foam dressing. Perform wound care daily, and as needed for dressing soiling or dislodgment. Elevate heel at all times. 13. Left Lateral Fifth Metatarsal Head: Unstageable pressure ulcer. Wound bed has 100% black eschar. No odor, no drainage. Periwound intact. Wound measures 5.2 cm x 3.0 cm. Recommend: Hollis site with Betadine. Allow Betadine to air dry. Apply foam dressing to site. Elevate site at all times. 14. Left Distal Lateral Lower Extremity: Area of dark discolored skin. No odor, no drainage. Skin is intact. Site measures 9.2 cm x 2.3 cm. Recommend: Hollis site with Betadine. Ensure that site is offloaded at all times. 15. Left Posterior Back, Superior and Medial to the Quadratus Lumborum: Wound. Visible wound bed has 100% red tissue. Dark discolored skin present superior and inferior to wound. No odor, no drainage. Periwound intact. Wound measures 4.5 cm x 2.4 cm. Recommend: Cleanse wound with normal saline. Apply moisture barrier cream to dark discolored areas and periwound. Apply Venelex ointment to wound bed. Cover site with foam dressing. Perform wound care daily, and as needed for dressing soiling or dislodgment. 16. Left Medial Malleolus: Unstageable pressure ulcer. Wound bed has 90% yellow tissue, percent red tissue. No odor, no drainage. Periwound intact. Wound measures 3.5 cm x 1.4 cm. Recommend: Cleanse wound with normal saline. Apply moisture barrier cream to periwound. Apply Venelex ointment to wound bed. Cover site with foam dressing. Perform wound care daily, and as needed for dressing soiling or dislodgment. Offload site at all times. Also recommend: Reposition patient side to side every 2 hours with one pillow underneath lower back and 1 pillow underneath posterior thighs (ensure that pillows do not touch wounds, and that wounds are floating). Initiate turning by placing 1 pillow underneath left pelvis for 2 hours, then rotate pillow to underneath right pelvis for 2 hours, repeat every 2 hours. Off-load pressure areas with pillows for pressure re-distribution. Offload, elevate and float bilateral heels with 1 pillow lengthwise under each extremity at all times. Perform skin care and monitor skin integrity Q shift. Use moisture barrier cream on buttocks and other moisture susceptible areas QID and as needed for soiling. Maintain patient on a P500 low air-loss mattress. Addendum: 05/06/22 at 1316 by Everardo Welch RN Addendum: Patient should be turned side to side only every hour.
--- NOTE | 2022-05-05 14:36 | NUR ---
PT HAD MODERATE AMOUNT OF SOFT BROWN STOOL. ANIKET CARE PROVIDED. WOUND CARE PROVIDED WITH WOUND NURSE PRESENT, DRESSINGS CHANGED PER ORDERS. PT TOLERATED WELL.
[2022-05-05] MEDS: VANCOMYCIN HCL 1,000 MG in NS 250 ML IV SCH (16:30)
--- NOTE | 2022-05-05 23:35 | NUR ---
CENTRAL LINE DRESSING CHANGE. RIGHT MIDLINE DRESSING CHANGED USING STERILE TECHNIQUE. PATIENT TOLERATED CARE WELL. WILL CONTINUE TO MONITOR.
[2022-05-06] VITALS (23 sets, daily range): BP systolic 81–149
[2022-05-06] MEDS: ACETAMINOPHEN 650 MG/20.3 ML UDC GT PRN ×2 (00:44→23:32)
[2022-05-06] MEDS: INSULIN REGULAR, HUMAN 100 UNITS/ML, 3 ML VIAL (humuLIN R) SUBCUT PRN ×5 (00:50→23:26)
[2022-05-06 06:43] LABS: BASOPHILS # (AUTO) 0.1 K/uL (0.0-0.2); BASOPHILS % (AUTO) 0.5 % (0.0-2.0); EOSINOPHILS # (AUTO) 0.3 K/uL (0.0-0.4); EOSINOPHILS % (AUTO) 1.1 % (0.0-4.0); HEMATOCRIT 27.6 % (36-54); HEMOGLOBIN 8.5 g/dL (14.0-18.0); LYMPHOCYTES % (AUTO) 7.8 % (20.5-51.5); MEAN CORPUSCULAR HEMOGLOBIN 30 pg (27-31); MEAN CORPUSCULAR HGB CONC 31 % (32-36); MEAN CORPUSCULAR VOLUME 96 fL (79.0-98.0); MONOCYTES # (AUTO) 2.5 K/uL (0.0-1.0); MONOCYTES % (AUTO) 9.9 % (1.7-9.3); NEUTROPHILS # (AUTO) 20.4 K/uL (1.8-7.7); PLATELET COUNT (AUTO) 732 K/uL (130-430); RED BLOOD CELL COUNT(AUTO) 2.87 MIL/uL (4.2-6.2); RED CELL DISTRIBUTION WIDTH 17.1 % (9.0-15.0); WHITE BLOOD COUNT (AUTO) 25.3 K/uL (4.8-10.8)
[2022-05-06 06:50] LABS: NEUTROPHILS % (AUTO) 80.7 % (40.0-70.0)
[2022-05-06] MEDS: NOREPINEPHRINE BITARTRATE 16 MG in NS 234 ML IV PRN ×2 (07:04→15:40)
--- NOTE | 2022-05-06 07:15 | NUR ---
ENDORSEMENT PATIENT ENDORSED TO CATA GARRISON.
[2022-05-06 07:26] LABS: CALCIUM 8.4 mg/dL (8.4-11.0); CREATININE 3.46 mg/dL (0.55-1.30)
--- NOTE | 2022-05-06 08:02 | NUR ---
PT IN BED, NO S/S OF DISTRESS, ON ROOM AIR, LEVOPHED 0.44MCG/KG/MIN, TACHYCARDIA WITH HR OF 120, CARRERA DRAINING CLEAR YELLOW URINE, OPENS EYES TO VOICE, RIGHT ARM EDEMA AND PAIN TO TOUCH, WILL CONTINUE TO MONITOR.
--- NOTE | 2022-05-06 08:08 | NUR ---
Lab calls critical results: Chloride 124. Endorsed to oncoming RN.
--- NOTE | 2022-05-06 08:27 | NUR ---
PAGED DR EVANS REGARDING CHLORIDE 124, AWAITING CALL BACK.
[2022-05-06] MEDS: CLOZAPINE 100MG TAB PO SCH ×2 (09:00→21:00)
--- NOTE | 2022-05-06 09:30 | NUR ---
RT NOTES @0940 Placed pt on vapo HFNC 28% 30L. pt remains tachypneic. 40L was attempted but pt appears to be bothered by it, rn at bedside, witnessed as well.
--- NOTE | 2022-05-06 09:30 | NUR ---
PT STARTED HIGH FLOW FIO2(25, LITER FLOW 30.00.
[2022-05-06] MEDS: ENOXAPARIN SODIUM 30 MG/0.3 ML SYRINGE SUBCUT SCH (09:31)
[2022-05-06] MEDS: SEVELAMER CARBONATE 800 MG TABLET GT SCH ×3 (09:31→17:55)
[2022-05-06] MEDS: POTASSIUM CHLORIDE 20 MEQ/PKT PACKET GT SCH (09:32)
[2022-05-06] MEDS: TAMSULOSIN HCL 0.4 MG CAP GT SCH (09:32)
[2022-05-06] MEDS: OXYBUTYNIN CHLORIDE 5 MG TABLET GT SCH (09:32)
[2022-05-06] MEDS: DIVALPROEX SODIUM 500 MG TABLET( DEPAKOTE) PO SCH ×2 (09:32→21:32)
[2022-05-06] MEDS: MIDODRINE HCL 5 MG TABLET (PROAMATINE) GT SCH ×3 (09:32→21:32)
[2022-05-06] MEDS: ATORVASTATIN 20 MG TABLET GT SCH (09:32)
[2022-05-06] MEDS: FOLIC ACID 1 MG TABLET GT SCH (09:32)
[2022-05-06] MEDS: PANTOPRAZOLE SODIUM 40 MG TAB PO SCH (09:32)
[2022-05-06] MEDS: EMOLLIENT COMBINATION NO.73 78 GM CREAM..G. TP SCH ×2 (09:33→21:34)
[2022-05-06] MEDS: MEROPENEM 500 MG in NS 50 ML IV SCH ×2 (09:33→21:32)
[2022-05-06] MEDS: CLOTRIMAZOLE 1% TOPICAL CREAM 15 GM TP SCH ×2 (09:34→21:34)
[2022-05-06] MEDS: BALSAM PERU/CASTOR OIL 56.7 GM OINT...G. TP SCH (09:34)
[2022-05-06] MEDS ORDERED: SODIUM BICARBONATE 8.4% JECT 50 MEQ/50 ML SYRINGE IVP ONE (12:15)
--- NOTE | 2022-05-06 12:15 | NUR ---
SPOKE WITH DR. ODEN ABOUT PT ABG. 1 AMP OF BICARB, SODIUM TAB 650MG BID WAS ORDERED.
[2022-05-06] MEDS: D5W 1,000 ML IV SCH (13:12)
--- NOTE | 2022-05-06 19:00 | NUR ---
Opening notes Received report from endorsing morning shift RN for continuity of care. Patient is lying in bed with IVF D5 W @ 40 mL/hr, and levophed @ 0.44 mcg/kg/min. Patient's vital signs blood pressure 136/63, heart rate 112, respirations 47, and SPO2 96% on 30L FIO2 28% high flow NC. Ansari catheter is in place draining to gravity. Bed is locked and in lowest position, call light button within reach, fall and safety precautions is in place.
[2022-05-06] MEDS: SODIUM BICARBONATE 650 MG TABLET PO SCH (21:33)
[2022-05-07] VITALS (24 sets, daily range): BP systolic 88–127
[2022-05-07] MEDS: NOREPINEPHRINE BITARTRATE 16 MG in NS 234 ML IV PRN ×2 (03:36→22:26)
[2022-05-07] MEDS: INSULIN REGULAR, HUMAN 100 UNITS/ML, 3 ML VIAL (humuLIN R) SUBCUT PRN ×2 (05:46→14:51)
[2022-05-07 07:20] LABS: ALBUMIN 0.9 g/dL (3.4-4.8); CALCIUM 8.3 mg/dL (8.4-11.0); CREATININE 3.3 mg/dL (0.55-1.30); PHOSPHORUS 3.3 mg/dL (2.7-4.5); TOTAL BILIRUBIN 0.5 mg/dL (0.0-1.0)
[2022-05-07 07:46] LABS: HEMATOCRIT 25.2 % (36-54); HEMOGLOBIN 7.8 g/dL (14.0-18.0); MEAN CORPUSCULAR HEMOGLOBIN 30 pg (27-31); MEAN CORPUSCULAR HGB CONC 31 % (32-36); MEAN CORPUSCULAR VOLUME 97 fL (79.0-98.0); PLATELET COUNT (AUTO) 629 K/uL (130-430); RED BLOOD CELL COUNT(AUTO) 2.61 MIL/uL (4.2-6.2); RED CELL DISTRIBUTION WIDTH 17.3 % (9.0-15.0)
[2022-05-07] MEDS: SODIUM BICARBONATE 650 MG TABLET PO SCH ×2 (08:19→22:43)
[2022-05-07] MEDS: ATORVASTATIN 20 MG TABLET GT SCH (08:19)
[2022-05-07] MEDS: TAMSULOSIN HCL 0.4 MG CAP GT SCH (08:19)
[2022-05-07] MEDS: POTASSIUM CHLORIDE 20 MEQ/PKT PACKET GT SCH (08:19)
[2022-05-07] MEDS: OXYBUTYNIN CHLORIDE 5 MG TABLET GT SCH (08:19)
[2022-05-07] MEDS: FOLIC ACID 1 MG TABLET GT SCH (08:20)
[2022-05-07] MEDS: SEVELAMER CARBONATE 800 MG TABLET GT SCH ×3 (08:20→18:19)
[2022-05-07] MEDS: DIVALPROEX SODIUM 500 MG TABLET( DEPAKOTE) PO SCH ×2 (08:20→22:43)
[2022-05-07] MEDS: PANTOPRAZOLE SODIUM 40 MG TAB PO SCH (08:20)
[2022-05-07] MEDS: MIDODRINE HCL 5 MG TABLET (PROAMATINE) GT SCH ×3 (08:21→22:43)
[2022-05-07] MEDS: EMOLLIENT COMBINATION NO.73 78 GM CREAM..G. TP SCH ×2 (08:23→22:44)
[2022-05-07] MEDS: BALSAM PERU/CASTOR OIL 56.7 GM OINT...G. TP SCH (08:24)
[2022-05-07] MEDS: CLOTRIMAZOLE 1% TOPICAL CREAM 15 GM TP SCH ×2 (08:24→22:45)
[2022-05-07] MEDS: MEROPENEM 500 MG in NS 50 ML IV SCH (08:26)
[2022-05-07] MEDS: ENOXAPARIN SODIUM 30 MG/0.3 ML SYRINGE SUBCUT SCH (08:27)
[2022-05-07 08:41] LABS: WHITE BLOOD COUNT (AUTO) 32.2 K/uL (4.8-10.8)
[2022-05-07] MEDS: CLOZAPINE 100MG TAB PO SCH ×2 (09:00→21:00)
[2022-05-07] MEDS ORDERED: DIATR MEGLU/DIATRIZ SOD 30 ML SOLUTION PO ONE (09:40)
[2022-05-07 13:07] LABS: ATYPICAL LYMPHOCYTES % 1 % (0-0); BAND % (MANUAL) 30 % (0-6); BASOPHILS % (MANUAL) 0 % (0-2); EOSINOPHILS % (MANUAL) 5 % (0-7); LYMPHOCYTES % (MANUAL) 4 % (20-46); METAMYELOCYTES % 2 % (0-0); MONOCYTES % (MANUAL) 12 % (0-11)
[2022-05-07 13:08] LABS: MYELOCYTES % 1 % (0-0)
[2022-05-07] MEDS ORDERED: ALBUMIN HUMAN 25% 200 ML IV ONE (13:30)
[2022-05-07] MEDS ORDERED: FUROSEMIDE 20 MG/2 ML VIAL IVP ONE (13:30)
[2022-05-07 14:00] LABS: ALBUMIN 0.9 g/dL (3.4-4.8); CALCIUM 8.6 mg/dL (8.4-11.0); CREATININE 3.34 mg/dL (0.55-1.30); PHOSPHORUS 3.4 mg/dL (2.7-4.5); TOTAL BILIRUBIN 0.5 mg/dL (0.0-1.0)
[2022-05-07] MEDS: D5W 1,000 ML IV SCH (14:25)
[2022-05-07] MEDS: VANCOMYCIN HCL 1,000 MG in NS 250 ML IV SCH (15:13)
--- NOTE | 2022-05-07 20:00 | NUR ---
RIGHT UPPER ARM Right upper arm with Midline PICC. Edema present in right upper arm 35 cm, left upper arm measuring 24cm. Pt does grimace when right upper arm is moved.
[2022-05-07] MEDS: PIPERACILLIN/TAZO 2.25G/DEX-IS 50 ML IV SCH (22:44)
[2022-05-08] VITALS (25 sets, daily range): BP systolic 90–163
[2022-05-08] MEDS: INSULIN REGULAR, HUMAN 100 UNITS/ML, 3 ML VIAL (humuLIN R) SUBCUT PRN ×3 (01:20→12:37)
[2022-05-08] MEDS: PIPERACILLIN/TAZO 2.25G/DEX-IS 50 ML IV SCH ×2 (05:13→14:19)
[2022-05-08 06:49] LABS: BASOPHILS # (AUTO) 0.1 K/uL (0.0-0.2); BASOPHILS % (AUTO) 0.4 % (0.0-2.0); EOSINOPHILS # (AUTO) 0.3 K/uL (0.0-0.4); HEMATOCRIT 24.7 % (36-54); HEMOGLOBIN 7.7 g/dL (14.0-18.0); LYMPHOCYTES # (AUTO) 1.9 K/uL (1.0-5.5); LYMPHOCYTES % (AUTO) 6.9 % (20.5-51.5); MEAN CORPUSCULAR HEMOGLOBIN 30 pg (27-31); MEAN CORPUSCULAR HGB CONC 31 % (32-36); MEAN CORPUSCULAR VOLUME 96 fL (79.0-98.0); MONOCYTES # (AUTO) 2.7 K/uL (0.0-1.0); MONOCYTES % (AUTO) 9.5 % (1.7-9.3); NEUTROPHILS % (AUTO) 82.2 % (40.0-70.0); PLATELET COUNT (AUTO) 630 K/uL (130-430); RED BLOOD CELL COUNT(AUTO) 2.58 MIL/uL (4.2-6.2); RED CELL DISTRIBUTION WIDTH 17.4 % (9.0-15.0)
[2022-05-08 07:00] LABS: CALCIUM 8.6 mg/dL (8.4-11.0); CREATININE 3.29 mg/dL (0.55-1.30); TOTAL BILIRUBIN 0.5 mg/dL (0.0-1.0)
[2022-05-08] MEDS: EPOETIN ALFA-EPBX 10,000 UNITS/ML VIAL SUBCUT SCH ×2 (07:22→17:17)
[2022-05-08] MEDS: SEVELAMER CARBONATE 800 MG TABLET GT SCH ×3 (08:00→17:15)
[2022-05-08] MEDS ORDERED: ALBUMIN HUMAN 25% 200 ML IV ONE (08:45)
[2022-05-08] MEDS ORDERED: FUROSEMIDE 20 MG/2 ML VIAL IVP ONE (08:45)
[2022-05-08] MEDS: DIVALPROEX SODIUM 500 MG TABLET( DEPAKOTE) PO SCH ×2 (08:57→22:33)
[2022-05-08] MEDS: ATORVASTATIN 20 MG TABLET GT SCH (08:57)
[2022-05-08] MEDS: POTASSIUM CHLORIDE 20 MEQ/PKT PACKET GT SCH (08:57)
[2022-05-08] MEDS: FOLIC ACID 1 MG TABLET GT SCH (08:57)
[2022-05-08] MEDS: SODIUM BICARBONATE 650 MG TABLET PO SCH ×2 (08:57→22:33)
[2022-05-08] MEDS: OXYBUTYNIN CHLORIDE 5 MG TABLET GT SCH (08:57)
[2022-05-08] MEDS: PANTOPRAZOLE SODIUM 40 MG TAB PO SCH (08:57)
[2022-05-08] MEDS: MIDODRINE HCL 5 MG TABLET (PROAMATINE) GT SCH ×3 (08:58→22:34)
[2022-05-08] MEDS: EMOLLIENT COMBINATION NO.73 78 GM CREAM..G. TP SCH ×2 (08:59→22:34)
[2022-05-08] MEDS: ENOXAPARIN SODIUM 30 MG/0.3 ML SYRINGE SUBCUT SCH (08:59)
[2022-05-08] MEDS: CLOZAPINE 100MG TAB PO SCH ×2 (09:00→21:00)
[2022-05-08] MEDS: CLOTRIMAZOLE 1% TOPICAL CREAM 15 GM TP SCH ×2 (09:00→22:36)
[2022-05-08] MEDS: BALSAM PERU/CASTOR OIL 56.7 GM OINT...G. TP SCH (09:00)
[2022-05-08] MEDS: TAMSULOSIN HCL 0.4 MG CAP GT SCH (09:00)
[2022-05-08] MEDS: D5W 1,000 ML IV SCH (14:19)
--- NOTE | 2022-05-08 15:10 | NUR ---
SPOKE WITH DR SALDANA ADVISED WOUND CULTURES CAME BACK WITH PSEUDOMONAS AERUGINOSA AND ENTEROCOCCUS FAECIUM - VRE. ORDERED TO STOP VANCO. START ZYVOX 600MG IV Q12. ORDERED TO D/C MIDLINE ON RIGHT ARM AND ORDERED A NEW MIDLINE FOR LEFT ARM.
--- NOTE | 2022-05-08 18:10 | NUR ---
SPOKE WITH DR REDDY. ADVISED PT HAS DVT IN RIGHT AXILLARY VEIN. NO NEW ORDERS GIVEN.
[2022-05-08] MEDS: LINEZOLID 300 ML IV SCH (22:32)
[2022-05-08] MEDS: NOREPINEPHRINE BITARTRATE 16 MG in NS 234 ML IV PRN (23:32)
[2022-05-09] VITALS (20 sets, daily range): BP systolic 90–131
[2022-05-09] MEDS: PIPERACILLIN/TAZO 2.25G/DEX-IS 50 ML IV SCH ×4 (01:33→21:49)
[2022-05-09] MEDS: INSULIN REGULAR, HUMAN 100 UNITS/ML, 3 ML VIAL (humuLIN R) SUBCUT PRN ×4 (01:56→18:49)
[2022-05-09 08:05] LABS: CALCIUM 8.5 mg/dL (8.4-11.0); CREATININE 3.27 mg/dL (0.55-1.30)
[2022-05-09] MEDS: TAMSULOSIN HCL 0.4 MG CAP GT SCH (09:54)
[2022-05-09] MEDS: DIVALPROEX SODIUM 500 MG TABLET( DEPAKOTE) PO SCH ×2 (09:55→21:49)
[2022-05-09] MEDS: PANTOPRAZOLE SODIUM 40 MG TAB PO SCH (09:55)
[2022-05-09] MEDS: POTASSIUM CHLORIDE 20 MEQ/PKT PACKET GT SCH (09:55)
[2022-05-09] MEDS: ATORVASTATIN 20 MG TABLET GT SCH (09:55)
[2022-05-09] MEDS: SODIUM BICARBONATE 650 MG TABLET PO SCH ×2 (09:55→21:49)
[2022-05-09] MEDS: OXYBUTYNIN CHLORIDE 5 MG TABLET GT SCH (09:56)
[2022-05-09] MEDS: FOLIC ACID 1 MG TABLET GT SCH (09:56)
[2022-05-09] MEDS: EMOLLIENT COMBINATION NO.73 78 GM CREAM..G. TP SCH ×2 (09:56→21:49)
[2022-05-09] MEDS: SEVELAMER CARBONATE 800 MG TABLET GT SCH ×3 (09:56→17:03)
[2022-05-09] MEDS: CLOTRIMAZOLE 1% TOPICAL CREAM 15 GM TP SCH ×2 (09:57→21:49)
[2022-05-09] MEDS: ENOXAPARIN SODIUM 30 MG/0.3 ML SYRINGE SUBCUT SCH (09:57)
[2022-05-09] MEDS: CLOZAPINE 100MG TAB PO SCH ×2 (09:58→21:00)
[2022-05-09] MEDS: BALSAM PERU/CASTOR OIL 56.7 GM OINT...G. TP SCH (09:58)
[2022-05-09] MEDS: LINEZOLID 300 ML IV SCH ×2 (10:02→21:49)
[2022-05-09] MEDS: MIDODRINE HCL 5 MG TABLET (PROAMATINE) GT SCH ×3 (10:02→21:49)
[2022-05-09] MEDS ORDERED: FUROSEMIDE 40 MG/4 ML VIAL IVP ONE (13:15)
[2022-05-09] MEDS: ALBUMIN HUMAN 25% 100 ML IV SCH (15:00)
[2022-05-09] MEDS: D5W 1,000 ML IV SCH (15:40)
[2022-05-10] VITALS (15 sets, daily range): BP systolic 92–124
[2022-05-10] MEDS: INSULIN REGULAR, HUMAN 100 UNITS/ML, 3 ML VIAL (humuLIN R) SUBCUT PRN ×4 (01:32→18:53)
[2022-05-10] MEDS ORDERED: ALBUMIN HUMAN 25% 100 ML IV ONE (02:51)
[2022-05-10] MEDS: ALBUMIN HUMAN 25% 100 ML IV SCH (03:00)
[2022-05-10] MEDS: PIPERACILLIN/TAZO 2.25G/DEX-IS 50 ML IV SCH ×3 (06:36→21:57)
[2022-05-10 07:20] LABS: CALCIUM 8.2 mg/dL (8.4-11.0); CREATININE 3.31 mg/dL (0.55-1.30)
[2022-05-10 07:37] LABS: BASOPHILS # (AUTO) 0.1 K/uL (0.0-0.2); BASOPHILS % (AUTO) 0.4 % (0.0-2.0); EOSINOPHILS # (AUTO) 0.3 K/uL (0.0-0.4); EOSINOPHILS % (AUTO) 1.2 % (0.0-4.0); LYMPHOCYTES # (AUTO) 1.7 K/uL (1.0-5.5); LYMPHOCYTES % (AUTO) 7.6 % (20.5-51.5); MEAN CORPUSCULAR HEMOGLOBIN 30 pg (27-31); MEAN CORPUSCULAR HGB CONC 31 % (32-36); MEAN CORPUSCULAR VOLUME 96 fL (79.0-98.0); MONOCYTES # (AUTO) 2.1 K/uL (0.0-1.0); MONOCYTES % (AUTO) 9.6 % (1.7-9.3); NEUTROPHILS # (AUTO) 17.7 K/uL (1.8-7.7); PLATELET COUNT (AUTO) 549 K/uL (130-430); RED CELL DISTRIBUTION WIDTH 17.2 % (9.0-15.0); WHITE BLOOD COUNT (AUTO) 21.8 K/uL (4.8-10.8)
[2022-05-10 08:43] LABS: HEMOGLOBIN 6.6 g/dL (14.0-18.0)
[2022-05-10 08:44] LABS: NEUTROPHILS % (AUTO) 81.2 % (40.0-70.0)
--- NOTE | 2022-05-10 08:50 | NUR ---
Spoke with Chika to report critical lab results to Dr. Narvaez.
[2022-05-10] MEDS: POTASSIUM CHLORIDE 20 MEQ/PKT PACKET GT SCH (08:54)
[2022-05-10] MEDS: SODIUM BICARBONATE 650 MG TABLET PO SCH ×2 (08:54→21:56)
[2022-05-10] MEDS: ATORVASTATIN 20 MG TABLET GT SCH (08:54)
[2022-05-10] MEDS: MIDODRINE HCL 5 MG TABLET (PROAMATINE) GT SCH ×3 (08:54→21:56)
[2022-05-10] MEDS: SEVELAMER CARBONATE 800 MG TABLET GT SCH ×3 (08:54→18:40)
[2022-05-10] MEDS: FOLIC ACID 1 MG TABLET GT SCH (08:54)
[2022-05-10] MEDS: TAMSULOSIN HCL 0.4 MG CAP GT SCH (08:55)
[2022-05-10] MEDS: PANTOPRAZOLE SODIUM 40 MG TAB PO SCH (08:55)
[2022-05-10] MEDS: LINEZOLID 300 ML IV SCH ×2 (08:55→21:56)
[2022-05-10] MEDS: OXYBUTYNIN CHLORIDE 5 MG TABLET GT SCH (08:55)
[2022-05-10] MEDS: BALSAM PERU/CASTOR OIL 56.7 GM OINT...G. TP SCH (09:00)
[2022-05-10] MEDS: CLOZAPINE 100MG TAB PO SCH ×2 (09:00→21:00)
[2022-05-10] MEDS: CLOTRIMAZOLE 1% TOPICAL CREAM 15 GM TP SCH ×2 (09:00→21:56)
[2022-05-10] MEDS: EMOLLIENT COMBINATION NO.73 78 GM CREAM..G. TP SCH ×2 (09:02→21:56)
[2022-05-10] MEDS: ENOXAPARIN SODIUM 30 MG/0.3 ML SYRINGE SUBCUT SCH (09:03)
[2022-05-10] MEDS: DIVALPROEX SODIUM 500 MG TABLET( DEPAKOTE) PO SCH ×2 (11:37→21:56)
[2022-05-10] MEDS: D5W 1,000 ML IV SCH (13:30)
[2022-05-11] VITALS (22 sets, daily range): BP systolic 86–132
[2022-05-11] MEDS: INSULIN REGULAR, HUMAN 100 UNITS/ML, 3 ML VIAL (humuLIN R) SUBCUT PRN ×4 (01:17→23:05)
[2022-05-11] MEDS: PIPERACILLIN/TAZO 2.25G/DEX-IS 50 ML IV SCH ×3 (05:54→22:06)
[2022-05-11 06:52] LABS: BASOPHILS # (AUTO) 0.1 K/uL (0.0-0.2); BASOPHILS % (AUTO) 0.4 % (0.0-2.0); EOSINOPHILS # (AUTO) 0.3 K/uL (0.0-0.4); EOSINOPHILS % (AUTO) 1.5 % (0.0-4.0); HEMATOCRIT 32.1 % (36-54); HEMOGLOBIN 10.3 g/dL (14.0-18.0); LYMPHOCYTES # (AUTO) 1.9 K/uL (1.0-5.5); LYMPHOCYTES % (AUTO) 10.8 % (20.5-51.5); MEAN CORPUSCULAR HEMOGLOBIN 30 pg (27-31); MEAN CORPUSCULAR HGB CONC 32 % (32-36); MEAN CORPUSCULAR VOLUME 92 fL (79.0-98.0); MONOCYTES # (AUTO) 1.7 K/uL (0.0-1.0); MONOCYTES % (AUTO) 9.5 % (1.7-9.3); PLATELET COUNT (AUTO) 537 K/uL (130-430); RED BLOOD CELL COUNT(AUTO) 3.48 MIL/uL (4.2-6.2); RED CELL DISTRIBUTION WIDTH 16.3 % (9.0-15.0)
[2022-05-11 07:14] LABS: CALCIUM 8.5 mg/dL (8.4-11.0); CREATININE 3.29 mg/dL (0.55-1.30)
--- NOTE | 2022-05-11 08:00 | NUR ---
ISABEL LOPEZ REGISTRY NURSE IS IN CHARGE OF THIS PATIENT, PT IS ALERT AND FOLLOWING SOME COMMANDS, RESPONSIVE AND UTTERS FEW WORDS, VS STABLE, TITRATED LEVOPHED TO 0.05MICS/PT O2 SAT 100% ON 2L NC, PT HR SINUS, AFEGBRILE IN ZERO DISTRESS//CARRERA CATH DRAINING CLEAR YELLOW URINE//MW
[2022-05-11] MEDS: CLOZAPINE 100MG TAB PO SCH (09:00)
[2022-05-11] MEDS: ATORVASTATIN 20 MG TABLET GT SCH (09:31)
[2022-05-11] MEDS: DIVALPROEX SODIUM 500 MG TABLET( DEPAKOTE) PO SCH ×2 (09:32→22:05)
[2022-05-11] MEDS: SODIUM BICARBONATE 650 MG TABLET PO SCH ×2 (09:33→22:05)
[2022-05-11] MEDS: PANTOPRAZOLE SODIUM 40 MG TAB PO SCH (09:33)
[2022-05-11] MEDS: SEVELAMER CARBONATE 800 MG TABLET GT SCH ×3 (09:34→17:40)
[2022-05-11] MEDS: TAMSULOSIN HCL 0.4 MG CAP GT SCH (09:35)
[2022-05-11] MEDS: FOLIC ACID 1 MG TABLET GT SCH (09:36)
[2022-05-11] MEDS: POTASSIUM CHLORIDE 20 MEQ/PKT PACKET GT SCH (09:36)
[2022-05-11] MEDS: LINEZOLID 300 ML IV SCH ×2 (09:38→22:05)
[2022-05-11] MEDS: MIDODRINE HCL 5 MG TABLET (PROAMATINE) GT SCH ×3 (09:38→22:05)
[2022-05-11] MEDS: ENOXAPARIN SODIUM 30 MG/0.3 ML SYRINGE SUBCUT SCH (09:39)
[2022-05-11] MEDS: EMOLLIENT COMBINATION NO.73 78 GM CREAM..G. TP SCH ×2 (09:40→22:06)
[2022-05-11] MEDS: CLOTRIMAZOLE 1% TOPICAL CREAM 15 GM TP SCH ×2 (09:40→22:06)
[2022-05-11] MEDS: BALSAM PERU/CASTOR OIL 56.7 GM OINT...G. TP SCH (09:41)
[2022-05-11] MEDS: OXYBUTYNIN CHLORIDE 5 MG TABLET GT SCH (09:42)
--- NOTE | 2022-05-11 09:45 | NUR ---
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 Levophed increased accdg to BP and was up to 1mcg /kg/min . Placed pt on supine , flat in bed and monitored frequently almost every 5 mins. Bolus with 1 L of N. saline and hold dialysis today Subjective Information: RD attended ICU rounds and s/w primary nurse. RN attested that pt is more alert today and was pulling at lines, so he had to be restrained. RD witness TF running @ 40mL/hr (goal). RD witnessed Levophed infusing @ 0.05mcg. RN is trying to wean him off levo so he can be downgraded to tele. RN reports that pt wound status have not changed. Per EMR review, pt is having low GRV and is tolerating feedings well. 05/04/22Pt has been seen as high risk for over a month. He is tolerating feeds, having normal BMs and is getting Kwasi. From now on, pt will be screened as low-risk unless any new changes arise. Current Diet Order/Nutrition Support: Nepro at 40 ml/hr (goal), Kwasi BID, FWF: 250ml Q4h via GT x 16 days NEW pertinent medications: SSI, Piper/Tazo, Na Bicarbonate, Lovenox, Levophed, Glipizide, Renvela, Protonix, Lipitor, Folic acid, K+Cl, D5 @40mL/hr (provides 163 kcal) NEW pertinent labs: Hgb 6.6 L*, Na 149 H, BUN 86 H, Cre 3.29 H, eGFR 20 L, BG 198 H Patient/Significant Other Unable To Verbalize Education Provided Not Indicated Height: 5'6" Weight: 115#/52.2kg -- stable since 04/01 Body Mass Index: 18.56 kg/m2 %IBW: 81 [place] Head/Adjusted Body Weight: 142#/64.5 kg Recent Weight Change: No - Unable to verify Weight Status: Underweight Food Allergies: Unable to verify Usual Diet At Home: Unable to verify Skin Integrity Comment: 05/04 Clayton scale 12: w/ lateral medial posterior sacrum open wounds; RLE pressure ulcers, R heel ulcer; reviewed Obiee Lead Developer note from 04/01 Edema: Generalized +3 Pitting documented 05/11 LBM: 05/09 x 1 Estimated Energy Expenditure (kcals/day) 1511-6913 (30-35 kcal/kg IBW d/t wound healing, septic shock) Estimated Protein Required (g/day) 65-90 (1-1.4 gm/kg IBW d/t CKD, wound healing, septic shock) Estimated Fluid Required (l/day) Per physician d/t CKD Problem/Etiology/Signs/Symptoms * Increased nutritional needs R/T metabolic demands AEB estimated nutritional requirements for wound healing. (On-going) * Altered nutrition-related lab values r/t renal dysfunction a/e/b elevated values: BUN, Cre. (On-going) Expected Outcomes/Goals - Monitor tolerance to EN support w/ goal of pt meeting >95% of estimated nutritional needs, labs trending WNL, normal GI function, and skin integrity/wt maintenance NEW Dietitian Recommendations *Continue current order of: Nepro at 40 ml/hr (goal), Kwasi BID, FWF: 250ml Q4h via GT Provides: 1908 kcal/day, 78 gm protein/day, and 2198 ml free water/day Meets: 99% of lower estimated caloric needs and 120% of lower estimated protein needs * Consider wound supplements: Renal MVI, 250 mg VIT C * Consider 220mg ZnSO4 x 14 days for wound healing * Recommend adjust insulin regimen for elevated BG, dosing per MD Low Risk: F/U in 7 days GS, MPH, RD
--- NOTE | 2022-05-11 09:46 | NUR ---
Dietitian Recommendations *Continue current order of: Nepro at 40 ml/hr (goal), Kwasi BID, FWF: 250ml Q4h via GT Provides: 1908 kcal/day, 78 gm protein/day, and 2198 ml free water/day Meets: 99% of lower estimated caloric needs and 120% of lower estimated protein needs * Consider wound supplements: Renal MVI, 250 mg VIT C * Consider 220mg ZnSO4 x 14 days for wound healing * Recommend adjust insulin regimen for elevated BG, dosing per MD TRIPP, MPH, RD Please refer to RD Assessment for further details
[2022-05-11] MEDS: D5W 1,000 ML IV SCH (12:46)
[2022-05-11 13:41] LABS: NEUTROPHILS % (AUTO) 77.8 % (40.0-70.0)
--- NOTE | 2022-05-11 14:15 | NUR ---
Wound Care Update: Late note for 141 secondary to patient care. Carly Maravilla NP, notified of patient's new pressure ulcers. She said that she would notify the family.
[2022-05-11] MEDS: EPOETIN ALFA-EPBX 10,000 UNITS/ML VIAL SUBCUT SCH (17:40)
[2022-05-12] VITALS (22 sets, daily range): BP systolic 85–111
[2022-05-12] MEDS: PIPERACILLIN/TAZO 2.25G/DEX-IS 50 ML IV SCH ×3 (05:58→20:59)
[2022-05-12 06:24] LABS: BASOPHILS % (AUTO) 0.3 % (0.0-2.0); EOSINOPHILS # (AUTO) 0.2 K/uL (0.0-0.4); EOSINOPHILS % (AUTO) 1.8 % (0.0-4.0); HEMATOCRIT 31.8 % (36-54); HEMOGLOBIN 10.1 g/dL (14.0-18.0); LYMPHOCYTES # (AUTO) 1.6 K/uL (1.0-5.5); LYMPHOCYTES % (AUTO) 12.2 % (20.5-51.5); MEAN CORPUSCULAR HEMOGLOBIN 30 pg (27-31); MEAN CORPUSCULAR HGB CONC 32 % (32-36); MEAN CORPUSCULAR VOLUME 93 fL (79.0-98.0); MONOCYTES # (AUTO) 1.1 K/uL (0.0-1.0); NEUTROPHILS # (AUTO) 10.4 K/uL (1.8-7.7); NEUTROPHILS % (AUTO) 77.7 % (40.0-70.0); PLATELET COUNT (AUTO) 478 K/uL (130-430); RED BLOOD CELL COUNT(AUTO) 3.43 MIL/uL (4.2-6.2); RED CELL DISTRIBUTION WIDTH 16.5 % (9.0-15.0)
[2022-05-12 06:42] LABS: CALCIUM 8.1 mg/dL (8.4-11.0); CREATININE 3.25 mg/dL (0.55-1.30)
[2022-05-12 07:47] LABS: WHITE BLOOD COUNT (AUTO) 13.4 K/uL (4.8-10.8)
--- NOTE | 2022-05-12 08:12 | NUR ---
Report received from slot shift supervisor RN for continuity of care. Patient stable at the moment.VSS will cont to monitor. Pt in NAD, resp even, on 07-01 2l via NC @97%. Denies any pain but tachypneic at 27breath/min.Repositoned for comfort. RT called to assist with humidifier. Saftey precautions in place, will cont to monitor.
[2022-05-12] MEDS: SEVELAMER CARBONATE 800 MG TABLET GT SCH ×2 (08:30→12:00)
[2022-05-12] MEDS: ENOXAPARIN SODIUM 30 MG/0.3 ML SYRINGE SUBCUT SCH (09:00)
[2022-05-12] MEDS: PANTOPRAZOLE SODIUM 40 MG TAB PO SCH (09:00)
[2022-05-12] MEDS: SODIUM BICARBONATE 650 MG TABLET PO SCH ×2 (09:00→20:59)
[2022-05-12] MEDS: OXYBUTYNIN CHLORIDE 5 MG TABLET GT SCH (09:00)
[2022-05-12] MEDS: ATORVASTATIN 20 MG TABLET GT SCH (09:00)
[2022-05-12] MEDS: BALSAM PERU/CASTOR OIL 56.7 GM OINT...G. TP SCH (09:00)
[2022-05-12] MEDS: MIDODRINE HCL 5 MG TABLET (PROAMATINE) GT SCH ×3 (09:00→20:58)
[2022-05-12] MEDS: EMOLLIENT COMBINATION NO.73 78 GM CREAM..G. TP SCH ×2 (09:00→20:59)
[2022-05-12] MEDS: DIVALPROEX SODIUM 500 MG TABLET( DEPAKOTE) PO SCH ×2 (09:00→20:59)
[2022-05-12] MEDS: CLOTRIMAZOLE 1% TOPICAL CREAM 15 GM TP SCH ×2 (09:00→20:59)
[2022-05-12] MEDS: FOLIC ACID 1 MG TABLET GT SCH (09:00)
[2022-05-12] MEDS: LINEZOLID 300 ML IV SCH ×2 (09:00→20:58)
[2022-05-12] MEDS: TAMSULOSIN HCL 0.4 MG CAP GT SCH (09:00)
[2022-05-12] MEDS: ACETAMINOPHEN 650 MG/20.3 ML UDC GT PRN ×2 (11:23→23:13)
--- NOTE | 2022-05-12 11:49 | NUR ---
RT NOTES RN called due to tachypnea, asked to place pt back on HFNC. 30L 30%. Pt. appears to tolerate well.
--- NOTE | 2022-05-12 11:56 | NUR ---
Pt moaning, unable to distract. Pt denies any pain, but moaning continues. Pt confused. Tylenol given as ordered, will cont to monitor. Repositioned for comfort.
[2022-05-12] MEDS: NOREPINEPHRINE BITARTRATE 16 MG in NS 234 ML IV PRN (18:49)
[2022-05-12] MEDS: INSULIN REGULAR, HUMAN 100 UNITS/ML, 3 ML VIAL (humuLIN R) SUBCUT PRN (23:16)
[2022-05-13] VITALS (22 sets, daily range): BP systolic 90–126
[2022-05-13] MEDS: PIPERACILLIN/TAZO 2.25G/DEX-IS 50 ML IV SCH ×3 (05:45→22:22)
[2022-05-13 06:50] LABS: BASOPHILS % (AUTO) 0.3 % (0.0-2.0); EOSINOPHILS # (AUTO) 0.2 K/uL (0.0-0.4); EOSINOPHILS % (AUTO) 1.7 % (0.0-4.0); HEMATOCRIT 33.3 % (36-54); HEMOGLOBIN 10.6 g/dL (14.0-18.0); LYMPHOCYTES # (AUTO) 1.5 K/uL (1.0-5.5); LYMPHOCYTES % (AUTO) 11.8 % (20.5-51.5); MEAN CORPUSCULAR HEMOGLOBIN 30 pg (27-31); MEAN CORPUSCULAR HGB CONC 32 % (32-36); MEAN CORPUSCULAR VOLUME 94 fL (79.0-98.0); MONOCYTES # (AUTO) 0.9 K/uL (0.0-1.0); MONOCYTES % (AUTO) 7.2 % (1.7-9.3); PLATELET COUNT (AUTO) 455 K/uL (130-430); RED BLOOD CELL COUNT(AUTO) 3.56 MIL/uL (4.2-6.2); RED CELL DISTRIBUTION WIDTH 16.7 % (9.0-15.0); WHITE BLOOD COUNT (AUTO) 12.6 K/uL (4.8-10.8)
[2022-05-13 07:14] LABS: CALCIUM 8.8 mg/dL (8.4-11.0); CREATININE 3.31 mg/dL (0.55-1.30)
[2022-05-13] MEDS: SEVELAMER CARBONATE 800 MG TABLET GT SCH ×4 (08:00→17:28)
[2022-05-13] MEDS: PANTOPRAZOLE SODIUM 40 MG TAB PO SCH (09:02)
[2022-05-13] MEDS: OXYBUTYNIN CHLORIDE 5 MG TABLET GT SCH (09:02)
[2022-05-13] MEDS: TAMSULOSIN HCL 0.4 MG CAP GT SCH (09:02)
[2022-05-13] MEDS: DIVALPROEX SODIUM 500 MG TABLET( DEPAKOTE) PO SCH ×2 (09:02→20:02)
[2022-05-13] MEDS: FOLIC ACID 1 MG TABLET GT SCH (09:02)
[2022-05-13] MEDS: ATORVASTATIN 20 MG TABLET GT SCH (09:03)
[2022-05-13] MEDS: SODIUM BICARBONATE 650 MG TABLET PO SCH ×2 (09:03→20:02)
[2022-05-13] MEDS: LINEZOLID 300 ML IV SCH ×2 (09:15→20:02)
[2022-05-13] MEDS: MIDODRINE HCL 5 MG TABLET (PROAMATINE) GT SCH ×3 (09:15→20:03)
[2022-05-13] MEDS: ENOXAPARIN SODIUM 30 MG/0.3 ML SYRINGE SUBCUT SCH (09:16)
[2022-05-13] MEDS: EMOLLIENT COMBINATION NO.73 78 GM CREAM..G. TP SCH ×2 (09:17→23:15)
[2022-05-13] MEDS: CLOTRIMAZOLE 1% TOPICAL CREAM 15 GM TP SCH ×2 (09:18→20:07)
[2022-05-13] MEDS: BALSAM PERU/CASTOR OIL 56.7 GM OINT...G. TP SCH (09:18)
[2022-05-13] MEDS: D5W 1,000 ML IV SCH ×2 (13:30→20:08)
[2022-05-13] MEDS: EPOETIN ALFA-EPBX 10,000 UNITS/ML VIAL SUBCUT SCH (17:05)
[2022-05-13] MEDS: INSULIN REGULAR, HUMAN 100 UNITS/ML, 3 ML VIAL (humuLIN R) SUBCUT PRN (17:39)
--- NOTE | 2022-05-13 19:37 | NUR ---
Received report for assumption of care. Pt comfortable in bed. Eyes are open and pt looks around. 02 at 2L NC in use with sats 99%. Levophed infusing at 0.03mcgs/kg/min with BP 93/39. HR 82. Tolerating tube feeds at 40cc/hr. Ansari with yellow urine in bag. Right arm edematous. IVF infusing at 40cc/hr. Pt positioned with pillow support and feet lifted off bed. Right IJ HD cath present.
[2022-05-14] VITALS (25 sets, daily range): BP systolic 85–129
[2022-05-14] MEDS: INSULIN REGULAR, HUMAN 100 UNITS/ML, 3 ML VIAL (humuLIN R) SUBCUT PRN ×2 (01:16→12:27)
[2022-05-14] MEDS: PIPERACILLIN/TAZO 2.25G/DEX-IS 50 ML IV SCH ×3 (04:57→22:32)
[2022-05-14 06:54] LABS: BASOPHILS # (AUTO) 0.2 K/uL (0.0-0.2); BASOPHILS % (AUTO) 1.1 % (0.0-2.0); EOSINOPHILS # (AUTO) 0.2 K/uL (0.0-0.4); EOSINOPHILS % (AUTO) 1.4 % (0.0-4.0); HEMATOCRIT 33.5 % (36-54); HEMOGLOBIN 10.5 g/dL (14.0-18.0); LYMPHOCYTES # (AUTO) 1.8 K/uL (1.0-5.5); LYMPHOCYTES % (AUTO) 13.3 % (20.5-51.5); MEAN CORPUSCULAR HEMOGLOBIN 29 pg (27-31); MEAN CORPUSCULAR HGB CONC 31 % (32-36); MEAN CORPUSCULAR VOLUME 94 fL (79.0-98.0); MONOCYTES # (AUTO) 0.7 K/uL (0.0-1.0); MONOCYTES % (AUTO) 5.1 % (1.7-9.3); NEUTROPHILS % (AUTO) 79.1 % (40.0-70.0); PLATELET COUNT (AUTO) 417 K/uL (130-430); RED BLOOD CELL COUNT(AUTO) 3.58 MIL/uL (4.2-6.2); RED CELL DISTRIBUTION WIDTH 16.6 % (9.0-15.0); WHITE BLOOD COUNT (AUTO) 13.9 K/uL (4.8-10.8)
[2022-05-14 07:26] LABS: CALCIUM 8.8 mg/dL (8.4-11.0); CREATININE 3.26 mg/dL (0.55-1.30)
--- NOTE | 2022-05-14 08:00 | NUR ---
RN NOTES PT SEEN AWAKE AND ALERT, NOT IN ACUTE DISTRESS. SR ON THE MONITOR. STILL ON LEVOPHED DRIP AT 0.13 mcg/kg/min. O2 SATURATION GOOD ON ROOM AIR.
[2022-05-14] MEDS: MIDODRINE HCL 5 MG TABLET (PROAMATINE) GT SCH ×3 (09:00→20:30)
[2022-05-14] MEDS: ATORVASTATIN 20 MG TABLET GT SCH (09:38)
[2022-05-14] MEDS: OXYBUTYNIN CHLORIDE 5 MG TABLET GT SCH (09:38)
[2022-05-14] MEDS: FOLIC ACID 1 MG TABLET GT SCH (09:38)
[2022-05-14] MEDS: DIVALPROEX SODIUM 500 MG TABLET( DEPAKOTE) PO SCH ×2 (09:44→20:32)
[2022-05-14] MEDS: TAMSULOSIN HCL 0.4 MG CAP GT SCH (09:45)
[2022-05-14] MEDS: SEVELAMER CARBONATE 800 MG TABLET GT SCH ×3 (09:45→18:00)
[2022-05-14] MEDS: SODIUM BICARBONATE 650 MG TABLET PO SCH (09:45)
[2022-05-14] MEDS: PANTOPRAZOLE SODIUM 40 MG TAB PO SCH (09:45)
[2022-05-14] MEDS ORDERED: DIVALPROEX SODIUM 500 MG TABLET( DEPAKOTE) PO ONE (09:46)
[2022-05-14] MEDS: LINEZOLID 300 ML IV SCH ×2 (10:23→20:33)
[2022-05-14] MEDS: ENOXAPARIN SODIUM 30 MG/0.3 ML SYRINGE SUBCUT SCH (10:23)
[2022-05-14] MEDS: BALSAM PERU/CASTOR OIL 56.7 GM OINT...G. TP SCH (12:30)
[2022-05-14] MEDS: EMOLLIENT COMBINATION NO.73 78 GM CREAM..G. TP SCH ×2 (12:30→20:33)
[2022-05-14] MEDS: CLOTRIMAZOLE 1% TOPICAL CREAM 15 GM TP SCH ×2 (12:30→20:34)
[2022-05-14] MEDS ORDERED: SODIUM BICARBONATE 650 MG TABLET PO ONE (13:00)
[2022-05-14] MEDS ORDERED: SODIUM BICARBONATE 650 MG TABLET PO SCH (15:00)
--- NOTE | 2022-05-14 19:15 | NUR ---
change of shift.pt.presents isolation status;contact.esbl/psuedomas wounds.pt.presents restraints;wrist bilateral in place. pt.presents picc-line;location lt.bicept intact.iv fluids:d5w infusing rate:40ml/hr.drip;levophed:conc:0.04mcq/kg/min.rate; 1.9ml/hr.pt.presents g-tube.g-tube feed;nepro;1.8kcal.rate;40ml/hr.pt.presents titus cath intact;patent.pt.presents wounds;mutiple. kwabenan;chayo;rn assessing pt.wounds.note b/p status wnl.pt.receiving o2 therapy via nasal cannulae;rate;2l/min.02-sat%=98% call light w/in access of the pt.
--- NOTE | 2022-05-14 20:00 | NUR ---
pt.assessed.v/s assessed values wnl.oral care/suction attended to.02-sat%=98%.picc line intact;iv fluids/drip;levophed infusing. g-tube intact;g-tube feed infusing,titus cath intact.restraints wrist bilateral in place.skin/circulation assessed wnl.per flacc pain mgx pt.absent facial grimaces/body posturing.pt.assessed for cleanliness.pt.repositioned.call light placed w/in access of the pt.
--- NOTE | 2022-05-14 21:00 | NUR ---
2100p medications administered.administered via g-tube.flushed w/out resistance.g-tube feed residual note:10ml.
--- NOTE | 2022-05-14 22:00 | NUR ---
pt.assessed.v/s assessed values wnl.oral care/suction attended to 02-tue%=98%.restraints wrist bilateral intact.skin/circulation wnl.picc-line intact.iv fluids/drip;levophed infusing.note b/p status wnl.g-tube intact.titus cath intact.per flacc pain m gx pt.absent facial grimaces/body posturing.pt.assessed for cleanliness.pt.repositioned.call light placed w/in access of the pt.
[2022-05-15] VITALS (24 sets, daily range): BP systolic 91–147
--- NOTE | 2022-05-15 | NUR ---
pt.assessed.v/s assessed values wnl.oral care/suction attended to 02%=96%.picc-line,g-tube,titus cath intact;patent. iv fluids/drip;levophed infusing note b/p status.wnl.restraints wrist bilateral in place.skin/circulation wnl.per flacc pain mgx pt.absent facial grimaces/body posturing.pt.assessed for cleanliness.pt.repositioned.call light placed w/in access of the pt.
--- NOTE | 2022-05-15 02:00 | NUR ---
pt.assessed.v/s assessed values wnl.oral care/suction attended to 02-tue%=96%.restraints;wrist bilateral in place. skin/ circulation wnl.picc-line,g-tube,titus cath intact;patent.per flacc pain mgx pt.absent facial grimaces/body posturing. pt.assessed for cleanliness.pt.repositioned.call light placed w/in access of the pt.
--- NOTE | 2022-05-15 04:00 | NUR ---
pt.assessed.v/s assessed values wnl.oral care/suction attended to.02-sat%=96%.restraints wrist bilateral in place. skin/circulation wnl.picc-line line,g-tube,titus cath intact.per flacc pain mgx pt.absent facial grimaces/body posturing. pt.assessed for cleanliness.pt.repositioned.call light placed w/in access of the pt.
[2022-05-15] MEDS: D5W 1,000 ML IV SCH ×2 (05:35→20:03)
[2022-05-15] MEDS: PIPERACILLIN/TAZO 2.25G/DEX-IS 50 ML IV SCH ×3 (05:36→21:19)
--- NOTE | 2022-05-15 06:31 | NUR ---
pt.assessed.v/s assessed values wnl.oral care/suction attended to 02-tue%=96%.mid-line,g-tube,titus cath intact. pt.assessed for cleanliness.pt.repositioned.call light placed w/i of the pt.
[2022-05-15 06:36] LABS: BASOPHILS # (AUTO) 0.2 K/uL (0.0-0.2); BASOPHILS % (AUTO) 1.1 % (0.0-2.0); EOSINOPHILS # (AUTO) 0.2 K/uL (0.0-0.4); EOSINOPHILS % (AUTO) 1.2 % (0.0-4.0); HEMATOCRIT 34.2 % (36-54); HEMOGLOBIN 10.6 g/dL (14.0-18.0); LYMPHOCYTES # (AUTO) 1.7 K/uL (1.0-5.5); LYMPHOCYTES % (AUTO) 10.5 % (20.5-51.5); MEAN CORPUSCULAR HEMOGLOBIN 30 pg (27-31); MEAN CORPUSCULAR HGB CONC 31 % (32-36); MEAN CORPUSCULAR VOLUME 96 fL (79.0-98.0); MONOCYTES # (AUTO) 0.6 K/uL (0.0-1.0); MONOCYTES % (AUTO) 3.5 % (1.7-9.3); NEUTROPHILS # (AUTO) 13.9 K/uL (1.8-7.7); NEUTROPHILS % (AUTO) 83.7 % (40.0-70.0); PLATELET COUNT (AUTO) 390 K/uL (130-430); RED BLOOD CELL COUNT(AUTO) 3.58 MIL/uL (4.2-6.2); RED CELL DISTRIBUTION WIDTH 17.4 % (9.0-15.0); WHITE BLOOD COUNT (AUTO) 16.6 K/uL (4.8-10.8)
[2022-05-15 07:55] LABS: ALBUMIN 1.4 g/dL (3.4-4.8); CALCIUM 9.6 mg/dL (8.4-11.0); CREATININE 3.29 mg/dL (0.55-1.30); TOTAL BILIRUBIN 0.5 mg/dL (0.0-1.0)
[2022-05-15] MEDS: SEVELAMER CARBONATE 800 MG TABLET GT SCH ×2 (08:00→20:08)
[2022-05-15] MEDS: PANTOPRAZOLE SODIUM 40 MG TAB PO SCH (09:06)
[2022-05-15] MEDS: OXYBUTYNIN CHLORIDE 5 MG TABLET GT SCH (09:06)
[2022-05-15] MEDS: FOLIC ACID 1 MG TABLET GT SCH (09:07)
[2022-05-15] MEDS: MIDODRINE HCL 5 MG TABLET (PROAMATINE) GT SCH ×3 (09:07→21:20)
[2022-05-15] MEDS: ATORVASTATIN 20 MG TABLET GT SCH (09:08)
[2022-05-15] MEDS: TAMSULOSIN HCL 0.4 MG CAP GT SCH (09:08)
[2022-05-15] MEDS: DIVALPROEX SODIUM 500 MG TABLET( DEPAKOTE) PO SCH ×2 (09:08→21:19)
[2022-05-15] MEDS: ENOXAPARIN SODIUM 30 MG/0.3 ML SYRINGE SUBCUT SCH (09:09)
[2022-05-15] MEDS: LINEZOLID 300 ML IV SCH ×2 (09:09→15:12)
[2022-05-15] MEDS: EMOLLIENT COMBINATION NO.73 78 GM CREAM..G. TP SCH ×2 (09:11→21:20)
[2022-05-15] MEDS: BALSAM PERU/CASTOR OIL 56.7 GM OINT...G. TP SCH (09:11)
[2022-05-15] MEDS: CLOTRIMAZOLE 1% TOPICAL CREAM 15 GM TP SCH ×2 (09:12→21:20)
[2022-05-15] MEDS ORDERED: SODIUM BICARBONATE 650 MG TABLET PO ONE (13:30)
[2022-05-15] MEDS: SODIUM BICARBONATE 650 MG TABLET PO SCH ×2 (17:00→21:19)
[2022-05-15] MEDS: EPOETIN ALFA-EPBX 10,000 UNITS/ML VIAL SUBCUT SCH (17:00)
[2022-05-15] MEDS: CLOZAPINE 100MG TAB PO SCH (20:01)
[2022-05-16] VITALS (25 sets, daily range): BP systolic 90–123
[2022-05-16] MEDS: INSULIN REGULAR, HUMAN 100 UNITS/ML, 3 ML VIAL (humuLIN R) SUBCUT PRN ×3 (00:20→23:44)
[2022-05-16] MEDS: PIPERACILLIN/TAZO 2.25G/DEX-IS 50 ML IV SCH ×3 (05:59→22:45)
[2022-05-16] MEDS: ALBUMIN HUMAN 25% 50 ML IV SCH ×2 (06:25→10:41)
--- NOTE | 2022-05-16 07:30 | NUR ---
RECEIVED PATIENT FROM NIGHT MELI ELLIS. PATIENT ON 2 LPM/NASAL CANNULA. SLEEPING, AWAKE, ORIENTED TO PERSON. NOT OBEYING TO COMMANDS. LEVOPHED OFF SINCE 0500AM. NSR/ST. AFEBRLE. G-TUBE NEPRO AT 40 MLS/HR +FWF. CARRERA CATHETER, LEFT UPPER MIDLINE. RT. IJ HD CATH. MULTIPLE WOUNDS, SACRUM, LEGS, FEET. CONTACT ISOLATION.
[2022-05-16 07:46] LABS: BASOPHILS # (AUTO) 0.1 K/uL (0.0-0.2); BASOPHILS % (AUTO) 0.3 % (0.0-2.0); EOSINOPHILS # (AUTO) 0.2 K/uL (0.0-0.4); EOSINOPHILS % (AUTO) 1.2 % (0.0-4.0); HEMATOCRIT 31.5 % (36-54); LYMPHOCYTES # (AUTO) 2.1 K/uL (1.0-5.5); LYMPHOCYTES % (AUTO) 10.6 % (20.5-51.5); MEAN CORPUSCULAR HEMOGLOBIN 30 pg (27-31); MEAN CORPUSCULAR HGB CONC 32 % (32-36); NEUTROPHILS # (AUTO) 16.3 K/uL (1.8-7.7); NEUTROPHILS % (AUTO) 82.9 % (40.0-70.0); PLATELET COUNT (AUTO) 318 K/uL (130-430); RED BLOOD CELL COUNT(AUTO) 3.37 MIL/uL (4.2-6.2); RED CELL DISTRIBUTION WIDTH 16.9 % (9.0-15.0); WHITE BLOOD COUNT (AUTO) 19.7 K/uL (4.8-10.8)
[2022-05-16 08:05] LABS: CALCIUM 9.4 mg/dL (8.4-11.0); CREATININE 3.36 mg/dL (0.55-1.30)
[2022-05-16 08:30] LABS: MEAN CORPUSCULAR VOLUME 93 fL (79.0-98.0)
[2022-05-16] MEDS: CLOZAPINE 100MG TAB PO SCH ×2 (09:00→21:00)
[2022-05-16] MEDS: PANTOPRAZOLE SODIUM 40 MG TAB PO SCH (09:22)
[2022-05-16] MEDS: SEVELAMER CARBONATE 800 MG TABLET GT SCH ×3 (09:22→17:30)
[2022-05-16] MEDS: LINEZOLID 300 ML IV SCH ×2 (09:22→21:08)
[2022-05-16] MEDS: ATORVASTATIN 20 MG TABLET GT SCH (09:23)
[2022-05-16] MEDS: MIDODRINE HCL 5 MG TABLET (PROAMATINE) GT SCH ×3 (09:23→21:02)
[2022-05-16] MEDS: FOLIC ACID 1 MG TABLET GT SCH (09:23)
[2022-05-16] MEDS: OXYBUTYNIN CHLORIDE 5 MG TABLET GT SCH (09:24)
[2022-05-16] MEDS: SODIUM BICARBONATE 650 MG TABLET PO SCH ×4 (09:25→21:03)
[2022-05-16] MEDS: TAMSULOSIN HCL 0.4 MG CAP GT SCH (09:25)
[2022-05-16] MEDS: DIVALPROEX SODIUM 500 MG TABLET( DEPAKOTE) PO SCH ×2 (09:26→21:02)
[2022-05-16] MEDS: ENOXAPARIN SODIUM 30 MG/0.3 ML SYRINGE SUBCUT SCH (09:29)
[2022-05-16] MEDS: EMOLLIENT COMBINATION NO.73 78 GM CREAM..G. TP SCH ×2 (09:45→21:03)
[2022-05-16] MEDS: CLOTRIMAZOLE 1% TOPICAL CREAM 15 GM TP SCH ×2 (09:45→21:03)
[2022-05-16] MEDS: BALSAM PERU/CASTOR OIL 56.7 GM OINT...G. TP SCH (09:45)
[2022-05-16] MEDS: D5W 1,000 ML IV SCH (13:38)
[2022-05-16] MEDS: NOREPINEPHRINE BITARTRATE 16 MG in NS 234 ML IV PRN (17:18)
--- NOTE | 2022-05-16 19:15 | NUR ---
Opening notes Received report from endorsing morning shift MELI Perez for continuity of care. Patient is lying in bed with IVF D5W @ 40 mL/hr and levophed @ 0.1 mcg/kg/min. Patient's vital signs blood pressure 94/51, heart rate 77, respirations 36, and SPO2 97% on 2L NC. Tube feeding nepro @ 40 mL/hr with water flushes of 250 mL q4. Ansari catheter is in place draining to gravity. Bed is locked and in lowest position, call light button within reach, fall and safety precautions is in place.
--- NOTE | 2022-05-16 19:30 | NUR ---
REPORT GIVEN TO NIGHT RN CALEB. PATIENT MAP BP BELOW THAN 65 mmHg, RESTARTED LEVOPHED FROM 0.01 MCG/KG/MINUTE, THEN TITRATED UNTIL 0.1 MCG/KG/MINUTE TO KEEP MAP ABOVE 65. PATIENT PASSES LOOSE STOOL AND EVERYTIME, OPTIFOAM ON SACRAL OPEN WOUND GETS SOILED NEAR THE ANAL AREA. DRESSINGS DONE WITH ALGINATE DRESSING COVERED WITH OPTIFOAM.
[2022-05-17] VITALS (26 sets, daily range): BP systolic 87–116
[2022-05-17] MEDS: PIPERACILLIN/TAZO 2.25G/DEX-IS 50 ML IV SCH ×3 (05:50→20:54)
[2022-05-17] MEDS: INSULIN REGULAR, HUMAN 100 UNITS/ML, 3 ML VIAL (humuLIN R) SUBCUT PRN ×2 (05:52→13:38)
[2022-05-17 07:13] LABS: BASOPHILS % (AUTO) 0.2 % (0.0-2.0); EOSINOPHILS # (AUTO) 0.2 K/uL (0.0-0.4); EOSINOPHILS % (AUTO) 1.1 % (0.0-4.0); HEMATOCRIT 31.3 % (36-54); LYMPHOCYTES % (AUTO) 9.8 % (20.5-51.5); MEAN CORPUSCULAR HEMOGLOBIN 30 pg (27-31); MEAN CORPUSCULAR HGB CONC 32 % (32-36); MEAN CORPUSCULAR VOLUME 93 fL (79.0-98.0); MONOCYTES # (AUTO) 1.2 K/uL (0.0-1.0); MONOCYTES % (AUTO) 5.8 % (1.7-9.3); NEUTROPHILS # (AUTO) 17.2 K/uL (1.8-7.7); NEUTROPHILS % (AUTO) 83.1 % (40.0-70.0); PLATELET COUNT (AUTO) 264 K/uL (130-430); RED BLOOD CELL COUNT(AUTO) 3.36 MIL/uL (4.2-6.2); RED CELL DISTRIBUTION WIDTH 17.6 % (9.0-15.0); WHITE BLOOD COUNT (AUTO) 20.7 K/uL (4.8-10.8)
[2022-05-17 07:26] LABS: CALCIUM 9.4 mg/dL (8.4-11.0); CREATININE 3.43 mg/dL (0.55-1.30)
--- NOTE | 2022-05-17 08:20 | NUR ---
PT IN BED, 2L NASAL CANULA, TRACKS AND FOLLOWS, NOT RESPONDING VERBALLY AT THIS TIME, CARRERA CATHETER, GORDON MIDLINE RUNNING LEVOPHED 0.01MCG/KG/MIN, AND D5W AT 40ML/HR, RIJ RADHIKA CATHETER AND DIALYSIS SCHEDULED FOR TODAY, GT NEPRO 40ML/HR FWF 250 Q4H, ACCU CHECKS Q6H, NSR, MULTIPLE WOUNDS, AIR MATTRESS ON AND IN PLACE, ISOLATION CONTACT ECOLI URINE AND WOUND.
[2022-05-17] MEDS: SEVELAMER CARBONATE 800 MG TABLET GT SCH ×3 (08:38→17:57)
[2022-05-17] MEDS: TAMSULOSIN HCL 0.4 MG CAP GT SCH (08:38)
[2022-05-17] MEDS: SODIUM BICARBONATE 650 MG TABLET PO SCH ×4 (08:38→20:54)
[2022-05-17] MEDS: PANTOPRAZOLE SODIUM 40 MG TAB PO SCH (08:38)
[2022-05-17] MEDS: MIDODRINE HCL 5 MG TABLET (PROAMATINE) GT SCH ×3 (08:38→21:28)
[2022-05-17] MEDS: ATORVASTATIN 20 MG TABLET GT SCH (08:38)
[2022-05-17] MEDS: FOLIC ACID 1 MG TABLET GT SCH (08:38)
[2022-05-17] MEDS: OXYBUTYNIN CHLORIDE 5 MG TABLET GT SCH (08:38)
[2022-05-17] MEDS: DIVALPROEX SODIUM 500 MG TABLET( DEPAKOTE) PO SCH ×2 (08:38→20:54)
[2022-05-17] MEDS: ENOXAPARIN SODIUM 30 MG/0.3 ML SYRINGE SUBCUT SCH (08:39)
[2022-05-17] MEDS: LINEZOLID 300 ML IV SCH ×2 (08:39→20:53)
[2022-05-17] MEDS: EMOLLIENT COMBINATION NO.73 78 GM CREAM..G. TP SCH ×2 (08:40→20:59)
[2022-05-17] MEDS: CLOZAPINE 100MG TAB PO SCH (08:40)
[2022-05-17] MEDS: CLOTRIMAZOLE 1% TOPICAL CREAM 15 GM TP SCH ×2 (08:41→20:58)
[2022-05-17] MEDS: BALSAM PERU/CASTOR OIL 56.7 GM OINT...G. TP SCH (08:41)
[2022-05-17] MEDS: D5W 1,000 ML IV SCH (13:04)
[2022-05-17] MEDS ORDERED: HEPARIN SODIUM,PORCINE 5,000 UNITS/ML VIAL MC ONE (15:30)
[2022-05-18] VITALS (24 sets, daily range): BP systolic 91–132
[2022-05-18] MEDS: INSULIN REGULAR, HUMAN 100 UNITS/ML, 3 ML VIAL (humuLIN R) SUBCUT PRN ×2 (00:12→13:28)
[2022-05-18] MEDS: PIPERACILLIN/TAZO 2.25G/DEX-IS 50 ML IV SCH ×3 (05:05→21:30)
[2022-05-18 07:02] LABS: BASOPHILS # (AUTO) 0.1 K/uL (0.0-0.2); BASOPHILS % (AUTO) 0.3 % (0.0-2.0); EOSINOPHILS # (AUTO) 0.2 K/uL (0.0-0.4); EOSINOPHILS % (AUTO) 1.2 % (0.0-4.0); HEMATOCRIT 29.7 % (36-54); HEMOGLOBIN 9.6 g/dL (14.0-18.0); LYMPHOCYTES % (AUTO) 10.9 % (20.5-51.5); MEAN CORPUSCULAR HEMOGLOBIN 30 pg (27-31); MEAN CORPUSCULAR HGB CONC 32 % (32-36); MEAN CORPUSCULAR VOLUME 92 fL (79.0-98.0); MONOCYTES # (AUTO) 1.1 K/uL (0.0-1.0); MONOCYTES % (AUTO) 5.8 % (1.7-9.3); NEUTROPHILS # (AUTO) 15.3 K/uL (1.8-7.7); NEUTROPHILS % (AUTO) 81.8 % (40.0-70.0); PLATELET COUNT (AUTO) 216 K/uL (130-430); RED BLOOD CELL COUNT(AUTO) 3.22 MIL/uL (4.2-6.2); RED CELL DISTRIBUTION WIDTH 16.8 % (9.0-15.0); WHITE BLOOD COUNT (AUTO) 18.8 K/uL (4.8-10.8)
[2022-05-18 07:28] LABS: CALCIUM 8.8 mg/dL (8.4-11.0); CREATININE 2.64 mg/dL (0.55-1.30)
[2022-05-18] MEDS: CLOZAPINE 100MG TAB PO SCH ×2 (09:00→21:00)
[2022-05-18] MEDS: ENOXAPARIN SODIUM 30 MG/0.3 ML SYRINGE SUBCUT SCH (09:30)
[2022-05-18] MEDS: ATORVASTATIN 20 MG TABLET GT SCH (09:31)
[2022-05-18] MEDS: SODIUM BICARBONATE 650 MG TABLET PO SCH ×4 (09:31→20:23)
[2022-05-18] MEDS: SEVELAMER CARBONATE 800 MG TABLET GT SCH ×3 (09:31→17:35)
[2022-05-18] MEDS: OXYBUTYNIN CHLORIDE 5 MG TABLET GT SCH (09:31)
[2022-05-18] MEDS: PANTOPRAZOLE SODIUM 40 MG TAB PO SCH (09:31)
[2022-05-18] MEDS: TAMSULOSIN HCL 0.4 MG CAP GT SCH (09:31)
[2022-05-18] MEDS: DIVALPROEX SODIUM 500 MG TABLET( DEPAKOTE) PO SCH ×2 (09:31→20:23)
[2022-05-18] MEDS: LINEZOLID 300 ML IV SCH ×2 (09:31→19:59)
[2022-05-18] MEDS: FOLIC ACID 1 MG TABLET GT SCH (09:31)
[2022-05-18] MEDS: MIDODRINE HCL 5 MG TABLET (PROAMATINE) GT SCH ×3 (09:32→20:23)
[2022-05-18] MEDS: CLOTRIMAZOLE 1% TOPICAL CREAM 15 GM TP SCH ×2 (09:32→20:25)
[2022-05-18] MEDS: EMOLLIENT COMBINATION NO.73 78 GM CREAM..G. TP SCH ×2 (09:32→20:25)
[2022-05-18] MEDS: BALSAM PERU/CASTOR OIL 56.7 GM OINT...G. TP SCH (09:33)
--- NOTE | 2022-05-18 09:41 | NUR ---
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 Levophed increased accdg to BP and was up to 1mcg /kg/min . Placed pt on supine , flat in bed and monitored frequently almost every 5 mins. Bolus with 1 L of N. saline and hold dialysis today 05/04/22Pt has been seen as high risk for over a month. He is tolerating feeds, having normal BMs and is getting Kwasi. From now on, pt will be screened as low-risk unless any new changes arise. 05/17: Pt got HD today, wounds are worsening. S/w pts brother about his condition and brother wants to keep him full code and is fully aware of pts worsening wound ulcers Subjective Information: RD attended ICU rounds and s/w primary nurse, Siri. RD witnessed TF running @ 40mL/hr (goal). RD witnessed Levophed infusing @ 0.03mcg. According to EMR review and RN, he has been on and off Levophed a long time and he is just not stable without it. RN reports that pt wound status have not improved and are worsening; RD brought up wound supplements: zinc, VIT C, renal MVI and RN said she would ask the dr about them. Per EMR review since 05/13, pt's GRV and is between 0-250mL, RN thinks he is tolerating feedings well. Current Diet Order/Nutrition Support: Nepro at 40 ml/hr (goal), Kwasi BID, FWF: 250ml Q4h via GT x 23 days Pertinent medications: SSI, Piper/Tazo, Na Bicarbonate, Lovenox, Levophed, Glipizide, Renvela, Protonix, Lipitor, Folic acid, K+Cl, D5 @40mL/hr (provides 163 kcal) NEW pertinent labs: Hgb 9.6 L, Na 137 WNL, BUN 65 H, Cre 2.64 H, eGFR 26 L, BG 147 H Patient/Significant Other Unable To Verbalize Education Provided Not Indicated Height: 5'6" Weight: 115#/52.2kg -- stable since 04/01 Body Mass Index: 18.56 kg/m2 %IBW: 81 [place]/Adjusted Body Weight: 142#/64.5 kg Recent Weight Change: No - Unable to verify Weight Status: Underweight Food Allergies: Unable to verify Usual Diet At Home: Unable to verify NEW Skin Integrity Comment: 05/18 Clayton scale 13: w/ sacral-coccygeal unstageable PI, Left/lower buttock ischium stage 2 PI, Right outter buttock scar tissue, Right distal lateral lower extremity superior-malleous unstageable PI, Right medial heel unstageable PI, Right plantar foot/arch ischemic wound from vasopressor use, etc. Per debt collection specialist note 05/05 Edema: Generalized,BLE, Left arm/hand, Right arm/hand +2 Pitting documented 05/18 LBM: 05/18 x 1 Estimated Energy Expenditure (kcals/day) 4869-6983 (30-35 kcal/kg IBW d/t wound healing, septic shock) Estimated Protein Required (g/day) 65-90 (1-1.4 gm/kg IBW d/t CKD, wound healing, septic shock) Estimated Fluid Required (l/day) Per physician d/t CKD Problem/Etiology/Signs/Symptoms * Increased nutritional needs R/T metabolic demands AEB estimated nutritional requirements for wound healing. (On-going) * Altered nutrition-related lab values r/t renal dysfunction a/e/b elevated values: BUN, Cre. (On-going) Expected Outcomes/Goals - Monitor tolerance to EN support w/ goal of pt meeting >95% of estimated nutritional needs, labs trending WNL, normal GI function, and skin integrity/wt maintenance NEW Dietitian Recommendations *Continue current order of: Nepro at 40 ml/hr (goal), Kwasi BID, FWF: 250ml Q4h via GT Provides: 1908 kcal/day, 78 gm protein/day, and 2198 ml free water/day Meets: 99% of lower estimated caloric needs and 120% of lower estimated protein needs * Consider wound supplements: Renal MVI, 250 mg VIT C * Consider 220mg ZnSO4 x 14 days for wound healing Low Risk: F/U in 7 days GS, MPH, RD
--- NOTE | 2022-05-18 09:44 | NUR ---
Dietitian Recommendations *Continue current order of: Nepro at 40 ml/hr (goal), Kwasi BID, FWF: 250ml Q4h via GT Provides: 1908 kcal/day, 78 gm protein/day, and 2198 ml free water/day Meets: 99% of lower estimated caloric needs and 120% of lower estimated protein needs * Consider wound supplements: Renal MVI, 250 mg VIT C * Consider 220mg ZnSO4 x 14 days for wound healing GS, MPH, RD Please refer to RD F/U for further details
[2022-05-18] MEDS: D5W 1,000 ML IV SCH (13:16)
[2022-05-18] MEDS: EPOETIN ALFA-EPBX 10,000 UNITS/ML VIAL SUBCUT SCH (17:37)
[2022-05-19] VITALS (26 sets, daily range): BP systolic 92–133
[2022-05-19] MEDS: PIPERACILLIN/TAZO 2.25G/DEX-IS 50 ML IV SCH ×3 (05:06→22:42)
[2022-05-19] MEDS: INSULIN REGULAR, HUMAN 100 UNITS/ML, 3 ML VIAL (humuLIN R) SUBCUT PRN ×3 (05:20→23:41)
[2022-05-19 07:37] LABS: BASOPHILS % (AUTO) 0.1 % (0.0-2.0); EOSINOPHILS # (AUTO) 0.2 K/uL (0.0-0.4); EOSINOPHILS % (AUTO) 0.9 % (0.0-4.0); HEMATOCRIT 28.2 % (36-54); HEMOGLOBIN 9.3 g/dL (14.0-18.0); LYMPHOCYTES % (AUTO) 11.9 % (20.5-51.5); MEAN CORPUSCULAR HEMOGLOBIN 30 pg (27-31); MEAN CORPUSCULAR HGB CONC 33 % (32-36); MEAN CORPUSCULAR VOLUME 91 fL (79.0-98.0); MONOCYTES # (AUTO) 1.2 K/uL (0.0-1.0); MONOCYTES % (AUTO) 6.9 % (1.7-9.3); NEUTROPHILS # (AUTO) 13.8 K/uL (1.8-7.7); NEUTROPHILS % (AUTO) 80.2 % (40.0-70.0); PLATELET COUNT (AUTO) 185 K/uL (130-430); RED CELL DISTRIBUTION WIDTH 16.6 % (9.0-15.0); WHITE BLOOD COUNT (AUTO) 17.2 K/uL (4.8-10.8)
[2022-05-19 08:09] LABS: CALCIUM 9.4 mg/dL (8.4-11.0); CREATININE 2.82 mg/dL (0.55-1.30)
[2022-05-19] MEDS: DIVALPROEX SODIUM 500 MG TABLET( DEPAKOTE) PO SCH ×2 (08:42→20:53)
[2022-05-19] MEDS: SODIUM BICARBONATE 650 MG TABLET PO SCH ×4 (08:42→20:53)
[2022-05-19] MEDS: FOLIC ACID 1 MG TABLET GT SCH (08:42)
[2022-05-19] MEDS: OXYBUTYNIN CHLORIDE 5 MG TABLET GT SCH (08:43)
[2022-05-19] MEDS: ATORVASTATIN 20 MG TABLET GT SCH (08:43)
[2022-05-19] MEDS: PANTOPRAZOLE SODIUM 40 MG TAB PO SCH (08:43)
[2022-05-19] MEDS: TAMSULOSIN HCL 0.4 MG CAP GT SCH (08:43)
[2022-05-19] MEDS: ENOXAPARIN SODIUM 30 MG/0.3 ML SYRINGE SUBCUT SCH (08:43)
[2022-05-19] MEDS: SEVELAMER CARBONATE 800 MG TABLET GT SCH ×3 (08:43→18:00)
[2022-05-19] MEDS: MIDODRINE HCL 5 MG TABLET (PROAMATINE) GT SCH ×3 (08:45→20:49)
[2022-05-19] MEDS: LINEZOLID 300 ML IV SCH ×2 (08:45→20:50)
[2022-05-19] MEDS: BALSAM PERU/CASTOR OIL 56.7 GM OINT...G. TP SCH (08:46)
[2022-05-19] MEDS: EMOLLIENT COMBINATION NO.73 78 GM CREAM..G. TP SCH ×2 (08:47→20:50)
[2022-05-19] MEDS: CLOTRIMAZOLE 1% TOPICAL CREAM 15 GM TP SCH ×2 (08:48→20:50)
[2022-05-19] MEDS: CLOZAPINE 100MG TAB PO SCH ×2 (09:00→21:00)
[2022-05-19] MEDS ORDERED: ETOMIDATE 20 MG/ 10 ML VIAL (AMIDATE) ONE (13:17)
[2022-05-19] MEDS ORDERED: VECURONIUM BROMIDE 10 MG/VIAL (NORCURON) ONE (13:17)
--- NOTE | 2022-05-19 16:15 | NUR ---
ER doctor paged will come assess patient for intubation, intubation medication, ventilator and intubation kit at bedside
--- NOTE | 2022-05-19 17:11 | NUR ---
10 mg vecuronium, 15 mg etomidate given at order of Desean BHATTI MD prior to intubation at 1715
--- NOTE | 2022-05-19 17:17 | NUR ---
RT NOTES Pt was hyperoxygenated with 100% O2 via BVM device, NT suction and oral sxn was done prior to intubation. Dr Barreto intubated with 7.5 ETT secured @22cm. CO2 detector changed to yellow. Bilateral b/s/chest rise noted. placed on vent ac 16 450 +5 100%. vent to red outlet. BVM device remains at bedside. Alarms are set and audible at nurse's station. Sputum collected, endorsed to lab. Dr Lashell narvaez with current vent settings, ABG to be drawn.
[2022-05-19] MEDS ORDERED: VASOPRESSIN 20 UNITS in NS 99 ML IV PRN (18:00)
--- NOTE | 2022-05-19 18:40 | NUR ---
RT NOTES PULLED OUT ETT 1 CM FROM 22 TO 21 CM AT LIP LINE. NO ADVERSE REACTIONS NOTED. MELI HARMAN. Addendum: 05/19/22 at 2040 by Samy Krueger RT Amended: Links added.
[2022-05-19] MEDS ORDERED: FUROSEMIDE 40 MG/4 ML VIAL IVP ONE (18:45)
--- NOTE | 2022-05-19 19:30 | NUR ---
Pt report received. Pt lethargic, opens eyes to tactile stimulation, VSS, NAD. Pt mechanically ventilated, A/C 16, 450, 100%, 5. RIJ Ole Cath secure. GORDON Midline patent with Levophed at 0.5 mcg/kg/min. F/C secure draining clear yellow urine. G-Tube feedings of Nepro, water flushes, and IVFs of D5W all on hold r/t fluid overload as per report from previous shift. Pt has multiple wounds generalized to body, pictures on chart.
--- NOTE | 2022-05-19 19:45 | NUR ---
Bilat soft wrist restraints in place. Pt moving BLE. Propofol drip started at 20 mcg/kg/min and will titrate for pt comfort.
--- NOTE | 2022-05-19 20:00 | NUR ---
Pt resting quietly, VSS, NAD. RT at bedside. FiO2 decreased to 50%.
[2022-05-19] MEDS: D5W 1,000 ML IV SCH (22:41)
[2022-05-19] MEDS: PROPOFOL DRIP 100 ML IV PRN (22:46)
--- NOTE | 2022-05-19 23:20 | NUR ---
Pt resting quietly, VSS, NAD. RT at bedside. FiO2 decreased to 40%.
[2022-05-20] VITALS (32 sets, daily range): BP systolic 87–138
--- NOTE | 2022-05-20 | NUR ---
Dsg changes to GORDON midline and RIJ Ole Cath using sterile technique.
--- NOTE | 2022-05-20 05:15 | NUR ---
Pt resting quietly, VSS, NAD. RT at bedside. FiO2 decreased to 30%.
[2022-05-20] MEDS: PIPERACILLIN/TAZO 2.25G/DEX-IS 50 ML IV SCH ×2 (05:41→14:01)
[2022-05-20] MEDS: NOREPINEPHRINE BITARTRATE 16 MG in NS 234 ML IV PRN ×2 (05:49→17:12)
[2022-05-20] MEDS: ACETAMINOPHEN 650 MG/20.3 ML UDC GT PRN ×2 (05:50→13:19)
[2022-05-20] MEDS: PROPOFOL DRIP 100 ML IV PRN (05:50)
--- NOTE | 2022-05-20 06:00 | NUR ---
Small dark brown BM. Pt cleaned, fresh linens and gown applied.
[2022-05-20 06:48] LABS: BASOPHILS # (AUTO) 0.1 K/uL (0.0-0.2); BASOPHILS % (AUTO) 0.4 % (0.0-2.0); EOSINOPHILS # (AUTO) 0.1 K/uL (0.0-0.4); EOSINOPHILS % (AUTO) 0.4 % (0.0-4.0); HEMATOCRIT 28.5 % (36-54); HEMOGLOBIN 9.4 g/dL (14.0-18.0); LYMPHOCYTES # (AUTO) 2.3 K/uL (1.0-5.5); MEAN CORPUSCULAR HEMOGLOBIN 30 pg (27-31); MEAN CORPUSCULAR HGB CONC 33 % (32-36); MEAN CORPUSCULAR VOLUME 91 fL (79.0-98.0); MONOCYTES # (AUTO) 1.3 K/uL (0.0-1.0); MONOCYTES % (AUTO) 7.4 % (1.7-9.3); NEUTROPHILS # (AUTO) 13.7 K/uL (1.8-7.7); NEUTROPHILS % (AUTO) 78.8 % (40.0-70.0); PLATELET COUNT (AUTO) 185 K/uL (130-430); RED BLOOD CELL COUNT(AUTO) 3.15 MIL/uL (4.2-6.2); RED CELL DISTRIBUTION WIDTH 16.1 % (9.0-15.0); WHITE BLOOD COUNT (AUTO) 17.4 K/uL (4.8-10.8)
[2022-05-20 07:03] LABS: ALBUMIN 1.3 g/dL (3.4-4.8); CALCIUM 9.2 mg/dL (8.4-11.0); CREATININE 3.05 mg/dL (0.55-1.30); PHOSPHORUS 6.4 mg/dL (2.7-4.5); TOTAL BILIRUBIN 0.4 mg/dL (0.0-1.0)
--- NOTE | 2022-05-20 07:28 | NUR ---
Pt report given to oncoming RN. Pt sedated, no further changes in vent settings. Propofol drip continues at 35 mcg/kg/min and Levophed drip at 0.46 mcg/kg/min to GORDON Midline. F/C draining yellow urine with total U/O 2400 mL this shift. VSS, NAD.
--- NOTE | 2022-05-20 07:30 | NUR ---
RECEIVED PATIENT FROM NIGHT MELI BARBOZA. PT.INTUBATED ORALLY SIZE 7.5, AC/VC RATE 16, 450 MLS, +5, 30%. TUBE FEEDING BY G-TUBE WAS OFF SINCE YESTERDAY. IVF D5% WATER WAS ORDERED OFF YESTERDAY AND WAS RAN AT 5 MLS/HR. CARRERA CATHETER IN SITU, DRAINING YELLOW URINE. RIGHT JUGULAR HEMODIALYSIS CATHETER, FOR HD TODAY, DIRECTOR OF PREMIUM SEAT SALES AWARE AND [facility] WAS INFORMED. SEDATED WITH PROPOFOL AT 35 MCG/KG/MINUTE, LEVOPHED AT 0.46MCG/KG/MINUTE.
[2022-05-20] MEDS: TAMSULOSIN HCL 0.4 MG CAP GT SCH (08:20)
[2022-05-20] MEDS: SEVELAMER CARBONATE 800 MG TABLET GT SCH ×3 (08:20→17:55)
[2022-05-20] MEDS: FOLIC ACID 1 MG TABLET GT SCH (08:21)
[2022-05-20] MEDS: ATORVASTATIN 20 MG TABLET GT SCH (08:21)
[2022-05-20] MEDS: PANTOPRAZOLE SODIUM 40 MG TAB PO SCH (08:21)
[2022-05-20] MEDS: DIVALPROEX SODIUM 500 MG TABLET( DEPAKOTE) PO SCH ×2 (08:21→21:35)
[2022-05-20] MEDS: SODIUM BICARBONATE 650 MG TABLET PO SCH ×4 (08:21→21:35)
[2022-05-20] MEDS: OXYBUTYNIN CHLORIDE 5 MG TABLET GT SCH (08:21)
[2022-05-20] MEDS: ENOXAPARIN SODIUM 30 MG/0.3 ML SYRINGE SUBCUT SCH (08:22)
[2022-05-20] MEDS: LINEZOLID 300 ML IV SCH ×2 (08:25→21:09)
[2022-05-20] MEDS: MIDODRINE HCL 5 MG TABLET (PROAMATINE) GT SCH ×3 (08:25→21:34)
--- NOTE | 2022-05-20 08:50 | NUR ---
DR. YEUNG (UROLOGY SURGEON) TERESA JONES IS FOLLOWING UP WITH PATIENT FOR THE PHIMOSIS. NO NEW ORDERS. NOTED PT. IS INTUBATED.
[2022-05-20] MEDS: CLOZAPINE 100MG TAB PO SCH ×2 (09:00→21:00)
[2022-05-20] MEDS: EMOLLIENT COMBINATION NO.73 78 GM CREAM..G. TP SCH ×2 (09:02→21:04)
[2022-05-20] MEDS: BALSAM PERU/CASTOR OIL 56.7 GM OINT...G. TP SCH (09:02)
[2022-05-20] MEDS: CLOTRIMAZOLE 1% TOPICAL CREAM 15 GM TP SCH ×2 (09:02→21:04)
--- NOTE | 2022-05-20 10:50 | NUR ---
DR. PAUL (HOUSEHOLD APPLIANCE REPAIRER) NOTED PT.NPO SINCE YESTERDAY AND IVF STOPPED. ORDERED TO RESTART TUBE FEEDING AND DISCONTINUE DEXTROSE 5% WATER 40 MLS/HR. NOTED FOR HEMODIALYSIS TODAY.
[2022-05-20] MEDS: D5W 1,000 ML IV SCH (13:30)
[2022-05-20] MEDS ORDERED: ALBUMIN HUMAN 25% 100 ML IV ONE (15:00)
[2022-05-20] MEDS: INSULIN REGULAR, HUMAN 100 UNITS/ML, 3 ML VIAL (humuLIN R) SUBCUT PRN (17:55)
[2022-05-20] MEDS: EPOETIN ALFA-EPBX 10,000 UNITS/ML VIAL SUBCUT SCH (17:56)
--- NOTE | 2022-05-20 19:30 | NUR ---
REPORT GIVEN TO NIGHT MELI KNAPP. PT. INTUBATED, PROPOFOL OFF SINCE 1300 HRS.DURING HD, PT. DOES NOT MOVE, UNLESS TURNED, A LITTLE MOVEMENT OF RIGHT ARM, OPENS EYES A LITTLE. RESTRAINTS MAINTAINED. LEVOPHED TITRATED TO KEEP MAP ABOVE 65 mmHg. NEPRO 1.8 RESTARTED AT 40 MLS/HR (GOAL). WOUND CHANGED ON SACRUM, ISCHIUM, AND MIDBACK WITH ALGINATE AND OPTIFOAM. HD DONE, NET UF 1L. DR. HERNANDEZ (TALENT ACQUISITION SOURCER CAME AROUND ALMOST 7PM) AND NO NEW ORDERS. GOODURINE OUTPUT DESPITE HD DONE.
[2022-05-21] VITALS (29 sets, daily range): BP systolic 79–143
[2022-05-21 06:29] LABS: BASOPHILS # (AUTO) 0.1 K/uL (0.0-0.2); BASOPHILS % (AUTO) 0.5 % (0.0-2.0); EOSINOPHILS # (AUTO) 0.1 K/uL (0.0-0.4); EOSINOPHILS % (AUTO) 0.5 % (0.0-4.0); HEMATOCRIT 29.1 % (36-54); HEMOGLOBIN 9.6 g/dL (14.0-18.0); LYMPHOCYTES # (AUTO) 2.1 K/uL (1.0-5.5); LYMPHOCYTES % (AUTO) 11.2 % (20.5-51.5); MEAN CORPUSCULAR HEMOGLOBIN 30 pg (27-31); MEAN CORPUSCULAR HGB CONC 33 % (32-36); MEAN CORPUSCULAR VOLUME 90 fL (79.0-98.0); MONOCYTES # (AUTO) 2.3 K/uL (0.0-1.0); NEUTROPHILS # (AUTO) 14.3 K/uL (1.8-7.7); NEUTROPHILS % (AUTO) 75.8 % (40.0-70.0); PLATELET COUNT (AUTO) 154 K/uL (130-430); RED BLOOD CELL COUNT(AUTO) 3.22 MIL/uL (4.2-6.2); RED CELL DISTRIBUTION WIDTH 15.7 % (9.0-15.0); WHITE BLOOD COUNT (AUTO) 18.9 K/uL (4.8-10.8)
--- NOTE | 2022-05-21 07:25 | NUR ---
rt notes 0725 titrated fio2 to 28%, no distress noted. pt saturating 98%. RN Ana made aware.
--- NOTE | 2022-05-21 07:30 | NUR ---
RECEIVED PATIENT FROM NIGHT MELI KNAPP. PT. INTUBATED ORALLY SIZE 7.5 AC/VC RATE 16, 450 MLS, 30% +5 cmH20. NO SEDATION. LEVOPHED AT 0.31 MCG/KG/MINUTE VIA MIDLINE. CARRERA CATHETER, G-J TUBE NEPRO 1.8 40 MLS/HR + FREE WATER FLUSH, + LIO BID. MULTIPLE PRESSURE SORES. HD YESTERDAY. RT. JUGULAR TASIA CATHETER.
[2022-05-21] MEDS: CLOZAPINE 100MG TAB PO SCH ×2 (09:00→21:00)
[2022-05-21] MEDS: PROPOFOL DRIP 100 ML IV PRN ×3 (09:06→10:11)
[2022-05-21] MEDS: SEVELAMER CARBONATE 800 MG TABLET GT SCH ×3 (09:07→17:37)
[2022-05-21] MEDS: SODIUM BICARBONATE 650 MG TABLET PO SCH ×4 (09:07→22:31)
[2022-05-21] MEDS: PANTOPRAZOLE SODIUM 40 MG TAB PO SCH (09:07)
[2022-05-21] MEDS: FOLIC ACID 1 MG TABLET GT SCH (09:07)
[2022-05-21] MEDS: OXYBUTYNIN CHLORIDE 5 MG TABLET GT SCH (09:07)
[2022-05-21] MEDS: TAMSULOSIN HCL 0.4 MG CAP GT SCH (09:08)
[2022-05-21] MEDS: EMOLLIENT COMBINATION NO.73 78 GM CREAM..G. TP SCH ×2 (09:08→22:32)
[2022-05-21] MEDS: MIDODRINE HCL 5 MG TABLET (PROAMATINE) GT SCH ×3 (09:08→22:30)
[2022-05-21] MEDS: ENOXAPARIN SODIUM 30 MG/0.3 ML SYRINGE SUBCUT SCH (09:08)
[2022-05-21] MEDS: DIVALPROEX SODIUM 500 MG TABLET( DEPAKOTE) PO SCH ×2 (09:08→22:31)
[2022-05-21] MEDS: CLOTRIMAZOLE 1% TOPICAL CREAM 15 GM TP SCH ×2 (09:09→22:33)
[2022-05-21] MEDS: BALSAM PERU/CASTOR OIL 56.7 GM OINT...G. TP SCH (09:09)
[2022-05-21] MEDS: LINEZOLID 300 ML IV SCH ×2 (09:10→22:23)
[2022-05-21] MEDS: NOREPINEPHRINE BITARTRATE 16 MG in NS 234 ML IV PRN (09:13)
[2022-05-21] MEDS: ATORVASTATIN 20 MG TABLET GT SCH (10:10)
[2022-05-21] MEDS: INSULIN REGULAR, HUMAN 100 UNITS/ML, 3 ML VIAL (humuLIN R) SUBCUT PRN ×2 (12:28→17:44)
--- NOTE | 2022-05-21 13:00 | NUR ---
NO LIO AT THE PANTRY. FNS INFORMED THRU INSTRUCTOR BUS TROLLEY AND TAXITECH. AWAD THAT IT IS NOT AVAILABLE IN THE ICU.
[2022-05-21 13:06] LABS: CALCIUM 8.3 mg/dL (8.4-11.0); CREATININE 2.2 mg/dL (0.55-1.30)
[2022-05-21 13:12] LABS: ALBUMIN 1.4 g/dL (3.4-4.8); PHOSPHORUS 4.3 mg/dL (2.7-4.5); TOTAL BILIRUBIN 0.5 mg/dL (0.0-1.0)
[2022-05-21] MEDS: PIPERACILLIN/TAZO 2.25G/DEX-IS 50 ML IV SCH ×2 (13:36→22:34)
--- NOTE | 2022-05-21 15:00 | NUR ---
DR. HERNANDEZ (RENAL) ORDERED FOR CMP, PHOS, Mg TODAY AND FOR 4 DAYS & CBC FOR 4 DAYS. INFORMED OF K+ 3.4, ORDERED FOR K REPLACEMENT BY G TUBE 30 mEq X 1 NOW.
[2022-05-21] MEDS ORDERED: POTASSIUM CHLORIDE 10 MEQ TAB.PRT.SR PO ONE (15:45)
[2022-05-21] MEDS ORDERED: POTASSIUM CHLORIDE 20 MEQ/PKT PACKET GT ONE (15:45)
--- NOTE | 2022-05-21 17:03 | NUR ---
DR. PAUL (PULAR), CPAP/PS AM NOTED LEVOPHED AT 0.37 MCG/KG/MIN., TF, NO SEDATION, FiO2 28%. CPAP/PS IN A.M.
[2022-05-21] MEDS: ACETAMINOPHEN 650 MG/20.3 ML UDC GT PRN (17:37)
--- NOTE | 2022-05-21 19:30 | NUR ---
PATIENT HANDED OVER TO NIGHT MELI KNAPP. PT. INTUBATED. NO SEDATION, MORE EYE OPENING, NO TRACKING, MOVING A LITTLE BIT MORE OF HIS ARMS. LEVOPHED AT 0.34 MCG/KG/MINUTE. K REPLACED WITH 30 mEq BY G-J TUBE. WOUNDS ON SACRUM, ISCHIUM AND RIGHT HIP/THIGH CLEANED, ALGINATE APPLIED AND COVERED WITH OPTIFOAM AND ISLAND DRESSING. WITH EXUDATE ON SACRUM AND HIP/THIGH. HEEL CHANGED AND CLEANED, OTHERS INTACT AND DRY.
[2022-05-22] VITALS (25 sets, daily range): BP systolic 85–139
[2022-05-22] MEDS: PIPERACILLIN/TAZO 2.25G/DEX-IS 50 ML IV SCH ×3 (06:46→21:24)
--- NOTE | 2022-05-22 07:36 | NUR ---
RT NOTES RN to notify RT when to start CPAP trial.
[2022-05-22] MEDS: EMOLLIENT COMBINATION NO.73 78 GM CREAM..G. TP SCH ×2 (09:00→20:35)
[2022-05-22] MEDS: CLOTRIMAZOLE 1% TOPICAL CREAM 15 GM TP SCH ×2 (09:00→20:35)
[2022-05-22 09:39] LABS: BASOPHILS # (AUTO) 0.1 K/uL (0.0-0.2); BASOPHILS % (AUTO) 0.8 % (0.0-2.0); EOSINOPHILS # (AUTO) 0.2 K/uL (0.0-0.4); EOSINOPHILS % (AUTO) 1.1 % (0.0-4.0); HEMATOCRIT 27.6 % (36-54); HEMOGLOBIN 8.9 g/dL (14.0-18.0); LYMPHOCYTES % (AUTO) 10.6 % (20.5-51.5); MEAN CORPUSCULAR HEMOGLOBIN 29 pg (27-31); MEAN CORPUSCULAR HGB CONC 32 % (32-36); MEAN CORPUSCULAR VOLUME 91 fL (79.0-98.0); MONOCYTES # (AUTO) 2.8 K/uL (0.0-1.0); MONOCYTES % (AUTO) 14.9 % (1.7-9.3); NEUTROPHILS # (AUTO) 13.4 K/uL (1.8-7.7); PLATELET COUNT (AUTO) 135 K/uL (130-430); RED BLOOD CELL COUNT(AUTO) 3.04 MIL/uL (4.2-6.2); RED CELL DISTRIBUTION WIDTH 15.5 % (9.0-15.0); WHITE BLOOD COUNT (AUTO) 18.5 K/uL (4.8-10.8)
[2022-05-22] MEDS: SEVELAMER CARBONATE 800 MG TABLET GT SCH ×2 (09:45→13:56)
[2022-05-22] MEDS: DIVALPROEX SODIUM 500 MG TABLET( DEPAKOTE) PO SCH ×2 (09:45→20:34)
[2022-05-22] MEDS: ATORVASTATIN 20 MG TABLET GT SCH (09:45)
[2022-05-22] MEDS: MIDODRINE HCL 5 MG TABLET (PROAMATINE) GT SCH ×3 (09:45→20:34)
[2022-05-22] MEDS: OXYBUTYNIN CHLORIDE 5 MG TABLET GT SCH (09:45)
[2022-05-22] MEDS: SODIUM BICARBONATE 650 MG TABLET PO SCH ×4 (09:46→20:33)
[2022-05-22] MEDS: TAMSULOSIN HCL 0.4 MG CAP GT SCH (09:46)
[2022-05-22] MEDS: FOLIC ACID 1 MG TABLET GT SCH (09:46)
[2022-05-22] MEDS: PANTOPRAZOLE SODIUM 40 MG TAB PO SCH (09:46)
[2022-05-22] MEDS: ENOXAPARIN SODIUM 30 MG/0.3 ML SYRINGE SUBCUT SCH (09:47)
[2022-05-22 10:02] LABS: ALBUMIN 1.4 g/dL (3.4-4.8); CALCIUM 8.5 mg/dL (8.4-11.0); CREATININE 2.53 mg/dL (0.55-1.30); PHOSPHORUS 4.6 mg/dL (2.7-4.5); TOTAL BILIRUBIN 0.5 mg/dL (0.0-1.0)
[2022-05-22] MEDS: LINEZOLID 300 ML IV SCH ×2 (11:38→20:34)
[2022-05-22] MEDS: BALSAM PERU/CASTOR OIL 56.7 GM OINT...G. TP SCH (12:22)
[2022-05-22] MEDS ORDERED: FUROSEMIDE 40 MG/4 ML VIAL IVP ONE (13:15)
[2022-05-22 15:06] LABS: NEUTROPHILS % (AUTO) 72.6 % (40.0-70.0)
[2022-05-22] MEDS: ACETAMINOPHEN 650 MG/20.3 ML UDC GT PRN ×2 (15:50→20:34)
[2022-05-22] MEDS: NOREPINEPHRINE BITARTRATE 16 MG in NS 234 ML IV PRN (16:13)
[2022-05-22] MEDS: EPOETIN ALFA-EPBX 10,000 UNITS/ML VIAL SUBCUT SCH (17:34)
[2022-05-22] MEDS: INSULIN REGULAR, HUMAN 100 UNITS/ML, 3 ML VIAL (humuLIN R) SUBCUT PRN ×2 (17:39→23:45)
--- NOTE | 2022-05-22 19:17 | NUR ---
Patient remained intubated and vented. Lasix 40 mg IVP given as ordered. Mild low grade temperature. Tylenol given. Atempted to wean levo off. Patients pressure went down to 86/57. Levo currently at 0.3mcgs/kg/min. Restraints off as patient is calm and not pulling tubes and lines. Updates given to Ctrs . Follow up with goals of care for the patient with the team and family.
--- NOTE | 2022-05-22 19:30 | NUR ---
PM ASSESSMENT REPORT RECEIVED FROM AM RN. PT RECEIVED IN BED WITH EYES CLOSED, NO S/S OF ACUTE DISTRESS NOTED. PT INTUBATED, VENT SETTINGS: AC 16, TV 450, FIO2 28%, PEEP 5. ST ON MONITOR. RIJ QC NOTED FOR DIALYSIS ACCESS. GORDON ML IN PLACE INFUSING LEVOPHED DRIP PER ORDERS. GJ TUBE IN PLACE RUNNING TF PER ORDERS. CARRERA CATH IN PLACE DRAINING URINE TO GRAVITY. HOB ELEVATED, BED LOCKED IN LOWEST POSITION, CALL LIGHT IN REACH. WILL CONTINUE TO MONITOR PT.
[2022-05-22] MEDS: CLOZAPINE 100MG TAB PO SCH (21:00)
[2022-05-23] VITALS (31 sets, daily range): BP systolic 89–136
[2022-05-23] MEDS: PIPERACILLIN/TAZO 2.25G/DEX-IS 50 ML IV SCH ×3 (05:04→22:35)
[2022-05-23] MEDS: INSULIN REGULAR, HUMAN 100 UNITS/ML, 3 ML VIAL (humuLIN R) SUBCUT PRN ×2 (05:05→12:35)
[2022-05-23 07:15] LABS: BASOPHILS # (AUTO) 0.3 K/uL (0.0-0.2); BASOPHILS % (AUTO) 1.4 % (0.0-2.0); EOSINOPHILS # (AUTO) 0.2 K/uL (0.0-0.4); EOSINOPHILS % (AUTO) 0.7 % (0.0-4.0); HEMATOCRIT 26.5 % (36-54); HEMOGLOBIN 8.6 g/dL (14.0-18.0); LYMPHOCYTES # (AUTO) 2.8 K/uL (1.0-5.5); LYMPHOCYTES % (AUTO) 13.1 % (20.5-51.5); MEAN CORPUSCULAR HEMOGLOBIN 30 pg (27-31); MEAN CORPUSCULAR HGB CONC 33 % (32-36); MEAN CORPUSCULAR VOLUME 92 fL (79.0-98.0); MONOCYTES # (AUTO) 4.6 K/uL (0.0-1.0); MONOCYTES % (AUTO) 21.2 % (1.7-9.3); NEUTROPHILS # (AUTO) 13.8 K/uL (1.8-7.7); NEUTROPHILS % (AUTO) 63.6 % (40.0-70.0); PLATELET COUNT (AUTO) 115 K/uL (130-430); RED BLOOD CELL COUNT(AUTO) 2.88 MIL/uL (4.2-6.2); RED CELL DISTRIBUTION WIDTH 15.9 % (9.0-15.0); WHITE BLOOD COUNT (AUTO) 21.7 K/uL (4.8-10.8)
[2022-05-23 07:25] LABS: ALBUMIN 1.3 g/dL (3.4-4.8); CALCIUM 8.2 mg/dL (8.4-11.0); CREATININE 2.86 mg/dL (0.55-1.30); PHOSPHORUS 4.9 mg/dL (2.7-4.5); TOTAL BILIRUBIN 0.4 mg/dL (0.0-1.0)
--- NOTE | 2022-05-23 08:00 | NUR ---
ISABEL VELÁSQUEZ RN IS IN CHARGE OF THIS PATIENT,PT IS DROWSY BUT AROUSABLE AND MOVING EXTREMITIES THOUGH WEAK, PT IS ORIENTED TO SELF, REORIENTED PT TO TIME AND PLACE, PT DOESNT RESPOND WHEN ASKED IF HE HAS PAIN, BUT PT VS DONT REFLECT PAIN/MW
[2022-05-23] MEDS: NOREPINEPHRINE BITARTRATE 16 MG in NS 234 ML IV PRN (08:51)
[2022-05-23] MEDS: ENOXAPARIN SODIUM 30 MG/0.3 ML SYRINGE SUBCUT SCH (09:24)
[2022-05-23] MEDS: SODIUM BICARBONATE 650 MG TABLET PO SCH ×4 (09:24→21:37)
[2022-05-23] MEDS: BALSAM PERU/CASTOR OIL 56.7 GM OINT...G. TP SCH ×2 (09:26→12:30)
[2022-05-23] MEDS: SEVELAMER CARBONATE 800 MG TABLET GT SCH ×4 (09:26→17:18)
[2022-05-23] MEDS: TAMSULOSIN HCL 0.4 MG CAP GT SCH (09:28)
[2022-05-23] MEDS: PANTOPRAZOLE SODIUM 40 MG TAB PO SCH (09:29)
[2022-05-23] MEDS: MIDODRINE HCL 5 MG TABLET (PROAMATINE) GT SCH ×3 (09:29→21:08)
[2022-05-23] MEDS: FOLIC ACID 1 MG TABLET GT SCH (09:29)
[2022-05-23] MEDS: OXYBUTYNIN CHLORIDE 5 MG TABLET GT SCH (09:30)
[2022-05-23] MEDS: ATORVASTATIN 20 MG TABLET GT SCH (09:31)
[2022-05-23] MEDS: DIVALPROEX SODIUM 500 MG TABLET( DEPAKOTE) PO SCH ×2 (09:31→21:38)
[2022-05-23] MEDS: EMOLLIENT COMBINATION NO.73 78 GM CREAM..G. TP SCH ×2 (09:33→22:36)
[2022-05-23] MEDS: LINEZOLID 300 ML IV SCH ×2 (09:33→20:59)
[2022-05-23] MEDS: CLOTRIMAZOLE 1% TOPICAL CREAM 15 GM TP SCH ×2 (09:34→21:00)
[2022-05-23] MEDS: CLOZAPINE 100MG TAB PO SCH ×2 (12:42→21:00)
[2022-05-24] VITALS (28 sets, daily range): BP systolic 92–134
[2022-05-24] MEDS ORDERED: GENTAMICIN IN NACL, ISO-OSM 100 ML IV ONE (04:20)
[2022-05-24] MEDS ORDERED: GENTAMICIN SULFATE IV ONE (05:00)
[2022-05-24] MEDS ORDERED: NS IV ONE (05:00)
[2022-05-24] MEDS: PIPERACILLIN/TAZO 2.25G/DEX-IS 50 ML IV SCH ×3 (05:59→23:00)
[2022-05-24] MEDS: INSULIN REGULAR, HUMAN 100 UNITS/ML, 3 ML VIAL (humuLIN R) SUBCUT PRN ×2 (06:03→18:20)
[2022-05-24 07:17] LABS: BASOPHILS # (AUTO) 0.2 K/uL (0.0-0.2); BASOPHILS % (AUTO) 0.9 % (0.0-2.0); EOSINOPHILS # (AUTO) 0.4 K/uL (0.0-0.4); EOSINOPHILS % (AUTO) 2.2 % (0.0-4.0); HEMATOCRIT 25.8 % (36-54); HEMOGLOBIN 8.3 g/dL (14.0-18.0); LYMPHOCYTES # (AUTO) 2.4 K/uL (1.0-5.5); MEAN CORPUSCULAR HEMOGLOBIN 30 pg (27-31); MEAN CORPUSCULAR HGB CONC 32 % (32-36); MEAN CORPUSCULAR VOLUME 92 fL (79.0-98.0); MONOCYTES # (AUTO) 2.4 K/uL (0.0-1.0); NEUTROPHILS # (AUTO) 12.9 K/uL (1.8-7.7); NEUTROPHILS % (AUTO) 70.9 % (40.0-70.0); PLATELET COUNT (AUTO) 100 K/uL (130-430); RED CELL DISTRIBUTION WIDTH 16.2 % (9.0-15.0); WHITE BLOOD COUNT (AUTO) 18.3 K/uL (4.8-10.8)
[2022-05-24 07:46] LABS: ALBUMIN 1.3 g/dL (3.4-4.8); CALCIUM 8.9 mg/dL (8.4-11.0); CREATININE 3.15 mg/dL (0.55-1.30); PHOSPHORUS 5.5 mg/dL (2.7-4.5); TOTAL BILIRUBIN 0.4 mg/dL (0.0-1.0)
[2022-05-24] MEDS: CLOZAPINE 100MG TAB PO SCH ×2 (09:00→21:00)
[2022-05-24] MEDS: DIVALPROEX SODIUM 500 MG TABLET( DEPAKOTE) PO SCH ×2 (09:29→21:29)
[2022-05-24] MEDS: PANTOPRAZOLE SODIUM 40 MG TAB PO SCH (09:29)
[2022-05-24] MEDS: FOLIC ACID 1 MG TABLET GT SCH (09:29)
[2022-05-24] MEDS: SEVELAMER CARBONATE 800 MG TABLET GT SCH ×3 (09:30→17:34)
[2022-05-24] MEDS: ENOXAPARIN SODIUM 30 MG/0.3 ML SYRINGE SUBCUT SCH (09:30)
[2022-05-24] MEDS: SODIUM BICARBONATE 650 MG TABLET PO SCH ×4 (09:30→21:28)
[2022-05-24] MEDS: OXYBUTYNIN CHLORIDE 5 MG TABLET GT SCH (09:30)
[2022-05-24] MEDS: ATORVASTATIN 20 MG TABLET GT SCH (09:30)
[2022-05-24] MEDS: TAMSULOSIN HCL 0.4 MG CAP GT SCH (09:30)
[2022-05-24] MEDS: MIDODRINE HCL 5 MG TABLET (PROAMATINE) GT SCH ×3 (09:30→21:28)
[2022-05-24] MEDS: EMOLLIENT COMBINATION NO.73 78 GM CREAM..G. TP SCH ×2 (09:31→21:29)
[2022-05-24] MEDS: BALSAM PERU/CASTOR OIL 56.7 GM OINT...G. TP SCH (09:31)
[2022-05-24] MEDS: LINEZOLID 300 ML IV SCH ×2 (09:31→20:43)
[2022-05-24] MEDS: CLOTRIMAZOLE 1% TOPICAL CREAM 15 GM TP SCH ×2 (09:31→21:30)
[2022-05-24] MEDS ORDERED: HEPARIN SODIUM,PORCINE 5,000 UNITS/ML VIAL MC ONE ×2 (11:45)
--- NOTE | 2022-05-24 16:00 | NUR ---
PATIENT RECEIVED DIALYSIS 1 LITER OUR, TOLERATED WELL.
[2022-05-25] VITALS (28 sets, daily range): BP systolic 62–145
[2022-05-25] MEDS: ACETAMINOPHEN 650 MG/20.3 ML UDC GT PRN (01:46)
[2022-05-25] MEDS: NOREPINEPHRINE BITARTRATE 16 MG in NS 234 ML IV PRN (02:09)
[2022-05-25 06:05] LABS: HEMATOCRIT 23.4 % (36-54); HEMOGLOBIN 7.7 g/dL (14.0-18.0); MEAN CORPUSCULAR HEMOGLOBIN 30 pg (27-31); MEAN CORPUSCULAR HGB CONC 33 % (32-36); MEAN CORPUSCULAR VOLUME 90 fL (79.0-98.0); PLATELET COUNT (AUTO) 103 K/uL (130-430); RED BLOOD CELL COUNT(AUTO) 2.58 MIL/uL (4.2-6.2); RED CELL DISTRIBUTION WIDTH 15.6 % (9.0-15.0); WHITE BLOOD COUNT (AUTO) 17.4 K/uL (4.8-10.8)
[2022-05-25] MEDS: PIPERACILLIN/TAZO 2.25G/DEX-IS 50 ML IV SCH ×3 (06:45→21:40)
--- NOTE | 2022-05-25 06:45 | NUR ---
Pt. had a Temp.=101.4 Given Tylenol per GT and cooling measures initiated. T=100.9 then increased back to 101.4 at 0430 so tepid sponge bath done and wound dressings changed. [facility] bath rendered. Temp. =98.6 @ 0600. Will make ID aware to obtain orders for blood cultures. Cardiac and resp. monitoring cont. Needs met.
--- NOTE | 2022-05-25 07:05 | NUR ---
rt notes 0705 RT tried pt on CPAP trial (cpap 5 ps 10) within 10 mins pt keeps on going apneic, despite coaching and demonstration for pt to take deep breaths, unsuccessful trial. will cont to monitor pt.
--- NOTE | 2022-05-25 07:27 | NUR ---
PT IN BED, AWAKE AND TRACKING, DOES FOLLOW COMMANDS, LEVOPHED 0.06MCG/KG/MIN, NO SEDATION, INTUBATED ON VENTILATOR, CARRERA DRAINING CLEAR YELLOW URINE, DIALYSIS ACCESS RADIHKA CATHETER RIGHT SUBCLAVIAN, LEFT UPPER ARM MIDLINE, FEVER REPORTED DURING THE NIGHT BY QUILL CLEANING MACHINE OPERATOR RN, COOLING MEASURES IN PLACE.
[2022-05-25 07:30] LABS: ALBUMIN 1.2 g/dL (3.4-4.8); CALCIUM 8.4 mg/dL (8.4-11.0); CREATININE 2.29 mg/dL (0.55-1.30); GENTAMICIN,RANDOM 0.5 ug/mL; PHOSPHORUS 3.5 mg/dL (2.7-4.5); TOTAL BILIRUBIN 0.4 mg/dL (0.0-1.0)
[2022-05-25] MEDS: CLOZAPINE 100MG TAB PO SCH ×2 (09:00→20:40)
[2022-05-25] MEDS ORDERED: KCL 20 mEq in NS 1000 mL 1,000 ML IV SCH (09:15)
[2022-05-25] MEDS: SODIUM BICARBONATE 650 MG TABLET PO SCH ×4 (09:20→20:39)
[2022-05-25] MEDS: FOLIC ACID 1 MG TABLET GT SCH (09:20)
[2022-05-25] MEDS: ATORVASTATIN 20 MG TABLET GT SCH (09:20)
[2022-05-25] MEDS: OXYBUTYNIN CHLORIDE 5 MG TABLET GT SCH (09:20)
[2022-05-25] MEDS: PANTOPRAZOLE SODIUM 40 MG TAB PO SCH (09:20)
[2022-05-25] MEDS: SEVELAMER CARBONATE 800 MG TABLET GT SCH ×3 (09:20→17:07)
[2022-05-25] MEDS: TAMSULOSIN HCL 0.4 MG CAP GT SCH (09:20)
[2022-05-25] MEDS: ENOXAPARIN SODIUM 30 MG/0.3 ML SYRINGE SUBCUT SCH (09:20)
[2022-05-25] MEDS: LINEZOLID 300 ML IV SCH ×2 (09:21→20:39)
[2022-05-25] MEDS: MIDODRINE HCL 5 MG TABLET (PROAMATINE) GT SCH ×3 (09:21→20:40)
[2022-05-25] MEDS: EMOLLIENT COMBINATION NO.73 78 GM CREAM..G. TP SCH ×2 (09:24→20:40)
[2022-05-25] MEDS: CLOTRIMAZOLE 1% TOPICAL CREAM 15 GM TP SCH ×2 (09:24→20:40)
[2022-05-25] MEDS: BALSAM PERU/CASTOR OIL 56.7 GM OINT...G. TP SCH (09:25)
[2022-05-25] MEDS: DIVALPROEX SODIUM 500 MG TABLET( DEPAKOTE) PO SCH ×2 (09:47→20:39)
[2022-05-25] MEDS ORDERED: KCL 20 mEq in 100 mL (PREMIX) 100 ML IV ONE (10:00)
--- NOTE | 2022-05-25 10:13 | NUR ---
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 Levophed increased accdg to BP and was up to 1mcg /kg/min . Placed pt on supine , flat in bed and monitored frequently almost every 5 mins. Bolus with 1 L of N. saline and hold dialysis today 05/04/22Pt has been seen as high risk for over a month. He is tolerating feeds, having normal BMs and is getting Kwasi. From now on, pt will be screened as low-risk unless any new changes arise. 05/17: Pt got HD today, wounds are worsening. S/w pts brother about his condition and brother wants to keep him full code and is fully aware of pts worsening wound ulcers Subjective Information: RD attended ICU rounds and s/w primary nurse, Siri. RD witnessed TF running @ 40mL/hr (goal). Pt is still on Levophed. RN states pt has been having high residuals (though documented are 0mL). RN thinks its because of the water flushes. RN Siri and Miguel, thought we should lower the amount of water flushes to 30-40mL, d/t GRV and pts Na is too low now. Wounds are about the same per RN. Pt is not currently on any sedation, no D5w. RN stated that only one Kwasi is being sent in the am, and if he should be getting Kwasi BID, can they send 2 in the am? RD said she would talk to diet clerks. Current Diet Order/Nutrition Support: Nepro at 40 ml/hr (goal), Kwasi BID, FWF: 250ml Q4h via GT x 30 days Pertinent medications: SSI, Piper/Tazo, Na Bicarbonate, Lovenox, Levophed, Glipizide, Renvela, Protonix, Lipitor, Folic acid NEW pertinent labs: Hgb7.7 L, Na 135 L, K 2.9*L, BUN 58 H, Cre 2.29 H, eGFR 31 L, BG 115 H Patient/Significant Other Unable To Verbalize Education Provided Not Indicated Height: 5'6" Weight: 115#/52.2kg -- stable since 04/01 Body Mass Index: 18.56 kg/m2 %IBW: 81 [place]/Adjusted Body Weight: 142#/64.5 kg Recent Weight Change: No - Unable to verify Weight Status: Underweight Food Allergies: Unable to verify Usual Diet At Home: Unable to verify NEW Skin Integrity Comment: 05/25 Clayton scale 11: w/ sacral-coccygeal unstageable PI, Left/lower buttock ischium stage 2 PI, Right outter buttock scar tissue, Right distal lateral lower extremity superior-malleous unstageable PI, Right medial heel unstageable PI, Right plantar foot/arch ischemic wound from vasopressor use, etc. Per customer resolution specialist note 05/05 Edema: Generalized,BLE, Left arm/hand, Right arm/hand +2 Pitting documented 05/18 LBM: 05/25 x 1 NEW Estimated Energy Expenditure (kcals/day) 1656 kcal ([facility] 2003 ICU/Vent, MSJ 1259, Ve 7.4, Tmax 38.5) Estimated Protein Required (g/day) 65-90 (1-1.4 gm/kg IBW d/t CKD, wound healing, septic shock) Estimated Fluid Required (l/day) Per physician d/t CKD Problem/Etiology/Signs/Symptoms * Increased nutritional needs R/T metabolic demands AEB estimated nutritional requirements for wound healing. (On-going) * Altered nutrition-related lab values r/t renal dysfunction a/e/b elevated values: BUN, Cre. (On-going) Expected Outcomes/Goals - Monitor tolerance to EN support w/ goal of pt meeting >95% of estimated nutritional needs, labs trending WNL, normal GI function, and skin integrity/wt maintenance NEW Dietitian Recommendations *New recommendation: Nepro at 35 ml/hr (goal), Kwasi BID, FWF: 40ml Q4h via GT Provides (w/ Kwasi): 1692 kcal/day, 68 gm protein/day, and 850 ml free water/day Meets: 102% of estimated caloric needs and 105% of lower estimated protein needs * Consider wound supplements: Renal MVI, 250 mg VIT C * Consider 220mg ZnSO4 x 14 days for wound healing Low Risk: F/U in 7 days GS, MPH, RD
--- NOTE | 2022-05-25 14:00 | NUR ---
Discharge Planning: DCP faxed pt referral to [facility] [phone] DCP to follow up
[2022-05-25] MEDS ORDERED: GENTAMICIN 80 MG/ ISO-OSM 100 ML PREMIX IV ONE (15:00)
[2022-05-25 15:33] LABS: BAND % (MANUAL) 17 % (0-6); LYMPHOCYTES % (MANUAL) 3 % (20-46)
[2022-05-25 15:34] LABS: ATYPICAL LYMPHOCYTES % 7 % (0-0); BASOPHILS % (MANUAL) 0 % (0-2); EOSINOPHILS % (MANUAL) 0 % (0-7); METAMYELOCYTES % 4 % (0-0); MONOCYTES % (MANUAL) 10 % (0-11)
[2022-05-25] MEDS: EPOETIN ALFA-EPBX 10,000 UNITS/ML VIAL SUBCUT SCH (17:07)
[2022-05-25] MEDS: INSULIN REGULAR, HUMAN 100 UNITS/ML, 3 ML VIAL (humuLIN R) SUBCUT PRN ×2 (17:31→23:18)
--- NOTE | 2022-05-25 19:11 | NUR ---
ENDORSED CONTINUATION OF CARE TO WAREHOUSE RECORD CLERK MELI STAPLES
--- NOTE | 2022-05-25 19:30 | NUR ---
PM ASSESSMENT REPORT RECEIVED FROM AM RN. PT RECEIVED IN BED WITH EYES CLOSED, RESPONDING TO TACTILE STIMULATION. VSS, NO S/S OF ACUTE DISTRESS NOTED. PT INTUBATED, VENT SETTINGS: AC 16, TV 450, FIO2 28%, PEEP 5. SR ON MONITOR. GORDON ML INFUSING LEVOPHED DRIP PER ORDERS. RIJ QC NOTED FOR HD ACCESS. GJ TUBE IN PLACE RUNNING TF PER ORDERS. FC DRAINING URINE TO GRAVITY. HOB ELEVATED, BED LOCKED IN LOWEST POSITION, CALL LIGHT IN REACH. WILL CONTINUE TO MONITOR PT.
[2022-05-26] VITALS (27 sets, daily range): BP systolic 86–147
--- NOTE | 2022-05-26 02:00 | NUR ---
HYGIENE PT HAD SMALL AMOUNT OF LOOSE STOOL. ANIKET CARE PROVIDED AND LINENS CHANGED. CHG BATH GIVEN. PT TOLERATED WELL.
[2022-05-26] MEDS: PIPERACILLIN/TAZO 2.25G/DEX-IS 50 ML IV SCH ×3 (05:14→23:49)
[2022-05-26 06:48] LABS: BASOPHILS # (AUTO) 0.1 K/uL (0.0-0.2); BASOPHILS % (AUTO) 0.8 % (0.0-2.0); EOSINOPHILS # (AUTO) 0.3 K/uL (0.0-0.4); EOSINOPHILS % (AUTO) 2.2 % (0.0-4.0); HEMATOCRIT 24.5 % (36-54); LYMPHOCYTES % (AUTO) 13.2 % (20.5-51.5); MEAN CORPUSCULAR HEMOGLOBIN 30 pg (27-31); MEAN CORPUSCULAR HGB CONC 33 % (32-36); MEAN CORPUSCULAR VOLUME 91 fL (79.0-98.0); MONOCYTES # (AUTO) 1.7 K/uL (0.0-1.0); MONOCYTES % (AUTO) 11.3 % (1.7-9.3); NEUTROPHILS # (AUTO) 11.1 K/uL (1.8-7.7); NEUTROPHILS % (AUTO) 72.5 % (40.0-70.0); PLATELET COUNT (AUTO) 97 K/uL (130-430); RED BLOOD CELL COUNT(AUTO) 2.69 MIL/uL (4.2-6.2); RED CELL DISTRIBUTION WIDTH 15.9 % (9.0-15.0); WHITE BLOOD COUNT (AUTO) 15.3 K/uL (4.8-10.8)
--- NOTE | 2022-05-26 07:28 | NUR ---
RT NOTES Per daily SBT, vent to cpap 5 ps 10. No immediate adverse reactions noted. Pt is awake. Will monitor pt.
--- NOTE | 2022-05-26 07:51 | NUR ---
RT NOTES Vent back to AC due to tachypnea, 45 R.R. RN notified.
[2022-05-26 08:07] LABS: CALCIUM 8.8 mg/dL (8.4-11.0); CREATININE 2.59 mg/dL (0.55-1.30); TOTAL BILIRUBIN 0.4 mg/dL (0.0-1.0)
[2022-05-26 08:08] LABS: ALBUMIN 1.3 g/dL (3.4-4.8); PHOSPHORUS 4.2 mg/dL (2.7-4.5)
[2022-05-26] MEDS: CLOZAPINE 100MG TAB PO SCH ×2 (09:00→20:44)
[2022-05-26] MEDS: SODIUM BICARBONATE 650 MG TABLET PO SCH ×4 (09:10→20:44)
[2022-05-26] MEDS: DIVALPROEX SODIUM 500 MG TABLET( DEPAKOTE) PO SCH ×2 (09:10→20:43)
[2022-05-26] MEDS: SEVELAMER CARBONATE 800 MG TABLET GT SCH ×3 (09:10→18:00)
[2022-05-26] MEDS: ATORVASTATIN 20 MG TABLET GT SCH (09:10)
[2022-05-26] MEDS: TAMSULOSIN HCL 0.4 MG CAP GT SCH (09:10)
[2022-05-26] MEDS: LINEZOLID 300 ML IV SCH ×2 (09:10→20:43)
[2022-05-26] MEDS: PANTOPRAZOLE SODIUM 40 MG TAB PO SCH (09:10)
[2022-05-26] MEDS: FOLIC ACID 1 MG TABLET GT SCH (09:10)
[2022-05-26] MEDS: ENOXAPARIN SODIUM 30 MG/0.3 ML SYRINGE SUBCUT SCH (09:11)
[2022-05-26] MEDS: OXYBUTYNIN CHLORIDE 5 MG TABLET GT SCH (09:13)
[2022-05-26] MEDS: MIDODRINE HCL 5 MG TABLET (PROAMATINE) GT SCH ×3 (09:13→20:43)
[2022-05-26] MEDS: CLOTRIMAZOLE 1% TOPICAL CREAM 15 GM TP SCH ×2 (09:14→20:44)
[2022-05-26] MEDS: EMOLLIENT COMBINATION NO.73 78 GM CREAM..G. TP SCH ×2 (09:14→20:44)
[2022-05-26] MEDS: BALSAM PERU/CASTOR OIL 56.7 GM OINT...G. TP SCH (09:14)
--- NOTE | 2022-05-26 09:44 | NUR ---
Patient restarted on levophed for BP 82/45 (60) at initial rate.
[2022-05-26] MEDS: NOREPINEPHRINE BITARTRATE 16 MG in NS 234 ML IV PRN ×2 (10:07→17:52)
--- NOTE | 2022-05-26 10:20 | NUR ---
JADYN Ro spoke with [facility] regarding patient whether to be on trach or vent.
[2022-05-26 12:22] LABS: GENTAMICIN,RANDOM 2.2 ug/mL
[2022-05-26] MEDS ORDERED: FUROSEMIDE 20 MG TABLET PO ONE (17:00)
[2022-05-26] MEDS ORDERED: POTASSIUM CHLORIDE 20 MEQ/PKT PACKET PO ONE (17:00)
[2022-05-26] MEDS ORDERED: LORazepam 2 MG/ML VIAL ONE (18:42)
[2022-05-26] MEDS ORDERED: LORazepam 2 MG/ML VIAL IVP PRN (18:45)
--- NOTE | 2022-05-26 19:30 | NUR ---
Report given to night monitor RN for continuity of care. Patient stable. Dr. Narvaez made aware of patient clenching ET Tube. New orders noted.
--- NOTE | 2022-05-26 19:30 | NUR ---
PM ASSESSMENT REPORT RECEIVED FROM AM RN. PT RECEIVED IN BED WITH EYES CLOSED, RESPONDING TO TACTILE STIMULATION. VSS, NO S/S OF ACUTE DISTRESS NOTED. PT INTUBATED, VENT SETTINGS: AC 16, TV 450, FIO2 28%, PEEP 5. ST ON MONITOR. RIJ QC NOTED. GORDON ML INFUSING LEVOPHED DRIP PER ORDERS. GT IN PLACE RUNNING TF PER ORDERS. FC DRAINING URINE TO GRAVITY. HOB ELEVATED, BED IN LOWEST POSITION, CALL LIGHT IN REACH. WILL CONTINUE TO MONITOR.
[2022-05-26] MEDS: ACETAMINOPHEN 650 MG/20.3 ML UDC GT PRN (21:14)
[2022-05-26] MEDS: INSULIN REGULAR, HUMAN 100 UNITS/ML, 3 ML VIAL (humuLIN R) SUBCUT PRN (23:51)
[2022-05-27] VITALS (38 sets, daily range): BP systolic 80–126
[2022-05-27] MEDS: ACETAMINOPHEN 650 MG/20.3 ML UDC GT PRN (05:22)
[2022-05-27] MEDS: PIPERACILLIN/TAZO 2.25G/DEX-IS 50 ML IV SCH ×2 (05:22→13:10)
[2022-05-27] MEDS: INSULIN REGULAR, HUMAN 100 UNITS/ML, 3 ML VIAL (humuLIN R) SUBCUT PRN ×3 (05:24→23:19)
[2022-05-27 06:35] LABS: BASOPHILS # (AUTO) 0.1 K/uL (0.0-0.2); BASOPHILS % (AUTO) 0.3 % (0.0-2.0); EOSINOPHILS # (AUTO) 0.3 K/uL (0.0-0.4); EOSINOPHILS % (AUTO) 1.2 % (0.0-4.0); HEMATOCRIT 24.8 % (36-54); HEMOGLOBIN 8.1 g/dL (14.0-18.0); LYMPHOCYTES # (AUTO) 2.3 K/uL (1.0-5.5); LYMPHOCYTES % (AUTO) 10.8 % (20.5-51.5); MEAN CORPUSCULAR HEMOGLOBIN 30 pg (27-31); MEAN CORPUSCULAR HGB CONC 33 % (32-36); MEAN CORPUSCULAR VOLUME 92 fL (79.0-98.0); MONOCYTES # (AUTO) 2.2 K/uL (0.0-1.0); MONOCYTES % (AUTO) 10.3 % (1.7-9.3); NEUTROPHILS # (AUTO) 16.3 K/uL (1.8-7.7); NEUTROPHILS % (AUTO) 77.4 % (40.0-70.0); PLATELET COUNT (AUTO) 118 K/uL (130-430); RED BLOOD CELL COUNT(AUTO) 2.71 MIL/uL (4.2-6.2); RED CELL DISTRIBUTION WIDTH 15.9 % (9.0-15.0)
[2022-05-27 06:50] LABS: CALCIUM 8.7 mg/dL (8.4-11.0); CREATININE 2.77 mg/dL (0.55-1.30); GENTAMICIN,RANDOM 1.1 ug/mL
--- NOTE | 2022-05-27 08:00 | NUR ---
AM ASSESSMENT APPROACHED PT, AFEBRILE THIS SHIFT, ON LEVOPHED DRIP AT 0.08 MCG/KG/MIN, THRU MID LINE PORT, MECHANICALLY INTUBATED, ORAL CARE DONE, MOUTH MOVES LIKE SUCKING MOTION, GTUBE ON NEPRO FEEDING, SOFT ABDOMEN.
[2022-05-27] MEDS: SODIUM BICARBONATE 650 MG TABLET PO SCH ×4 (08:46→21:02)
[2022-05-27] MEDS: SEVELAMER CARBONATE 800 MG TABLET GT SCH ×3 (08:46→17:41)
[2022-05-27] MEDS: PANTOPRAZOLE SODIUM 40 MG TAB PO SCH (08:46)
[2022-05-27] MEDS: OXYBUTYNIN CHLORIDE 5 MG TABLET GT SCH (08:46)
[2022-05-27] MEDS: ENOXAPARIN SODIUM 30 MG/0.3 ML SYRINGE SUBCUT SCH (08:46)
[2022-05-27] MEDS: TAMSULOSIN HCL 0.4 MG CAP GT SCH (08:46)
[2022-05-27] MEDS: FOLIC ACID 1 MG TABLET GT SCH (08:46)
[2022-05-27] MEDS: ATORVASTATIN 20 MG TABLET GT SCH (08:47)
[2022-05-27] MEDS: MIDODRINE HCL 5 MG TABLET (PROAMATINE) GT SCH ×3 (08:47→21:03)
[2022-05-27] MEDS: LINEZOLID 300 ML IV SCH ×2 (08:48→21:02)
[2022-05-27] MEDS: EMOLLIENT COMBINATION NO.73 78 GM CREAM..G. TP SCH ×2 (08:50→21:03)
[2022-05-27] MEDS: BALSAM PERU/CASTOR OIL 56.7 GM OINT...G. TP SCH (08:51)
[2022-05-27] MEDS: CLOTRIMAZOLE 1% TOPICAL CREAM 15 GM TP SCH ×2 (08:51→21:03)
[2022-05-27] MEDS: CLOZAPINE 100MG TAB PO SCH ×2 (09:00→21:00)
--- NOTE | 2022-05-27 09:30 | NUR ---
HYGIENE INCONTINENT OF BOWEL, SOFT BROWN CONSISTENCY, GOOD PERINEAL CARE, TURNED AND REPOSITIONED IN BED. HEAD OF BED AT 35 DEGREE ANGLE.
--- NOTE | 2022-05-27 10:36 | NUR ---
RT NOTES CPAP 5 PS 15 was attempted, pt is not awake enough to breathe on his own, keeps setting off apnea alarms despite efforts to stimulate wakefulness. Will try again later, RN aware.
[2022-05-27] MEDS: DIVALPROEX SODIUM 500 MG TABLET( DEPAKOTE) PO SCH ×2 (11:10→21:02)
--- NOTE | 2022-05-27 13:35 | NUR ---
RT NOTES Pt is more awake, vent to cpap 5 ps 15. no adverse reactions noted. Will monitor pt
--- NOTE | 2022-05-27 14:00 | NUR ---
PICC DRESSING REMOVED, CLEANED PUNCTURED SITE, POVIDONE STICKS, BIOPATCH TO SITE, SECUREMENT DEVICE AND COVERED WITH TRANSPARENT DRESSING.
[2022-05-27] MEDS ORDERED: GENTAMICIN 80 MG/ ISO-OSM 100 ML PREMIX IV ONE ×2 (15:00)
[2022-05-27] MEDS: EPOETIN ALFA-EPBX 10,000 UNITS/ML VIAL SUBCUT SCH (17:42)
--- NOTE | 2022-05-27 19:30 | NUR ---
PM ASSESSMENT REPORT RECEIVED FROM AM RN. PT RECEIVED IN BED WITH EYES CLOSED, RESPONDING TO TACTILE STIMULATION. VSS, NO S/S OF ACUTE DISTRESS NOTED. PT INTUBATED, VENT SETTINGS: CPAP 5, PS 15, FIO2 28%. SR ON MONITOR. RIJ QC NOTED FOR HD ACCESS. GORDON ML INFUSING LEVOPHED DRIP PER ORDERS. GT IN PLACE RUNNING TF PER ORDERS. FC DRAINING URINE TO GRAVITY. HOB ELEVATED, BED LOCKED IN LOWEST POSITION, CALL LIGHT IN REACH. WILL CONTINUE TO MONITOR PT.
--- NOTE | 2022-05-27 20:00 | NUR ---
VENT CHANGES PT PLACED BACK ON AC MODE AT THIS TIME AND TOLERATING WELL. WILL CONTINUE TO MONITOR.
[2022-05-27] MEDS: MEROPENEM 500 MG in NS 50 ML IV SCH (21:02)
[2022-05-28] VITALS (31 sets, daily range): BP systolic 80–127
[2022-05-28] MEDS: INSULIN REGULAR, HUMAN 100 UNITS/ML, 3 ML VIAL (humuLIN R) SUBCUT PRN ×2 (06:15→23:45)
[2022-05-28 07:40] LABS: BASOPHILS % (AUTO) 0.2 % (0.0-2.0); EOSINOPHILS # (AUTO) 0.3 K/uL (0.0-0.4); EOSINOPHILS % (AUTO) 1.3 % (0.0-4.0); HEMATOCRIT 25.2 % (36-54); HEMOGLOBIN 8.2 g/dL (14.0-18.0); LYMPHOCYTES # (AUTO) 2.2 K/uL (1.0-5.5); LYMPHOCYTES % (AUTO) 10.2 % (20.5-51.5); MEAN CORPUSCULAR HEMOGLOBIN 30 pg (27-31); MEAN CORPUSCULAR HGB CONC 32 % (32-36); MEAN CORPUSCULAR VOLUME 92 fL (79.0-98.0); MONOCYTES # (AUTO) 2.3 K/uL (0.0-1.0); MONOCYTES % (AUTO) 10.4 % (1.7-9.3); NEUTROPHILS # (AUTO) 17.2 K/uL (1.8-7.7); PLATELET COUNT (AUTO) 134 K/uL (130-430); RED BLOOD CELL COUNT(AUTO) 2.74 MIL/uL (4.2-6.2); RED CELL DISTRIBUTION WIDTH 15.9 % (9.0-15.0)
--- NOTE | 2022-05-28 08:00 | NUR ---
RT NOTES Per daily Sbt order, vent to cpap 5 ps 15. Pt is awake, but appears to be dozing off. will cont to monitor pt. no distress noted. will notify rn.
--- NOTE | 2022-05-28 08:20 | NUR ---
RT NOTES Vent back to AC, pt is still fairly sleepy setting off apnea. Will try again when pt is more awake. Will notify RN.
[2022-05-28 08:28] LABS: CALCIUM 9.2 mg/dL (8.4-11.0); CREATININE 2.89 mg/dL (0.55-1.30)
[2022-05-28 08:36] LABS: NEUTROPHILS % (AUTO) 77.9 % (40.0-70.0)
[2022-05-28] MEDS ORDERED: GLUCOSE (DEXTROSE) ORAL GEL -Adults PO PRN (09:00)
[2022-05-28] MEDS ORDERED: DEXTROSE 50% JECT 50 ML DISP.SYRIN IVP PRN (09:00)
[2022-05-28] MEDS ORDERED: ACETAMINOPHEN 650 MG/20.3 ML UDC GT PRN (09:00)
[2022-05-28] MEDS: CLOZAPINE 100MG TAB PO SCH ×2 (09:00→20:39)
[2022-05-28] MEDS ORDERED: D5W 1,000 ML IV PRN (09:00)
[2022-05-28] MEDS: OXYBUTYNIN CHLORIDE 5 MG TABLET GT SCH (09:26)
[2022-05-28] MEDS: PANTOPRAZOLE SODIUM 40 MG TAB PO SCH (09:26)
[2022-05-28] MEDS: DIVALPROEX SODIUM 500 MG TABLET( DEPAKOTE) PO SCH ×2 (09:26→20:37)
[2022-05-28] MEDS: SEVELAMER CARBONATE 800 MG TABLET GT SCH ×3 (09:26→17:53)
[2022-05-28] MEDS: FOLIC ACID 1 MG TABLET GT SCH (09:26)
[2022-05-28] MEDS: TAMSULOSIN HCL 0.4 MG CAP GT SCH (09:26)
[2022-05-28] MEDS: ATORVASTATIN 20 MG TABLET GT SCH (09:26)
[2022-05-28] MEDS: ENOXAPARIN SODIUM 30 MG/0.3 ML SYRINGE SUBCUT SCH (09:29)
[2022-05-28] MEDS: MIDODRINE HCL 5 MG TABLET (PROAMATINE) GT SCH ×3 (09:29→20:37)
[2022-05-28] MEDS: MEROPENEM 500 MG in NS 50 ML IV SCH ×2 (09:29→20:37)
[2022-05-28] MEDS: CLOTRIMAZOLE 1% TOPICAL CREAM 15 GM TP SCH ×2 (09:30→20:39)
[2022-05-28] MEDS: EMOLLIENT COMBINATION NO.73 78 GM CREAM..G. TP SCH ×2 (09:30→20:39)
[2022-05-28] MEDS: BALSAM PERU/CASTOR OIL 56.7 GM OINT...G. TP SCH (09:30)
[2022-05-28] MEDS: SODIUM BICARBONATE 650 MG TABLET PO SCH ×4 (09:40→20:37)
[2022-05-28] MEDS: LINEZOLID 300 ML IV SCH ×2 (10:57→22:11)
--- NOTE | 2022-05-28 11:46 | NUR ---
RT NOTES Pt is still not awake enough for CPAP trials.
[2022-05-28] MEDS: NOREPINEPHRINE BITARTRATE 16 MG in NS 234 ML IV PRN (15:12)
--- NOTE | 2022-05-28 15:41 | NUR ---
HD DIALYSIS NURSE SINGH AT BEDSIDE, MACHINE BEING SET UP.
--- NOTE | 2022-05-28 15:50 | NUR ---
RT NOTES Pt is about to undergo dialysis, sat reading low, increased FIO2 to 0.40, improved 93-99%
--- NOTE | 2022-05-28 16:12 | NUR ---
Discharge Planning: DCP faxed pt referral to [facility] [phone] pending auth from [facility].
[2022-05-28] MEDS ORDERED: HEPARIN SODIUM,PORCINE 5,000 UNITS/ML VIAL ONE (18:40)
[2022-05-28] MEDS ORDERED: POTASSIUM CHLORIDE 20 MEQ TAB.PRT.SR PO ONE (19:00)
[2022-05-29] VITALS (28 sets, daily range): BP systolic 84–131
[2022-05-29 07:39] LABS: BASOPHILS # (AUTO) 0.1 K/uL (0.0-0.2); BASOPHILS % (AUTO) 0.3 % (0.0-2.0); EOSINOPHILS # (AUTO) 0.3 K/uL (0.0-0.4); HEMATOCRIT 25.2 % (36-54); HEMOGLOBIN 8.1 g/dL (14.0-18.0); LYMPHOCYTES # (AUTO) 3.1 K/uL (1.0-5.5); MEAN CORPUSCULAR HEMOGLOBIN 30 pg (27-31); MEAN CORPUSCULAR HGB CONC 32 % (32-36); MEAN CORPUSCULAR VOLUME 93 fL (79.0-98.0); MONOCYTES # (AUTO) 3.1 K/uL (0.0-1.0); MONOCYTES % (AUTO) 11.3 % (1.7-9.3); NEUTROPHILS # (AUTO) 21.2 K/uL (1.8-7.7); PLATELET COUNT (AUTO) 162 K/uL (130-430); RED BLOOD CELL COUNT(AUTO) 2.72 MIL/uL (4.2-6.2); RED CELL DISTRIBUTION WIDTH 15.7 % (9.0-15.0); WHITE BLOOD COUNT (AUTO) 27.8 K/uL (4.8-10.8)
[2022-05-29 07:43] LABS: CALCIUM 8.8 mg/dL (8.4-11.0)
[2022-05-29 08:40] LABS: NEUTROPHILS % (AUTO) 76.4 % (40.0-70.0)
[2022-05-29] MEDS: EMOLLIENT COMBINATION NO.73 78 GM CREAM..G. TP SCH ×2 (09:00→20:57)
[2022-05-29] MEDS: SODIUM BICARBONATE 650 MG TABLET PO SCH ×4 (09:33→20:57)
[2022-05-29] MEDS: DIVALPROEX SODIUM 500 MG TABLET( DEPAKOTE) PO SCH ×2 (09:34→20:56)
[2022-05-29] MEDS: OXYBUTYNIN CHLORIDE 5 MG TABLET GT SCH (09:34)
[2022-05-29] MEDS: TAMSULOSIN HCL 0.4 MG CAP GT SCH (09:35)
[2022-05-29] MEDS: ATORVASTATIN 20 MG TABLET GT SCH (09:35)
[2022-05-29] MEDS: MIDODRINE HCL 5 MG TABLET (PROAMATINE) GT SCH ×3 (09:36→20:56)
[2022-05-29] MEDS: LINEZOLID 300 ML IV SCH ×2 (09:36→22:17)
[2022-05-29] MEDS: MEROPENEM 500 MG in NS 50 ML IV SCH ×2 (09:37→20:56)
[2022-05-29] MEDS: GENTAMICIN 80 MG/ ISO-OSM 100 ML PREMIX IV SCH (09:37)
[2022-05-29] MEDS: FOLIC ACID 1 MG TABLET GT SCH (09:38)
[2022-05-29] MEDS: PANTOPRAZOLE SODIUM 40 MG TAB PO SCH (09:38)
[2022-05-29] MEDS: ENOXAPARIN SODIUM 30 MG/0.3 ML SYRINGE SUBCUT SCH (09:39)
[2022-05-29] MEDS: CLOTRIMAZOLE 1% TOPICAL CREAM 15 GM TP SCH ×2 (09:39→20:57)
[2022-05-29] MEDS: BALSAM PERU/CASTOR OIL 56.7 GM OINT...G. TP SCH (09:39)
--- NOTE | 2022-05-29 10:55 | NUR ---
PLACED BACK TO AC DUE TO PATIENT BECAME TACHYPNEIC, SPONTANEOUS RR 40'S.
[2022-05-29] MEDS: EPOETIN ALFA-EPBX 10,000 UNITS/ML VIAL SUBCUT SCH (17:14)
[2022-05-29] MEDS: SEVELAMER CARBONATE 800 MG TABLET GT SCH (17:14)
[2022-05-29] MEDS: CLOZAPINE 100MG TAB PO SCH (20:56)
[2022-05-29] MEDS: NOREPINEPHRINE BITARTRATE 16 MG in NS 234 ML IV PRN (21:01)
[2022-05-30] VITALS (33 sets, daily range): BP systolic 97–133
[2022-05-30] MEDS: INSULIN REGULAR, HUMAN 100 UNITS/ML, 3 ML VIAL (humuLIN R) SUBCUT PRN ×2 (06:26→18:21)
[2022-05-30 06:27] LABS: BASOPHILS % (AUTO) 0.2 % (0.0-2.0); EOSINOPHILS # (AUTO) 0.2 K/uL (0.0-0.4); EOSINOPHILS % (AUTO) 0.8 % (0.0-4.0); HEMATOCRIT 24.8 % (36-54); LYMPHOCYTES # (AUTO) 2.6 K/uL (1.0-5.5); LYMPHOCYTES % (AUTO) 10.9 % (20.5-51.5); MEAN CORPUSCULAR HEMOGLOBIN 30 pg (27-31); MEAN CORPUSCULAR HGB CONC 32 % (32-36); MEAN CORPUSCULAR VOLUME 93 fL (79.0-98.0); MONOCYTES # (AUTO) 4.1 K/uL (0.0-1.0); NEUTROPHILS # (AUTO) 17.2 K/uL (1.8-7.7); NEUTROPHILS % (AUTO) 71.1 % (40.0-70.0); PLATELET COUNT (AUTO) 182 K/uL (130-430); RED BLOOD CELL COUNT(AUTO) 2.68 MIL/uL (4.2-6.2); RED CELL DISTRIBUTION WIDTH 15.9 % (9.0-15.0); WHITE BLOOD COUNT (AUTO) 24.1 K/uL (4.8-10.8)
[2022-05-30 07:05] LABS: CREATININE 2.37 mg/dL (0.55-1.30)
--- NOTE | 2022-05-30 08:00 | NUR ---
RN NOTES STILL INTUBATED, ON SAME VENT SETTING, SPO2 GOOD. SINUS RHYTHM ON THE MONITOR. NEPRO FEEDING GOING ON @ 40 ML/HR. WATER FLUSH 250 ML GIVEN.
[2022-05-30] MEDS: SEVELAMER CARBONATE 800 MG TABLET GT SCH ×4 (08:32→17:37)
[2022-05-30] MEDS: CLOZAPINE 100MG TAB PO SCH ×2 (09:00→20:59)
[2022-05-30] MEDS: ATORVASTATIN 20 MG TABLET GT SCH (09:06)
[2022-05-30] MEDS: SODIUM BICARBONATE 650 MG TABLET PO SCH ×4 (09:06→20:58)
[2022-05-30] MEDS: TAMSULOSIN HCL 0.4 MG CAP GT SCH (09:06)
[2022-05-30] MEDS: DIVALPROEX SODIUM 500 MG TABLET( DEPAKOTE) PO SCH ×2 (09:06→20:58)
[2022-05-30] MEDS: ENOXAPARIN SODIUM 30 MG/0.3 ML SYRINGE SUBCUT SCH (09:06)
[2022-05-30] MEDS: PANTOPRAZOLE SODIUM 40 MG TAB PO SCH (09:06)
[2022-05-30] MEDS: FOLIC ACID 1 MG TABLET GT SCH (09:06)
[2022-05-30] MEDS: OXYBUTYNIN CHLORIDE 5 MG TABLET GT SCH (09:06)
[2022-05-30] MEDS: LINEZOLID 300 ML IV SCH ×2 (09:07→22:04)
[2022-05-30] MEDS: MIDODRINE HCL 5 MG TABLET (PROAMATINE) GT SCH ×3 (09:07→20:58)
[2022-05-30] MEDS: MEROPENEM 500 MG in NS 50 ML IV SCH ×2 (09:08→20:58)
[2022-05-30] MEDS: EMOLLIENT COMBINATION NO.73 78 GM CREAM..G. TP SCH ×2 (09:08→20:59)
[2022-05-30] MEDS: CLOTRIMAZOLE 1% TOPICAL CREAM 15 GM TP SCH ×2 (09:09→20:59)
[2022-05-30] MEDS: BALSAM PERU/CASTOR OIL 56.7 GM OINT...G. TP SCH (09:09)
--- NOTE | 2022-05-30 09:55 | NUR ---
RT NOTES Dr Israel valdes, aware pt is on cpap, ordered weaning parameters, suggested to get Swedish speaker to assist with NIF. RN made aware. @1020 radiation therapy technician Annamarie, Swedish speaking EE will assist with NIF later.
--- NOTE | 2022-05-30 11:20 | NUR ---
RT NOTES Had technical sales manager Annamarie try to see if pt will follow simple commands. Annamarie spoke to him in Yemeni, but did not get any response from pt when she asked him to open his eyes and squeeze her hand. Therefore, NIF was not attempted. Rn made aware.
--- NOTE | 2022-05-30 12:00 | NUR ---
RN NOTES APPEARS COMFORTABLE, STILL ON CPAP TRIAL, SPO2 GOOD.
--- NOTE | 2022-05-30 20:17 | NUR ---
PT SWITCHED BACK TO ORIGINAL SETTINGS OF AC16,450,+5 DUE TO DROP IN SATURATION AND INCREASED WOB. HOWEVER, PT TIDAL VOLUMES WERE SUFFICIENT.
[2022-05-30] MEDS: NOREPINEPHRINE BITARTRATE 16 MG in NS 234 ML IV PRN (22:27)
[2022-05-31] VITALS (36 sets, daily range): BP systolic 98–145
[2022-05-31 06:50] LABS: CREATININE 2.43 mg/dL (0.55-1.30); GENTAMICIN,RANDOM 1.8 ug/mL
--- NOTE | 2022-05-31 07:27 | NUR ---
RT NOTES Per daily SBT, vent to cpap 5 ps 10. No adverse reactions noted. will monitor pt. rn aware.
--- NOTE | 2022-05-31 08:00 | NUR ---
RN NOTES PATIENT SEEN AWAKE, NON-VERBAL, NOT IN ACUTE DISTRESS. STILL ORALLY INTUBATED TO VENT. RESP. THERAPIST AT BEDSIDE FOR CPAP TRIAL.
[2022-05-31] MEDS: SEVELAMER CARBONATE 800 MG TABLET GT SCH ×3 (08:26→17:55)
[2022-05-31] MEDS: MEROPENEM 500 MG in NS 50 ML IV SCH ×2 (08:29→20:14)
[2022-05-31] MEDS: OXYBUTYNIN CHLORIDE 5 MG TABLET GT SCH (08:58)
[2022-05-31] MEDS: FOLIC ACID 1 MG TABLET GT SCH (08:58)
[2022-05-31] MEDS: MIDODRINE HCL 5 MG TABLET (PROAMATINE) GT SCH ×3 (08:58→20:14)
[2022-05-31] MEDS: SODIUM BICARBONATE 650 MG TABLET PO SCH ×4 (08:58→20:15)
[2022-05-31] MEDS: ENOXAPARIN SODIUM 30 MG/0.3 ML SYRINGE SUBCUT SCH (08:58)
[2022-05-31] MEDS: PANTOPRAZOLE SODIUM 40 MG TAB PO SCH (08:58)
[2022-05-31] MEDS: ATORVASTATIN 20 MG TABLET GT SCH (08:59)
[2022-05-31] MEDS: TAMSULOSIN HCL 0.4 MG CAP GT SCH (08:59)
[2022-05-31] MEDS: CLOZAPINE 100MG TAB PO SCH ×2 (09:00→20:15)
[2022-05-31] MEDS: GENTAMICIN 80 MG/ ISO-OSM 100 ML PREMIX IV SCH (09:00)
[2022-05-31] MEDS: LINEZOLID 300 ML IV SCH ×2 (09:00→21:39)
[2022-05-31] MEDS: CLOTRIMAZOLE 1% TOPICAL CREAM 15 GM TP SCH ×2 (09:01→20:16)
[2022-05-31] MEDS: BALSAM PERU/CASTOR OIL 56.7 GM OINT...G. TP SCH (09:01)
[2022-05-31] MEDS: DIVALPROEX SODIUM 500 MG TABLET( DEPAKOTE) PO SCH ×2 (09:11→20:15)
[2022-05-31] MEDS ORDERED: ALBUMIN HUMAN 25% 100 ML IV ONE ×2 (10:27→10:30)
[2022-05-31 10:32] LABS: BASOPHILS # (AUTO) 0.1 K/uL (0.0-0.2); BASOPHILS % (AUTO) 0.4 % (0.0-2.0); EOSINOPHILS # (AUTO) 0.7 K/uL (0.0-0.4); EOSINOPHILS % (AUTO) 3.7 % (0.0-4.0); HEMATOCRIT 23.6 % (36-54); HEMOGLOBIN 7.7 g/dL (14.0-18.0); LYMPHOCYTES # (AUTO) 2.6 K/uL (1.0-5.5); LYMPHOCYTES % (AUTO) 13.5 % (20.5-51.5); MEAN CORPUSCULAR HEMOGLOBIN 30 pg (27-31); MEAN CORPUSCULAR HGB CONC 33 % (32-36); MEAN CORPUSCULAR VOLUME 93 fL (79.0-98.0); MONOCYTES # (AUTO) 2.9 K/uL (0.0-1.0); NEUTROPHILS # (AUTO) 13.1 K/uL (1.8-7.7); NEUTROPHILS % (AUTO) 67.4 % (40.0-70.0); PLATELET COUNT (AUTO) 203 K/uL (130-430); RED BLOOD CELL COUNT(AUTO) 2.54 MIL/uL (4.2-6.2); RED CELL DISTRIBUTION WIDTH 15.8 % (9.0-15.0); WHITE BLOOD COUNT (AUTO) 19.4 K/uL (4.8-10.8)
--- NOTE | 2022-05-31 11:00 | NUR ---
RN NOTES HEMODIALYSIS IN PROGRESS. LEVOPHED DRIP @ 0.19 MCG/KG/MIN ALBUMIN 25% 100 ML GIVEN FOR BP SUPPORT PER DR. MELVIN.
--- NOTE | 2022-05-31 13:22 | NUR ---
RT NOTES Vent back to AC due to tachypnea, mid to high 30s. RN made aware.
--- NOTE | 2022-05-31 16:00 | NUR ---
RN NOTES PM CARE DONE, WOUND CARE DONE. REPOSITIONED FOR COMFORT.
[2022-05-31] MEDS: LANOLIN ALCOHOL/MO/W.PET/CERES 57 GM CREAM..G. TP SCH (20:16)
[2022-06-01] VITALS (35 sets, daily range): BP systolic 91–123
[2022-06-01] MEDS: NOREPINEPHRINE BITARTRATE 16 MG in NS 234 ML IV PRN ×2 (06:03→22:41)
[2022-06-01 07:01] LABS: BASOPHILS # (AUTO) 0.1 K/uL (0.0-0.2); BASOPHILS % (AUTO) 0.3 % (0.0-2.0); EOSINOPHILS # (AUTO) 0.9 K/uL (0.0-0.4); EOSINOPHILS % (AUTO) 5.1 % (0.0-4.0); HEMATOCRIT 23.5 % (36-54); HEMOGLOBIN 7.8 g/dL (14.0-18.0); LYMPHOCYTES # (AUTO) 4.7 K/uL (1.0-5.5); LYMPHOCYTES % (AUTO) 26.1 % (20.5-51.5); MEAN CORPUSCULAR HEMOGLOBIN 31 pg (27-31); MEAN CORPUSCULAR HGB CONC 33 % (32-36); MEAN CORPUSCULAR VOLUME 93 fL (79.0-98.0); MONOCYTES # (AUTO) 3.1 K/uL (0.0-1.0); MONOCYTES % (AUTO) 17.2 % (1.7-9.3); NEUTROPHILS # (AUTO) 9.2 K/uL (1.8-7.7); NEUTROPHILS % (AUTO) 51.3 % (40.0-70.0); PLATELET COUNT (AUTO) 228 K/uL (130-430); RED BLOOD CELL COUNT(AUTO) 2.52 MIL/uL (4.2-6.2); RED CELL DISTRIBUTION WIDTH 15.6 % (9.0-15.0)
--- NOTE | 2022-06-01 08:00 | NUR ---
AM ASSESSMENT PT AWAKE, AFEBRILE, ORAL SUCTIONING RENDERED, HYGIENE PROVIDED AFTER, MECHANICALLY INTUBATED, NSR ON SLAB INSTALLER, LEVOPHED DRIP AT 0.07 MCG/KG/MIN, CONTINUE TO MONITOR THE PATIENT.
[2022-06-01] MEDS: ENOXAPARIN SODIUM 30 MG/0.3 ML SYRINGE SUBCUT SCH (08:16)
[2022-06-01] MEDS: PANTOPRAZOLE SODIUM 40 MG TAB PO SCH (08:17)
[2022-06-01] MEDS: DIVALPROEX SODIUM 500 MG TABLET( DEPAKOTE) PO SCH ×2 (08:17→20:14)
[2022-06-01] MEDS: FOLIC ACID 1 MG TABLET GT SCH (08:17)
[2022-06-01] MEDS: SEVELAMER CARBONATE 800 MG TABLET GT SCH ×3 (08:17→17:22)
[2022-06-01] MEDS: SODIUM BICARBONATE 650 MG TABLET PO SCH ×4 (08:17→20:13)
[2022-06-01] MEDS: TAMSULOSIN HCL 0.4 MG CAP GT SCH (08:18)
[2022-06-01] MEDS: CLOZAPINE 100MG TAB PO SCH ×2 (08:18→20:15)
[2022-06-01] MEDS: ATORVASTATIN 20 MG TABLET GT SCH (08:18)
[2022-06-01] MEDS: OXYBUTYNIN CHLORIDE 5 MG TABLET GT SCH (08:18)
[2022-06-01] MEDS: CLOTRIMAZOLE 1% TOPICAL CREAM 15 GM TP SCH ×2 (08:20→20:16)
[2022-06-01] MEDS: BALSAM PERU/CASTOR OIL 56.7 GM OINT...G. TP SCH (08:21)
[2022-06-01] MEDS: MIDODRINE HCL 5 MG TABLET (PROAMATINE) GT SCH ×3 (08:24→20:14)
[2022-06-01] MEDS: MEROPENEM 500 MG in NS 50 ML IV SCH ×2 (08:24→20:15)
[2022-06-01] MEDS: LINEZOLID 300 ML IV SCH ×2 (10:02→20:14)
[2022-06-01] MEDS: LANOLIN ALCOHOL/MO/W.PET/CERES 57 GM CREAM..G. TP SCH ×2 (10:06→20:15)
--- NOTE | 2022-06-01 19:30 | NUR ---
PM ASSESSMENT REPORT RECEIVED FROM AM RN. PT RECEIVED IN BED WITH EYES OPEN, RESPONDING TO TACTILE STIMULATION. VSS, NO S/S OF ACUTE DISTRESS NOTED. PT INTUBATED, VENT SETTINGS: AC 16, TV 450, FIO2 30%, PEEP 5. GORDON ML INFUSING LEVOPHED DRIP PER ORDERS. RIJ QC NOTED FOR HD ACCESS. GJ TUBE IN PLACE RUNNING TF PER ORDERS. FC DRAINING URINE TO GRAVITY. HOB ELEVATED, BED IN LOWEST POSITION, CALL LIGHT IN REACH. WILL CONTINUE TO MONITOR PT.
[2022-06-02] VITALS (32 sets, daily range): BP systolic 86–120
[2022-06-02] MEDS: INSULIN REGULAR, HUMAN 100 UNITS/ML, 3 ML VIAL (humuLIN R) SUBCUT PRN (05:10)
[2022-06-02 06:37] LABS: CREATININE 2.02 mg/dL (0.55-1.30); GENTAMICIN,RANDOM 1.3 ug/mL
--- NOTE | 2022-06-02 07:00 | NUR ---
Opening notes Received report from endorsing warehouse worker 2nd shift RN for continuity of care. Patient is lying in bed with IVF 250 @ 5 mL/hr, and levophed @ 0.07 mcg/kg/min. Patient's vital signs blood pressure 103/65, heart rate 96, respirations 33, and SPO2 100% on vent AC16, V450, peep5, 30% O2. Ansari catheter is in place draining to gravity. Bed is locked and in lowest position, call light button within reach, fall and safety precautions is in place.
[2022-06-02 07:01] LABS: BASOPHILS # (AUTO) 0.1 K/uL (0.0-0.2); BASOPHILS % (AUTO) 0.7 % (0.0-2.0); EOSINOPHILS # (AUTO) 1.2 K/uL (0.0-0.4); EOSINOPHILS % (AUTO) 8.9 % (0.0-4.0); HEMATOCRIT 22.3 % (36-54); HEMOGLOBIN 7.4 g/dL (14.0-18.0); LYMPHOCYTES # (AUTO) 1.8 K/uL (1.0-5.5); MEAN CORPUSCULAR HEMOGLOBIN 31 pg (27-31); MEAN CORPUSCULAR HGB CONC 33 % (32-36); MEAN CORPUSCULAR VOLUME 93 fL (79.0-98.0); MONOCYTES % (AUTO) 14.2 % (1.7-9.3); NEUTROPHILS # (AUTO) 8.8 K/uL (1.8-7.7); NEUTROPHILS % (AUTO) 63.2 % (40.0-70.0); PLATELET COUNT (AUTO) 231 K/uL (130-430); RED BLOOD CELL COUNT(AUTO) 2.41 MIL/uL (4.2-6.2); RED CELL DISTRIBUTION WIDTH 15.8 % (9.0-15.0)
--- NOTE | 2022-06-02 07:45 | NUR ---
pt on cpap.
[2022-06-02] MEDS: SEVELAMER CARBONATE 800 MG TABLET GT SCH ×3 (08:04→17:04)
[2022-06-02] MEDS: FOLIC ACID 1 MG TABLET GT SCH (08:26)
[2022-06-02] MEDS: OXYBUTYNIN CHLORIDE 5 MG TABLET GT SCH (08:26)
[2022-06-02] MEDS: SODIUM BICARBONATE 650 MG TABLET PO SCH ×4 (08:26→20:59)
[2022-06-02] MEDS: PANTOPRAZOLE SODIUM 40 MG TAB PO SCH (08:26)
[2022-06-02] MEDS ORDERED: ATORVASTATIN 20 MG TABLET ONE (08:26)
[2022-06-02] MEDS: TAMSULOSIN HCL 0.4 MG CAP GT SCH (08:26)
[2022-06-02] MEDS: ATORVASTATIN 20 MG TABLET GT SCH (08:26)
[2022-06-02] MEDS: DIVALPROEX SODIUM 500 MG TABLET( DEPAKOTE) PO SCH ×2 (08:27→20:59)
[2022-06-02] MEDS: ENOXAPARIN SODIUM 30 MG/0.3 ML SYRINGE SUBCUT SCH (08:27)
[2022-06-02] MEDS: MIDODRINE HCL 5 MG TABLET (PROAMATINE) GT SCH ×3 (08:33→20:58)
[2022-06-02] MEDS: MEROPENEM 500 MG in NS 50 ML IV SCH ×2 (08:34→20:59)
[2022-06-02] MEDS: GENTAMICIN 80 MG/ ISO-OSM 100 ML PREMIX IV SCH (08:35)
[2022-06-02] MEDS: LINEZOLID 300 ML IV SCH ×2 (08:36→21:58)
[2022-06-02] MEDS: CLOZAPINE 100MG TAB PO SCH ×2 (09:00→20:59)
[2022-06-02] MEDS: BALSAM PERU/CASTOR OIL 56.7 GM OINT...G. TP SCH (09:04)
--- NOTE | 2022-06-02 10:55 | NUR ---
pt of cpap, pt tolerated well.
[2022-06-02] MEDS: LANOLIN ALCOHOL/MO/W.PET/CERES 57 GM CREAM..G. TP SCH ×2 (11:37→20:59)
[2022-06-02] MEDS: CLOTRIMAZOLE 1% TOPICAL CREAM 15 GM TP SCH ×2 (11:39→21:00)
--- NOTE | 2022-06-02 15:02 | NUR ---
0745 PT PLACED ON CPAP, TOLERATING WELL. PT PLACED BACK TO AC. MELI AWARE. Addendum: 06/02/22 at 1507 by Barbara Slater RT Amended: Links added.
--- NOTE | 2022-06-02 19:30 | NUR ---
Opening notes Received report from endorsing morning shift RN for continuity of care. Patient is lying in bed with IVF NS @ TKO and levophed @ 0.2 mcg/kg/min. Patient's vital signs blood pressure 108/69, heart rate 93, respirations 18, and SPO2 100% on ventilator. Ventilator settings AC 16, tidal volume 450, FIo2 30%, and peep of 5. Nepro running @ 40mL/hr via g-tube. Ansari catheter is in place draining to gravity. Bed is locked and in lowest position, call light button within reach, fall and safety precautions is in place.
[2022-06-02] MEDS ORDERED: POTASSIUM CHLORIDE 20 MEQ TAB.PRT.SR PO ONE (20:30)
[2022-06-03] VITALS (29 sets, daily range): BP systolic 89–130
[2022-06-03 06:46] LABS: CALCIUM 8.6 mg/dL (8.4-11.0); CREATININE 2.25 mg/dL (0.55-1.30)
--- NOTE | 2022-06-03 07:40 | NUR ---
OPENING NOTES RECEIVED PT, OPEN HIS EYES, INTUBATED ,AC-16.450, 30% FI02, PEEP 0F 5. STILL ON LEVOPHED AT 0.07MCG, ON GT FEEDING AT 40CC/ML TOLERATING WELL. HAS MULTIPLE WOUND DRESSINGS NOTED. NO DISTRESS, TEMP IS 99.2. ORAL CARE AND SUCTIONING DONE. SR ON THE MONITOR.
[2022-06-03 07:57] LABS: BASOPHILS # (AUTO) 0.1 K/uL (0.0-0.2); BASOPHILS % (AUTO) 0.4 % (0.0-2.0); EOSINOPHILS # (AUTO) 1.1 K/uL (0.0-0.4); EOSINOPHILS % (AUTO) 7.3 % (0.0-4.0); LYMPHOCYTES # (AUTO) 2.6 K/uL (1.0-5.5); LYMPHOCYTES % (AUTO) 16.8 % (20.5-51.5); MEAN CORPUSCULAR HEMOGLOBIN 31 pg (27-31); MEAN CORPUSCULAR HGB CONC 33 % (32-36); MEAN CORPUSCULAR VOLUME 93 fL (79.0-98.0); MONOCYTES # (AUTO) 2.4 K/uL (0.0-1.0); MONOCYTES % (AUTO) 15.6 % (1.7-9.3); NEUTROPHILS # (AUTO) 9.3 K/uL (1.8-7.7); NEUTROPHILS % (AUTO) 59.9 % (40.0-70.0); PLATELET COUNT (AUTO) 249 K/uL (130-430); RED BLOOD CELL COUNT(AUTO) 2.29 MIL/uL (4.2-6.2); RED CELL DISTRIBUTION WIDTH 15.8 % (9.0-15.0); WHITE BLOOD COUNT (AUTO) 15.5 K/uL (4.8-10.8)
[2022-06-03 08:15] LABS: HEMATOCRIT 21.4 % (36-54)
[2022-06-03] MEDS: MEROPENEM 500 MG in NS 50 ML IV SCH ×2 (08:21→20:31)
[2022-06-03] MEDS: CLOZAPINE 100MG TAB PO SCH ×2 (08:22→20:32)
--- NOTE | 2022-06-03 08:40 | NUR ---
ROUND SEEN BY DR. MAUREEN CHAIDEZ AND MADE AWARE OF H&H RESULTS.
[2022-06-03] MEDS: LINEZOLID 300 ML IV SCH ×2 (08:49→21:41)
[2022-06-03] MEDS: SODIUM BICARBONATE 650 MG TABLET PO SCH ×4 (08:49→20:31)
[2022-06-03] MEDS: ATORVASTATIN 20 MG TABLET GT SCH (08:50)
[2022-06-03] MEDS: FOLIC ACID 1 MG TABLET GT SCH (08:50)
[2022-06-03] MEDS: SEVELAMER CARBONATE 800 MG TABLET GT SCH ×3 (08:50→17:25)
[2022-06-03] MEDS: TAMSULOSIN HCL 0.4 MG CAP GT SCH (08:50)
[2022-06-03] MEDS: PANTOPRAZOLE SODIUM 40 MG TAB PO SCH (08:50)
[2022-06-03] MEDS: OXYBUTYNIN CHLORIDE 5 MG TABLET GT SCH (08:50)
[2022-06-03] MEDS: DIVALPROEX SODIUM 500 MG TABLET( DEPAKOTE) PO SCH ×2 (08:50→20:32)
[2022-06-03] MEDS: MIDODRINE HCL 5 MG TABLET (PROAMATINE) GT SCH ×3 (08:50→20:31)
[2022-06-03] MEDS: LANOLIN ALCOHOL/MO/W.PET/CERES 57 GM CREAM..G. TP SCH ×2 (08:51→20:32)
[2022-06-03] MEDS: CLOTRIMAZOLE 1% TOPICAL CREAM 15 GM TP SCH ×2 (08:52→20:33)
[2022-06-03] MEDS: BALSAM PERU/CASTOR OIL 56.7 GM OINT...G. TP SCH (08:52)
[2022-06-03] MEDS: ENOXAPARIN SODIUM 30 MG/0.3 ML SYRINGE SUBCUT SCH (08:52)
[2022-06-03] MEDS ORDERED: NOREPINEPHRINE 4 MG/4 ML VIAL IV ONE (10:47)
[2022-06-03] MEDS: NOREPINEPHRINE BITARTRATE 16 MG in NS 234 ML IV PRN (10:51)
--- NOTE | 2022-06-03 11:29 | NUR ---
CPAP- 0745- CHANGE TO CPAP, 1120- BACK TO AC.
--- NOTE | 2022-06-03 11:33 | NUR ---
DISCHARGE PLANNING As requested, ACSW Amanda faxed progress notes and med list to Sandra Ricardo:
[2022-06-03] MEDS ORDERED: POTASSIUM CHLORIDE 20 MEQ TAB.PRT.SR PO ONE (14:00)
[2022-06-04] VITALS (32 sets, daily range): BP systolic 83–134
[2022-06-04 06:18] LABS: BASOPHILS # (AUTO) 0.1 K/uL (0.0-0.2); BASOPHILS % (AUTO) 0.7 % (0.0-2.0); EOSINOPHILS # (AUTO) 1.1 K/uL (0.0-0.4); EOSINOPHILS % (AUTO) 7.1 % (0.0-4.0); LYMPHOCYTES % (AUTO) 19.9 % (20.5-51.5); MEAN CORPUSCULAR HEMOGLOBIN 31 pg (27-31); MEAN CORPUSCULAR HGB CONC 33 % (32-36); MEAN CORPUSCULAR VOLUME 94 fL (79.0-98.0); MONOCYTES # (AUTO) 2.3 K/uL (0.0-1.0); MONOCYTES % (AUTO) 15.6 % (1.7-9.3); NEUTROPHILS # (AUTO) 8.4 K/uL (1.8-7.7); PLATELET COUNT (AUTO) 267 K/uL (130-430); RED BLOOD CELL COUNT(AUTO) 2.14 MIL/uL (4.2-6.2); RED CELL DISTRIBUTION WIDTH 15.7 % (9.0-15.0); WHITE BLOOD COUNT (AUTO) 14.9 K/uL (4.8-10.8)
[2022-06-04 07:02] LABS: CALCIUM 8.9 mg/dL (8.4-11.0); CREATININE 2.6 mg/dL (0.55-1.30); GENTAMICIN,RANDOM 2.2 ug/mL
--- NOTE | 2022-06-04 07:35 | NUR ---
Report received from Chetan
--- NOTE | 2022-06-04 08:00 | NUR ---
rt notes 0800 Placed pt on CPAP 5, PS10 30% FIO2. Pt tolerating well. pt saturating 98%. no distress noted. will cont to monitor pt.
[2022-06-04] MEDS: ATORVASTATIN 20 MG TABLET GT SCH (08:32)
[2022-06-04] MEDS: PANTOPRAZOLE SODIUM 40 MG TAB PO SCH (08:32)
[2022-06-04] MEDS: POTASSIUM CHLORIDE 20 MEQ TAB.PRT.SR PO SCH (08:33)
[2022-06-04] MEDS: SODIUM BICARBONATE 650 MG TABLET PO SCH ×4 (08:33→21:18)
[2022-06-04] MEDS: MIDODRINE HCL 5 MG TABLET (PROAMATINE) GT SCH ×3 (08:33→21:16)
[2022-06-04] MEDS: SEVELAMER CARBONATE 800 MG TABLET GT SCH ×3 (08:33→17:37)
[2022-06-04] MEDS: FOLIC ACID 1 MG TABLET GT SCH (08:34)
[2022-06-04] MEDS: DIVALPROEX SODIUM 500 MG TABLET( DEPAKOTE) PO SCH ×2 (08:34→21:17)
[2022-06-04] MEDS: OXYBUTYNIN CHLORIDE 5 MG TABLET GT SCH (08:34)
[2022-06-04] MEDS: GENTAMICIN 80 MG/ ISO-OSM 100 ML PREMIX IV SCH (08:36)
[2022-06-04] MEDS: MEROPENEM 500 MG in NS 50 ML IV SCH ×2 (08:37→21:17)
[2022-06-04] MEDS: LINEZOLID 300 ML IV SCH ×2 (08:37→21:17)
[2022-06-04] MEDS: TAMSULOSIN HCL 0.4 MG CAP GT SCH (08:41)
[2022-06-04 08:52] LABS: HEMOGLOBIN 6.7 g/dL (14.0-18.0)
[2022-06-04] MEDS: CLOZAPINE 100MG TAB PO SCH ×2 (09:00→21:00)
[2022-06-04] MEDS: BALSAM PERU/CASTOR OIL 56.7 GM OINT...G. TP SCH (12:00)
[2022-06-04] MEDS: LANOLIN ALCOHOL/MO/W.PET/CERES 57 GM CREAM..G. TP SCH ×2 (12:00→21:18)
[2022-06-04] MEDS: CLOTRIMAZOLE 1% TOPICAL CREAM 15 GM TP SCH ×2 (12:00→21:19)
[2022-06-04] MEDS: INSULIN REGULAR, HUMAN 100 UNITS/ML, 3 ML VIAL (humuLIN R) SUBCUT PRN (12:38)
[2022-06-04] MEDS: ENOXAPARIN SODIUM 30 MG/0.3 ML SYRINGE SUBCUT SCH (12:40)
[2022-06-04 14:03] LABS: NEUTROPHILS % (AUTO) 56.7 % (40.0-70.0)
--- NOTE | 2022-06-04 15:56 | NUR ---
HIGH ALERT NOTE: Called Dr. Soria back [phone] identified within the medical roster to verify physician authenticity Heparin 5000units via hemodialysis access
[2022-06-04] MEDS ORDERED: HEPARIN SODIUM, PORCINE 10,000 UNITS/ 10 ML VIAL MC ONE (16:00)
[2022-06-05] VITALS (29 sets, daily range): BP systolic 86–122
--- NOTE | 2022-06-05 07:40 | NUR ---
RT NOTES Per daily SBT, vent to cpap 5 ps 10. no immediate adverse reactions noted. @0804 R.R 45, vent back to AC. Rn notified
[2022-06-05 07:44] LABS: ALBUMIN 1.3 g/dL (3.4-4.8); CALCIUM 8.8 mg/dL (8.4-11.0); CREATININE 2.18 mg/dL (0.55-1.30); PHOSPHORUS 3.7 mg/dL (2.7-4.5); TOTAL BILIRUBIN 0.4 mg/dL (0.0-1.0)
[2022-06-05 08:17] LABS: BASOPHILS % (AUTO) 0.6 % (0.0-2.0); EOSINOPHILS % (AUTO) 5.3 % (0.0-4.0); HEMATOCRIT 29.7 % (36-54); HEMOGLOBIN 9.7 g/dL (14.0-18.0); LYMPHOCYTES # (AUTO) 2.5 K/uL (1.0-5.5); MEAN CORPUSCULAR HEMOGLOBIN 30 pg (27-31); MEAN CORPUSCULAR HGB CONC 33 % (32-36); MONOCYTES # (AUTO) 2.2 K/uL (0.0-1.0); MONOCYTES % (AUTO) 15.3 % (1.7-9.3); NEUTROPHILS % (AUTO) 61.8 % (40.0-70.0); PLATELET COUNT (AUTO) 241 K/uL (130-430); RED BLOOD CELL COUNT(AUTO) 3.27 MIL/uL (4.2-6.2); RED CELL DISTRIBUTION WIDTH 15.2 % (9.0-15.0); WHITE BLOOD COUNT (AUTO) 14.6 K/uL (4.8-10.8)
[2022-06-05 08:18] LABS: BASOPHILS # (AUTO) 0.1 K/uL (0.0-0.2); MEAN CORPUSCULAR VOLUME 91 fL (79.0-98.0)
[2022-06-05] MEDS: MEROPENEM 500 MG in NS 50 ML IV SCH ×2 (08:34→21:19)
[2022-06-05] MEDS: DIVALPROEX SODIUM 500 MG TABLET( DEPAKOTE) PO SCH ×2 (08:35→21:21)
[2022-06-05] MEDS: SODIUM BICARBONATE 650 MG TABLET PO SCH ×4 (08:35→21:22)
[2022-06-05] MEDS: MIDODRINE HCL 5 MG TABLET (PROAMATINE) GT SCH ×3 (08:35→21:18)
[2022-06-05] MEDS: SEVELAMER CARBONATE 800 MG TABLET GT SCH ×3 (08:35→17:41)
[2022-06-05] MEDS: POTASSIUM CHLORIDE 20 MEQ TAB.PRT.SR PO SCH (08:35)
[2022-06-05] MEDS: OXYBUTYNIN CHLORIDE 5 MG TABLET GT SCH (08:35)
[2022-06-05] MEDS: FOLIC ACID 1 MG TABLET GT SCH (08:35)
[2022-06-05] MEDS: PANTOPRAZOLE SODIUM 40 MG TAB PO SCH (08:35)
[2022-06-05] MEDS: TAMSULOSIN HCL 0.4 MG CAP GT SCH (08:35)
[2022-06-05] MEDS: ATORVASTATIN 20 MG TABLET GT SCH (08:36)
[2022-06-05] MEDS: CLOZAPINE 100MG TAB PO SCH ×2 (09:00→21:00)
[2022-06-05] MEDS: LINEZOLID 300 ML IV SCH ×2 (09:12→21:20)
[2022-06-05] MEDS: LANOLIN ALCOHOL/MO/W.PET/CERES 57 GM CREAM..G. TP SCH ×2 (11:00→21:23)
[2022-06-05] MEDS: BALSAM PERU/CASTOR OIL 56.7 GM OINT...G. TP SCH (11:00)
[2022-06-05] MEDS: CLOTRIMAZOLE 1% TOPICAL CREAM 15 GM TP SCH ×2 (11:00→21:24)
[2022-06-05] MEDS: INSULIN REGULAR, HUMAN 100 UNITS/ML, 3 ML VIAL (humuLIN R) SUBCUT PRN (12:29)
--- NOTE | 2022-06-05 19:30 | NUR ---
RECEIVED PATIENT AROUSABLE, FOLLOWS SIMPLE COMMANDS.PATIENT IS INTUBATED, AC16, TV450, FIO2 30%, PEEP 5. SAT WDL. DIRECTOR OF EVENTS IS SJOWING NSR. LEVOPHED IS INFUSING AT 0.04 MCG/KG/MIN VIA LEFT UE ML. ABDOMEN IS SOFT AND NON-DISTENDED. GT FEEDING OF NEPHRO AT 40 ML/HR. HOB ELEVATED. ON ASPIRATION PRECAUTION. CARRERA CATH INTACT AND PATENT, DRAINING WELL. AFEBRILE.
[2022-06-06] VITALS (31 sets, daily range): BP systolic 92–123
[2022-06-06 06:39] LABS: BASOPHILS # (AUTO) 0.2 K/uL (0.0-0.2); BASOPHILS % (AUTO) 1.2 % (0.0-2.0); EOSINOPHILS # (AUTO) 0.8 K/uL (0.0-0.4); EOSINOPHILS % (AUTO) 5.1 % (0.0-4.0); HEMATOCRIT 28.9 % (36-54); HEMOGLOBIN 9.6 g/dL (14.0-18.0); LYMPHOCYTES # (AUTO) 3.4 K/uL (1.0-5.5); LYMPHOCYTES % (AUTO) 23.1 % (20.5-51.5); MEAN CORPUSCULAR HEMOGLOBIN 30 pg (27-31); MEAN CORPUSCULAR HGB CONC 33 % (32-36); MEAN CORPUSCULAR VOLUME 90 fL (79.0-98.0); MONOCYTES # (AUTO) 1.8 K/uL (0.0-1.0); MONOCYTES % (AUTO) 11.9 % (1.7-9.3); NEUTROPHILS # (AUTO) 8.7 K/uL (1.8-7.7); NEUTROPHILS % (AUTO) 58.7 % (40.0-70.0); PLATELET COUNT (AUTO) 237 K/uL (130-430); RED BLOOD CELL COUNT(AUTO) 3.19 MIL/uL (4.2-6.2); RED CELL DISTRIBUTION WIDTH 15.4 % (9.0-15.0); WHITE BLOOD COUNT (AUTO) 14.8 K/uL (4.8-10.8)
[2022-06-06 06:45] LABS: CALCIUM 9.1 mg/dL (8.4-11.0); CREATININE 2.42 mg/dL (0.55-1.30)
--- NOTE | 2022-06-06 07:27 | NUR ---
RT NOTES Unable to cpap at this time, pt appears tired, sleepy.
[2022-06-06] MEDS: MEROPENEM 500 MG in NS 50 ML IV SCH ×2 (08:21→20:23)
[2022-06-06] MEDS: SEVELAMER CARBONATE 800 MG TABLET GT SCH ×3 (08:22→17:22)
[2022-06-06] MEDS: LINEZOLID 300 ML IV SCH ×2 (08:22→20:23)
[2022-06-06] MEDS: SODIUM BICARBONATE 650 MG TABLET PO SCH ×4 (08:23→20:29)
[2022-06-06] MEDS: MIDODRINE HCL 5 MG TABLET (PROAMATINE) GT SCH ×3 (08:23→20:23)
[2022-06-06] MEDS: ATORVASTATIN 20 MG TABLET GT SCH (08:23)
[2022-06-06] MEDS: PANTOPRAZOLE SODIUM 40 MG TAB PO SCH (08:24)
[2022-06-06] MEDS: TAMSULOSIN HCL 0.4 MG CAP GT SCH (08:24)
[2022-06-06] MEDS: FOLIC ACID 1 MG TABLET GT SCH (08:24)
[2022-06-06] MEDS: DIVALPROEX SODIUM 500 MG TABLET( DEPAKOTE) PO SCH ×2 (08:24→20:24)
[2022-06-06] MEDS: POTASSIUM CHLORIDE 20 MEQ TAB.PRT.SR PO SCH (08:24)
[2022-06-06] MEDS: OXYBUTYNIN CHLORIDE 5 MG TABLET GT SCH (08:24)
[2022-06-06] MEDS: CLOZAPINE 100MG TAB PO SCH ×2 (08:25→20:24)
--- NOTE | 2022-06-06 09:17 | NUR ---
Nutrition F/U Admitting Diagnosis: Dehydration, hyponatremia Reviewed Pertinent Medical/Surgical Hx: Medical Record, SNAILER Medical History Comment: PMH: DMT2, CKD, dyslipidemia, BPH, and anemia per physician notes Pt also found w/ malnutrition per physician notes Per EMR review 04/19: pt also found w/ leukocytosis and septic shock 05/03/22: At 1145pt temp was 100.1, tylenol given 650 mg via gt earlier and icepack was given on groin and under axillas. Levophed increased accdg to BP and was up to 1mcg /kg/min . Placed pt on supine , flat in bed and monitored frequently almost every 5 mins. Bolus with 1 L of N. saline and hold dialysis today 05/04/22Pt has been seen as high risk for over a month. He is tolerating feeds, having normal BMs and is getting Kwasi. From now on, pt will be screened as low-risk unless any new changes arise. 05/17: Pt got HD today, wounds are worsening. S/w pts brother about his condition and brother wants to keep him full code and is fully aware of pts worsening wound ulcers 06/04/22: Per LOS, pt likely to be DC to [facility] as soon as they have a bed Subjective Information: Follow-up was deferred d/t high workload and pt was supposed to be DC 06/04, per LOS RD s/w primary nurse, Kathy. She said that pt is doing about the same, nothing new to report. RD witnessed TF running @ 40mL/hr (goal). Pt is still on Levophed at 0.04 mcg. Pt is not currently on any sedation, no D5w. Per EMR review: pt abd is non-distended w/ active bowel sounds throughout; GRV is 10mL and under for the past week; last documented bowel movement: 06/06 x 1. Current Diet Order/Nutrition Support: Nepro at 40 ml/hr (goal), Kwasi BID, FWF: 250ml Q4h via GT x 42 days NEW Pertinent medications: SSI, Piper/Tazo, Na Bicarbonate, Lovenox, Levophed, Glipizide, Renvela, Protonix, Lipitor, Folic acid, Midodrine NEW pertinent labs: Hgb 9.6 L, Na 145 L, K 3.4L, BUN 90 H, Cre 2.42 H, eGFR 29 L, BG 162 H Patient/Significant Other Unable To Verbalize Education Provided Not Indicated Height: 5'6" Weight: 115#/52.2kg -- stable since 04/01 Body Mass Index: 18.56 kg/m2 %IBW: 81 [place]/Adjusted Body Weight: 142#/64.5 kg Recent Weight Change: No - Unable to verify Weight Status: Underweight Food Allergies: Unable to verify Usual Diet At Home: Unable to verify Skin Integrity Comment: 06/06 Clayton scale 11: w/ sacral-coccygeal unstageable PI, Left/lower buttock ischium stage 2 PI, Right outter buttock scar tissue, Right distal lateral lower extremity superior-malleous unstageable PI, Right medial heel unstageable PI, Right plantar foot/arch ischemic wound from vasopressor use, etc. Per unattended ground sensor specialist note 05/05 Edema: Generalized +2 Pitting documented 06/06 LBM: 06/06 x 1 Estimated Energy Expenditure (kcals/day) 1656 kcal (PSU 2003 ICU/Vent, MSJ 1259, Ve 7.4, Tmax 38.5) Estimated Protein Required (g/day) 65-90 (1-1.4 gm/kg IBW d/t CKD, wound healing, septic shock) Estimated Fluid Required (l/day) Per physician d/t CKD Problem/Etiology/Signs/Symptoms * Increased nutritional needs R/T metabolic demands AEB estimated nutritional requirements for wound healing. (On-going) * Altered nutrition-related lab values r/t renal dysfunction a/e/b elevated values: BUN, Cre. (On-going) Expected Outcomes/Goals - Monitor tolerance to EN support w/ goal of pt meeting >95% of estimated nutritional needs, labs trending WNL, normal GI function, and skin integrity/wt maintenance Dietitian Recommendations *New recommendation: Nepro at 35 ml/hr (goal), Kwasi BID, FWF: 40ml Q4h via GT Provides (w/ Kwasi): 1692 kcal/day, 68 gm protein/day, and 850 ml free water/day Meets: 102% of estimated caloric needs and 105% of lower estimated protein needs * Consider wound supplements: Renal MVI, 250 mg VIT C * Consider 220mg ZnSO4 x 14 days for wound healing Low Risk: F/U in 7 days GS, MPH, RD
--- NOTE | 2022-06-06 09:18 | NUR ---
Dietitian Recommendations *New recommendation: Nepro at 35 ml/hr (goal), Kwasi BID, FWF: 40ml Q4h via GT Provides (w/ Kwasi): 1692 kcal/day, 68 gm protein/day, and 850 ml free water/day Meets: 102% of estimated caloric needs and 105% of lower estimated protein needs * Consider wound supplements: Renal MVI, 250 mg VIT C * Consider 220mg ZnSO4 x 14 days for wound healing GS, MPH, RD Please refer to Nutrition F/U for further details. Thanks!
[2022-06-06] MEDS: INSULIN REGULAR, HUMAN 100 UNITS/ML, 3 ML VIAL (humuLIN R) SUBCUT PRN ×2 (12:34→18:42)
--- NOTE | 2022-06-06 15:35 | NUR ---
RT NOTES Per daily SBT, vent to cpap 5 ps 10. No immediate adverse reactions noted. will monitor pt.
--- NOTE | 2022-06-06 16:30 | NUR ---
RT NOTES Pt. cont. to tolerate CPAP. No distress noted.
[2022-06-06] MEDS: CLOTRIMAZOLE 1% TOPICAL CREAM 15 GM TP SCH ×2 (17:00→20:25)
[2022-06-06] MEDS: LANOLIN ALCOHOL/MO/W.PET/CERES 57 GM CREAM..G. TP SCH ×2 (17:00→20:24)
[2022-06-06] MEDS: BALSAM PERU/CASTOR OIL 56.7 GM OINT...G. TP SCH (17:23)
[2022-06-07] VITALS (28 sets, daily range): BP systolic 99–132
[2022-06-07 07:01] LABS: BASOPHILS # (AUTO) 0.1 K/uL (0.0-0.2); BASOPHILS % (AUTO) 0.7 % (0.0-2.0); EOSINOPHILS # (AUTO) 0.9 K/uL (0.0-0.4); EOSINOPHILS % (AUTO) 5.7 % (0.0-4.0); HEMATOCRIT 27.8 % (36-54); HEMOGLOBIN 9.3 g/dL (14.0-18.0); LYMPHOCYTES # (AUTO) 3.1 K/uL (1.0-5.5); LYMPHOCYTES % (AUTO) 20.3 % (20.5-51.5); MEAN CORPUSCULAR HEMOGLOBIN 31 pg (27-31); MEAN CORPUSCULAR HGB CONC 33 % (32-36); MEAN CORPUSCULAR VOLUME 91 fL (79.0-98.0); MONOCYTES # (AUTO) 1.8 K/uL (0.0-1.0); MONOCYTES % (AUTO) 11.8 % (1.7-9.3); NEUTROPHILS # (AUTO) 9.5 K/uL (1.8-7.7); NEUTROPHILS % (AUTO) 61.5 % (40.0-70.0); PLATELET COUNT (AUTO) 264 K/uL (130-430); RED BLOOD CELL COUNT(AUTO) 3.04 MIL/uL (4.2-6.2); WHITE BLOOD COUNT (AUTO) 15.5 K/uL (4.8-10.8)
[2022-06-07 08:18] LABS: CALCIUM 8.8 mg/dL (8.4-11.0); CREATININE 2.78 mg/dL (0.55-1.30)
[2022-06-07] MEDS: CLOZAPINE 100MG TAB PO SCH ×2 (08:33→21:00)
[2022-06-07] MEDS: SEVELAMER CARBONATE 800 MG TABLET GT SCH ×3 (08:34→19:04)
[2022-06-07] MEDS: MIDODRINE HCL 5 MG TABLET (PROAMATINE) GT SCH ×3 (08:35→21:34)
[2022-06-07] MEDS: FOLIC ACID 1 MG TABLET GT SCH (08:36)
[2022-06-07] MEDS: ATORVASTATIN 20 MG TABLET GT SCH (08:36)
[2022-06-07] MEDS: OXYBUTYNIN CHLORIDE 5 MG TABLET GT SCH (08:36)
[2022-06-07] MEDS: TAMSULOSIN HCL 0.4 MG CAP GT SCH (08:36)
[2022-06-07] MEDS: MEROPENEM 500 MG in NS 50 ML IV SCH ×2 (08:39→21:32)
[2022-06-07] MEDS: LINEZOLID 300 ML IV SCH ×2 (08:39→22:23)
[2022-06-07] MEDS: PANTOPRAZOLE SODIUM 40 MG TAB PO SCH (08:40)
[2022-06-07] MEDS: POTASSIUM CHLORIDE 20 MEQ TAB.PRT.SR PO SCH (08:40)
[2022-06-07] MEDS: SODIUM BICARBONATE 650 MG TABLET PO SCH ×4 (08:40→21:30)
[2022-06-07] MEDS: DIVALPROEX SODIUM 500 MG TABLET( DEPAKOTE) PO SCH ×2 (08:40→21:30)
[2022-06-07] MEDS ORDERED: GENTAMICIN 80 MG/ ISO-OSM 100 ML PREMIX IV ONE (09:00)
[2022-06-07] MEDS: CLOTRIMAZOLE 1% TOPICAL CREAM 15 GM TP SCH ×2 (12:00→21:34)
[2022-06-07] MEDS: BALSAM PERU/CASTOR OIL 56.7 GM OINT...G. TP SCH (12:00)
[2022-06-07] MEDS: LANOLIN ALCOHOL/MO/W.PET/CERES 57 GM CREAM..G. TP SCH ×2 (12:00→21:34)
--- NOTE | 2022-06-07 14:04 | NUR ---
HIGH ALERT NOTE: Called Dr. SORIA back at the number identified within the medical roster to verify physician authenticity. Dr. Soria ordered heparin as ordered and was given by the segment producer.
[2022-06-07] MEDS ORDERED: HEPARIN SODIUM,PORCINE 5,000 UNITS/ML VIAL MC ONE (14:15)
[2022-06-07] MEDS: INSULIN REGULAR, HUMAN 100 UNITS/ML, 3 ML VIAL (humuLIN R) SUBCUT PRN (19:02)
--- NOTE | 2022-06-07 19:35 | NUR ---
PM SHIFT ASSESSMENT PATIENT IS AWAKE BUT UNABLE TO MAKE NEEDS KNOWN. CURRENTLY ON VENT, TOLERATING WELL. SR ON MONITOR. SKIN WARM AND DRY. TUBEFEEDING INFUSING TO GTUBE. SAFETY PRECAUTIONS IN PLACE, CALL LIGHT WITHIN REACH. WILL CONTINUE TO MONITOR.
[2022-06-07] MEDS: NOREPINEPHRINE BITARTRATE 16 MG in NS 234 ML IV PRN (21:32)
[2022-06-08] VITALS (30 sets, daily range): BP systolic 99–152
[2022-06-08 06:29] LABS: BASOPHILS # (AUTO) 0.1 K/uL (0.0-0.2); BASOPHILS % (AUTO) 0.7 % (0.0-2.0); EOSINOPHILS # (AUTO) 0.7 K/uL (0.0-0.4); HEMATOCRIT 27.8 % (36-54); HEMOGLOBIN 9.2 g/dL (14.0-18.0); LYMPHOCYTES # (AUTO) 4.1 K/uL (1.0-5.5); LYMPHOCYTES % (AUTO) 29.7 % (20.5-51.5); MEAN CORPUSCULAR HEMOGLOBIN 31 pg (27-31); MEAN CORPUSCULAR HGB CONC 33 % (32-36); MEAN CORPUSCULAR VOLUME 93 fL (79.0-98.0); MONOCYTES # (AUTO) 1.5 K/uL (0.0-1.0); MONOCYTES % (AUTO) 10.7 % (1.7-9.3); NEUTROPHILS # (AUTO) 7.5 K/uL (1.8-7.7); NEUTROPHILS % (AUTO) 53.9 % (40.0-70.0); PLATELET COUNT (AUTO) 247 K/uL (130-430); RED BLOOD CELL COUNT(AUTO) 3.01 MIL/uL (4.2-6.2); RED CELL DISTRIBUTION WIDTH 15.3 % (9.0-15.0); WHITE BLOOD COUNT (AUTO) 13.9 K/uL (4.8-10.8)
[2022-06-08 06:54] LABS: CALCIUM 8.5 mg/dL (8.4-11.0); CREATININE 2.05 mg/dL (0.55-1.30)
[2022-06-08 07:24] LABS: GENTAMICIN,RANDOM 1.9 ug/mL
--- NOTE | 2022-06-08 07:34 | NUR ---
PATIENT CARE ENDORSED TO CATA GARRISON.
[2022-06-08] MEDS: CLOZAPINE 100MG TAB PO SCH ×2 (09:00→21:00)
[2022-06-08] MEDS: LINEZOLID 300 ML IV SCH ×2 (09:13→21:35)
[2022-06-08] MEDS: MEROPENEM 500 MG in NS 50 ML IV SCH ×2 (09:13→21:35)
[2022-06-08] MEDS: TAMSULOSIN HCL 0.4 MG CAP GT SCH (09:14)
[2022-06-08] MEDS: DIVALPROEX SODIUM 500 MG TABLET( DEPAKOTE) PO SCH ×2 (09:14→21:36)
[2022-06-08] MEDS: SODIUM BICARBONATE 650 MG TABLET PO SCH ×2 (09:14→12:14)
[2022-06-08] MEDS: PANTOPRAZOLE SODIUM 40 MG TAB PO SCH (09:15)
[2022-06-08] MEDS: FOLIC ACID 1 MG TABLET GT SCH (09:15)
[2022-06-08] MEDS: MIDODRINE HCL 5 MG TABLET (PROAMATINE) GT SCH ×3 (09:15→21:35)
[2022-06-08] MEDS: OXYBUTYNIN CHLORIDE 5 MG TABLET GT SCH (09:15)
[2022-06-08] MEDS: SEVELAMER CARBONATE 800 MG TABLET GT SCH ×3 (09:15→18:47)
[2022-06-08] MEDS: ATORVASTATIN 20 MG TABLET GT SCH (09:15)
[2022-06-08] MEDS: POTASSIUM CHLORIDE 20 MEQ TAB.PRT.SR PO SCH (09:15)
--- NOTE | 2022-06-08 09:58 | NUR ---
ATTEMPTED DAILY SBT TWICE THIS MORNING. PATIENT NOT TOLERATED CPAP AT THIS TIME DUE TO APNEA.
[2022-06-08] MEDS: CLOTRIMAZOLE 1% TOPICAL CREAM 15 GM TP SCH ×2 (14:23→21:37)
[2022-06-08] MEDS: BALSAM PERU/CASTOR OIL 56.7 GM OINT...G. TP SCH (14:23)
[2022-06-08] MEDS: LANOLIN ALCOHOL/MO/W.PET/CERES 57 GM CREAM..G. TP SCH ×2 (14:23→21:36)
--- NOTE | 2022-06-08 16:08 | NUR ---
[id number] PLACED ON CPAP 5, PS 10 FOR DAILY SBT. 1500 PLACED BACK TO PREVIOUS VENT SETTINGS DUE TO PATIENT BECAME TACHYPNEIC, RR 44. PATIENT TOLERATED CPAP 5, PS 10 FOR FOUR HOURS TODAY.
[2022-06-08] MEDS: INSULIN REGULAR, HUMAN 100 UNITS/ML, 3 ML VIAL (humuLIN R) SUBCUT PRN (18:46)
[2022-06-09] VITALS (33 sets, daily range): BP systolic 109–150
[2022-06-09 06:16] LABS: BASOPHILS # (AUTO) 0.1 K/uL (0.0-0.2); BASOPHILS % (AUTO) 0.9 % (0.0-2.0); EOSINOPHILS # (AUTO) 0.6 K/uL (0.0-0.4); EOSINOPHILS % (AUTO) 4.1 % (0.0-4.0); HEMATOCRIT 27.4 % (36-54); HEMOGLOBIN 9.1 g/dL (14.0-18.0); LYMPHOCYTES # (AUTO) 3.1 K/uL (1.0-5.5); MEAN CORPUSCULAR HEMOGLOBIN 31 pg (27-31); MEAN CORPUSCULAR HGB CONC 33 % (32-36); MEAN CORPUSCULAR VOLUME 92 fL (79.0-98.0); MONOCYTES # (AUTO) 1.4 K/uL (0.0-1.0); MONOCYTES % (AUTO) 9.1 % (1.7-9.3); NEUTROPHILS # (AUTO) 9.6 K/uL (1.8-7.7); NEUTROPHILS % (AUTO) 64.9 % (40.0-70.0); PLATELET COUNT (AUTO) 243 K/uL (130-430); RED BLOOD CELL COUNT(AUTO) 2.97 MIL/uL (4.2-6.2); WHITE BLOOD COUNT (AUTO) 14.8 K/uL (4.8-10.8)
[2022-06-09 06:27] LABS: CALCIUM 8.5 mg/dL (8.4-11.0); CREATININE 2.59 mg/dL (0.55-1.30)
--- NOTE | 2022-06-09 07:51 | NUR ---
RT NOTES CPAP was attempted, pt. was apneic despite re-education and encouragement. Will try again later, once pt is more awake. RN made aware.
--- NOTE | 2022-06-09 08:00 | NUR ---
pt received able to hold your gaze but does not follow commands; continued on vent ac16,30%,450,+5 peep with sats >93%. SR on tele; tube feeding at 40cc/hr with no residuals noted. titus to dd with adequate amount of clear yellow urine;no distress at this time
[2022-06-09] MEDS ORDERED: GENTAMICIN 80 MG/ ISO-OSM 100 ML PREMIX IV ONE (09:00)
[2022-06-09] MEDS: CLOZAPINE 100MG TAB PO SCH ×2 (09:00→20:40)
[2022-06-09] MEDS: FOLIC ACID 1 MG TABLET GT SCH (09:05)
[2022-06-09] MEDS: PANTOPRAZOLE SODIUM 40 MG TAB PO SCH (09:05)
[2022-06-09] MEDS: ATORVASTATIN 20 MG TABLET GT SCH (09:06)
[2022-06-09] MEDS: DIVALPROEX SODIUM 500 MG TABLET( DEPAKOTE) PO SCH ×2 (09:06→20:07)
[2022-06-09] MEDS: SEVELAMER CARBONATE 800 MG TABLET GT SCH ×3 (09:06→18:43)
[2022-06-09] MEDS: MIDODRINE HCL 5 MG TABLET (PROAMATINE) GT SCH ×3 (09:06→20:07)
[2022-06-09] MEDS: TAMSULOSIN HCL 0.4 MG CAP GT SCH (09:06)
[2022-06-09] MEDS: OXYBUTYNIN CHLORIDE 5 MG TABLET GT SCH (09:06)
[2022-06-09] MEDS: POTASSIUM CHLORIDE 20 MEQ TAB.PRT.SR PO SCH (09:06)
[2022-06-09] MEDS: LINEZOLID 300 ML IV SCH ×2 (09:07→20:08)
[2022-06-09] MEDS: MEROPENEM 500 MG in NS 50 ML IV SCH ×2 (09:07→20:07)
--- NOTE | 2022-06-09 11:00 | NUR ---
RT NOTES Pt is still too tired for CPAP, still became apneic despite stimulation & education provided.
--- NOTE | 2022-06-09 12:00 | NUR ---
No changes in health status;pt unable to tolerate cpap; phone call made to sister for trach consent. message left on voice mail to call floor to give consent for trach.
[2022-06-09] MEDS: INSULIN REGULAR, HUMAN 100 UNITS/ML, 3 ML VIAL (humuLIN R) SUBCUT PRN ×2 (12:25→23:59)
--- NOTE | 2022-06-09 15:17 | NUR ---
RT NOTES Per daily SBT, vent to cpap 5 ps 10. no adverse reactions noted. will monitor pt. will notify rn.
[2022-06-09] MEDS: BALSAM PERU/CASTOR OIL 56.7 GM OINT...G. TP SCH (15:30)
[2022-06-09] MEDS: LANOLIN ALCOHOL/MO/W.PET/CERES 57 GM CREAM..G. TP SCH ×2 (15:30→20:08)
[2022-06-09] MEDS: CLOTRIMAZOLE 1% TOPICAL CREAM 15 GM TP SCH ×2 (15:30→20:08)
--- NOTE | 2022-06-09 16:00 | NUR ---
wound care done per order; pictures taken and posted in chart;vss
--- NOTE | 2022-06-09 16:35 | NUR ---
RT NOTES Vent back to AC due to tachypnea. RN aware.
--- NOTE | 2022-06-09 19:00 | NUR ---
pt comfortable in be;vss; no distress noted
[2022-06-10] VITALS (33 sets, daily range): BP systolic 91–144
[2022-06-10] MEDS: INSULIN REGULAR, HUMAN 100 UNITS/ML, 3 ML VIAL (humuLIN R) SUBCUT PRN ×2 (05:32→23:54)
[2022-06-10 06:14] LABS: BASOPHILS # (AUTO) 0.1 K/uL (0.0-0.2); BASOPHILS % (AUTO) 0.3 % (0.0-2.0); EOSINOPHILS # (AUTO) 0.4 K/uL (0.0-0.4); EOSINOPHILS % (AUTO) 2.3 % (0.0-4.0); HEMATOCRIT 28.6 % (36-54); HEMOGLOBIN 9.3 g/dL (14.0-18.0); LYMPHOCYTES # (AUTO) 2.2 K/uL (1.0-5.5); LYMPHOCYTES % (AUTO) 11.8 % (20.5-51.5); MEAN CORPUSCULAR HEMOGLOBIN 30 pg (27-31); MEAN CORPUSCULAR HGB CONC 33 % (32-36); MEAN CORPUSCULAR VOLUME 92 fL (79.0-98.0); MONOCYTES # (AUTO) 1.3 K/uL (0.0-1.0); MONOCYTES % (AUTO) 7.1 % (1.7-9.3); NEUTROPHILS # (AUTO) 14.8 K/uL (1.8-7.7); NEUTROPHILS % (AUTO) 78.5 % (40.0-70.0); PLATELET COUNT (AUTO) 234 K/uL (130-430); RED BLOOD CELL COUNT(AUTO) 3.11 MIL/uL (4.2-6.2); RED CELL DISTRIBUTION WIDTH 15.2 % (9.0-15.0); WHITE BLOOD COUNT (AUTO) 18.9 K/uL (4.8-10.8)
[2022-06-10 06:24] LABS: CALCIUM 8.5 mg/dL (8.4-11.0); CREATININE 2.81 mg/dL (0.55-1.30); GENTAMICIN,RANDOM 2.8 ug/mL
--- NOTE | 2022-06-10 08:00 | NUR ---
RT NOTES Dr Lashell valdes, made aware that cpap had not started due to pt looks tired. stated "it's okay", since "its been decided that the pt will be trach". Rn made aware.
[2022-06-10] MEDS: PANTOPRAZOLE SODIUM 40 MG TAB PO SCH (08:29)
[2022-06-10] MEDS: ATORVASTATIN 20 MG TABLET GT SCH (08:29)
[2022-06-10] MEDS: FOLIC ACID 1 MG TABLET GT SCH (08:29)
[2022-06-10] MEDS: POTASSIUM CHLORIDE 20 MEQ TAB.PRT.SR PO SCH (08:29)
[2022-06-10] MEDS: SEVELAMER CARBONATE 800 MG TABLET GT SCH ×3 (08:29→18:13)
[2022-06-10] MEDS: DIVALPROEX SODIUM 500 MG TABLET( DEPAKOTE) PO SCH ×2 (08:30→20:22)
[2022-06-10] MEDS: LINEZOLID 300 ML IV SCH (08:33)
[2022-06-10] MEDS: OXYBUTYNIN CHLORIDE 5 MG TABLET GT SCH (08:33)
[2022-06-10] MEDS: TAMSULOSIN HCL 0.4 MG CAP GT SCH (08:33)
[2022-06-10] MEDS: MIDODRINE HCL 5 MG TABLET (PROAMATINE) GT SCH ×3 (08:33→20:22)
[2022-06-10] MEDS: CLOTRIMAZOLE 1% TOPICAL CREAM 15 GM TP SCH ×2 (08:55→20:22)
[2022-06-10] MEDS: BALSAM PERU/CASTOR OIL 56.7 GM OINT...G. TP SCH (08:56)
[2022-06-10] MEDS: LANOLIN ALCOHOL/MO/W.PET/CERES 57 GM CREAM..G. TP SCH ×2 (08:56→20:22)
[2022-06-10] MEDS: CLOZAPINE 100MG TAB PO SCH ×2 (09:00→21:00)
[2022-06-10] MEDS: MEROPENEM 500 MG in NS 50 ML IV SCH ×2 (09:00→20:22)
[2022-06-10] MEDS ORDERED: NOREPINEPHRINE BITARTRATE 16 MG in NS 234 ML IV PRN (13:00)
--- NOTE | 2022-06-10 13:50 | NUR ---
SURGEON DR PARHAM CALLED, ASKED FOR TRACHEOSTOMY PLAN/SCHEDULE . HE STATED THAT NO ONE BOTHERS TO CALL HIM FOR THE CONSULT. PAGED DR REDDY TO NOTIFY HIM. PAGED PERLITA WRIGHT NP WELL.
[2022-06-11] VITALS (31 sets, daily range): BP systolic 87–128
[2022-06-11] MEDS: INSULIN REGULAR, HUMAN 100 UNITS/ML, 3 ML VIAL (humuLIN R) SUBCUT PRN ×2 (05:26→18:56)
[2022-06-11 06:20] LABS: CALCIUM 8.5 mg/dL (8.4-11.0); CREATININE 2.33 mg/dL (0.55-1.30)
[2022-06-11 06:29] LABS: BASOPHILS # (AUTO) 0.1 K/uL (0.0-0.2); BASOPHILS % (AUTO) 0.3 % (0.0-2.0); EOSINOPHILS # (AUTO) 0.2 K/uL (0.0-0.4); EOSINOPHILS % (AUTO) 0.7 % (0.0-4.0); HEMATOCRIT 26.8 % (36-54); HEMOGLOBIN 8.8 g/dL (14.0-18.0); LYMPHOCYTES # (AUTO) 2.5 K/uL (1.0-5.5); LYMPHOCYTES % (AUTO) 9.6 % (20.5-51.5); MEAN CORPUSCULAR HEMOGLOBIN 31 pg (27-31); MEAN CORPUSCULAR HGB CONC 33 % (32-36); MEAN CORPUSCULAR VOLUME 94 fL (79.0-98.0); MONOCYTES # (AUTO) 1.8 K/uL (0.0-1.0); MONOCYTES % (AUTO) 6.6 % (1.7-9.3); NEUTROPHILS % (AUTO) 82.8 % (40.0-70.0); PLATELET COUNT (AUTO) 208 K/uL (130-430); RED BLOOD CELL COUNT(AUTO) 2.86 MIL/uL (4.2-6.2); RED CELL DISTRIBUTION WIDTH 15.4 % (9.0-15.0); WHITE BLOOD COUNT (AUTO) 26.5 K/uL (4.8-10.8)
[2022-06-11] MEDS: SEVELAMER CARBONATE 800 MG TABLET GT SCH ×3 (08:30→18:00)
[2022-06-11] MEDS: TAMSULOSIN HCL 0.4 MG CAP GT SCH (08:30)
[2022-06-11] MEDS: OXYBUTYNIN CHLORIDE 5 MG TABLET GT SCH (08:30)
[2022-06-11] MEDS: ATORVASTATIN 20 MG TABLET GT SCH (08:32)
[2022-06-11] MEDS: MIDODRINE HCL 5 MG TABLET (PROAMATINE) GT SCH ×3 (08:33→20:02)
[2022-06-11] MEDS: MEROPENEM 500 MG in NS 50 ML IV SCH ×2 (08:34→20:02)
[2022-06-11] MEDS: DIVALPROEX SODIUM 500 MG TABLET( DEPAKOTE) PO SCH ×2 (08:35→20:04)
[2022-06-11] MEDS: POTASSIUM CHLORIDE 20 MEQ TAB.PRT.SR PO SCH (08:35)
[2022-06-11] MEDS: PANTOPRAZOLE SODIUM 40 MG TAB PO SCH (08:36)
[2022-06-11] MEDS: CLOZAPINE 100MG TAB PO SCH ×2 (08:36→20:04)
[2022-06-11] MEDS: LANOLIN ALCOHOL/MO/W.PET/CERES 57 GM CREAM..G. TP SCH ×2 (08:37→20:04)
[2022-06-11] MEDS: CLOTRIMAZOLE 1% TOPICAL CREAM 15 GM TP SCH ×2 (08:38→20:04)
[2022-06-11] MEDS: BALSAM PERU/CASTOR OIL 56.7 GM OINT...G. TP SCH (08:39)
[2022-06-11] MEDS: FOLIC ACID 1 MG TABLET GT SCH (08:39)
--- NOTE | 2022-06-11 19:17 | NUR ---
[facility] FOLLOWED UP WITH TRANSPORT SCHEDULED AT 1800. PER COREY AT DISPATCH RT IS ON A LONG DISTANCE TRANSPORT AND ON THE WAY BACK. NEW PICKUP ETA 2200. WILL CONTINUE TO MONITOR PT.
--- NOTE | 2022-06-11 20:15 | NUR ---
BM PT HAD MODERATE AMOUNT OF LOOSE BROWN STOOL AT THIS TIME. ANIKET CARE PROVIDED AND LINENS CHANGED. PT TOLERATED WELL.
--- NOTE | 2022-06-11 21:00 | NUR ---
DR. MAUREEN JONES MADE AWARE OF PT HOME MEDICATIONS NEEDING RECONCILIATION. PER MD STOP ALL HOME MEDS BEFORE PT TRANSFER. WILL CARRY OUT ORDERED.
--- NOTE | 2022-06-11 21:20 | NUR ---
MOE ROSA MADE AWARE THAT PT TRANSPORT IS HERE READY FOR PICKUP. ACCEPTING NURSE ALCALA AWARE.
--- NOTE | 2022-06-11 21:25 | NUR ---
[facility] RT AND WORLD HISTORY TEACHER HERE TO TRANSPORT PT AT THIS TIME. REPORT GIVEN TO MORIAH RT AND ALIX WORLD HISTORY TEACHER. PT VSS, NAD NOTED.
--- NOTE | 2022-06-11 21:25 | NUR ---
FAMILY UPDATE PTS SISTER IN LAW SHYLA AKHTAR MADE AWARE THAT PT WILL TRANSFER TO [facility] AT THIS TIME. WILL GO TO ICU BED F.
--- NOTE | 2022-06-11 21:45 | NUR ---
PT TRANSFERRED TO [facility] AT THIS TIME.
== END 2022-06-11 21:45 | DRG 870 ==
LOC: SMU 16:26 → SIC 04-10 19:42
PROVIDERS: ADMIT Internal Medicine; ATTEND Internal Medicine
PROC: 5A1D70Z Performance of Urinary Filtration, Intermittent, Less than 6 Hours Per Day (ICD-10-PCS; 2022-03-27)
PROC: 5A0935A Assistance with Respiratory Ventilation, Less than 24 Consecutive Hours, High Flow/Velocity Cannula (ICD-10-PCS; 2022-03-27)
PROC: 5A1D70Z Performance of Urinary Filtration, Intermittent, Less than 6 Hours Per Day (ICD-10-PCS; 2022-03-31)
PROC: 5A1D70Z Performance of Urinary Filtration, Intermittent, Less than 6 Hours Per Day (ICD-10-PCS; 2022-04-04)
PROC: 5A1D70Z Performance of Urinary Filtration, Intermittent, Less than 6 Hours Per Day (ICD-10-PCS; 2022-04-07)
PROC: 5A1D70Z Performance of Urinary Filtration, Intermittent, Less than 6 Hours Per Day (ICD-10-PCS; 2022-04-08)
PROC: 02HV33Z Insertion of Infusion Device into Superior Vena Cava, Percutaneous Approach (ICD-10-PCS; 2022-04-08)
PROC: B548ZZA Ultrasonography of Superior Vena Cava, Guidance (ICD-10-PCS; 2022-04-08)
PROC: 5A1D70Z Performance of Urinary Filtration, Intermittent, Less than 6 Hours Per Day (ICD-10-PCS; 2022-04-11)
PROC: 5A1D70Z Performance of Urinary Filtration, Intermittent, Less than 6 Hours Per Day (ICD-10-PCS; 2022-04-13)
PROC: 5A1D70Z Performance of Urinary Filtration, Intermittent, Less than 6 Hours Per Day (ICD-10-PCS; 2022-04-17)
PROC: 5A1D70Z Performance of Urinary Filtration, Intermittent, Less than 6 Hours Per Day (ICD-10-PCS; 2022-04-20)
PROC: 5A1D70Z Performance of Urinary Filtration, Intermittent, Less than 6 Hours Per Day (ICD-10-PCS; 2022-04-26)
PROC: 5A1D70Z Performance of Urinary Filtration, Intermittent, Less than 6 Hours Per Day (ICD-10-PCS; 2022-04-30)
PROC: 0D20XUZ Change Feeding Device in Upper Intestinal Tract, External Approach (ICD-10-PCS; principal; 2022-05-07)
PROC: 0DH63UZ Insertion of Feeding Device into Stomach, Percutaneous Approach (ICD-10-PCS; 2022-05-07)
PROC: 5A1D70Z Performance of Urinary Filtration, Intermittent, Less than 6 Hours Per Day (ICD-10-PCS; 2022-05-17)
PROC: 5A1955Z Respiratory Ventilation, Greater than 96 Consecutive Hours (ICD-10-PCS; 2022-05-19)
PROC: 0BH17EZ Insertion of Endotracheal Airway into Trachea, Via Natural or Artificial Opening (ICD-10-PCS; 2022-05-19)
PROC: 5A1955Z Respiratory Ventilation, Greater than 96 Consecutive Hours (ICD-10-PCS; 2022-05-19)
PROC: 5A1D70Z Performance of Urinary Filtration, Intermittent, Less than 6 Hours Per Day (ICD-10-PCS; 2022-05-20)
PROC: 5A1D70Z Performance of Urinary Filtration, Intermittent, Less than 6 Hours Per Day (ICD-10-PCS; 2022-05-24)
PROC: 0VTTXZZ Resection of Prepuce, External Approach (ICD-10-PCS; 2022-05-24)
PROC: 5A1D70Z Performance of Urinary Filtration, Intermittent, Less than 6 Hours Per Day (ICD-10-PCS; 2022-05-28)
DX: A41.9 Sepsis, unspecified organism (principal); E43 Unspecified severe protein-calorie malnutrition; R65.21 Severe sepsis with septic shock; J69.0 Pneumonitis due to inhalation of food and vomit; G93.41 Metabolic encephalopathy; N17.0 Acute kidney failure with tubular necrosis; N18.6 End stage renal disease; J96.01 Acute respiratory failure with hypoxia; E87.0 Hyperosmolality and hypernatremia; B37.49 Other urogenital candidiasis; E87.1 Hypo-osmolality and hyponatremia; E87.20 Acidosis, unspecified; Z16.12 Extended spectrum beta lactamase (ESBL) resistance; L03.115 Cellulitis of right lower limb; I82.612 Acute embolism and thrombosis of superficial veins of left upper extremity; I82.622 Acute embolism and thrombosis of deep veins of left upper extremity; I13.2 Hypertensive heart and chronic kidney disease with heart failure and with stage 5 chronic kidney disease, or end stage renal disease; K31.6 Fistula of stomach and duodenum; F03.93 Unspecified dementia, unspecified severity, with mood disturbance; K94.23 Gastrostomy malfunction; Z68.1 Body mass index [BMI] 19.9 or less, adult; L03.113 Cellulitis of right upper limb; N47.2 Paraphimosis; E11.22 Type 2 diabetes mellitus with diabetic chronic kidney disease; D63.1 Anemia in chronic kidney disease; B96.20 Unspecified Escherichia coli [E. coli] as the cause of diseases classified elsewhere; E78.5 Hyperlipidemia, unspecified; E83.39 Other disorders of phosphorus metabolism; E87.6 Hypokalemia; E88.09 Other disorders of plasma-protein metabolism, not elsewhere classified; R13.10 Dysphagia, unspecified; N48.89 Other specified disorders of penis; N40.0 Benign prostatic hyperplasia without lower urinary tract symptoms; L89.159 Pressure ulcer of sacral region, unspecified stage; I50.9 Heart failure, unspecified; N43.2 Other hydrocele; F31.9 Bipolar disorder, unspecified; F20.9 Schizophrenia, unspecified; E86.0 Dehydration; D75.838 Other thrombocytosis; F03.90 Unspecified dementia, unspecified severity, without behavioral disturbance, psychotic disturbance, mood disturbance, and anxiety; Y83.8 Other surgical procedures as the cause of abnormal reaction of the patient, or of later complication, without mention of misadventure at the time of the procedure; Z86.19 Personal history of other infectious and parasitic diseases; Z99.2 Dependence on renal dialysis; Y92.89 Other specified places as the place of occurrence of the external cause
CPT/HCPCS: 36415; 36600; 70450-TC; 71045; 73060-TC; 74240-TC; 76376; 76770; 76870-TC; 80048; 80053; 80076; 80164; 80170; 80202; 81000; 82043; 82140; 82272; 82533; 82570; 82803-TC; 82962; 83605; 83735; 83930; 83935; 84100; 84302; 84311; 84550; 85007; 85025; 85027; 86480; 86886; 86900; 86901; 86920; 87040; 87070-TC; 87081; 87086; 87186-TC; 87205-TC; 90937; 92610-GN; 93970; 93971; 94002; 94003; 94640; 94760; A6209; C1751; C1769; G0378; J1580; J1644; J1650; J1815; J1940; J2020; J2060; J2185; J2543; J2704; J2997; J3370; J3480; J3490; J7030; J7040; J7050; J7060; J7120; J7614; P9021; P9046; Q5106; Q9964

== ENCOUNTER 2022-09-24 22:15 | Inpatient (IN) | payer OTHER, MEDICAID ==
[~2022-09-24] VITALS: Ht 157.5 cm; Wt 59.0 kg
[2022-09-24 22:22] VITALS: BP_SYST 97
[2022-09-24 23:55] LABS: BASOPHILS # (AUTO) 0.1 K/uL (0.0-0.2); BASOPHILS % (AUTO) 0.3 % (0.0-2.0); EOSINOPHILS # (AUTO) 0.5 K/uL (0.0-0.4); EOSINOPHILS % (AUTO) 3.2 % (0.0-4.0); HEMATOCRIT 22.3 % (36-54); LYMPHOCYTES # (AUTO) 2.4 K/uL (1.0-5.5); LYMPHOCYTES % (AUTO) 16.2 % (20.5-51.5); MEAN CORPUSCULAR HEMOGLOBIN 32 pg (27-31); MEAN CORPUSCULAR HGB CONC 31 % (32-36); MEAN CORPUSCULAR VOLUME 102 fL (79.0-98.0); MONOCYTES # (AUTO) 1.3 K/uL (0.0-1.0); MONOCYTES % (AUTO) 8.8 % (1.7-9.3); NEUTROPHILS # (AUTO) 10.7 K/uL (1.8-7.7); NEUTROPHILS % (AUTO) 71.5 % (40.0-70.0); PLATELET COUNT (AUTO) 456 K/uL (130-430); RED BLOOD CELL COUNT(AUTO) 2.17 MIL/uL (4.2-6.2); RED CELL DISTRIBUTION WIDTH 20.8 % (9.0-15.0); WHITE BLOOD COUNT (AUTO) 14.9 K/uL (4.8-10.8)
[2022-09-25 00:14] LABS: ALBUMIN 1.8 g/dL (3.4-4.8); CALCIUM 11.5 mg/dL (8.4-11.0); CREATININE 4.84 mg/dL (0.55-1.30); TOTAL BILIRUBIN 0.4 mg/dL (0.0-1.0)
[2022-09-25] MEDS ORDERED: NACL 0.9% 1,000 ML IV ONE ×2 (00:45→01:15)
[2022-09-25] MEDS ORDERED: cefTRIAXone 1 GM IVPB PREMIX 50 ML IV ONE (05:15)
[2022-09-25] MEDS ORDERED: D5/0.45 NS 1,000 ML IV ONE (06:15)
[2022-09-25] MEDS ORDERED: ASCO500T20 GT (06:27)
[2022-09-25] MEDS ORDERED: LIP40 PO (06:28)
[2022-09-25] MEDS ORDERED: NEPH PO (06:30)
[2022-09-25] MEDS ORDERED: CYAN100010 PO (06:31)
[2022-09-25] MEDS ORDERED: DEPS125 GT (06:33)
[2022-09-25] MEDS ORDERED: DOCU-144 GT (06:34)
[2022-09-25] MEDS ORDERED: EPOE1VIA13 SUBCUT (06:35)
[2022-09-25] MEDS ORDERED: FERR220S6 GT (06:36)
[2022-09-25] MEDS ORDERED: [UNRECOGNIZED DRUG - CODE] IJ (06:37)
[2022-09-25] MEDS ORDERED: IPRA3AMP9 INH (06:38)
[2022-09-25] MEDS ORDERED: LANS30CA53 GT (06:49)
[2022-09-25] MEDS ORDERED: LIP40 GT (06:50)
[2022-09-25] MEDS ORDERED: DITXL5 GT (06:51)
[2022-09-25] MEDS ORDERED: VITD2000 GT (06:53)
[2022-09-25] MEDS ORDERED: LEVO150T8 PO (06:54)
[2022-09-25] MEDS ORDERED: INSU100V7 SUBCUT (07:01)
[2022-09-25] MEDS ORDERED: SODI650T GT (07:02)
[2022-09-25] MEDS ORDERED: INSU100V9 SQ (07:05)
[2022-09-25 07:07] LABS: BASOPHILS # (AUTO) 0.1 K/uL (0.0-0.2); BASOPHILS % (AUTO) 0.4 % (0.0-2.0); EOSINOPHILS # (AUTO) 0.5 K/uL (0.0-0.4); EOSINOPHILS % (AUTO) 3.1 % (0.0-4.0); LYMPHOCYTES % (AUTO) 18.6 % (20.5-51.5); MEAN CORPUSCULAR HEMOGLOBIN 31 pg (27-31); MEAN CORPUSCULAR HGB CONC 31 % (32-36); MEAN CORPUSCULAR VOLUME 103 fL (79.0-98.0); MONOCYTES # (AUTO) 1.2 K/uL (0.0-1.0); MONOCYTES % (AUTO) 7.1 % (1.7-9.3); NEUTROPHILS # (AUTO) 11.6 K/uL (1.8-7.7); NEUTROPHILS % (AUTO) 70.8 % (40.0-70.0); PLATELET COUNT (AUTO) 421 K/uL (130-430); RED BLOOD CELL COUNT(AUTO) 2.13 MIL/uL (4.2-6.2); RED CELL DISTRIBUTION WIDTH 20.5 % (9.0-15.0); WHITE BLOOD COUNT (AUTO) 16.3 K/uL (4.8-10.8)
[2022-09-25] MEDS ORDERED: SEVE800T8 GT (07:08)
[2022-09-25] MEDS ORDERED: MIDO5TAB4 GT (07:10)
[2022-09-25 07:20] LABS: HEMATOCRIT 21.9 % (36-54); HEMOGLOBIN 6.7 g/dL (14.0-18.0)
[2022-09-25 07:28] LABS: CREATININE 4.83 mg/dL (0.55-1.30)
[2022-09-25 09:28] LABS: ALBUMIN 1.9 g/dL (3.4-4.8); CALCIUM 10.9 mg/dL (8.4-11.0); TOTAL BILIRUBIN 0.4 mg/dL (0.0-1.0)
[2022-09-25 09:30] VITALS: BP_SYST 111
[2022-09-25 11:07] LABS: CLARITY/URINE CLOUDY (CLEAR); PROTEIN URINE 3+ (NEGATIVE)
[2022-09-25 11:08] LABS: BILIRUBIN,URINE NEGATIVE (NEGATIVE); BLOOD, URINE 3+ (NEGATIVE); GLUCOSE,URINE NEGATIVE (NEGATIVE); KETONES,URINE NEGATIVE (NEGATIVE); LEUKOCYTE ESTERASE ,URINE 3+ (NEGATIVE); NITRITE, URINE POSITIVE (NEGATIVE); UROBILINOGEN,URINE 0.2 (0.2-1.0)
[2022-09-25 11:09] LABS: COLOR,URINE YELLOW (YELLOW)
[2022-09-25 11:10] LABS: BACTERIA,URINE MODERATE /HPF (None Seen); RBC,URINE >100 /HPF (0-3); WBC,URINE >100 /HPF (0-3)
[2022-09-25 11:12] LABS: MUCUS,URINE 1+ /LPF (None Seen)
[2022-09-25 11:50] VITALS: BP_SYST 106
[2022-09-25] MEDS ORDERED: DEXTROSE 50% JECT 50 ML DISP.SYRIN IVP ONE (16:00)
[2022-09-25] MEDS ORDERED: INSULIN REGULAR, HUMAN 10 UNITS/0.1 ML, 3 ML VIAL IVP ONE (16:00)
[2022-09-25] MEDS ORDERED: SODIUM POLYSTYRENE SULFONATE 15 GM/60 ML UDBTL PO ONE (16:00)
[2022-09-25] MEDS ORDERED: ALBUTEROL SULFATE 0.083% 2.5 MG/3 ML VIAL.NEB INH ONE (16:00)
[2022-09-25] MEDS: 0.45% NACL 1,000 ML IV SCH ×2 (17:02→22:54)
[2022-09-25 17:15] VITALS: BP_SYST 106
[2022-09-25] MEDS: INSULIN LISPRO SLIDING SCALE 100 UNITS/ML, 3 ML VIAL (humaLOG) SUBCUT PRN ×2 (17:36→22:56)
[2022-09-25 18:33] VITALS: BP_SYST 96
[2022-09-25 19:40] VITALS: BP_SYST 99
[2022-09-26 00:28] VITALS: BP_SYST 114
[2022-09-26] MEDS ORDERED: PIPERACILLIN/TAZO 2.25G/DEX-IS 50 ML IV SCH ×2 (04:30→07:00)
[2022-09-26] MEDS ORDERED: PIPERACILLIN/TAZOBACTAM 2.25 GM VIAL IV ONE (05:34)
[2022-09-26] MEDS ORDERED: ALBUMIN HUMAN 25% 200 ML IV ONE (05:45)
[2022-09-26] MEDS ORDERED: cefTRIAXone 1 GM in D5W 50 ML IV ONE (06:15)
[2022-09-26 07:26] LABS: BASOPHILS # (AUTO) 0.1 K/uL (0.0-0.2); BASOPHILS % (AUTO) 0.3 % (0.0-2.0); EOSINOPHILS # (AUTO) 0.5 K/uL (0.0-0.4); EOSINOPHILS % (AUTO) 2.3 % (0.0-4.0); HEMATOCRIT 28.1 % (36-54); HEMOGLOBIN 8.7 g/dL (14.0-18.0); LYMPHOCYTES % (AUTO) 14.6 % (20.5-51.5); MEAN CORPUSCULAR HEMOGLOBIN 28 pg (27-31); MEAN CORPUSCULAR HGB CONC 31 % (32-36); MEAN CORPUSCULAR VOLUME 90 fL (79.0-98.0); MONOCYTES # (AUTO) 1.4 K/uL (0.0-1.0); MONOCYTES % (AUTO) 6.6 % (1.7-9.3); NEUTROPHILS # (AUTO) 15.6 K/uL (1.8-7.7); NEUTROPHILS % (AUTO) 76.2 % (40.0-70.0); PLATELET COUNT (AUTO) 432 K/uL (130-430); RED BLOOD CELL COUNT(AUTO) 3.12 MIL/uL (4.2-6.2); RED CELL DISTRIBUTION WIDTH 33.9 % (9.0-15.0)
[2022-09-26 07:32] LABS: CALCIUM 10.9 mg/dL (8.4-11.0); CREATININE 4.69 mg/dL (0.55-1.30); PHOSPHORUS 4.6 mg/dL (2.7-4.5)
[2022-09-26 07:42] LABS: WHITE BLOOD COUNT (AUTO) 20.5 K/uL (4.8-10.8)
[2022-09-26] MEDS ORDERED: IPRATROPIUM/ALBUTEROL SULFATE 3 ML AMPUL.NEB (DUONEB) INH PRN (07:45)
[2022-09-26 08:00] VITALS: BP_SYST 119
[2022-09-26] MEDS ORDERED: LEVOTHYROXINE SODIUM 0.15 MG TABLET PO ONE (08:00)
[2022-09-26] MEDS ORDERED: SODIUM ZIRCONIUM CYCLOSILICATE 10 GM POWD.PACK PO ONE (08:30)
[2022-09-26] MEDS ORDERED: NACL 0.9% 1,000 ML IV ONE (08:45)
[2022-09-26] MEDS: ASCORBIC ACID 500 MG TABLET GT SCH (09:05)
[2022-09-26] MEDS: CYANOCOBALAMIN (VITAMIN B-12) 1,000 MCG TABLET PO SCH (09:05)
[2022-09-26] MEDS: SODIUM BICARBONATE 650 MG TABLET GT SCH ×2 (09:05→21:29)
[2022-09-26] MEDS: NEPHROVITE, (FOLIC ACID/VITAMIN B COMP W-C 1 TAB) PO SCH (09:06)
[2022-09-26] MEDS: CHOLECALCIFEROL (VITAMIN D3) 2,000 UNIT TABLET GT SCH (09:06)
[2022-09-26] MEDS: DIVALPROEX SODIUM 125 MG CAP.(DEPAKOTE SPRINKLE) GT SCH ×2 (09:07→21:29)
[2022-09-26] MEDS: NACL 0.9% 1,000 ML IV SCH ×3 (09:12→22:05)
[2022-09-26 11:34] VITALS: BP_SYST 128
[2022-09-26] MEDS: INSULIN LISPRO SLIDING SCALE 100 UNITS/ML, 3 ML VIAL (humaLOG) SUBCUT PRN ×2 (11:59→17:53)
[2022-09-26] MEDS: SEVELAMER CARBONATE 800 MG TABLET GT SCH ×2 (14:26→21:29)
[2022-09-26] MEDS: PIPERACILLIN/TAZO 2.25G/DEX-IS 50 ML IV SCH ×2 (14:26→21:22)
[2022-09-26] MEDS: MIDODRINE HCL 5 MG TABLET (PROAMATINE) GT SCH ×2 (14:27→21:29)
[2022-09-26] MEDS ORDERED: HEPARIN SODIUM,PORCINE 5,000 UNITS/ML VIAL MC ONE (14:30)
[2022-09-26 17:48] VITALS: BP_SYST 128
[2022-09-26] MEDS ORDERED: HEPARIN SODIUM,PORCINE 5,000 UNITS/ML VIAL SUBCUT ONE (20:15)
[2022-09-26] MEDS ORDERED: HEPARIN SODIUM,PORCINE 5,000 UNITS/ML VIAL ONE (20:24)
[2022-09-26 20:39] VITALS: BP_SYST 107
[2022-09-26 20:40] VITALS: BP_SYST 107
[2022-09-27 00:35] LABS: CALCIUM 8.7 mg/dL (8.4-11.0); CREATININE 2.53 mg/dL (0.55-1.30)
[2022-09-27 00:55] LABS: THYROID STIMULATING HORMONE 6.94 uIu/mL (0.34-4.82); TOTAL BILIRUBIN 0.5 mg/dL (0.0-1.0)
[2022-09-27 01:21] VITALS: BP_SYST 117
[2022-09-27] MEDS: INSULIN LISPRO SLIDING SCALE 100 UNITS/ML, 3 ML VIAL (humaLOG) SUBCUT PRN (01:24)
[2022-09-27] MEDS: NACL 0.9% 1,000 ML IV SCH ×3 (05:36→21:59)
[2022-09-27] MEDS: MIDODRINE HCL 5 MG TABLET (PROAMATINE) GT SCH ×3 (05:37→21:55)
[2022-09-27] MEDS: SEVELAMER CARBONATE 800 MG TABLET GT SCH ×3 (05:37→21:55)
[2022-09-27] MEDS: PIPERACILLIN/TAZO 2.25G/DEX-IS 50 ML IV SCH ×3 (05:38→21:58)
[2022-09-27] MEDS: LEVOTHYROXINE SODIUM 0.15 MG TABLET PO SCH (05:42)
[2022-09-27 05:43] LABS: BASOPHILS % (AUTO) 0.2 % (0.0-2.0); EOSINOPHILS # (AUTO) 0.5 K/uL (0.0-0.4); EOSINOPHILS % (AUTO) 1.7 % (0.0-4.0); HEMATOCRIT 24.4 % (36-54); HEMOGLOBIN 7.7 g/dL (14.0-18.0); LYMPHOCYTES # (AUTO) 1.7 K/uL (1.0-5.5); LYMPHOCYTES % (AUTO) 6.4 % (20.5-51.5); MEAN CORPUSCULAR HEMOGLOBIN 28 pg (27-31); MEAN CORPUSCULAR HGB CONC 32 % (32-36); MEAN CORPUSCULAR VOLUME 89 fL (79.0-98.0); MONOCYTES # (AUTO) 1.5 K/uL (0.0-1.0); MONOCYTES % (AUTO) 5.5 % (1.7-9.3); NEUTROPHILS # (AUTO) 23.4 K/uL (1.8-7.7); PLATELET COUNT (AUTO) 371 K/uL (130-430); RED BLOOD CELL COUNT(AUTO) 2.73 MIL/uL (4.2-6.2); RED CELL DISTRIBUTION WIDTH 33.6 % (9.0-15.0); WHITE BLOOD COUNT (AUTO) 27.1 K/uL (4.8-10.8)
[2022-09-27 06:04] LABS: INR 1.2 (0.80-1.20)
[2022-09-27 07:46] VITALS: BP_SYST 121
[2022-09-27] MEDS ORDERED: NS 500 ML IV ONE (08:30)
[2022-09-27] MEDS: NEPHROVITE, (FOLIC ACID/VITAMIN B COMP W-C 1 TAB) PO SCH (09:20)
[2022-09-27] MEDS: ASCORBIC ACID 500 MG TABLET GT SCH (09:20)
[2022-09-27] MEDS: SODIUM BICARBONATE 650 MG TABLET GT SCH ×2 (09:20→21:00)
[2022-09-27] MEDS: CYANOCOBALAMIN (VITAMIN B-12) 1,000 MCG TABLET PO SCH (09:20)
[2022-09-27] MEDS: EPOETIN ALFA 10,000 UNITS/ML VIAL SUBCUT SCH (09:21)
[2022-09-27] MEDS: DIVALPROEX SODIUM 125 MG CAP.(DEPAKOTE SPRINKLE) GT SCH ×2 (09:38→21:00)
[2022-09-27] MEDS: CHOLECALCIFEROL (VITAMIN D3) 2,000 UNIT TABLET GT SCH (09:56)
[2022-09-27 11:38] LABS: NEUTROPHILS % (AUTO) 86.2 % (40.0-70.0)
[2022-09-27 12:40] VITALS: BP_SYST 117
[2022-09-27] MEDS ORDERED: ALBUMIN HUMAN 25% 100 ML IV ONE (13:15)
[2022-09-27] MEDS: ALBUMIN HUMAN 25% 50 ML IV SCH ×2 (13:15→21:59)
[2022-09-27] MEDS ORDERED: BALSAM PERU/CASTOR OIL 56.7 GM OINT...G. TP ONE (15:45)
[2022-09-27 16:28] VITALS: BP_SYST 109
[2022-09-27 20:00] VITALS: BP_SYST 120
[2022-09-28 00:32] VITALS: BP_SYST 102
[2022-09-28] MEDS: ALBUMIN HUMAN 25% 50 ML IV SCH (02:34)
[2022-09-28] MEDS: MIDODRINE HCL 5 MG TABLET (PROAMATINE) GT SCH ×3 (05:11→21:04)
[2022-09-28] MEDS: SEVELAMER CARBONATE 800 MG TABLET GT SCH ×3 (05:11→21:04)
[2022-09-28] MEDS: PIPERACILLIN/TAZO 2.25G/DEX-IS 50 ML IV SCH ×3 (05:55→22:29)
[2022-09-28 06:11] LABS: BASOPHILS # (AUTO) 0.1 K/uL (0.0-0.2); BASOPHILS % (AUTO) 0.7 % (0.0-2.0); EOSINOPHILS # (AUTO) 0.8 K/uL (0.0-0.4); HEMATOCRIT 25.9 % (36-54); HEMOGLOBIN 8.1 g/dL (14.0-18.0); LYMPHOCYTES # (AUTO) 2.3 K/uL (1.0-5.5); LYMPHOCYTES % (AUTO) 11.9 % (20.5-51.5); MEAN CORPUSCULAR HEMOGLOBIN 29 pg (27-31); MEAN CORPUSCULAR HGB CONC 31 % (32-36); MEAN CORPUSCULAR VOLUME 92 fL (79.0-98.0); MONOCYTES # (AUTO) 1.5 K/uL (0.0-1.0); MONOCYTES % (AUTO) 7.5 % (1.7-9.3); NEUTROPHILS # (AUTO) 14.7 K/uL (1.8-7.7); NEUTROPHILS % (AUTO) 75.9 % (40.0-70.0); PLATELET COUNT (AUTO) 356 K/uL (130-430); RED BLOOD CELL COUNT(AUTO) 2.82 MIL/uL (4.2-6.2); RED CELL DISTRIBUTION WIDTH 32.2 % (9.0-15.0); WHITE BLOOD COUNT (AUTO) 19.3 K/uL (4.8-10.8)
[2022-09-28] MEDS: LEVOTHYROXINE SODIUM 0.15 MG TABLET PO SCH (06:45)
[2022-09-28 06:48] LABS: ALBUMIN 2.4 g/dL (3.4-4.8); CALCIUM 9.2 mg/dL (8.4-11.0); CREATININE 2.1 mg/dL (0.55-1.30); TOTAL BILIRUBIN 0.7 mg/dL (0.0-1.0)
[2022-09-28 07:30] VITALS: BP_SYST 120
[2022-09-28] MEDS ORDERED: GASTROGRAFIN 120 ML ONE (08:06)
[2022-09-28] MEDS: CHOLECALCIFEROL (VITAMIN D3) 2,000 UNIT TABLET GT SCH (08:59)
[2022-09-28] MEDS: SODIUM BICARBONATE 650 MG TABLET GT SCH ×2 (08:59→21:04)
[2022-09-28] MEDS: BALSAM PERU/CASTOR OIL 56.7 GM OINT...G. TP SCH (08:59)
[2022-09-28] MEDS: DIVALPROEX SODIUM 125 MG CAP.(DEPAKOTE SPRINKLE) GT SCH ×2 (08:59→21:03)
[2022-09-28] MEDS: CYANOCOBALAMIN (VITAMIN B-12) 1,000 MCG TABLET PO SCH (08:59)
[2022-09-28] MEDS: ASCORBIC ACID 500 MG TABLET GT SCH (08:59)
[2022-09-28] MEDS: NEPHROVITE, (FOLIC ACID/VITAMIN B COMP W-C 1 TAB) PO SCH (08:59)
[2022-09-28] MEDS: NACL 0.9% 1,000 ML IV SCH (09:40)
[2022-09-28 10:44] VITALS: BP_SYST 120
[2022-09-28 11:34] VITALS: BP_SYST 107
[2022-09-28 15:37] VITALS: BP_SYST 111
[2022-09-28] MEDS: INSULIN LISPRO SLIDING SCALE 100 UNITS/ML, 3 ML VIAL (humaLOG) SUBCUT PRN (17:49)
[2022-09-28 20:00] VITALS: BP_SYST 105
[2022-09-29] VITALS (7 sets, daily range): BP systolic 100–121
[2022-09-29] MEDS: INSULIN LISPRO SLIDING SCALE 100 UNITS/ML, 3 ML VIAL (humaLOG) SUBCUT PRN ×4 (00:16→18:13)
[2022-09-29 05:18] LABS: BASOPHILS # (AUTO) 0.1 K/uL (0.0-0.2); BASOPHILS % (AUTO) 0.6 % (0.0-2.0); EOSINOPHILS # (AUTO) 0.8 K/uL (0.0-0.4); EOSINOPHILS % (AUTO) 4.5 % (0.0-4.0); HEMATOCRIT 24.8 % (36-54); HEMOGLOBIN 7.8 g/dL (14.0-18.0); LYMPHOCYTES # (AUTO) 2.3 K/uL (1.0-5.5); LYMPHOCYTES % (AUTO) 12.6 % (20.5-51.5); MEAN CORPUSCULAR HEMOGLOBIN 29 pg (27-31); MEAN CORPUSCULAR HGB CONC 32 % (32-36); MEAN CORPUSCULAR VOLUME 92 fL (79.0-98.0); MONOCYTES # (AUTO) 1.6 K/uL (0.0-1.0); MONOCYTES % (AUTO) 8.4 % (1.7-9.3); NEUTROPHILS # (AUTO) 13.8 K/uL (1.8-7.7); NEUTROPHILS % (AUTO) 73.9 % (40.0-70.0); PLATELET COUNT (AUTO) 382 K/uL (130-430); RED BLOOD CELL COUNT(AUTO) 2.71 MIL/uL (4.2-6.2); RED CELL DISTRIBUTION WIDTH 31.9 % (9.0-15.0); WHITE BLOOD COUNT (AUTO) 18.7 K/uL (4.8-10.8)
[2022-09-29] MEDS: PIPERACILLIN/TAZO 2.25G/DEX-IS 50 ML IV SCH ×3 (05:36→21:57)
[2022-09-29 05:48] LABS: CALCIUM 8.8 mg/dL (8.4-11.0); CREATININE 2.77 mg/dL (0.55-1.30)
[2022-09-29] MEDS: LEVOTHYROXINE SODIUM 0.15 MG TABLET PO SCH (06:17)
[2022-09-29] MEDS: MIDODRINE HCL 5 MG TABLET (PROAMATINE) GT SCH ×3 (06:17→21:01)
[2022-09-29] MEDS: SEVELAMER CARBONATE 800 MG TABLET GT SCH ×3 (06:18→21:01)
[2022-09-29] MEDS: NACL 0.9% 1,000 ML IV SCH (06:28)
[2022-09-29] MEDS: ASCORBIC ACID 500 MG TABLET GT SCH (09:18)
[2022-09-29] MEDS: CYANOCOBALAMIN (VITAMIN B-12) 1,000 MCG TABLET PO SCH (09:18)
[2022-09-29] MEDS: NEPHROVITE, (FOLIC ACID/VITAMIN B COMP W-C 1 TAB) PO SCH (09:18)
[2022-09-29] MEDS: DIVALPROEX SODIUM 125 MG CAP.(DEPAKOTE SPRINKLE) GT SCH ×2 (09:18→20:39)
[2022-09-29] MEDS: SODIUM BICARBONATE 650 MG TABLET GT SCH (09:18)
[2022-09-29] MEDS: EPOETIN ALFA 10,000 UNITS/ML VIAL SUBCUT SCH (09:18)
[2022-09-29] MEDS: CHOLECALCIFEROL (VITAMIN D3) 2,000 UNIT TABLET GT SCH (09:18)
[2022-09-29] MEDS: BALSAM PERU/CASTOR OIL 56.7 GM OINT...G. TP SCH (09:20)
[2022-09-29] MEDS ORDERED: AMIKACIN SULFATE 250 MG in D5W 100 ML IV ONE (13:00)
[2022-09-29] MEDS ORDERED: POTASSIUM CHLORIDE 20 MEQ/PKT PACKET PO ONE (15:30)
[2022-09-30] MEDS: INSULIN LISPRO SLIDING SCALE 100 UNITS/ML, 3 ML VIAL (humaLOG) SUBCUT PRN ×4 (01:20→20:57)
[2022-09-30 01:26] VITALS: BP_SYST 119
[2022-09-30 02:44] VITALS: BP_SYST 113
[2022-09-30 05:23] LABS: BASOPHILS # (AUTO) 0.1 K/uL (0.0-0.2); BASOPHILS % (AUTO) 0.6 % (0.0-2.0); EOSINOPHILS # (AUTO) 0.7 K/uL (0.0-0.4); EOSINOPHILS % (AUTO) 3.7 % (0.0-4.0); HEMATOCRIT 23.7 % (36-54); HEMOGLOBIN 7.4 g/dL (14.0-18.0); LYMPHOCYTES # (AUTO) 2.5 K/uL (1.0-5.5); LYMPHOCYTES % (AUTO) 14.3 % (20.5-51.5); MEAN CORPUSCULAR HEMOGLOBIN 29 pg (27-31); MEAN CORPUSCULAR HGB CONC 31 % (32-36); MEAN CORPUSCULAR VOLUME 91 fL (79.0-98.0); MONOCYTES # (AUTO) 1.6 K/uL (0.0-1.0); MONOCYTES % (AUTO) 9.2 % (1.7-9.3); NEUTROPHILS # (AUTO) 12.7 K/uL (1.8-7.7); NEUTROPHILS % (AUTO) 72.2 % (40.0-70.0); PLATELET COUNT (AUTO) 374 K/uL (130-430); RED CELL DISTRIBUTION WIDTH 31.7 % (9.0-15.0); WHITE BLOOD COUNT (AUTO) 17.6 K/uL (4.8-10.8)
[2022-09-30 05:41] LABS: CALCIUM 9.4 mg/dL (8.4-11.0); CREATININE 2.46 mg/dL (0.55-1.30)
[2022-09-30] MEDS: SEVELAMER CARBONATE 800 MG TABLET GT SCH ×3 (06:03→22:15)
[2022-09-30] MEDS: LEVOTHYROXINE SODIUM 0.15 MG TABLET PO SCH (06:03)
[2022-09-30] MEDS: MIDODRINE HCL 5 MG TABLET (PROAMATINE) GT SCH ×3 (06:03→22:15)
[2022-09-30] MEDS: PIPERACILLIN/TAZO 2.25G/DEX-IS 50 ML IV SCH ×3 (06:23→21:50)
[2022-09-30] MEDS: CHOLECALCIFEROL (VITAMIN D3) 2,000 UNIT TABLET GT SCH (09:19)
[2022-09-30] MEDS: CYANOCOBALAMIN (VITAMIN B-12) 1,000 MCG TABLET PO SCH (09:20)
[2022-09-30] MEDS: DIVALPROEX SODIUM 125 MG CAP.(DEPAKOTE SPRINKLE) GT SCH ×2 (09:20→21:32)
[2022-09-30] MEDS: ASCORBIC ACID 500 MG TABLET GT SCH (09:20)
[2022-09-30] MEDS: NEPHROVITE, (FOLIC ACID/VITAMIN B COMP W-C 1 TAB) PO SCH (09:20)
[2022-09-30] MEDS: BALSAM PERU/CASTOR OIL 56.7 GM OINT...G. TP SCH (09:21)
[2022-09-30 10:58] VITALS: BP_SYST 119
[2022-09-30 16:15] VITALS: BP_SYST 108
[2022-09-30 20:00] VITALS: BP_SYST 97
[2022-10-01 01:26] VITALS: BP_SYST 123
[2022-10-01 05:37] LABS: BASOPHILS # (AUTO) 0.1 K/uL (0.0-0.2); BASOPHILS % (AUTO) 0.6 % (0.0-2.0); HEMATOCRIT 23.4 % (36-54); HEMOGLOBIN 7.2 g/dL (14.0-18.0); LYMPHOCYTES # (AUTO) 2.4 K/uL (1.0-5.5); LYMPHOCYTES % (AUTO) 14.3 % (20.5-51.5); MEAN CORPUSCULAR HEMOGLOBIN 28 pg (27-31); MEAN CORPUSCULAR HGB CONC 31 % (32-36); MEAN CORPUSCULAR VOLUME 92 fL (79.0-98.0); MONOCYTES # (AUTO) 1.4 K/uL (0.0-1.0); MONOCYTES % (AUTO) 8.5 % (1.7-9.3); NEUTROPHILS # (AUTO) 11.8 K/uL (1.8-7.7); NEUTROPHILS % (AUTO) 70.6 % (40.0-70.0); PLATELET COUNT (AUTO) 355 K/uL (130-430); RED BLOOD CELL COUNT(AUTO) 2.53 MIL/uL (4.2-6.2); WHITE BLOOD COUNT (AUTO) 16.8 K/uL (4.8-10.8)
[2022-10-01] MEDS: SEVELAMER CARBONATE 800 MG TABLET GT SCH ×3 (05:55→20:42)
[2022-10-01] MEDS: MIDODRINE HCL 5 MG TABLET (PROAMATINE) GT SCH ×3 (05:55→20:42)
[2022-10-01 06:26] LABS: CALCIUM 10.1 mg/dL (8.4-11.0); CREATININE 3.33 mg/dL (0.55-1.30)
[2022-10-01] MEDS: LEVOTHYROXINE SODIUM 0.15 MG TABLET PO SCH (06:36)
[2022-10-01] MEDS: INSULIN LISPRO SLIDING SCALE 100 UNITS/ML, 3 ML VIAL (humaLOG) SUBCUT PRN ×3 (06:51→19:46)
[2022-10-01] MEDS: PIPERACILLIN/TAZO 2.25G/DEX-IS 50 ML IV SCH ×3 (06:58→20:42)
[2022-10-01 08:10] VITALS: BP_SYST 116
[2022-10-01 11:36] VITALS: BP_SYST 127
[2022-10-01 11:39] VITALS: BP_SYST 127
[2022-10-01] MEDS: CYANOCOBALAMIN (VITAMIN B-12) 1,000 MCG TABLET PO SCH (12:06)
[2022-10-01] MEDS: ASCORBIC ACID 500 MG TABLET GT SCH (12:06)
[2022-10-01] MEDS: NEPHROVITE, (FOLIC ACID/VITAMIN B COMP W-C 1 TAB) PO SCH (12:06)
[2022-10-01] MEDS: CHOLECALCIFEROL (VITAMIN D3) 2,000 UNIT TABLET GT SCH (12:06)
[2022-10-01] MEDS: DIVALPROEX SODIUM 125 MG CAP.(DEPAKOTE SPRINKLE) GT SCH ×2 (12:06→20:42)
[2022-10-01] MEDS: EPOETIN ALFA 10,000 UNITS/ML VIAL SUBCUT SCH (12:07)
[2022-10-01] MEDS: BALSAM PERU/CASTOR OIL 56.7 GM OINT...G. TP SCH (12:09)
[2022-10-01 15:22] VITALS: BP_SYST 105
[2022-10-01 19:40] VITALS: BP_SYST 90
[2022-10-02] MEDS: INSULIN LISPRO SLIDING SCALE 100 UNITS/ML, 3 ML VIAL (humaLOG) SUBCUT PRN ×2 (00:29→12:11)
[2022-10-02 02:24] VITALS: BP_SYST 90
[2022-10-02] MEDS: PIPERACILLIN/TAZO 2.25G/DEX-IS 50 ML IV SCH ×3 (05:16→21:10)
[2022-10-02] MEDS: SEVELAMER CARBONATE 800 MG TABLET GT SCH ×3 (05:50→21:11)
[2022-10-02] MEDS: MIDODRINE HCL 5 MG TABLET (PROAMATINE) GT SCH ×3 (05:50→21:11)
[2022-10-02] MEDS: LEVOTHYROXINE SODIUM 0.15 MG TABLET PO SCH (06:01)
[2022-10-02 07:45] LABS: BASOPHILS # (AUTO) 0.1 K/uL (0.0-0.2); BASOPHILS % (AUTO) 0.8 % (0.0-2.0); EOSINOPHILS # (AUTO) 0.8 K/uL (0.0-0.4); EOSINOPHILS % (AUTO) 5.1 % (0.0-4.0); HEMATOCRIT 24.6 % (36-54); HEMOGLOBIN 7.7 g/dL (14.0-18.0); LYMPHOCYTES # (AUTO) 1.7 K/uL (1.0-5.5); LYMPHOCYTES % (AUTO) 10.7 % (20.5-51.5); MEAN CORPUSCULAR HEMOGLOBIN 29 pg (27-31); MEAN CORPUSCULAR HGB CONC 31 % (32-36); MEAN CORPUSCULAR VOLUME 92 fL (79.0-98.0); MONOCYTES # (AUTO) 1.6 K/uL (0.0-1.0); MONOCYTES % (AUTO) 10.3 % (1.7-9.3); NEUTROPHILS # (AUTO) 11.7 K/uL (1.8-7.7); NEUTROPHILS % (AUTO) 73.1 % (40.0-70.0); PLATELET COUNT (AUTO) 367 K/uL (130-430); RED BLOOD CELL COUNT(AUTO) 2.68 MIL/uL (4.2-6.2); RED CELL DISTRIBUTION WIDTH 31.1 % (9.0-15.0)
[2022-10-02 08:07] LABS: HEPATITIS A AB, IgM Negative (Negative); HEPATITIS B CORE AB, IgM Negative (Negative); HEPATITIS B SURFACE AG Negative (Negative)
[2022-10-02 08:08] LABS: CALCIUM 9.9 mg/dL (8.4-11.0); CREATININE 3.07 mg/dL (0.55-1.30); TOTAL BILIRUBIN 0.4 mg/dL (0.0-1.0)
[2022-10-02] MEDS: CHOLECALCIFEROL (VITAMIN D3) 2,000 UNIT TABLET GT SCH (10:24)
[2022-10-02] MEDS: ASCORBIC ACID 500 MG TABLET GT SCH (10:24)
[2022-10-02] MEDS: DIVALPROEX SODIUM 125 MG CAP.(DEPAKOTE SPRINKLE) GT SCH ×2 (10:24→21:11)
[2022-10-02] MEDS: BALSAM PERU/CASTOR OIL 56.7 GM OINT...G. TP SCH (10:25)
[2022-10-02] MEDS: NEPHROVITE, (FOLIC ACID/VITAMIN B COMP W-C 1 TAB) PO SCH (10:25)
[2022-10-02] MEDS: CYANOCOBALAMIN (VITAMIN B-12) 1,000 MCG TABLET PO SCH (10:25)
[2022-10-02 11:25] VITALS: BP_SYST 105
[2022-10-02 15:15] LABS: HEPATITIS C VIRUS AB Negative <0.8 s/co (0.0-0.7)
[2022-10-02 15:20] VITALS: BP_SYST 100
[2022-10-02 16:00] VITALS: BP_SYST 114
[2022-10-02 20:00] VITALS: BP_SYST 89
[2022-10-03] MEDS: INSULIN LISPRO SLIDING SCALE 100 UNITS/ML, 3 ML VIAL (humaLOG) SUBCUT PRN ×2 (00:23→05:26)
[2022-10-03 01:34] VITALS: BP_SYST 104
[2022-10-03] MEDS: MIDODRINE HCL 5 MG TABLET (PROAMATINE) GT SCH ×3 (05:20→22:05)
[2022-10-03] MEDS: SEVELAMER CARBONATE 800 MG TABLET GT SCH ×3 (05:20→22:05)
[2022-10-03] MEDS: LEVOTHYROXINE SODIUM 0.15 MG TABLET PO SCH (06:01)
[2022-10-03] MEDS: PIPERACILLIN/TAZO 2.25G/DEX-IS 50 ML IV SCH ×3 (08:53→22:05)
[2022-10-03] MEDS: ASCORBIC ACID 500 MG TABLET GT SCH (08:54)
[2022-10-03] MEDS: NEPHROVITE, (FOLIC ACID/VITAMIN B COMP W-C 1 TAB) PO SCH (08:54)
[2022-10-03] MEDS: CYANOCOBALAMIN (VITAMIN B-12) 1,000 MCG TABLET PO SCH (08:54)
[2022-10-03] MEDS: DIVALPROEX SODIUM 125 MG CAP.(DEPAKOTE SPRINKLE) GT SCH ×2 (08:54→22:04)
[2022-10-03] MEDS: CHOLECALCIFEROL (VITAMIN D3) 2,000 UNIT TABLET GT SCH (08:54)
[2022-10-03] MEDS: BALSAM PERU/CASTOR OIL 56.7 GM OINT...G. TP SCH (08:55)
[2022-10-03 12:00] VITALS: BP_SYST 101
[2022-10-03 16:57] VITALS: BP_SYST 102
[2022-10-03 19:00] VITALS: BP_SYST 101
[2022-10-03 20:00] VITALS: BP_SYST 101
[2022-10-04] VITALS: BP_SYST 120
[2022-10-04 05:34] LABS: BASOPHILS # (AUTO) 0.1 K/uL (0.0-0.2); BASOPHILS % (AUTO) 0.7 % (0.0-2.0); EOSINOPHILS # (AUTO) 0.4 K/uL (0.0-0.4); EOSINOPHILS % (AUTO) 2.1 % (0.0-4.0); HEMATOCRIT 24.3 % (36-54); HEMOGLOBIN 7.7 g/dL (14.0-18.0); LYMPHOCYTES # (AUTO) 2.3 K/uL (1.0-5.5); MEAN CORPUSCULAR HEMOGLOBIN 29 pg (27-31); MEAN CORPUSCULAR HGB CONC 32 % (32-36); MEAN CORPUSCULAR VOLUME 91 fL (79.0-98.0); MONOCYTES # (AUTO) 1.6 K/uL (0.0-1.0); MONOCYTES % (AUTO) 8.6 % (1.7-9.3); NEUTROPHILS # (AUTO) 13.7 K/uL (1.8-7.7); NEUTROPHILS % (AUTO) 75.6 % (40.0-70.0); PLATELET COUNT (AUTO) 420 K/uL (130-430); RED BLOOD CELL COUNT(AUTO) 2.68 MIL/uL (4.2-6.2); RED CELL DISTRIBUTION WIDTH 29.9 % (9.0-15.0); WHITE BLOOD COUNT (AUTO) 18.1 K/uL (4.8-10.8)
[2022-10-04 05:55] LABS: CALCIUM 9.7 mg/dL (8.4-11.0); CREATININE 4.58 mg/dL (0.55-1.30); TOTAL BILIRUBIN 0.5 mg/dL (0.0-1.0)
[2022-10-04] MEDS: MIDODRINE HCL 5 MG TABLET (PROAMATINE) GT SCH ×3 (06:29→21:03)
[2022-10-04] MEDS: SEVELAMER CARBONATE 800 MG TABLET GT SCH ×3 (06:30→21:04)
[2022-10-04] MEDS: PIPERACILLIN/TAZO 2.25G/DEX-IS 50 ML IV SCH ×3 (06:30→22:27)
[2022-10-04] MEDS: LEVOTHYROXINE SODIUM 0.15 MG TABLET PO SCH (06:31)
[2022-10-04] MEDS: NEPHROVITE, (FOLIC ACID/VITAMIN B COMP W-C 1 TAB) PO SCH (09:16)
[2022-10-04] MEDS: CYANOCOBALAMIN (VITAMIN B-12) 1,000 MCG TABLET PO SCH (09:16)
[2022-10-04] MEDS: ASCORBIC ACID 500 MG TABLET GT SCH (09:16)
[2022-10-04] MEDS: DIVALPROEX SODIUM 125 MG CAP.(DEPAKOTE SPRINKLE) GT SCH ×2 (09:16→21:05)
[2022-10-04] MEDS: CHOLECALCIFEROL (VITAMIN D3) 2,000 UNIT TABLET GT SCH (09:16)
[2022-10-04] MEDS: BALSAM PERU/CASTOR OIL 56.7 GM OINT...G. TP SCH (09:17)
[2022-10-04 11:30] VITALS: BP_SYST 93
[2022-10-04] MEDS: EPOETIN ALFA 10,000 UNITS/ML VIAL SUBCUT SCH (14:02)
[2022-10-04 18:35] VITALS: BP_SYST 96
[2022-10-04] MEDS: INSULIN LISPRO SLIDING SCALE 100 UNITS/ML, 3 ML VIAL (humaLOG) SUBCUT PRN (18:42)
[2022-10-04 20:00] VITALS: BP_SYST 85
[2022-10-05] VITALS: BP_SYST 101
[2022-10-05 05:24] LABS: BASOPHILS # (AUTO) 0.1 K/uL (0.0-0.2); EOSINOPHILS # (AUTO) 0.2 K/uL (0.0-0.4); EOSINOPHILS % (AUTO) 1.6 % (0.0-4.0); HEMATOCRIT 22.6 % (36-54); HEMOGLOBIN 7.1 g/dL (14.0-18.0); LYMPHOCYTES % (AUTO) 17.5 % (20.5-51.5); MEAN CORPUSCULAR HEMOGLOBIN 29 pg (27-31); MEAN CORPUSCULAR HGB CONC 32 % (32-36); MEAN CORPUSCULAR VOLUME 91 fL (79.0-98.0); MONOCYTES # (AUTO) 1.6 K/uL (0.0-1.0); MONOCYTES % (AUTO) 14.2 % (1.7-9.3); NEUTROPHILS # (AUTO) 7.6 K/uL (1.8-7.7); NEUTROPHILS % (AUTO) 65.7 % (40.0-70.0); PLATELET COUNT (AUTO) 412 K/uL (130-430); RED BLOOD CELL COUNT(AUTO) 2.48 MIL/uL (4.2-6.2); WHITE BLOOD COUNT (AUTO) 11.6 K/uL (4.8-10.8)
[2022-10-05 05:50] LABS: CALCIUM 9.4 mg/dL (8.4-11.0); CREATININE 3.31 mg/dL (0.55-1.30)
[2022-10-05] MEDS: MIDODRINE HCL 5 MG TABLET (PROAMATINE) GT SCH ×3 (06:21→21:46)
[2022-10-05] MEDS: LEVOTHYROXINE SODIUM 0.15 MG TABLET PO SCH (06:21)
[2022-10-05] MEDS: SEVELAMER CARBONATE 800 MG TABLET GT SCH ×3 (06:21→21:46)
[2022-10-05] MEDS: INSULIN LISPRO SLIDING SCALE 100 UNITS/ML, 3 ML VIAL (humaLOG) SUBCUT PRN ×4 (06:29→23:58)
[2022-10-05] MEDS: PIPERACILLIN/TAZO 2.25G/DEX-IS 50 ML IV SCH ×3 (06:34→22:17)
[2022-10-05] MEDS: NEPHROVITE, (FOLIC ACID/VITAMIN B COMP W-C 1 TAB) PO SCH (08:22)
[2022-10-05] MEDS: CHOLECALCIFEROL (VITAMIN D3) 2,000 UNIT TABLET GT SCH (08:22)
[2022-10-05] MEDS: CYANOCOBALAMIN (VITAMIN B-12) 1,000 MCG TABLET PO SCH (08:23)
[2022-10-05] MEDS: DIVALPROEX SODIUM 125 MG CAP.(DEPAKOTE SPRINKLE) GT SCH ×2 (08:23→21:46)
[2022-10-05] MEDS: ASCORBIC ACID 500 MG TABLET GT SCH (08:26)
[2022-10-05] MEDS: BALSAM PERU/CASTOR OIL 56.7 GM OINT...G. TP SCH (08:29)
[2022-10-05 11:49] VITALS: BP_SYST 90
[2022-10-05 15:50] VITALS: BP_SYST 96
[2022-10-05 20:07] VITALS: BP_SYST 95
[2022-10-06 01:46] VITALS: BP_SYST 137
[2022-10-06] MEDS: PIPERACILLIN/TAZO 2.25G/DEX-IS 50 ML IV SCH ×3 (05:10→22:18)
[2022-10-06 05:27] LABS: BASOPHILS # (AUTO) 0.1 K/uL (0.0-0.2); BASOPHILS % (AUTO) 0.8 % (0.0-2.0); EOSINOPHILS # (AUTO) 0.5 K/uL (0.0-0.4); EOSINOPHILS % (AUTO) 3.5 % (0.0-4.0); HEMATOCRIT 22.1 % (36-54); LYMPHOCYTES # (AUTO) 2.4 K/uL (1.0-5.5); LYMPHOCYTES % (AUTO) 17.4 % (20.5-51.5); MEAN CORPUSCULAR HEMOGLOBIN 29 pg (27-31); MEAN CORPUSCULAR HGB CONC 31 % (32-36); MEAN CORPUSCULAR VOLUME 92 fL (79.0-98.0); MONOCYTES # (AUTO) 1.6 K/uL (0.0-1.0); MONOCYTES % (AUTO) 11.7 % (1.7-9.3); NEUTROPHILS # (AUTO) 9.2 K/uL (1.8-7.7); NEUTROPHILS % (AUTO) 66.6 % (40.0-70.0); PLATELET COUNT (AUTO) 436 K/uL (130-430); RED CELL DISTRIBUTION WIDTH 29.4 % (9.0-15.0); WHITE BLOOD COUNT (AUTO) 13.9 K/uL (4.8-10.8)
[2022-10-06 05:49] LABS: CALCIUM 9.3 mg/dL (8.4-11.0); CREATININE 4.12 mg/dL (0.55-1.30)
[2022-10-06] MEDS: INSULIN LISPRO SLIDING SCALE 100 UNITS/ML, 3 ML VIAL (humaLOG) SUBCUT PRN (06:01)
[2022-10-06] MEDS: SEVELAMER CARBONATE 800 MG TABLET GT SCH ×3 (06:02→22:17)
[2022-10-06] MEDS: LEVOTHYROXINE SODIUM 0.15 MG TABLET PO SCH (06:02)
[2022-10-06] MEDS: MIDODRINE HCL 5 MG TABLET (PROAMATINE) GT SCH ×3 (06:02→22:17)
[2022-10-06 08:00] VITALS: BP_SYST 114
[2022-10-06 08:05] LABS: HEMOGLOBIN 6.9 g/dL (14.0-18.0)
[2022-10-06] MEDS: BALSAM PERU/CASTOR OIL 56.7 GM OINT...G. TP SCH (09:00)
[2022-10-06] MEDS ORDERED: AMIKACIN SULFATE 250 MG in D5W 100 ML IV PRN (09:15)
[2022-10-06 11:32] VITALS: BP_SYST 106
[2022-10-06] MEDS ORDERED: ALTEPLASE 2 MG VIAL MC ONE (12:45)
[2022-10-06] MEDS: DIVALPROEX SODIUM 125 MG CAP.(DEPAKOTE SPRINKLE) GT SCH ×2 (13:59→22:17)
[2022-10-06] MEDS: NEPHROVITE, (FOLIC ACID/VITAMIN B COMP W-C 1 TAB) PO SCH (14:00)
[2022-10-06] MEDS: ASCORBIC ACID 500 MG TABLET GT SCH (14:01)
[2022-10-06] MEDS: CHOLECALCIFEROL (VITAMIN D3) 2,000 UNIT TABLET GT SCH (14:01)
[2022-10-06] MEDS: CYANOCOBALAMIN (VITAMIN B-12) 1,000 MCG TABLET PO SCH (14:01)
[2022-10-06] MEDS: EPOETIN ALFA 10,000 UNITS/ML VIAL SUBCUT SCH (14:03)
[2022-10-06 15:40] VITALS: BP_SYST 119
[2022-10-06 16:00] VITALS: BP_SYST 119
[2022-10-06 21:55] VITALS: BP_SYST 118
[2022-10-07 01:47] VITALS: BP_SYST 120
[2022-10-07 05:15] LABS: BASOPHILS # (AUTO) 0.1 K/uL (0.0-0.2); BASOPHILS % (AUTO) 0.7 % (0.0-2.0); EOSINOPHILS # (AUTO) 0.6 K/uL (0.0-0.4); EOSINOPHILS % (AUTO) 4.7 % (0.0-4.0); HEMATOCRIT 26.5 % (36-54); HEMOGLOBIN 8.7 g/dL (14.0-18.0); LYMPHOCYTES # (AUTO) 2.1 K/uL (1.0-5.5); LYMPHOCYTES % (AUTO) 16.9 % (20.5-51.5); MEAN CORPUSCULAR HEMOGLOBIN 29 pg (27-31); MEAN CORPUSCULAR HGB CONC 33 % (32-36); MEAN CORPUSCULAR VOLUME 89 fL (79.0-98.0); MONOCYTES # (AUTO) 1.1 K/uL (0.0-1.0); MONOCYTES % (AUTO) 9.3 % (1.7-9.3); NEUTROPHILS # (AUTO) 8.5 K/uL (1.8-7.7); NEUTROPHILS % (AUTO) 68.4 % (40.0-70.0); PLATELET COUNT (AUTO) 396 K/uL (130-430); RED BLOOD CELL COUNT(AUTO) 2.97 MIL/uL (4.2-6.2); RED CELL DISTRIBUTION WIDTH 26.1 % (9.0-15.0); WHITE BLOOD COUNT (AUTO) 12.4 K/uL (4.8-10.8)
[2022-10-07 05:41] LABS: ALBUMIN 1.9 g/dL (3.4-4.8); CALCIUM 9.4 mg/dL (8.4-11.0); CREATININE 2.99 mg/dL (0.55-1.30); TOTAL BILIRUBIN 0.6 mg/dL (0.0-1.0)
[2022-10-07] MEDS: MIDODRINE HCL 5 MG TABLET (PROAMATINE) GT SCH ×3 (06:01→21:42)
[2022-10-07] MEDS: PIPERACILLIN/TAZO 2.25G/DEX-IS 50 ML IV SCH ×3 (06:01→21:42)
[2022-10-07] MEDS: LEVOTHYROXINE SODIUM 0.15 MG TABLET PO SCH (06:01)
[2022-10-07] MEDS: SEVELAMER CARBONATE 800 MG TABLET GT SCH ×3 (06:01→21:42)
[2022-10-07 07:48] VITALS: BP_SYST 116
[2022-10-07 08:53] VITALS: BP_SYST 116
[2022-10-07] MEDS: CYANOCOBALAMIN (VITAMIN B-12) 1,000 MCG TABLET PO SCH (08:54)
[2022-10-07] MEDS: CHOLECALCIFEROL (VITAMIN D3) 2,000 UNIT TABLET GT SCH (08:54)
[2022-10-07] MEDS: NEPHROVITE, (FOLIC ACID/VITAMIN B COMP W-C 1 TAB) PO SCH (08:54)
[2022-10-07] MEDS: DIVALPROEX SODIUM 125 MG CAP.(DEPAKOTE SPRINKLE) GT SCH ×2 (08:55→21:42)
[2022-10-07] MEDS: ASCORBIC ACID 500 MG TABLET GT SCH (08:55)
[2022-10-07] MEDS: BALSAM PERU/CASTOR OIL 56.7 GM OINT...G. TP SCH (09:02)
[2022-10-07] MEDS ORDERED: HEPARIN SODIUM,PORCINE 5,000 UNITS/ML VIAL MC ONE (10:00)
[2022-10-07] MEDS ORDERED: HEPARIN SODIUM,PORCINE 5,000 UNITS/ML VIAL ONE (10:01)
[2022-10-07 11:26] VITALS: BP_SYST 122
[2022-10-07 15:19] VITALS: BP_SYST 117
[2022-10-07] MEDS: INSULIN LISPRO SLIDING SCALE 100 UNITS/ML, 3 ML VIAL (humaLOG) SUBCUT PRN ×2 (17:34→23:56)
[2022-10-07 20:00] VITALS: BP_SYST 113
[2022-10-08] VITALS: BP_SYST 120
[2022-10-08 05:36] LABS: BASOPHILS # (AUTO) 0.1 K/uL (0.0-0.2); BASOPHILS % (AUTO) 0.6 % (0.0-2.0); EOSINOPHILS # (AUTO) 0.8 K/uL (0.0-0.4); EOSINOPHILS % (AUTO) 5.3 % (0.0-4.0); HEMATOCRIT 26.1 % (36-54); HEMOGLOBIN 8.4 g/dL (14.0-18.0); LYMPHOCYTES # (AUTO) 2.4 K/uL (1.0-5.5); LYMPHOCYTES % (AUTO) 16.6 % (20.5-51.5); MEAN CORPUSCULAR HEMOGLOBIN 29 pg (27-31); MEAN CORPUSCULAR HGB CONC 32 % (32-36); MEAN CORPUSCULAR VOLUME 90 fL (79.0-98.0); MONOCYTES # (AUTO) 1.6 K/uL (0.0-1.0); MONOCYTES % (AUTO) 10.8 % (1.7-9.3); NEUTROPHILS # (AUTO) 9.7 K/uL (1.8-7.7); NEUTROPHILS % (AUTO) 66.7 % (40.0-70.0); PLATELET COUNT (AUTO) 455 K/uL (130-430); RED CELL DISTRIBUTION WIDTH 25.6 % (9.0-15.0); WHITE BLOOD COUNT (AUTO) 14.6 K/uL (4.8-10.8)
[2022-10-08] MEDS: SEVELAMER CARBONATE 800 MG TABLET GT SCH ×3 (05:39→22:19)
[2022-10-08] MEDS: MIDODRINE HCL 5 MG TABLET (PROAMATINE) GT SCH ×3 (05:39→22:19)
[2022-10-08] MEDS: PIPERACILLIN/TAZO 2.25G/DEX-IS 50 ML IV SCH ×3 (05:40→22:19)
[2022-10-08] MEDS: INSULIN LISPRO SLIDING SCALE 100 UNITS/ML, 3 ML VIAL (humaLOG) SUBCUT PRN ×4 (05:41→23:50)
[2022-10-08 05:58] LABS: CALCIUM 9.8 mg/dL (8.4-11.0); CREATININE 3.82 mg/dL (0.55-1.30)
[2022-10-08] MEDS: LEVOTHYROXINE SODIUM 0.15 MG TABLET PO SCH (06:52)
[2022-10-08 07:56] VITALS: BP_SYST 131
[2022-10-08] MEDS: EPOETIN ALFA 10,000 UNITS/ML VIAL SUBCUT SCH (08:58)
[2022-10-08] MEDS: ASCORBIC ACID 500 MG TABLET GT SCH (08:59)
[2022-10-08] MEDS: CYANOCOBALAMIN (VITAMIN B-12) 1,000 MCG TABLET PO SCH (08:59)
[2022-10-08] MEDS: CHOLECALCIFEROL (VITAMIN D3) 2,000 UNIT TABLET GT SCH (08:59)
[2022-10-08] MEDS: NEPHROVITE, (FOLIC ACID/VITAMIN B COMP W-C 1 TAB) PO SCH (08:59)
[2022-10-08] MEDS: DIVALPROEX SODIUM 125 MG CAP.(DEPAKOTE SPRINKLE) GT SCH ×2 (08:59→22:18)
[2022-10-08] MEDS: BALSAM PERU/CASTOR OIL 56.7 GM OINT...G. TP SCH (09:00)
[2022-10-08 11:32] VITALS: BP_SYST 128
[2022-10-08] MEDS ORDERED: ALBUMIN HUMAN 25% 200 ML IV ONE (13:00)
[2022-10-08 15:20] VITALS: BP_SYST 95
[2022-10-08 20:25] VITALS: BP_SYST 115
[2022-10-09 00:44] VITALS: BP_SYST 125
[2022-10-09] MEDS: MIDODRINE HCL 5 MG TABLET (PROAMATINE) GT SCH ×3 (05:52→21:50)
[2022-10-09] MEDS: SEVELAMER CARBONATE 800 MG TABLET GT SCH ×3 (05:52→21:50)
[2022-10-09] MEDS: LEVOTHYROXINE SODIUM 0.15 MG TABLET PO SCH (05:52)
[2022-10-09] MEDS: PIPERACILLIN/TAZO 2.25G/DEX-IS 50 ML IV SCH ×3 (05:57→22:01)
[2022-10-09 08:15] VITALS: BP_SYST 126
[2022-10-09] MEDS: CHOLECALCIFEROL (VITAMIN D3) 2,000 UNIT TABLET GT SCH (09:18)
[2022-10-09] MEDS: ASCORBIC ACID 500 MG TABLET GT SCH (09:18)
[2022-10-09] MEDS: DIVALPROEX SODIUM 125 MG CAP.(DEPAKOTE SPRINKLE) GT SCH ×2 (09:18→20:45)
[2022-10-09] MEDS: NEPHROVITE, (FOLIC ACID/VITAMIN B COMP W-C 1 TAB) PO SCH (09:18)
[2022-10-09] MEDS: CYANOCOBALAMIN (VITAMIN B-12) 1,000 MCG TABLET PO SCH (09:19)
[2022-10-09] MEDS: BALSAM PERU/CASTOR OIL 56.7 GM OINT...G. TP SCH (09:21)
[2022-10-09 11:47] VITALS: BP_SYST 132
[2022-10-09] MEDS: INSULIN LISPRO SLIDING SCALE 100 UNITS/ML, 3 ML VIAL (humaLOG) SUBCUT PRN ×2 (11:52→17:34)
[2022-10-09 16:48] VITALS: BP_SYST 137
[2022-10-09 20:00] VITALS: BP_SYST 111
[2022-10-10] MEDS: INSULIN LISPRO SLIDING SCALE 100 UNITS/ML, 3 ML VIAL (humaLOG) SUBCUT PRN ×4 (00:23→19:02)
[2022-10-10 01:09] VITALS: BP_SYST 114
[2022-10-10] MEDS: PIPERACILLIN/TAZO 2.25G/DEX-IS 50 ML IV SCH ×3 (06:11→23:00)
[2022-10-10] MEDS: MIDODRINE HCL 5 MG TABLET (PROAMATINE) GT SCH ×3 (06:15→21:56)
[2022-10-10] MEDS: SEVELAMER CARBONATE 800 MG TABLET GT SCH ×3 (06:15→21:56)
[2022-10-10 06:52] LABS: BASOPHILS % (AUTO) 0.2 % (0.0-2.0); EOSINOPHILS # (AUTO) 0.8 K/uL (0.0-0.4); HEMATOCRIT 26.8 % (36-54); HEMOGLOBIN 8.4 g/dL (14.0-18.0); LYMPHOCYTES # (AUTO) 2.4 K/uL (1.0-5.5); LYMPHOCYTES % (AUTO) 16.1 % (20.5-51.5); MEAN CORPUSCULAR HEMOGLOBIN 28 pg (27-31); MEAN CORPUSCULAR HGB CONC 32 % (32-36); MEAN CORPUSCULAR VOLUME 90 fL (79.0-98.0); MONOCYTES # (AUTO) 1.2 K/uL (0.0-1.0); MONOCYTES % (AUTO) 8.2 % (1.7-9.3); NEUTROPHILS # (AUTO) 10.7 K/uL (1.8-7.7); NEUTROPHILS % (AUTO) 70.5 % (40.0-70.0); PLATELET COUNT (AUTO) 494 K/uL (130-430); RED BLOOD CELL COUNT(AUTO) 2.97 MIL/uL (4.2-6.2); RED CELL DISTRIBUTION WIDTH 25.1 % (9.0-15.0); WHITE BLOOD COUNT (AUTO) 15.2 K/uL (4.8-10.8)
[2022-10-10] MEDS: LEVOTHYROXINE SODIUM 0.15 MG TABLET PO SCH (06:58)
[2022-10-10 07:21] LABS: CALCIUM 9.9 mg/dL (8.4-11.0); CREATININE 3.62 mg/dL (0.55-1.30); PHOSPHORUS 6.9 mg/dL (2.7-4.5); TOTAL BILIRUBIN 0.4 mg/dL (0.0-1.0)
[2022-10-10 08:00] VITALS: BP_SYST 122
[2022-10-10] MEDS: CYANOCOBALAMIN (VITAMIN B-12) 1,000 MCG TABLET PO SCH (08:59)
[2022-10-10] MEDS: CHOLECALCIFEROL (VITAMIN D3) 2,000 UNIT TABLET GT SCH (08:59)
[2022-10-10] MEDS: NEPHROVITE, (FOLIC ACID/VITAMIN B COMP W-C 1 TAB) PO SCH (09:00)
[2022-10-10] MEDS: DIVALPROEX SODIUM 125 MG CAP.(DEPAKOTE SPRINKLE) GT SCH ×2 (09:00→21:57)
[2022-10-10] MEDS: ASCORBIC ACID 500 MG TABLET GT SCH (09:01)
[2022-10-10] MEDS: BALSAM PERU/CASTOR OIL 56.7 GM OINT...G. TP SCH (09:03)
[2022-10-10 11:26] VITALS: BP_SYST 106
[2022-10-10 16:00] VITALS: BP_SYST 119
[2022-10-10 20:00] VITALS: BP_SYST 114
[2022-10-11] MEDS: INSULIN LISPRO SLIDING SCALE 100 UNITS/ML, 3 ML VIAL (humaLOG) SUBCUT PRN ×4 (00:04→19:41)
[2022-10-11 02:20] VITALS: BP_SYST 128
[2022-10-11] MEDS: PIPERACILLIN/TAZO 2.25G/DEX-IS 50 ML IV SCH ×3 (05:15→21:48)
[2022-10-11 05:27] LABS: BASOPHILS # (AUTO) 0.1 K/uL (0.0-0.2); BASOPHILS % (AUTO) 0.5 % (0.0-2.0); EOSINOPHILS # (AUTO) 0.7 K/uL (0.0-0.4); EOSINOPHILS % (AUTO) 4.3 % (0.0-4.0); HEMATOCRIT 26.5 % (36-54); HEMOGLOBIN 8.5 g/dL (14.0-18.0); LYMPHOCYTES # (AUTO) 1.7 K/uL (1.0-5.5); LYMPHOCYTES % (AUTO) 10.9 % (20.5-51.5); MEAN CORPUSCULAR HEMOGLOBIN 29 pg (27-31); MEAN CORPUSCULAR HGB CONC 32 % (32-36); MEAN CORPUSCULAR VOLUME 90 fL (79.0-98.0); MONOCYTES # (AUTO) 1.2 K/uL (0.0-1.0); MONOCYTES % (AUTO) 7.8 % (1.7-9.3); NEUTROPHILS % (AUTO) 76.5 % (40.0-70.0); PLATELET COUNT (AUTO) 525 K/uL (130-430); RED BLOOD CELL COUNT(AUTO) 2.95 MIL/uL (4.2-6.2); RED CELL DISTRIBUTION WIDTH 24.7 % (9.0-15.0); WHITE BLOOD COUNT (AUTO) 15.6 K/uL (4.8-10.8)
[2022-10-11 05:59] LABS: ALBUMIN 1.9 g/dL (3.4-4.8); CALCIUM 10.4 mg/dL (8.4-11.0); CREATININE 4.22 mg/dL (0.55-1.30); TOTAL BILIRUBIN 0.4 mg/dL (0.0-1.0)
[2022-10-11] MEDS: LEVOTHYROXINE SODIUM 0.15 MG TABLET PO SCH (06:07)
[2022-10-11] MEDS: MIDODRINE HCL 5 MG TABLET (PROAMATINE) GT SCH ×3 (06:07→21:47)
[2022-10-11] MEDS: SEVELAMER CARBONATE 800 MG TABLET GT SCH ×3 (06:07→21:47)
[2022-10-11 08:25] VITALS: BP_SYST 128
[2022-10-11] MEDS: EPOETIN ALFA 10,000 UNITS/ML VIAL SUBCUT SCH (10:44)
[2022-10-11] MEDS: CHOLECALCIFEROL (VITAMIN D3) 2,000 UNIT TABLET GT SCH (10:44)
[2022-10-11] MEDS: DIVALPROEX SODIUM 125 MG CAP.(DEPAKOTE SPRINKLE) GT SCH ×2 (10:45→21:47)
[2022-10-11] MEDS: CYANOCOBALAMIN (VITAMIN B-12) 1,000 MCG TABLET PO SCH (10:45)
[2022-10-11] MEDS: ASCORBIC ACID 500 MG TABLET GT SCH (10:45)
[2022-10-11] MEDS: NEPHROVITE, (FOLIC ACID/VITAMIN B COMP W-C 1 TAB) PO SCH (10:45)
[2022-10-11] MEDS: BALSAM PERU/CASTOR OIL 56.7 GM OINT...G. TP SCH (10:46)
[2022-10-11] MEDS ORDERED: ALBUMIN HUMAN 25% 100 ML IV ONE (11:00)
[2022-10-11] MEDS ORDERED: HEPARIN SODIUM,PORCINE 5,000 UNITS/ML VIAL MC ONE (11:00)
[2022-10-11 11:48] VITALS: BP_SYST 129
[2022-10-11 15:33] VITALS: BP_SYST 113
[2022-10-11 20:00] VITALS: BP_SYST 109
[2022-10-12] MEDS: INSULIN LISPRO SLIDING SCALE 100 UNITS/ML, 3 ML VIAL (humaLOG) SUBCUT PRN ×3 (00:48→18:12)
[2022-10-12 00:49] VITALS: BP_SYST 118
[2022-10-12] MEDS: MIDODRINE HCL 5 MG TABLET (PROAMATINE) GT SCH ×3 (05:30→21:32)
[2022-10-12] MEDS: PIPERACILLIN/TAZO 2.25G/DEX-IS 50 ML IV SCH ×3 (05:31→21:32)
[2022-10-12] MEDS: SEVELAMER CARBONATE 800 MG TABLET GT SCH ×3 (05:46→21:32)
[2022-10-12] MEDS: LEVOTHYROXINE SODIUM 0.15 MG TABLET PO SCH (06:14)
[2022-10-12 08:00] VITALS: BP_SYST 102
[2022-10-12 08:36] LABS: BASOPHILS # (AUTO) 0.1 K/uL (0.0-0.2); EOSINOPHILS # (AUTO) 0.4 K/uL (0.0-0.4); HEMATOCRIT 23.3 % (36-54); HEMOGLOBIN 7.4 g/dL (14.0-18.0); LYMPHOCYTES # (AUTO) 1.6 K/uL (1.0-5.5); MEAN CORPUSCULAR HEMOGLOBIN 29 pg (27-31); MEAN CORPUSCULAR HGB CONC 32 % (32-36); MEAN CORPUSCULAR VOLUME 91 fL (79.0-98.0); MONOCYTES # (AUTO) 1.5 K/uL (0.0-1.0); MONOCYTES % (AUTO) 11.7 % (1.7-9.3); NEUTROPHILS % (AUTO) 71.3 % (40.0-70.0); PLATELET COUNT (AUTO) 511 K/uL (130-430); RED BLOOD CELL COUNT(AUTO) 2.57 MIL/uL (4.2-6.2); RED CELL DISTRIBUTION WIDTH 25.3 % (9.0-15.0); WHITE BLOOD COUNT (AUTO) 12.6 K/uL (4.8-10.8)
[2022-10-12 08:46] LABS: CALCIUM 9.8 mg/dL (8.4-11.0); CREATININE 3.35 mg/dL (0.55-1.30)
[2022-10-12] MEDS: CYANOCOBALAMIN (VITAMIN B-12) 1,000 MCG TABLET PO SCH (09:01)
[2022-10-12] MEDS: DIVALPROEX SODIUM 125 MG CAP.(DEPAKOTE SPRINKLE) GT SCH ×2 (09:02→21:32)
[2022-10-12] MEDS: CHOLECALCIFEROL (VITAMIN D3) 2,000 UNIT TABLET GT SCH (09:02)
[2022-10-12] MEDS: NEPHROVITE, (FOLIC ACID/VITAMIN B COMP W-C 1 TAB) PO SCH (09:02)
[2022-10-12] MEDS: ASCORBIC ACID 500 MG TABLET GT SCH (09:02)
[2022-10-12] MEDS: BALSAM PERU/CASTOR OIL 56.7 GM OINT...G. TP SCH (09:03)
[2022-10-12 11:28] VITALS: BP_SYST 109
[2022-10-12 15:12] VITALS: BP_SYST 109
[2022-10-12 20:02] VITALS: BP_SYST 111
[2022-10-13] MEDS: INSULIN LISPRO SLIDING SCALE 100 UNITS/ML, 3 ML VIAL (humaLOG) SUBCUT PRN ×3 (00:08→17:51)
[2022-10-13 00:48] VITALS: BP_SYST 111
[2022-10-13] MEDS: PIPERACILLIN/TAZO 2.25G/DEX-IS 50 ML IV SCH (05:43)
[2022-10-13] MEDS: SEVELAMER CARBONATE 800 MG TABLET GT SCH ×3 (05:54→22:44)
[2022-10-13] MEDS: MIDODRINE HCL 5 MG TABLET (PROAMATINE) GT SCH ×3 (05:54→22:43)
[2022-10-13] MEDS: LEVOTHYROXINE SODIUM 0.15 MG TABLET PO SCH (06:03)
[2022-10-13 08:00] VITALS: BP_SYST 100
[2022-10-13] MEDS: CYANOCOBALAMIN (VITAMIN B-12) 1,000 MCG TABLET PO SCH (09:43)
[2022-10-13] MEDS: ASCORBIC ACID 500 MG TABLET GT SCH (09:43)
[2022-10-13] MEDS: DIVALPROEX SODIUM 125 MG CAP.(DEPAKOTE SPRINKLE) GT SCH ×2 (09:43→22:44)
[2022-10-13] MEDS: NEPHROVITE, (FOLIC ACID/VITAMIN B COMP W-C 1 TAB) PO SCH (09:43)
[2022-10-13] MEDS: CHOLECALCIFEROL (VITAMIN D3) 2,000 UNIT TABLET GT SCH (09:43)
[2022-10-13] MEDS: BALSAM PERU/CASTOR OIL 56.7 GM OINT...G. TP SCH (09:44)
[2022-10-13 11:25] VITALS: BP_SYST 107
[2022-10-13] MEDS ORDERED: ALBUMIN HUMAN 25% 100 ML IV ONE (12:30)
[2022-10-13 13:18] LABS: BASOPHILS # (AUTO) 0.2 K/uL (0.0-0.2); BASOPHILS % (AUTO) 1.3 % (0.0-2.0); EOSINOPHILS # (AUTO) 0.2 K/uL (0.0-0.4); EOSINOPHILS % (AUTO) 1.2 % (0.0-4.0); HEMOGLOBIN 7.1 g/dL (14.0-18.0); LYMPHOCYTES # (AUTO) 2.2 K/uL (1.0-5.5); LYMPHOCYTES % (AUTO) 15.3 % (20.5-51.5); MEAN CORPUSCULAR HEMOGLOBIN 29 pg (27-31); MEAN CORPUSCULAR HGB CONC 33 % (32-36); MEAN CORPUSCULAR VOLUME 90 fL (79.0-98.0); MONOCYTES # (AUTO) 1.5 K/uL (0.0-1.0); MONOCYTES % (AUTO) 10.5 % (1.7-9.3); NEUTROPHILS # (AUTO) 10.1 K/uL (1.8-7.7); NEUTROPHILS % (AUTO) 71.7 % (40.0-70.0); PLATELET COUNT (AUTO) 506 K/uL (130-430); RED BLOOD CELL COUNT(AUTO) 2.42 MIL/uL (4.2-6.2); RED CELL DISTRIBUTION WIDTH 25.3 % (9.0-15.0); WHITE BLOOD COUNT (AUTO) 14.1 K/uL (4.8-10.8)
[2022-10-13 13:23] LABS: HEMATOCRIT 21.8 % (36-54)
[2022-10-13 15:12] VITALS: BP_SYST 90
[2022-10-13] MEDS: EPOETIN ALFA 10,000 UNITS/ML VIAL SUBCUT SCH (17:52)
[2022-10-13 20:00] VITALS: BP_SYST 117
[2022-10-14] MEDS: INSULIN LISPRO SLIDING SCALE 100 UNITS/ML, 3 ML VIAL (humaLOG) SUBCUT PRN ×3 (00:20→17:32)
[2022-10-14 00:24] VITALS: BP_SYST 121
[2022-10-14] MEDS: LEVOTHYROXINE SODIUM 0.15 MG TABLET PO SCH (06:29)
[2022-10-14] MEDS: MIDODRINE HCL 5 MG TABLET (PROAMATINE) GT SCH ×3 (06:30→22:39)
[2022-10-14] MEDS: SEVELAMER CARBONATE 800 MG TABLET GT SCH ×3 (06:30→22:39)
[2022-10-14 08:00] VITALS: BP_SYST 122
[2022-10-14 09:06] LABS: BASOPHILS # (AUTO) 0.1 K/uL (0.0-0.2); BASOPHILS % (AUTO) 0.8 % (0.0-2.0); EOSINOPHILS # (AUTO) 0.3 K/uL (0.0-0.4); EOSINOPHILS % (AUTO) 2.4 % (0.0-4.0); HEMATOCRIT 26.9 % (36-54); HEMOGLOBIN 8.8 g/dL (14.0-18.0); LYMPHOCYTES # (AUTO) 1.7 K/uL (1.0-5.5); LYMPHOCYTES % (AUTO) 13.8 % (20.5-51.5); MEAN CORPUSCULAR HEMOGLOBIN 29 pg (27-31); MEAN CORPUSCULAR HGB CONC 33 % (32-36); MEAN CORPUSCULAR VOLUME 89 fL (79.0-98.0); MONOCYTES # (AUTO) 1.6 K/uL (0.0-1.0); MONOCYTES % (AUTO) 12.7 % (1.7-9.3); NEUTROPHILS # (AUTO) 8.8 K/uL (1.8-7.7); NEUTROPHILS % (AUTO) 70.3 % (40.0-70.0); PLATELET COUNT (AUTO) 470 K/uL (130-430); RED BLOOD CELL COUNT(AUTO) 3.02 MIL/uL (4.2-6.2); RED CELL DISTRIBUTION WIDTH 22.9 % (9.0-15.0); WHITE BLOOD COUNT (AUTO) 12.6 K/uL (4.8-10.8)
[2022-10-14] MEDS: DIVALPROEX SODIUM 125 MG CAP.(DEPAKOTE SPRINKLE) GT SCH ×2 (09:31→22:39)
[2022-10-14] MEDS: ASCORBIC ACID 500 MG TABLET GT SCH (09:31)
[2022-10-14] MEDS: NEPHROVITE, (FOLIC ACID/VITAMIN B COMP W-C 1 TAB) PO SCH (09:31)
[2022-10-14] MEDS: CHOLECALCIFEROL (VITAMIN D3) 2,000 UNIT TABLET GT SCH (09:31)
[2022-10-14] MEDS: CYANOCOBALAMIN (VITAMIN B-12) 1,000 MCG TABLET PO SCH (09:31)
[2022-10-14] MEDS: BALSAM PERU/CASTOR OIL 56.7 GM OINT...G. TP SCH (09:32)
[2022-10-14 11:45] VITALS: BP_SYST 113
[2022-10-14 16:31] VITALS: BP_SYST 108
[2022-10-14 20:00] VITALS: BP_SYST 111
[2022-10-15 00:06] VITALS: BP_SYST 114
[2022-10-15] MEDS: INSULIN LISPRO SLIDING SCALE 100 UNITS/ML, 3 ML VIAL (humaLOG) SUBCUT PRN ×2 (00:59→12:16)
[2022-10-15 04:54] LABS: BASOPHILS # (AUTO) 0.1 K/uL (0.0-0.2); BASOPHILS % (AUTO) 0.8 % (0.0-2.0); EOSINOPHILS # (AUTO) 0.5 K/uL (0.0-0.4); EOSINOPHILS % (AUTO) 4.2 % (0.0-4.0); HEMATOCRIT 27.1 % (36-54); LYMPHOCYTES # (AUTO) 2.6 K/uL (1.0-5.5); LYMPHOCYTES % (AUTO) 21.3 % (20.5-51.5); MEAN CORPUSCULAR HEMOGLOBIN 30 pg (27-31); MEAN CORPUSCULAR HGB CONC 33 % (32-36); MEAN CORPUSCULAR VOLUME 89 fL (79.0-98.0); MONOCYTES # (AUTO) 1.5 K/uL (0.0-1.0); MONOCYTES % (AUTO) 12.4 % (1.7-9.3); NEUTROPHILS # (AUTO) 7.4 K/uL (1.8-7.7); NEUTROPHILS % (AUTO) 61.3 % (40.0-70.0); PLATELET COUNT (AUTO) 482 K/uL (130-430); RED BLOOD CELL COUNT(AUTO) 3.03 MIL/uL (4.2-6.2); RED CELL DISTRIBUTION WIDTH 22.2 % (9.0-15.0); WHITE BLOOD COUNT (AUTO) 12.2 K/uL (4.8-10.8)
[2022-10-15 05:05] LABS: CALCIUM 9.9 mg/dL (8.4-11.0); CREATININE 3.87 mg/dL (0.55-1.30)
[2022-10-15] MEDS: SEVELAMER CARBONATE 800 MG TABLET GT SCH ×3 (05:45→22:22)
[2022-10-15] MEDS: MIDODRINE HCL 5 MG TABLET (PROAMATINE) GT SCH ×3 (05:45→22:22)
[2022-10-15] MEDS: LEVOTHYROXINE SODIUM 0.15 MG TABLET PO SCH (06:56)
[2022-10-15 08:00] VITALS: BP_SYST 118
[2022-10-15] MEDS: DIVALPROEX SODIUM 125 MG CAP.(DEPAKOTE SPRINKLE) GT SCH ×2 (08:57→22:22)
[2022-10-15] MEDS: CYANOCOBALAMIN (VITAMIN B-12) 1,000 MCG TABLET PO SCH (08:57)
[2022-10-15] MEDS: ASCORBIC ACID 500 MG TABLET GT SCH (08:57)
[2022-10-15] MEDS: CHOLECALCIFEROL (VITAMIN D3) 2,000 UNIT TABLET GT SCH (08:57)
[2022-10-15] MEDS: NEPHROVITE, (FOLIC ACID/VITAMIN B COMP W-C 1 TAB) PO SCH (08:57)
[2022-10-15] MEDS: BALSAM PERU/CASTOR OIL 56.7 GM OINT...G. TP SCH (08:58)
[2022-10-15 11:34] VITALS: BP_SYST 131
[2022-10-15 17:34] VITALS: BP_SYST 131
[2022-10-15 20:00] VITALS: BP_SYST 110
[2022-10-15 20:21] VITALS: BP_SYST 110
== END 2022-10-15 23:55 | DRG 871 ==
LOC: SED 22:15 → STU 09-25 06:02 → SMU 09-28 16:54
PROVIDERS: ADMIT Internal Medicine; ATTEND Internal Medicine
PROC: 05JYXZZ Inspection of Upper Vein, External Approach (ICD-10-PCS; principal; 2022-09-26)
PROC: 02HV33Z Insertion of Infusion Device into Superior Vena Cava, Percutaneous Approach (ICD-10-PCS; 2022-09-26)
PROC: B548ZZA Ultrasonography of Superior Vena Cava, Guidance (ICD-10-PCS; 2022-09-26)
PROC: 5A1D70Z Performance of Urinary Filtration, Intermittent, Less than 6 Hours Per Day (ICD-10-PCS; 2022-09-26)
PROC: 5A1D70Z Performance of Urinary Filtration, Intermittent, Less than 6 Hours Per Day (ICD-10-PCS; 2022-09-27)
PROC: 5A1D70Z Performance of Urinary Filtration, Intermittent, Less than 6 Hours Per Day (ICD-10-PCS; 2022-09-29)
PROC: 5A1D70Z Performance of Urinary Filtration, Intermittent, Less than 6 Hours Per Day (ICD-10-PCS; 2022-10-01)
PROC: 0DHA7UZ Insertion of Feeding Device into Jejunum, Via Natural or Artificial Opening (ICD-10-PCS; 2022-10-02)
PROC: 5A1D70Z Performance of Urinary Filtration, Intermittent, Less than 6 Hours Per Day (ICD-10-PCS; 2022-10-04)
PROC: 5A1D70Z Performance of Urinary Filtration, Intermittent, Less than 6 Hours Per Day (ICD-10-PCS; 2022-10-06)
PROC: 02PYX3Z Removal of Infusion Device from Great Vessel, External Approach (ICD-10-PCS; 2022-10-07)
PROC: 02HV33Z Insertion of Infusion Device into Superior Vena Cava, Percutaneous Approach (ICD-10-PCS; 2022-10-07)
PROC: B548ZZA Ultrasonography of Superior Vena Cava, Guidance (ICD-10-PCS; 2022-10-07)
PROC: 5A1D70Z Performance of Urinary Filtration, Intermittent, Less than 6 Hours Per Day (ICD-10-PCS; 2022-10-08)
PROC: 5A1D70Z Performance of Urinary Filtration, Intermittent, Less than 6 Hours Per Day (ICD-10-PCS; 2022-10-11)
PROC: 30233N1 Transfusion of Nonautologous Red Blood Cells into Peripheral Vein, Percutaneous Approach (ICD-10-PCS; 2022-10-13)
PROC: 5A1D70Z Performance of Urinary Filtration, Intermittent, Less than 6 Hours Per Day (ICD-10-PCS; 2022-10-13)
PROC: 5A1D70Z Performance of Urinary Filtration, Intermittent, Less than 6 Hours Per Day (ICD-10-PCS; 2022-10-15)
DX: A41.9 Sepsis, unspecified organism (principal); E43 Unspecified severe protein-calorie malnutrition; J18.9 Pneumonia, unspecified organism; R53.2 Functional quadriplegia; J96.10 Chronic respiratory failure, unspecified whether with hypoxia or hypercapnia; N39.0 Urinary tract infection, site not specified; N18.5 Chronic kidney disease, stage 5; N17.9 Acute kidney failure, unspecified; E11.52 Type 2 diabetes mellitus with diabetic peripheral angiopathy with gangrene; I96 Gangrene, not elsewhere classified; E46 Unspecified protein-calorie malnutrition; R47.01 Aphasia; Z16.24 Resistance to multiple antibiotics; Z99.11 Dependence on respirator [ventilator] status; I13.2 Hypertensive heart and chronic kidney disease with heart failure and with stage 5 chronic kidney disease, or end stage renal disease; Z93.0 Tracheostomy status; Z20.822 Contact with and (suspected) exposure to COVID-19; I25.10 Atherosclerotic heart disease of native coronary artery without angina pectoris; E86.0 Dehydration; D63.8 Anemia in other chronic diseases classified elsewhere; F31.9 Bipolar disorder, unspecified; F03.90 Unspecified dementia, unspecified severity, without behavioral disturbance, psychotic disturbance, mood disturbance, and anxiety; R13.10 Dysphagia, unspecified; L89.899 Pressure ulcer of other site, unspecified stage; I50.9 Heart failure, unspecified; E11.22 Type 2 diabetes mellitus with diabetic chronic kidney disease; Z79.4 Long term (current) use of insulin; Z79.899 Other long term (current) drug therapy; Z74.01 Bed confinement status; Z86.73 Personal history of transient ischemic attack (TIA), and cerebral infarction without residual deficits; Z99.2 Dependence on renal dialysis
CPT/HCPCS: 36415; 71045; 74018; 76937; 80048; 80053; 80061; 80074; 80150; 81000; 83690; 83735; 83880; 84100; 84443; 84484; 85025; 85610-TC; 86480; 86803; 86886; 86900; 86901; 86920; 87040; 87070-TC; 87081; 87086; 87101; 87205-TC; 90935; 90937; 93005; 93306; 94640; 94760; 96361; 96365; 99285; G0378; J0278; J0696; J0885; J1644; J1815; J2543; J2997; J7030; J7040; J7050; J7060; J7120; J7613; P9021; P9046; Q9963